=== PATIENT | female | born 1975 | race African-American/Black ===

== ENCOUNTER → 2021-10-24 | Outpatient (CLI) | payer BC, SELFPAY ==
[2021-10-24 15:22] LABS: Absolute Lymphocyte Count 0.44 X10^3/uL (0.83-4.51); Absolute Neutrophil Count 1.9 X10^3/uL (2.0-7.7); Basophil# 0.06 X10^3/uL; Basophil% 2.1 % (0-1); Eosinophil# 0.04 X10^3/uL; Eosinophils% 1.4 % (0-5); Hemoglobin 13.6 g/dL (12.0-15.0); Lymphocyte # 0.44 X10^3/ul (0.83-4.51); Lymphocyte % 15.2 % (19-41); Mean Corp Hgb Conc 31.6 g/dL (32-36); Mean Corpuscular Hgb 28.6 pg (27.0-32.0); Mean Corpuscular Volume 90.5 fL (81-99); Mean Platelet Vol. 11.3 fl (6.2-12.0); Monocyte# 0.49 X10^3/uL; NRBC Flagged by Analyzer 0 % (0-5); Neutrophil # 1.86 X10^3/uL (2.7-7.7); Neutrophil % 64.3 % (47-70); POSITIVE DIFFERENTIAL YES; Platelet Count 379 K/mm3 (150-450); RBC Distribution Width CV 14.4 % (11.6-14.6); RBC Distribution Width SD 47.1 fl (35.1-43.9); Red Blood Count 4.75 M/mm3 (4.2-5.4); White Blood Count 2.9 K/mm3 (4.4-11.0)
[2021-10-24 15:25] LABS: Differential Indicated SCAN CRITERIA MET
[2021-10-24 15:50] LABS: Differential Comment SCANNED
[2021-10-24 16:05] LABS: AST(SGOT) 13 U/L (15-37); Alanine Aminotransfer ALT/SGPT 17 U/L (13-56); Alkaline Phosphatase 50 U/L (45-117); Anion Gap 5 (5-15); BUN 10 mg/dL (7-18); BUN/Creat Ratio 12.6 RATIO (10-20); Chloride 104 mmol/L (98-107); Creatinine, Serum 0.79 mg/dL (0.55-1.02); EST Glomerular Filtration Rate 83 mL/min (>60); Est Glom Filt Rate - Afr Amer 101 mL/min (>60); Globulin 4.1 g/dL (2.2-4.2); Glucose 78 mg/dL (74-106); Protein, Total 8.1 g/dL (6.4-8.2); Sodium Level 137 mmol/L (136-145)
[2021-10-26 10:27] LABS: Pathologist Review Reviewed
== END | disposition home or self-care (01) ==
LOC: BIMLAB 14:18
PROVIDERS: PCP Internal Medicine; Referring Provider Internal Medicine; Visit Provider Internal Medicine
DX: D64.9 Anemia, unspecified (principal)
CPT/HCPCS: 36415; 80053; 85025

== ENCOUNTER → 2021-11-02 | Outpatient (CLI) | payer BC, SELFPAY ==
[2021-11-02 15:22] LABS: Cholesterol 170 mg/dL (200); High Density Lipoprotein 65 mg/dL; Triglycerides 87 mg/dL; Very Low Density Lipoprotein 17 mg/dL (5-40)
== END | disposition home or self-care (01) ==
LOC: BIMLAB 14:07
PROVIDERS: PCP Internal Medicine; Referring Provider Internal Medicine; Visit Provider Internal Medicine
DX: Z00.00 Encounter for general adult medical examination without abnormal findings (principal)
CPT/HCPCS: 36415; 80061

== ENCOUNTER → 2021-11-06 | Outpatient (CLI) | payer BC, SELFPAY ==
--- NOTE | 2021-11-06 19:02 | US_ITS ---
EXAM: US PELVIS TRANSABDOMINAL, COMPLETE CLINICAL INDICATION: MassUS - Pelvic, Tvag TECHNIQUE: Transabdominal pelvic ultrasound was performed with grayscale and color Doppler imaging. This report was created using [employer] technology. COMPARISON: None. FINDINGS: UTERUS/CERVIX: Multifibroid uterus. Four of the largest fibroids are measured. At the superior aspect there is a hypoechoic heterogeneous fibroid that measures 7.5 x 7.5 x 7.0 cm. At the superior left aspect there is a heterogeneous fibroid measuring 5.2 x 4.4 x 4.5 cm. At the mid left aspect there is a 6.3 x 5.3 x 5.6 cm fibroid. At the mid aspect there is a 2.3 x 3.2 x 2.1 cm pedunculated fibroid. Endometrial complex is distended with echogenic structure with vascular flow, measuring 2.4 x 1.7 x 1.5 cm. Consider direct visualization as polyp or tumor are not excluded. Uterus measures 17.9 x 12.6 x 9.8 cm. Nabothian cysts of the cervix. No IUD identified. Anteverted. RIGHT OVARY: Right ovary is not visualized due to positioning or overlying bowel gas. LEFT OVARY: Left ovary is visualized with normal blood flow to it, measuring 4.5 x 2.7 x 1.8 cm. FREE FLUID: No free fluid in the pelvic cul-de-sac. No free significant free pelvic fluid. No adnexal masses. BLADDER: Debris noted within the bladder along with wall thickening. Bladder has a volume of 4 69 mL at the time of the examination. US/Pelvic (Non ) IMPRESSION: 1. Endometrial complex is distended with echogenic structure with vascular flow, measuring 2.4 x 1.7 x 1.5 cm. Consider direct visualization as polyp or tumor are not excluded. 2. Multi fibroid uterus. Electronically Signed: Stevan Garcia MD at 4:14 EDT ,
== END | disposition home or self-care (01) ==
LOC: US 19:02
PROVIDERS: PCP Internal Medicine; Visit Provider Internal Medicine
DX: R19.09 Other intra-abdominal and pelvic swelling, mass and lump (principal)
CPT/HCPCS: 76856

== ENCOUNTER → 2021-11-30 | Outpatient (CLI) | payer BC, SELFPAY | END | disposition home or self-care (01) | LOC: LABSPEC 12:28 | PROVIDERS: PCP Internal Medicine; Referring Provider Obstetrics & Gynecology; Visit Provider Obstetrics & Gynecology | DX: N89.8 Other specified noninflammatory disorders of vagina (principal) | CPT/HCPCS: 87070; 87205 ==

== ENCOUNTER → 2021-12-14 | Outpatient (CLI) | payer BC, SELFPAY ==
--- NOTE | 2021-12-14 11:54 | BI_ITS ---
MAMMOGRAPHY - BILATERAL SCREENING REASON FOR EXAM: Female, 46 years old. Routine annual screening examination. PERTINENT HISTORY: Non-contributory. TECHNIQUE: Digital bilateral breast baljit (3D mammographic acquisition) in the CC and MLO projections. 2-D mediolateral oblique (MLO) and craniocaudad (CC) views of both breasts were obtained. CAD: Full Field Digital Mammography with Computer Added Detection was performed. COMPARISON: Comparison is made with prior outside examination dated 12/13/2020. FINDINGS: Breast Composition: The breasts are heterogeneously dense, which may obscure small masses. There are no dominant masses or suspicious calcifications. No other significant abnormalities are identified. There has been no significant change since the prior study. BI/SCRN MAMM (CAD)W/BALJIT BILAT IMPRESSION: Stable bilateral screening mammogram. Yearly follow-up mammogram recommended. (A) ASSESSMENT CATEGORY: BIRADS Category 1: Negative. A letter regarding these results will be sent to the patient by the facility within 30 days. Approximately 10% of breast cancers are not detected by mammography. A normal mammogram should not delay biopsy of a clinically suspicious abnormality. [id number] Electronically Signed: Kedar Ca MD at 14:01 EDT ,
== END | disposition home or self-care (01) ==
PROVIDERS: PCP Internal Medicine; Visit Provider Internal Medicine
DX: Z12.31 Encounter for screening mammogram for malignant neoplasm of breast (principal)
CPT/HCPCS: 77063; 77067

== ENCOUNTER → 2022-02-22 | Outpatient (CLI) | payer BC, SELFPAY | END | disposition home or self-care (01) | LOC: LABSPEC 10:58 | PROVIDERS: PCP Internal Medicine; Referring Provider Physician Assistant; Visit Provider Physician Assistant | DX: R05.9 Cough, unspecified (principal) | CPT/HCPCS: 87635; U0003; U0005 ==

== ENCOUNTER → 2022-09-20 | Outpatient (CLI) | payer BC, SELFPAY ==
[2022-09-20 11:56] LABS: Absolute Lymphocyte Count 0.58 X10^3/uL (0.83-4.51); Absolute Neutrophil Count 2.1 X10^3/uL (2.0-7.7); Basophil# 0.07 X10^3/uL; Eosinophil# 0.07 X10^3/uL; Hematocrit 39.1 % (37-47); Hemoglobin 12.3 g/dL (12.0-15.0); Lymphocyte # 0.58 X10^3/ul (0.83-4.51); Lymphocyte % 16.4 % (19-41); Mean Corp Hgb Conc 31.5 g/dL (32-36); Mean Corpuscular Hgb 28.4 pg (27.0-32.0); Mean Corpuscular Volume 90.3 fL (81-99); Mean Platelet Vol. 9.8 fl (6.2-12.0); Monocyte# 0.71 X10^3/uL; Monocyte% 20.1 % (0-10); NRBC Flagged by Analyzer 0 % (0-5); Neutrophil % 59.2 % (47-70); POSITIVE DIFFERENTIAL YES; Platelet Count 386 K/mm3 (150-450); RBC Distribution Width CV 12.4 % (11.6-14.6); RBC Distribution Width SD 41.1 fl (35.1-43.9); Red Blood Count 4.33 M/mm3 (4.2-5.4); White Blood Count 3.5 K/mm3 (4.4-11.0)
[2022-09-20 11:57] LABS: Differential Indicated SCAN CRITERIA MET
[2022-09-20 13:10] LABS: Thyroid Stim Hormone (TSH) 2.07 uIU/mL (0.358-3.74)
[2022-09-21 14:21] LABS: Pathologist Review Reviewed
== END | disposition home or self-care (01) ==
LOC: PAVLAB 11:42
PROVIDERS: PCP Internal Medicine; Referring Provider Obstetrics & Gynecology; Visit Provider Obstetrics & Gynecology
DX: N92.0 Excessive and frequent menstruation with regular cycle (principal); D50.0 Iron deficiency anemia secondary to blood loss (chronic); D25.9 Leiomyoma of uterus, unspecified; Z13.29 Encounter for screening for other suspected endocrine disorder
CPT/HCPCS: 36415; 84443; 85025

== ENCOUNTER → 2022-10-22 | Outpatient (CLI) | payer BC, SELFPAY ==
[2022-10-22 13:55] LABS: Absolute Lymphocyte Count 0.55 X10^3/uL (0.83-4.51); Absolute Neutrophil Count 2.7 X10^3/uL (2.0-7.7); Basophil# 0.06 X10^3/uL; Basophil% 1.5 % (0-1); Eosinophil# 0.06 X10^3/uL; Eosinophils% 1.5 % (0-5); Hematocrit 37.2 % (37-47); Hemoglobin 11.6 g/dL (12.0-15.0); Lymphocyte # 0.55 X10^3/ul (0.83-4.51); Lymphocyte % 13.7 % (19-41); Mean Corp Hgb Conc 31.2 g/dL (32-36); Mean Corpuscular Hgb 28.5 pg (27.0-32.0); Mean Corpuscular Volume 91.4 fL (81-99); Mean Platelet Vol. 9.7 fl (6.2-12.0); Monocyte# 0.61 X10^3/uL; Monocyte% 15.2 % (0-10); NRBC Flagged by Analyzer 0 % (0-5); Neutrophil # 2.73 X10^3/uL (2.7-7.7); Neutrophil % 67.9 % (47-70); POSITIVE DIFFERENTIAL YES; Platelet Count 390 K/mm3 (150-450); RBC Distribution Width CV 12.4 % (11.6-14.6); RBC Distribution Width SD 41.1 fl (35.1-43.9); Red Blood Count 4.07 M/mm3 (4.2-5.4)
[2022-10-22 13:57] LABS: Differential Indicated SCAN CRITERIA MET
[2022-10-22 14:50] LABS: Differential Comment SCANNED
[2022-10-24 09:38] LABS: Pathologist Review Reviewed
== END | disposition home or self-care (01) ==
LOC: PAVLAB 13:12
PROVIDERS: PCP Internal Medicine; Referring Provider Obstetrics & Gynecology; Visit Provider Obstetrics & Gynecology
DX: D72.819 Decreased white blood cell count, unspecified (principal)
CPT/HCPCS: 36415; 85025

== ENCOUNTER → 2022-12-05 | Outpatient (CLI) | payer BC, SELFPAY ==
[2022-12-05 16:03] LABS: Absolute Lymphocyte Count 0.49 X10^3/uL (0.83-4.51); Basophil# 0.05 X10^3/uL; Basophil% 1.6 % (0-1); Eosinophil# 0.07 X10^3/uL; Eosinophils% 2.3 % (0-5); Hematocrit 36.6 % (37-47); Lymphocyte # 0.49 X10^3/ul (0.83-4.51); Lymphocyte % 15.8 % (19-41); Mean Corp Hgb Conc 30.1 g/dL (32-36); Mean Corpuscular Hgb 26.7 pg (27.0-32.0); Mean Corpuscular Volume 88.8 fL (81-99); Mean Platelet Vol. 10.6 fl (6.2-12.0); Monocyte# 0.47 X10^3/uL; Monocyte% 15.2 % (0-10); NRBC Flagged by Analyzer 0 % (0-5); Neutrophil # 2.01 X10^3/uL (2.7-7.7); Neutrophil % 64.8 % (47-70); POSITIVE DIFFERENTIAL YES; Platelet Count 433 K/mm3 (150-450); RBC Distribution Width CV 13.1 % (11.6-14.6); RBC Distribution Width SD 42.9 fl (35.1-43.9); Red Blood Count 4.12 M/mm3 (4.2-5.4); White Blood Count 3.1 K/mm3 (4.4-11.0)
[2022-12-05 16:17] LABS: Differential Indicated SCAN CRITERIA MET
[2022-12-05 16:26] LABS: ALB/GLOB Ratio 0.9 RATIO (0.9-2.4); AST(SGOT) 14 U/L (15-37); Alanine Aminotransfer ALT/SGPT 21 U/L (13-56); Albumin, Serum 3.7 g/dL (3.2-5.0); Alkaline Phosphatase 53 U/L (45-117); Anion Gap 5 (5-15); BUN 8 mg/dL (7-18); BUN/Creat Ratio 9.5 RATIO (10-20); Calcium,Total 8.7 mg/dL (8.5-10.1); Chloride 106 mmol/L (98-107); Cholesterol 177 mg/dL (200); Creatinine, Serum 0.84 mg/dL (0.55-1.02); EST Glomerular Filtration Rate 77 mL/min (>60); Est Glom Filt Rate - Afr Amer 94 mL/min (>60); Glucose 84 mg/dL (74-106); High Density Lipoprotein 76 mg/dL; Potassium 3.9 mmol/L (3.5-5.1); Protein, Total 7.7 g/dL (6.4-8.2); Sodium Level 136 mmol/L (136-145); Triglycerides 58 mg/dL; Very Low Density Lipoprotein 12 mg/dL (5-40)
[2022-12-05 16:54] LABS: Anisocytosis RARE; Hypochromasia RARE; Macrocytosis RARE; Platelet Estimate SLT INC (ADEQ); Red Cell Morphology N CHROM NORMAL (NORM C&C)
[2022-12-05 16:55] LABS: Ovalocyte RARE
[2022-12-07 09:36] LABS: Pathologist Review Reviewed
== END | disposition home or self-care (01) ==
LOC: BIMLAB 13:57
PROVIDERS: PCP Internal Medicine; Referring Provider Internal Medicine; Visit Provider Internal Medicine
DX: Z00.00 Encounter for general adult medical examination without abnormal findings (principal)
CPT/HCPCS: 36415; 80053; 80061; 85025

== ENCOUNTER → 2022-12-10 | Outpatient (CLI) | payer BC, SELFPAY ==
--- NOTE | 2022-12-10 13:07 | US_ITS ---
EXAM: US PELVIS TRANSABDOMINAL AND TRANSVAGINAL, COMPLETE CLINICAL INDICATION: heavy menses -- fibroid uterus TECHNIQUE: Transabdominal and transvaginal pelvic ultrasound was performed with grayscale and color Doppler imaging. Transvaginal imaging was used for better evaluation of the endometrium and adnexa. COMPARISON: No relevant prior studies available. FINDINGS: UTERUS/CERVIX: Multiple uterine fibroids. Largest is located at the right lateral aspect measuring 9.2 x 8.5 x 6.6 cm. On the left side the largest 2 fibroids each measuring up to to 5.4 cm and there is a pedunculated left-sided fibroid measuring up to 3.0 cm. Uterus overall measures 18.2 x 17.0 x 8. 7 cm with endometrial complex thickening to 4.5 mm. The nabothian cysts of the cervix. Both ovaries are normal with right ovary measuring 4.7 x 3.3 x 2.8 cm and the left ovary measuring 4.4 x 3.0 x 1.5 cm. RIGHT OVARY: Blood flow is demonstrated to both ovaries. No adnexal masses. LEFT OVARY: See above. FREE FLUID: No free fluid in the pelvic cul-de-sac. BLADDER: Unremarkable as visualized. Wall is normal thickness for degree of distention. VASCULATURE: There is a vascular nodule in the endometrial canal measuring 2.1 x 1.7 x 1.4 cm. US/Transvaginal Non- IMPRESSION: Fibroid uterus with 2.1 cm nodule within the endometrial canal which may represent a submucosal fibroid or endometrial polyp. Recommend direct visualization. Electronically Signed: Stevan Garcia MD at 4:35 EDT ,
--- NOTE | 2022-12-10 13:07 | US_ITS ---
EXAM: US PELVIS TRANSABDOMINAL AND TRANSVAGINAL, COMPLETE CLINICAL INDICATION: heavy menses -- fibroid uterus TECHNIQUE: Transabdominal and transvaginal pelvic ultrasound was performed with grayscale and color Doppler imaging. Transvaginal imaging was used for better evaluation of the endometrium and adnexa. COMPARISON: No relevant prior studies available. FINDINGS: UTERUS/CERVIX: Multiple uterine fibroids. Largest is located at the right lateral aspect measuring 9.2 x 8.5 x 6.6 cm. On the left side the largest 2 fibroids each measuring up to to 5.4 cm and there is a pedunculated left-sided fibroid measuring up to 3.0 cm. Uterus overall measures 18.2 x 17.0 x 8. 7 cm with endometrial complex thickening to 4.5 mm. The nabothian cysts of the cervix. Both ovaries are normal with right ovary measuring 4.7 x 3.3 x 2.8 cm and the left ovary measuring 4.4 x 3.0 x 1.5 cm. RIGHT OVARY: Blood flow is demonstrated to both ovaries. No adnexal masses. LEFT OVARY: See above. FREE FLUID: No free fluid in the pelvic cul-de-sac. BLADDER: Unremarkable as visualized. Wall is normal thickness for degree of distention. VASCULATURE: There is a vascular nodule in the endometrial canal measuring 2.1 x 1.7 x 1.4 cm. US/Pelvic (Non ) IMPRESSION: Fibroid uterus with 2.1 cm nodule within the endometrial canal which may represent a submucosal fibroid or endometrial polyp. Recommend direct visualization. Electronically Signed: Stevan Garcia MD at 4:35 EDT ,
== END | disposition home or self-care (01) ==
PROVIDERS: PCP Internal Medicine; Referring Provider Obstetrics & Gynecology; Visit Provider Obstetrics & Gynecology
DX: N92.0 Excessive and frequent menstruation with regular cycle (principal); D25.9 Leiomyoma of uterus, unspecified
CPT/HCPCS: 76830; 76856

== ENCOUNTER → 2022-12-19 | Outpatient (CLI) | payer BC, SELFPAY ==
--- NOTE | 2022-12-19 14:27 | BI_ITS ---
MAMMOGRAPHY - BILATERAL SCREENING REASON FOR EXAM: Female, 47 years old. Routine annual screening examination. PERTINENT HISTORY: Non-contributory. TECHNIQUE: Digital bilateral breast baljit (3D mammographic acquisition) in the CC and MLO projections. 2-D mediolateral oblique (MLO) and craniocaudad (CC) views of both breasts were obtained. CAD: Full Field Digital Mammography with Computer Added Detection was performed. COMPARISON: Comparison is made with prior examination December 14, 2021. FINDINGS: Breast Composition: The breasts are heterogeneously dense, which may obscure small masses. There are no dominant masses or suspicious calcifications. No other significant abnormalities are identified. There has been no significant change since the prior study. BI/SCRN MAMM (CAD)W/BALJIT BILAT IMPRESSION: Stable bilateral screening mammogram. Yearly follow-up mammogram recommended. (A) ASSESSMENT CATEGORY: BIRADS Category 1: Negative. A letter regarding these results will be sent to the patient by the facility within 30 days. Approximately 10% of breast cancers are not detected by mammography. A normal mammogram should not delay biopsy of a clinically suspicious abnormality. [id number] Electronically Signed: Kedar Ca MD at 15:05 EST ,
== END | disposition home or self-care (01) ==
LOC: OPBI 14:26
PROVIDERS: PCP Internal Medicine; Referring Provider Internal Medicine; Visit Provider Internal Medicine
DX: Z12.31 Encounter for screening mammogram for malignant neoplasm of breast (principal)
CPT/HCPCS: 77063; 77067

== ENCOUNTER → 2022-12-31 | Outpatient (CLI) | payer BC, SELFPAY ==
[2023-01-07 20:07] LABS: HPV APTIMA, High Risk Positive (Negative); HPV Genotype 16, Aptima Positive (Negative); HPV Genotype 18,45 Aptima Negative (Negative)
== END | disposition home or self-care (01) ==
PROVIDERS: PCP Internal Medicine; Visit Provider Obstetrics & Gynecology
DX: Z12.4 Encounter for screening for malignant neoplasm of cervix (principal)
CPT/HCPCS: 87624; 88175; G0145

== ENCOUNTER → 2023-03-11 | Outpatient (CLI) | payer BC, SELFPAY ==
--- NOTE | 2023-03-11 | IMM_PTH ---
PATHOLOGY RESULTS PATIENT: DUONG MARY LOC: [facility] U#:[id number] AGE/SX: 47/F ROOM: RE03/11/[address]: Dr. Felisha Martin DO : 1975 BED: DIS: 03/11/2023 SPEC #: [id number] RECD: 03/13/23 14:43 STATUS: REECE RELeighton #: [id number] FELA: 03/11/23 00:[address]: Felisha Martin DEPT: IMMUNOHISTOCHEMISTRY RECD BY: Davina Madden ENTERED: 03/13/23 14:44 SP TYPE: IMMUNO OTHR DR: Dr. Reymundo Mcadams MD Tissues: Uterine cervix, NOS Procedures: p16 (initial) KI-67 (add) PHYSICIAN & INSTITUTION [place] [id number] SPECIMEN INFORMATION: Tissue Source: A - Cervix 12 o'clock Clinical Info: HPV positive Specimen Number: [id number] CPT code: 74717, 16558 METHODOLOGY: Deparaffinized sections of prefer/formalin-fixed tissue or PAP/DQ stained slides are incubated with monoclonal/polyclonal antibodies/oligonucleotide probes. Localization is made via biotin free immunoperoxidase method. Appropriate controls are performed and reacted as expected. Results on target cell population are indicated in the following table: RESULTS: ANTIBODY / CLONE RESULT Block A P16 (E6H4) negative Ki-67 (30-9) negative These tests were developed and their performance characteristics determined by [facility]. They may not have been cleared or approved by the U.S. Food and Drug Administration. The FDA has determined that such clearance or approval is not necessary. The above immunohistochemical/dualISH markers are ordered and reviewed by the Pathologist. INTERPRETATION: A. Cervix at 12 o'clock, biopsy: No evidence of dysplasia. AM:sharmaine 03/14/2023
--- NOTE | 2023-03-11 14:15 | CER_PTH ---
PATHOLOGY RESULTS PATIENT: DUONG MARY LOC: [facility] U#:[id number] AGE/SX: 47/F ROOM: RE03/11/[address]: Dr. Felisha Martin DO : 1975 BED: DIS: 03/11/2023 SPEC #: [id number] RECD: 03/11/23 15:21 STATUS: REECE COREY #: [id number] FELA: 03/11/23 14:[address]: Felisha Martin DEPT: SURGICAL PATHOLOGY RECD BY: Nicole Castillo ENTERED: 03/12/23 11:48 SP TYPE: CERV OTHR DR: Dr. Reymundo Mcadams MD Tissues: Uterine cervix, NOS Endocervical Procedures: Surgery Specimen Level IV HEADER OPERATION: Colposcopy PRE-OP DIAGNOSIS: HPV positive TISSUE SUBMITTED: A - 12 o'clock, B - ECC MICROSCOPIC DIAGNOSIS A. Cervix at 12 o'clock, biopsy: Fragments of benign squamous mucosa. Fragments of endocervix with chronic inflammation. See comment. B. Endocervix, curettings: Rare strips of benign superficial glandular mucosa. See comment. AM:sharmaine 03/13/2023 COMMENT A. Results from immunohistochemistry ([id number]) for surrogate HPV marker (p16) will be reported separately. B. The specimen primarily consists of mucoid material. Clinical correlation is suggested. Case has been reviewed in consultation with Dr. Lyons who concurs with the above diagnosis. IDC:[email or web address] MICROSCOPIC DESCRIPTION Slides are reviewed. GROSS DESCRIPTION A - Received in fixative is one container labeled with the patient's name and designated 12 o'clock cervix. The specimen consists of one irregular fragment of light lopez soft tissue that measures 0.5 x 0.4 x 0.1 cm. The specimen is totally submitted in one cassette. B - Received in fixative is one container labeled with the patient's name and designated ECC. The specimen consists of multiple irregular fragments of lopez mucoid tissue that in aggregate measure 2.0 x 1.0 x 0.1 cm. The specimen also contains the brush. The specimen is totally submitted in one cassette. / THIERRY:sharmaine 03/12/2023 TC:3 CPT: 95788 x2
--- OUTSIDE RECORDS SUMMARY | 2023-03-11 15:40 | XMS RPT_ITS | CCD ---
Author Name Unknown Address [address] [place] [address] Organization [facility] Care Team Providers Care Medical Technologist Name Role Phone NEIL AMADO Attending Unavailable Problems Problem Classification Problem Date Documented Da te Episodic/Chronic Other female genital disorders (2 sources) Vaginal discharge; Translations: [Vaginal Discharge] Onset: 12-28-2021 Episodic Unclassified (2 sources) Annual Exam; Translations: [Annual Exam] Onset: 12-28-2021 Encounters Encounter Date Encounter Type Care Provider Facility Start: 12-28-2021 End: 12-28-2021 ambulatory NEIL AMADO [facility] Payers Date Payer Category Payer Unknown [id number] Summary Purpose Family History No Family History Records Found Advance Directives No Advanced Directives Records Found Additional Source Comments INFORMATION SOURCE (unrecogn ized section and content) FOR RECORDS PERTAINING TO PATIENTS WHO ARE OR HAVE BEEN ENROLLED IN A CHEMICAL DEPENDENCY/SUBSTANCEABUSE PROGRAM, SOME INFORMATION MAY BE OMITTED. This clinical summary was aggregated from multiple sources. Caution should be exercised in using it in the provision of clinical care. This summary normalizes information from multiple sources, and as a consequence, information in this document may materially change the coding, format and clinical context of patient data. In addition, data may be omitted in some cases. CLINICAL DECISIONS SHOULD BE BASED ON THE PRIMARY CLINICAL RECORDS. [email or web address] [facility]. provides no warranty or guarantee of the accuracy or completeness of information in this document.
== END | disposition home or self-care (01) ==
LOC: LABSPEC 15:23
PROVIDERS: PCP Internal Medicine; Referring Provider Obstetrics & Gynecology; Visit Provider Obstetrics & Gynecology
DX: Z11.51 Encounter for screening for human papillomavirus (HPV) (principal)
CPT/HCPCS: 88305; 88341; 88342

== ENCOUNTER → 2024-01-03 | Outpatient (CLI) | payer BC, SELFPAY ==
[2024-01-15 11:09] LABS: HPV APTIMA, High Risk Negative (Negative)
== END | disposition home or self-care (01) ==
LOC: LABSPEC 16:38
PROVIDERS: PCP Internal Medicine; Referring Provider Obstetrics & Gynecology; Visit Provider Obstetrics & Gynecology
DX: Z12.4 Encounter for screening for malignant neoplasm of cervix (principal)
CPT/HCPCS: 87624; 88175; G0145

== ENCOUNTER → 2024-01-15 | Outpatient (CLI) | payer BC, SELFPAY ==
[2024-01-15 16:32] LABS: Absolute Lymphocyte Count 0.58 X10^3/uL (0.83-4.51); Absolute Neutrophil Count 1.3 X10^3/uL (2.0-7.7); Basophil# 0.06 X10^3/uL; Basophil% 2.4 % (0-1); Eosinophil# 0.07 X10^3/uL; Eosinophils% 2.8 % (0-5); Hematocrit 24.1 % (37-47); Hemoglobin 6.8 g/dL (12.0-15.0); Lymphocyte # 0.58 X10^3/ul (0.83-4.51); Lymphocyte % 23.4 % (19-41); Mean Corp Hgb Conc 28.2 g/dL (32-36); Mean Corpuscular Volume 67.5 fL (81-99); Mean Platelet Vol. 10.5 fl (6.2-12.0); Monocyte# 0.47 X10^3/uL; NRBC Flagged by Analyzer 0 % (0-5); Neutrophil # 1.29 X10^3/uL (2.7-7.7); POSITIVE COUNT YES; POSITIVE DIFFERENTIAL YES; POSITIVE MORPHOLOGY YES; RBC Distribution Width CV 21.7 % (11.6-14.6); Red Blood Count 3.57 M/mm3 (4.2-5.4); White Blood Count 2.5 K/mm3 (4.4-11.0)
[2024-01-15 16:50] LABS: Differential Indicated SCAN CRITERIA MET; Platelet Count 772 K/mm3 (150-450)
[2024-01-15 17:00] LABS: ALB/GLOB Ratio 0.9 RATIO (0.9-2.4); AST(SGOT) 14 U/L (15-37); Alanine Aminotransfer ALT/SGPT 17 U/L (13-56); Albumin, Serum 3.6 g/dL (3.2-5.0); Alkaline Phosphatase 36 U/L (45-117); Anion Gap 7 (5-15); BUN 15 mg/dL (7-18); BUN/Creat Ratio 17.4 RATIO (10-20); Calcium,Total 9.3 mg/dL (8.5-10.1); Chloride 105 mmol/L (98-107); Creatinine, Serum 0.86 mg/dL (0.55-1.02); EST Glomerular Filtration Rate 75 mL/min (>60); Est Glom Filt Rate - Afr Amer 91 mL/min (>60); Ferritin 4 ng/mL (8-252); Glucose 92 mg/dL (74-106); Iron 9 ug/dL (50-170); Iron Binding Capacity,Total 484 ug/dL (250-450); Potassium 3.7 mmol/L (3.5-5.1); Protein, Total 7.6 g/dL (6.4-8.2); Sodium Level 137 mmol/L (136-145)
[2024-01-15 17:07] LABS: Platelet Estimate MKD INC (ADEQ)
[2024-01-15 17:08] LABS: Anisocytosis 2+; Hypochromasia 3+; Ovalocyte RARE; Stomatocyte RARE; Target Cells RARE; Tear Drop Cell RARE
[2024-01-16 14:43] LABS: Pathologist Review Reviewed
== END | disposition home or self-care (01) ==
LOC: BIMLAB 15:40
PROVIDERS: PCP Internal Medicine; Referring Provider Internal Medicine; Visit Provider Internal Medicine
DX: D64.9 Anemia, unspecified (principal)
CPT/HCPCS: 36415; 80053; 82728; 83540; 83550; 85025

== ENCOUNTER 2024-01-17 08:09 | Outpatient (CLI) | payer BC, SELFPAY ==
[2024-01-17 08:18] VITALS: BP 118/72; PULSE 100; RESP 16; TEMP 35.9; O2SAT 100; BMI 23.4
[2024-01-17 09:01] VITALS: BP 110/67; PULSE 88; RESP 16; TEMP 36; O2SAT 100
[2024-01-17 10:01] VITALS: BP 112/64; PULSE 79; RESP 16; TEMP 36.1; O2SAT 100
[2024-01-17 11:15] VITALS: BP 113/69; PULSE 69; RESP 14; TEMP 36.2; O2SAT 97
[2024-01-17 12:15] VITALS: BP 124/77; PULSE 82; RESP 16; TEMP 36.1; O2SAT 98
[2024-01-17 12:52] VITALS: BP 122/75; PULSE 80; RESP 16; TEMP 36.2; O2SAT 98
== END 2024-01-17 23:59 | disposition home or self-care (01) ==
LOC: MEDOUTP 08:09
PROVIDERS: PCP Internal Medicine; Referring Provider Internal Medicine; Visit Provider Internal Medicine
DX: D64.9 Anemia, unspecified (principal); D75.839 Thrombocytosis, unspecified
CPT/HCPCS: 36415; 36430; 86850; 86900; 86901; 86920; 86922; P9016; A4216

== ENCOUNTER 2024-01-22 08:45 | Outpatient (CLI) | payer BC, SELFPAY ==
[2024-01-22] MEDS: Iron Sucrose Complex 200 MG in Syringe 1 EACH IV (09:00)
[2024-01-22] MEDS: 0.9% NaCl Peripheral Flush Adult/Peds IV ×2 (09:10→09:11)
[2024-01-22 09:12] VITALS: BP 124/81; PULSE 77; RESP 14; O2SAT 100; BMI 24.1
[2024-01-22 09:42] VITALS: BP 102/75; PULSE 71; RESP 16; TEMP 36.3; O2SAT 100
== END 2024-01-22 23:59 | disposition home or self-care (01) ==
LOC: MEDOUTP 08:45
PROVIDERS: PCP Internal Medicine; Referring Provider Internal Medicine; Visit Provider Internal Medicine
DX: D64.9 Anemia, unspecified (principal); D75.839 Thrombocytosis, unspecified
CPT/HCPCS: 96374; J1756; A4216

== ENCOUNTER → 2024-01-22 | Outpatient (CLI) | payer BC, SELFPAY ==
--- NOTE | 2024-01-22 09:47 | BI_ITS ---
MAMMOGRAPHY - BILATERAL SCREENING REASON FOR EXAM: Female, 48 years old. Routine annual screening examination. PERTINENT HISTORY: Non-contributory. TECHNIQUE: Digital bilateral breast baljit (3D mammographic acquisition) in the CC and MLO projections. 2-D mediolateral oblique (MLO) and craniocaudad (CC) views of both breasts were obtained. CAD: Full Field Digital Mammography with Computer Added Detection was performed. COMPARISON: Comparison is made with prior study dated December 19, 2022 and December 14, 2021. FINDINGS: Breast Composition: The breasts are heterogeneously dense, which may obscure small masses. There are no dominant masses or suspicious calcifications. No other significant abnormalities are identified. There has been no significant change since the prior study. BI/SCRN MAMM (CAD)W/BALJIT BILAT IMPRESSION: Stable bilateral screening mammogram. Yearly follow-up mammogram recommended. (A) ASSESSMENT CATEGORY: BIRADS Category 1: Negative. A letter regarding these results will be sent to the patient by the facility within 30 days. Approximately 10% of breast cancers are not detected by mammography. A normal mammogram should not delay biopsy of a clinically suspicious abnormality. [id number] Electronically Signed: Kedar Ca MD at 11:12 EST ,
== END | disposition home or self-care (01) ==
LOC: OPBI 09:47
PROVIDERS: PCP Internal Medicine; Referring Provider Obstetrics & Gynecology; Visit Provider Obstetrics & Gynecology
DX: Z12.31 Encounter for screening mammogram for malignant neoplasm of breast (principal)
CPT/HCPCS: 77063; 77067

== ENCOUNTER 2024-01-24 08:31 | Outpatient (CLI) | payer BC, SELFPAY ==
[2024-01-24 08:51] VITALS: BP 116/80; PULSE 72; RESP 14; TEMP 36.1; O2SAT 100
[2024-01-24] MEDS: Iron Sucrose Complex 200 MG in Syringe 1 EACH IV (09:13)
[2024-01-24] MEDS: 0.9% NaCl Peripheral Flush Adult/Peds IV ×2 (09:13→09:24)
== END 2024-01-24 23:59 | disposition home or self-care (01) ==
LOC: MEDOUTP 08:31
PROVIDERS: PCP Internal Medicine; Referring Provider Internal Medicine; Visit Provider Internal Medicine
DX: D64.9 Anemia, unspecified (principal); D75.839 Thrombocytosis, unspecified
CPT/HCPCS: 96374; J1756; A4216

== ENCOUNTER 2024-01-27 08:31 | Outpatient (CLI) | payer BC, SELFPAY ==
[2024-01-27 08:36] VITALS: BP 134/79; PULSE 75; RESP 16; TEMP 35.7; O2SAT 100
[2024-01-27] MEDS: 0.9% NaCl Peripheral Flush Adult/Peds IV ×2 (08:40→08:54)
[2024-01-27] MEDS: Iron Sucrose Complex 200 MG in Syringe 1 EACH IV (08:54)
== END 2024-01-27 23:59 | disposition home or self-care (01) ==
LOC: MEDOUTP 08:31
PROVIDERS: PCP Internal Medicine; Referring Provider Internal Medicine; Visit Provider Internal Medicine
DX: D64.9 Anemia, unspecified (principal); D75.839 Thrombocytosis, unspecified
CPT/HCPCS: 96374; J1756; A4216

== ENCOUNTER → 2024-01-28 | Outpatient (CLI) | payer BC, SELFPAY ==
[2024-01-28 17:58] LABS: Absolute Lymphocyte Count 0.53 X10^3/uL (0.83-4.51); Absolute Neutrophil Count 3.6 X10^3/uL (2.0-7.7); Basophil# 0.08 X10^3/uL; Basophil% 1.6 % (0-1); Eosinophil# 0.08 X10^3/uL; Eosinophils% 1.6 % (0-5); Hematocrit 32.4 % (37-47); Hemoglobin 9.6 g/dL (12.0-15.0); Lymphocyte # 0.53 X10^3/ul (0.83-4.51); Lymphocyte % 10.4 % (19-41); Mean Corp Hgb Conc 29.6 g/dL (32-36); Mean Corpuscular Hgb 22.1 pg (27.0-32.0); Mean Corpuscular Volume 74.5 fL (81-99); Monocyte# 0.81 X10^3/uL; Monocyte% 15.9 % (0-10); NRBC Flagged by Analyzer 0.4 % (0-5); Neutrophil # 3.56 X10^3/uL (2.7-7.7); Neutrophil % 69.9 % (47-70); POSITIVE DIFFERENTIAL YES; POSITIVE MORPHOLOGY YES; Platelet Count 190 K/mm3 (150-450); RBC Distribution Width CV 26.5 % (11.6-14.6); RBC Distribution Width SD 65.6 fl (35.1-43.9); Red Blood Count 4.35 M/mm3 (4.2-5.4); White Blood Count 5.1 K/mm3 (4.4-11.0)
[2024-01-28 18:00] LABS: Differential Indicated SCAN CRITERIA MET
[2024-01-28 18:30] LABS: Anisocytosis 2+; Differential Comment SCANNED; Hypochromasia 2+
[2024-01-28 18:31] LABS: Crenated RBC 1+; Macrocytosis RARE; Microcytosis 1+; Schistocytes RARE
== END | disposition home or self-care (01) ==
LOC: BIMLAB 14:58
PROVIDERS: PCP Internal Medicine; Referring Provider Internal Medicine; Visit Provider Internal Medicine
DX: D64.9 Anemia, unspecified (principal)
CPT/HCPCS: 36415; 85025

== ENCOUNTER 2024-01-29 08:39 | Outpatient (CLI) | payer BC, SELFPAY ==
[2024-01-29 08:42] VITALS: BP 122/72; PULSE 76; RESP 16; TEMP 36.1; O2SAT 100
[2024-01-29] MEDS: 0.9% NaCl Peripheral Flush Adult/Peds IV ×2 (08:45→08:59)
[2024-01-29] MEDS: Iron Sucrose Complex 200 MG in Syringe 1 EACH IV (08:53)
== END 2024-01-29 23:59 | disposition home or self-care (01) ==
LOC: MEDOUTP 08:40
PROVIDERS: PCP Internal Medicine; Referring Provider Internal Medicine; Visit Provider Internal Medicine
DX: D50.9 Iron deficiency anemia, unspecified (principal); D75.839 Thrombocytosis, unspecified
CPT/HCPCS: 96374; J1756; A4216

== ENCOUNTER 2024-01-31 08:48 | Outpatient (CLI) | payer BC, SELFPAY ==
[2024-01-31 09:01] VITALS: BP 127/86; PULSE 84; RESP 14; TEMP 36.4; O2SAT 100; BMI 23.9
[2024-01-31] MEDS: Iron Sucrose Complex 200 MG in Syringe 1 EACH IV (09:11)
[2024-01-31] MEDS: 0.9% NaCl Peripheral Flush Adult/Peds IV ×2 (09:28→09:36)
== END 2024-01-31 23:59 | disposition home or self-care (01) ==
LOC: MEDOUTP 08:48
PROVIDERS: PCP Internal Medicine; Referring Provider Internal Medicine; Visit Provider Internal Medicine
DX: D50.9 Iron deficiency anemia, unspecified (principal); D75.839 Thrombocytosis, unspecified
CPT/HCPCS: 96374; J1756; A4216

== ENCOUNTER → 2024-02-06 | Outpatient (CLI) | payer BC, SELFPAY ==
--- NOTE | 2024-02-06 | EMB_PTH ---
PATIENT: DUONG MARY LOC: [facility] U#:[id number] AGE/SX: 48/F ROOM: RE02/06/[address]: Dr. Rosalie Ibanez MD : 1975 BED: DIS: 02/06/2024 SPEC #: [id number] RECD: 02/07/24 11:11 STATUS: REECE NICOLE #: [id number] FELA: 02/06/24 00:[address]: Rosalie Ibanez DEPT: SURGICAL PATHOLOGY RECD BY: Ezequiel Bowman ENTERED: 02/07/24 11:11 SP TYPE: ENDOM BX/C ANNETTE DR: Dr. Reymundo Mcadams MD Tissues: Endometrium, NOS Procedures: Surgery Specimen Level IV HEADER OPERATION: Endometrial biopsy PRE-OP DIAGNOSIS: Fibroid uterine TISSUE SUBMITTED: Endometrial tissue MICROSCOPIC DIAGNOSIS Endometrial biopsy: Fragments of benign endocervical mucosa with chronic inflammation, blood and mucous. See comment. 02/10/2024 COMMENT Endometrial tissue is not identified in the specimen. Clinical correlation and appropriate follow up are necessary. MICROSCOPIC DESCRIPTION Slides are reviewed. GROSS DESCRIPTION Received in fixative is one container labeled with the patient's name and designated Endometrial tissue. The specimen consists of multiple irregular fragments of brown tissue that in aggregate measure 2.8 x 2.2 x 0.3 cm. The specimen is totally submitted in one cassette. 02/10/2024 TC:3 CPT:84039
== END | disposition home or self-care (01) ==
LOC: LABSPEC 13:54
PROVIDERS: PCP Internal Medicine; Referring Provider Obstetrics & Gynecology; Visit Provider Obstetrics & Gynecology
DX: D25.9 Leiomyoma of uterus, unspecified (principal); N72 Inflammatory disease of cervix uteri
CPT/HCPCS: 88305

== ENCOUNTER → 2024-02-07 | Outpatient (CLI) | payer BC, SELFPAY ==
--- NOTE | 2024-02-07 08:56 | MRI_ITS ---
MR Pelvis Female WO/W Contrast 02/07/2024 9:18 AM COMPARISON: Ultrasound 12/10/2022 CLINICAL HISTORY: large fibroid uterus, PRE OP PLANNING, TECHNIQUE: Multiplanar T1 and T2 weighted, diffusion and dynamic post-gadolinium images were obtained through the pelvis. FINDINGS: Uterus size: Approximately 12.7 x 6.8 x 10 cm There are greater than 12 leiomyomas, which do distort the endometrial cavity. Leiomyomas: 1) approximately 8.9 x 6.7 x 7.4 cm (image 15, series 3); posterior; subserosal;homogeneous low T2 signal intensity; heterogeneous enhancement 2) 4.1 x 3.9 x 2.9 cm (image 9, series 3); left uterine body near the lower uterine segment; subserosal;homogeneous low T2 signal intensity; heterogeneous enhancement 3) 3.2 x 3.2 x 2.9 cm (image 16, series 3); posterior; submucosal;homogeneous low T2 signal intensity; homogeneous enhancement 4) 2.6 x 3.4 x 2.6 cm (image 10, series 3); anterior; pedunculated;homogeneous low T2 signal intensity; heterogeneous enhancement Endometrium: No focal abnormalities seen. Cervix: Multiple nabothian cysts. Right ovary: Unremarkable Left ovary: Unremarkable Free fluid: Absent Bones: No suspicious lesions MRI/Pelvis W/WO Contrast IMPRESSION: Multi fibroid uterus as described above. Note: The fundus of the uterus was not imaged, therefore this examination is limited. Consider obtaining additional MR Abdomen w/ and w/out contrast. Electronically Signed: Sean Acharya MD at 23:58 EST ,
== END | disposition home or self-care (01) ==
PROVIDERS: PCP Internal Medicine; Referring Provider Obstetrics & Gynecology; Visit Provider Obstetrics & Gynecology
DX: D25.9 Leiomyoma of uterus, unspecified (principal)
CPT/HCPCS: 72197; A9575

== ENCOUNTER 2024-02-18 07:59 | Inpatient (IN) | payer BC, SELFPAY ==
--- NOTE | 2024-02-06 12:40 | EKG12_ITS ---
Test Reason : PRE OP Blood Pressure : */* mmHG Vent. Rate : 76 BPM Atrial Rate : 76 BPM P-R Int : 128 ms QRS Dur : 78 ms QT Int : 366 ms P-R-T Axes : 67 88 9 degrees QTcB Int : 411 ms Normal sinus rhythm Normal ECG Confirmed by LYNDSAY PEDRO, JET ([id number]), copy editor LEANNE DEAN ([id number]) on 02/07/2024 6:16:45 AM Referred By: William FRAUSTO Confirmed By: JET UMANA MD
[2024-02-06 13:23] LABS: Hemoglobin 10.2 g/dL (12.0-15.0); Mean Corpuscular Hgb 24.1 pg (27.0-32.0); Mean Corpuscular Volume 80.2 fL (81-99); POSITIVE MORPHOLOGY YES; Platelet Count 538 K/mm3 (150-450); RBC Distribution Width CV 31.3 % (11.6-14.6); RBC Distribution Width SD 89.5 fl (35.1-43.9); Red Blood Count 4.24 M/mm3 (4.2-5.4); White Blood Count 5.6 K/mm3 (4.4-11.0)
[2024-02-06 13:24] LABS: Scan Indicated on CBC? Y/N YES- FLAGS NOTED
[2024-02-06 13:31] LABS: Prothrombin Time (Protime)PT. 13.2 SECONDS (11.7-14.9)
[2024-02-06 13:32] LABS: Partial Thromboplast Time 29.9 Seconds (24.1-36.2)
[2024-02-06 13:57] LABS: Anion Gap 2 (5-15); BUN 11 mg/dL (7-18); BUN/Creat Ratio 12.8 RATIO (10-20); Calcium,Total 8.5 mg/dL (8.5-10.1); Chloride 108 mmol/L (98-107); Creatinine, Serum 0.86 mg/dL (0.55-1.02); EST Glomerular Filtration Rate 75 mL/min (>60); Est Glom Filt Rate - Afr Amer 91 mL/min (>60); Glucose 89 mg/dL (74-106); Magnesium 2.1 mg/dL (1.6-2.6); Potassium 4.1 mmol/L (3.5-5.1); Sodium Level 138 mmol/L (136-145)
--- NOTE | 2024-02-17 17:22 | HP.PCM_ITS ---
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 Required: No Is patient in pain?: No Allergies No Known Allergies Allergy (Verified 02/06/24 11:34) Medications ?Medication ?Instructions ?Recorded ?Confirmed ?Type ketoconazole 2 % topical cream 1 applic topical DAILY HEAD LESION 02/03/24 02/06/24 History Is last menstrual period known: Yes Last Menstrual Period: 01/31/24 Post menopausal: No Patient : No : No PFSH Medical History Wears glasses Depression Thyroid disease Anemia Low iron Syncope Non-smoker Leg cramps Easy bruising Hx of sinus tachycardia Chest pain Neuropathy Pica Dermatitis Localized superficial swelling of skin Muscle pain Heel callus Post-viral cough syndrome URI (upper respiratory infection) Elevated blood pressure reading without diagnosis of hypertension Endometriosis Menorrhagia Iron deficiency anemia due to chronic blood loss Orthorexia nervosa Plantar wart, right foot Leukopenia Suprapubic mass Colon cancer screening Preventative health care Bacterial vaginosis Vitamin D deficiency Adenomyosis Anemia Surgical History History of lobectomy of thyroid Hx of laparoscopy S/P thyroid biopsy Family History Mother OsteoporosisAunt Stomach cancerUncle Prostate CAOther AL amyloidosis Social History Smoking Status: Never smoker alcohol intake: current alcohol intake frequency: holidays/special occasions only substance use type: does not use caffeine: Yes what type of physical activity do you participate in: walking, yoga and other details: cardio frequency: 5-6 times per week seatbelt use: always do you feel safe at home: Yes 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 she has heavy menses, anemia is s/p transfusion and IV Iron infusion. she is ready to proceed with hysterecotmy for fibroids. she is getting an MRI to determine if robotic hysterectomy is an option. she is having heavy prolonged menses. Female Reproductive History Last Menstrual Period: 01/31/24 Cycle Length: 21-35 Bleeding Duration: 7 Associated symptoms: heavy Questions: metorrhagia: No, sexually active: Yes, dyspareunia: No and PCB: No Menopausal Symptoms: No hot flashes, No night sweats, No weight change, No mood changes, No difficulty concentrating, No sleep problems and No change in libido History 1 Elective abortions Hx Para Spontaneous abortions Hx # Term Pregnancies Ectopic pregnancies Hx # Pregnancies Multiple births # of living children 0 ROS Const Constitutional: Denies night sweats ENT ENT: Reports system reviewed and no additional complaints, except as documented Cardio Card: Denies chest pain Resp Resp: Denies cough or dyspnea GI GI: Reports as per HPI and constipation; Denies nausea or vomiting : Denies hot flashes or nipple discharge Musc Musc: Denies arthralgias, back pain or muscle weakness Skin Skin/Breast: Denies alopecia, change in hair, dry skin, breast mass, breast pain, breast skin changes or nipple discharge Neuro Neuro: Reports system reviewed and no additional complaints, except as documented Psych Psych: Denies change in libido or difficulty concentrating Endo Endo: Denies cold intolerance, excessive sweating, heat intolerance or polydipsia Manuel/Lymph Hematologic/Lymphatic: Denies easy bleeding, Denies easy bruising and Denies lymphadenopathy Exam Const General: cooperative, healthy appearing, comfortable, no acute distress and well developed Orientation: alert [facility] Head: normal to inspection and normocephalic Ears: hearing grossly normal bilaterally and external ears normal Nose: external nose normal and nares normal Face and sinus: normal facial exam Neck Neck: normal visual inspection and no lymphadenopathy Thyroid: thyroid normal Chest Chest palpation & inspection: normal inspection of the chest Resp Effort & Inspection: normal respiratory effort Auscultation: clear to auscultation bilaterally Cardio Rate: regular rate Rhythm: regular rhythm Heart Sounds: S1 normal and S2 normal GI Inspection: normal to inspection and non-distended Palpation: soft and no hepatosplenomegaly Other: abdominal mass up to umbilicus- uterus wide and fixed General: bladder normal to palpation External Female Exam: normal external appearance and normal appearance of the urethra Urethra: normal appearance of the urethra, normal palpation and no discharge Speculum Exam - Vagina: normal appearance of the vagina and normal vaginal discharge Speculum Exam - Cervix: normal appearance of the cervix and nontender Bimanual Exam- Vagina & Uterus: bladder normal to palpation, No tender, normal palpation and enlarged (20 week size multiple fibroids, fixed) Bimanual Exam- Adnexa, other: normal adnexae, adnexae mobile, no masses and normal Pelvic Support: normal Musc Other: gross motor intact no deficits, full bilateral strength Skin General: no rashes or lesions noted Neuro General: patient alert, patient awake, moves all extremities and no focal motor deficits Motor: muscle tone normal throughout Extrem General: normal to inspection and no pedal edema Psych Appearance: grossly normal Mental Status: mental status grossly normal Affect: normal affect Speech and Movement: speech and movement normal Office Procedures Endometrial Biopsy Endometrial Biopsy Test: Yes declined Consent Signed: Yes Time out checklist: patient, procedure, site marked/identified, positioning of patient, supplies available, allergies confirmed and team agrees on procedure Time out time: 12:12 tenaculum used: No dilator used: No Details: Cervix prepped with betadine and pipelle inserted into uterus only unil 5 cm without complication. Specimen obtained and sent to lab for analysis. All instruments removed from vagina without complications. Excellent hemostasis noted. Coding Level of Care Code No Charge Diagnoses Menorrhagia N92.0 Uterine leiomyoma, unspecified location D25.9 Uterine leiomyoma location: unspecified location Iron deficiency anemia due to chronic blood loss D50.0 CPT Codes Endometrial Biopsy (73359) Assessment and Plan Assessment and Plan (1) Menorrhagia: Status: Chronic Comment: sec fibroids, plan JAMES BS, pap done. (2) Fibroid, uterine: Status: Chronic Qualifiers: Uterine leiomyoma location: unspecified location Qualified Code(s): D25.9 - Leiomyoma of uterus, unspecified (3) Iron deficiency anemia due to chronic blood loss: Status: Chronic Orders: Orders Endometrial Biopsy Today Plan After discussing the patient's diagnosis and treatment plan options, patient wishes to proceed with surgical management. I have discussed with the patient the risks, benefits, and alternatives of the procedure which include but are not limited to risks of anesthesia, bleeding, infection, possible damage to bowel, bladder, or surrounding vasculature which could lead to additional surgery to evaluate any complications. Patient agrees to procedure and wishes to proceed. ACOG/uptodate references given for additional information regarding procedure. Assessment & Plan Assessment/Plan (1) High risk human papillomavirus (HPV) DNA test positive: (2) Menorrhagia:
[2024-02-18] VITALS (21 sets, daily range): BP systolic 121–149; BP diastolic 70–89; PULSE 63–116; RESP 16–19; TEMP 36.5–37.7; O2SAT 90–100; BMI 24.4
[2024-02-18] MEDS: 0.9% Normal Saline (1000mL) 1,000 ML 15 ML IV (06:34)
[2024-02-18] MEDS: Magnesium 1 GM over 15 mins IV (06:35)
[2024-02-18] MEDS: Celecoxib 200 MG Capsule 400 MG PO (06:38)
[2024-02-18] MEDS: Phenazopyridine 95 MG Tablet 190 MG PO (06:38)
[2024-02-18] MEDS: Acetaminophen 500 MG Tablet 1000 MG PO ×3 (06:38→19:46)
[2024-02-18] MEDS: dexAMETHasone 4 MG/ML Vial 8 MG IV (06:39)
[2024-02-18] MEDS: Enoxaparin 40 MG/0.4 ML Syringe SC (06:39)
[2024-02-18] MEDS: Gabapentin 600 MG Tablet PO (06:39)
[2024-02-18 06:42] LABS: Internal QC Validated? YES +Cl - CLEAR BKGD; Pregnancy, Urine Negative Negative
[2024-02-18] MEDS: Scopolamine 1mg/72hr Patch 1 PATCH TD (07:02)
--- NOTE | 2024-02-18 07:24 | PCM.PRE.AN2 ---
ASA Classification* ASA Classification ASA Classification: 2 Assessment & Plan Anesthesia* Anesthesia Assessment Anesthesia Assessment: Discussed sedation and/or anesthesia options, risks, benefits, and alternatives with patient/parents/legal guardian/POA. Questions invited. The patient/parents/legal guardian/POA seems to understand and agrees to proceed with anesthesia plan. Reviewed the physical assessment, medical history, allergy history and patient home medications list prior to surgery/procedure/anesthetic and documented any changes. Performed airway and anesthesia risk assessments. Anesthesia Type Anesthesia Type: General History Source History Obtained from:: Patient and Chart Anesthesia Focused Assessment* Temperature: 98.0 F Pulse Rate: 74 Blood Pressure: 131/73 Respiratory Rate: 16 Pulse Ox: 100 Oxygen Delivery Method: Room Air Airway Assessment Mouth opens: >3 cm Mallampati Score: III Teeth Condition: Intact Neck Range of motion (ROM): Full ROM Focused Labs Anesthesia Preop lab: CBC WBC 5.6 K/mm3 (4.4-11.0) 02/06/24 13:07 RBC 4.24 M/mm3 (4.2-5.4) 02/06/24 13:07 Hgb 10.2 g/dL (12.0-15.0) L 02/06/24 13:07 Hct 34.0 % (37-47) L 02/06/24 13:07 Plt Count 538 K/mm3 (150-450) H 02/06/24 13:07 CHEMISTRY Potassium 4.1 mmol/L (3.5-5.1) 02/06/24 13:07 Sodium 138 mmol/L (136-145) 02/06/24 13:07 Magnesium 2.1 mg/dL (1.6-2.6) 02/06/24 13:07 BUN 11 mg/dL (7-18) 02/06/24 13:07 Creatinine 0.86 mg/dL (0.55-1.02) 02/06/24 13:07 Glucose 89 mg/dL (74-106) 02/06/24 13:07 TSH 2.07 uIU/mL (0.358-3.74) 09/20/22 11:45 COAG PT 13.2 SECONDS (11.7-14.9) 02/06/24 13:07 Urine Test Negative Negative 02/18/24 05:54 Tst Clinic Negative 03/11/23 14:17 Pre-Assessment Diagnosis/Proposed Procedure Planned Operative Procedure(s): JAMES BSO Anesthesia History Anesthesia History - animal control officer: Anesthesia History - animal control officer Hx Hospitalization No 02/03/24 10:55 Any Problems With Anesthesia Yes: SLOW TO AWAKEN 02/03/24 10:55 Cholinesterase deficiency No 02/03/24 10:55 You/Your Family Experience No 02/03/24 10:55 fever (hyperthermia) with Relationship Recent Exposure to Contagious No 02/18/24 06:18 Disease Does patient have nerve No 02/03/24 10:55 stimulator Patient instructed to have device shut off --Does patient have Pacemaker No 02/18/24 06:19 or ICD? When Was Last Pacemaker Check QUESTION #4 FULL TEXT: You/Your Family Experience fever (hyperthermia) with Anesthesia Last Oral Intake Last Oral intake: Last Oral Intake NPO since 04:00 02/18/24 06:19 Meds taken in AM with sips of No 02/18/24 06:19 water? Meds patient instructed to take am of surgery PONV PONV - animal control officer: PONV - animal control officer Female Yes 02/03/24 10:55 HX of Motion Sickness Yes 02/03/24 10:55 HX of N/V After Surgery No 02/03/24 10:55 Non-Smoker Yes 02/03/24 10:55 Duration of Surgery greater Yes 02/03/24 10:55 than 60 minutes Number of Risk Factors 4 02/03/24 10:55 PONV Score Severe Risk 02/03/24 10:55 Height & Weight Height & Weight: Anesthesia: Height & Weight Height 5 ft 5 in 02/18/24 06:19 Weight: 66.678 kg 02/18/24 06:19 Body Mass Index (BMI) 24.4 02/18/24 06:19 Respiratory Assessment Respiratory Assessment - animal control officer: Respiratory Tract Infection Hx - animal control officer Hx Respiratory Tract Infection No 02/03/24 10:55 STOP Sleep Apnea STOP Sleep Apnea - animal control officer: STOP Sleep Apnea - animal control officer Hx Hypertension No 02/03/24 10:55 Hx Sleep Apnea No 02/03/24 10:55 CPAP BIPAP Do you snore loudly (louder No 02/03/24 10:55 than talking or can be heard Do you often feel tired/ Yes 02/03/24 10:55 fatigued/ sleepy during daytime? Has anyone observed you stop No 02/03/24 10:55 breathing during sleep? STOP Results Negative 02/03/24 10:55 QUESTION #5 FULL TEXT : Do you snore loudly (louder than talking or can be heard through closed doors)? 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 Specify any problems Hx of Preganancy in last 3 No 02/03/24 10:55 Months Nurse Filling Out Transfusion DSCHRIBER 02/03/24 10:55 & Questions: Date: 02/03/24 02/03/24 10:55 Time: 10:57 02/03/24 10:55 Patient unable to answer at this time (ie. confused, unrespo /Reproduction History /Reproductive History - animal control officer: /Reproductive Hx- animal control officer Hx Now No 02/03/24 10:55 Gestational Age (in weeks): EDC: Hx Hx Para Hx Section SAB No 02/06/24 11:35 Active Medications Active Medications: Current Medications Generic Name Dose Route Start Last Admin Trade Name Freq PRN Reason Stop Dose Admin Acetaminophen 1,000 mg 02/18/24 07:30 02/18/24 06:38 Acetaminophen 500 Mg Tablet PO 02/18/24 07:31 1,000 mg PREOP ONE Administration Celecoxib 400 mg 02/18/24 07:30 02/18/24 06:38 Celecoxib 200 Mg Capsule PO 02/18/24 07:31 400 mg X1 ONE Administration Dexamethasone Sodium Phosphate 8 mg 02/18/24 07:30 02/18/24 06:39 Dexamethasone 4 Mg/Ml Vial IV 02/18/24 07:31 8 mg X1 ONE Administration Enoxaparin Sodium 40 mg 02/18/24 07:30 02/18/24 06:39 Enoxaparin 40 Mg/0.4 Ml Syringe SC 02/18/24 07:31 40 mg X1 ONE Administration Gabapentin 600 mg 02/18/24 07:30 02/18/24 06:39 Gabapentin 600 Mg Tablet PO 02/18/24 07:31 600 mg PREOP ONE Administration Cefazolin Sodium 2 gm/ N/A 20 mls @ 400 mls/hr 02/18/24 07:30 IV 02/18/24 07:32 PREOP ONE Magnesium Sulfate 1 gm/ 102 mls @ 408 mls/hr 02/18/24 07:30 02/18/24 06:35 Dextrose IV 02/18/24 07:44 408 mls/hr X1 ONE Administration Sodium Chloride 1,000 mls @ 15 mls/hr 02/18/24 05:40 02/18/24 06:34 IV 02/23/24 18:59 15 mls/hr .Q48H PARTHA Administration Protocol Insulin Human Lispro 0 unit 02/18/24 07:30 Insulin Lispro 100 Unit/Ml Insuln.Pen SC Q4H PRN PRN BG >/= 180, SEE PROTOCOL Protocol Ondansetron HCl 4 mg 02/18/24 07:30 Ondansetron 4 Mg/2 Ml Vial IV 02/18/24 07:31 X1 ONE Phenazopyridine HCl 190 mg 02/18/24 07:30 02/18/24 06:38 Phenazopyridine 95 Mg Tablet PO 02/18/24 07:31 190 mg X1 ONE Administration Scopolamine HBr 1 patch 02/18/24 07:30 02/18/24 07:02 Scopolamine 1mg/72hr Patch TD 02/18/24 07:31 1 patch X1 ONE Administration PFSH Medical History Wears glasses Depression Thyroid disease Anemia Low iron Syncope Non-smoker Leg cramps Easy bruising Hx of sinus tachycardia Chest pain Neuropathy Pica Dermatitis Localized superficial swelling of skin Muscle pain Heel callus Post-viral cough syndrome URI (upper respiratory infection) Elevated blood pressure reading without diagnosis of hypertension Endometriosis Menorrhagia Iron deficiency anemia due to chronic blood loss Orthorexia nervosa Plantar wart, right foot Leukopenia Suprapubic mass Colon cancer screening Preventative health care Bacterial vaginosis Vitamin D deficiency Adenomyosis Anemia Home Medications ?Medication ?Instructions ?Recorded ?Last Taken ?Type ketoconazole 2 % topical cream 1 applic topical DAILY HEAD LESION 02/03/24 02/14/24 History Allergy/AdvReac Type Severity Reaction Status Date / Time No Known Allergies Allergy Verified 02/06/24 11:34 Family History Mother Osteoporosis Aunt Stomach cancer Uncle Prostate CA Other AL amyloidosis Surgical History History of lobectomy of thyroid Hx of laparoscopy S/P thyroid biopsy Social History Smoking Status: Never smoker alcohol intake: current alcohol intake frequency: holidays/special occasions only substance use type: does not use caffeine: Yes what type of physical activity do you participate in: walking, yoga and other details: cardio frequency: 5-6 times per week seatbelt use: always do you feel safe at home: Yes 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
--- NOTE | 2024-02-18 07:30 | HYST_PTH ---
PATIENT: DUONG MARY LOC: MS3 U#:[id number] AGE/SX: 48/F ROOM: [facility] RE02/18/[address]: Dr. Rosalie Ibanez MD : 1975 BED: 1 DIS: 02/20/2024 SPEC #: [id number] RECD: 02/18/24 09:49 STATUS: REECE NICOLE #: [id number] FELA: 02/18/24 07:[address]: Rosalie Ibanez DEPT: SURGICAL PATHOLOGY RECD BY: Nicole Castillo ENTERED: 02/18/24 11:03 SP TYPE: HYSTERECT OTHR DR: Dr. Reymundo Mcadams MD Tissues: Uterus, NOS Procedures: Surgery Specimen Level V HEADER OPERATION: Hysterectomy, JAMES, bilateral salpingectomy PRE-OP DIAGNOSIS: Menorrhagia, fibroid, uterine, iron deficiency anemia due to chronic blood loss, high risk HPV DNA test positive TISSUE SUBMITTED: Uterus, cervix, bilateral tubes MICROSCOPIC DIAGNOSIS Uterus and Bilateral Fallopian Tubes, Total Abdominal Hysterectomy and Bilateral Salpingectomy: Cervix: Nabothian Cysts, Tunnel Clusters, No Squamous Mucosa Endometrium: Secretory Myometrium: Multiple Leiomyomata Fallopian Tubes: Two completely transected fallopian tubes , 02/20/2024 MICROSCOPIC DESCRIPTION Slides are reviewed. GROSS DESCRIPTION Received in fixative is one container labeled with the patient's name and designated uterus, cervix, bilateral fallopian tubes. The specimen consists of a hysterectomy specimen consisting of uterus with cervix and detached bilateral fallopian tubes. The uterus with cervix weighs 1200 gm and measures 21.0 x 16.0 x 10.0cm. Multiple subserosal nodules are noted. The serosal surface is lopez glistening. No obvious ectocervical mucosa is noted. The external os is circular in contour. The endocervical canal measures 4.0 cm in length and the endocervical mucosa is lopez glistening and unremarkable. Sections of cervix reveal multiple cysts filled with mucoid fluid. The endometrial cavity is compressed to one side and is triangular and measures 6.5 cm in length and up to 6.0 cm in width. The endometrium is lopez glistening without any mass lesions and measures 0.1 cm in thickness. Sections of the uterine wall reveal multiple submucosal, intramural and subserosal nodular masses. Largest mass measures 11.0cm in diameter. Sections of these masses reveal lopez whorled cut surfaces without areas of hemorrhage, necrosis or cystic degeneration. Uninvolved uterine wall measures up to 3.5cm in thickness. Fallopian tubes are not identified as right or left and measures 7.0cm in length and 1.0cm in diameter and 8.0cm in length and 1.0cm in diameter. Fimbrial ends are identified. Sections reveal unremarkable cut surfaces. Senior Telecommunications Engineer sections are submitted in twelve cassettes as follows: 1 - anterior cervix, 2 - posterior cervix, 3 & 4 - anterior uterine wall, 5 & 6 - posterior uterine wall, 7- largest nodular mass, 8- second largest nodular mass, 9- third largest nodular mass, 10- fourth largest nodular mass, 11- one fallopian tube, 12- second fallopian tube. SJ:mr 02/18/2024 TC:4 CPT: 06271
[2024-02-18 07:32] LABS: Bedside Glucose 74 mg/dL (74-106)
[2024-02-18] MEDS: Cefazolin 2 GM in Syringe 10 ML IV (07:43)
--- NOTE | 2024-02-18 07:44 | OP.PCM_ITS ---
Problems Associated Problem List Diagnoses (1) Iron deficiency anemia due to chronic blood loss: (2) Menorrhagia: (3) Adenomyosis: (4) Fibroid, uterine: Multi Select Codes Urinary/Genital Urinary/Genital CPT Codes: 19864 [facility] Operative Report (Standard) Operative Information Date of Procedure: 02/18/24 Pre-Operative Diagnosis: see problem list Post-Operative Diagnosis: same Surgery/Procedure Performed: Total abdominal hysterectomy bilateral salpingectomy magisterial district judge: Yes Preparation Plant Supervisor: Felisha Martin Tasks completed by staff assistant: Opening & closing, Dissecting tissue, Removing tissue, Altering tissue, Hemostasis: Clamp, Hemostasis: Tie, Hemostasis: Electrocautery and Retracting Type of Anesthesia: General RN Documented Start/Stop Times: Operation Date: 02/18/24 07:30 Case Time Into Pre-Op 02/18/24 05:36 Out of Pre-Op 02/18/24 07:36 Anesthesia Start 02/18/24 07:43 Into Room 02/18/24 07:43 Procedure Start 02/18/24 08:11 Procedure End 02/18/24 09:40 Anesthesia End 02/18/24 09:51 Out of Room 02/18/24 09:51 Into Recovery 02/18/24 09:55 Out of Recovery 02/18/24 12:45 Procedure Start Time: 08:11 Procedure Stop Time: 09:40 Select all DRAINS/GRAFTS/IMPLANTS that apply: Drains (soler) Drain details: clear urine at end of procedure Estimated Blood Loss: 200 Specimen collected: Yes Description of specimen(s) removed: uterus tubes Description of surgery: The patient was taken to the operating room and placed under general anesthesia in the dorsal supine position. She was prepped and draped in the normal sterile fashion. Soler catheter was placed in the bladder SCDs were on and preoperative antibiotics were given. A Pfannenstiel skin incision was made with the scalpel and carried through the underlying layer of the fascia with the scalpel, fascia was nicked in the midline, incision extended laterally. Rectus bellies were dissected off superiorly and inferiorly sharply and bluntly and peritoneum entered digitally, incision stretched laterally and the retractor was placed after the bowel was packed away. The uterus was identified and noted to be significantly enlarged approximately 22 cm. The ovaries were noted to be within normal limits. one bowel adhesion noted which was taken down sharply, it did have some persistent spotting. The fallopian tubes were elevated bilaterally and the mesosalpinx transected with the ligasure and cut. The round ligaments were transected bilaterally with the ligasure and cut and the broad ligament was opened up and the utero-ovarian ligament vessels were double clamped cut and suture ligated with 0 Monocryl. The bladder flap was created taking down the vesicouterine peritoneum and the uterine vessels, cardinal ligaments, and remaining uterine vessels were skeletonized and either transected with the ligasure or clamped cut and suture ligated with 0 Monocryl bilaterally. Good attention was paid to keep the bladder inferior to the clamps and dissected off of the cervix and lower uterine corpus. The clamps were then placed underneath the cervix bilaterally the uterus amputated off of the vaginal stump and the vaginal cuff was suture ligated with 0 vicryl [id number] sutures ?3. Excellent hemostasis was noted with some raw appearance which was covered with hemoblast after irrigation. there was still some bleeding noted over the area of previous adhesiolysis, so a monocryl stitch was placed there for good hemostasis. all instruments were removed from the abdomen and the peritoneum was closed with 3-0 Monocryl, fascia closed with 0 PDS, subcutaneous tissue reapproximated with 3-0 Monocryl and the skin closed with 4-0 Monocryl. Patient was awoken and taken recovery in stable condition. uterine weight 1272g Surgical Findings: enlarged uterus with multiple fibroids nl ovaries Complications Complications: No
--- NOTE | 2024-02-18 07:57 | DCINST_ITS ---
Discharge Instructions Diet Discharge Diet: No restrictions DC O2, CPAP, BIPAP needs Home O2 Discharge instructions: No Dressing / Incision Discharge Activity: Return to Normal Activity, May Not Drive (while taking narcotic pain medications.) and May Shower May resume sexual activity in: 6-8 weeks Weight Bearing Status: Weight bearing as tolerated Dressing / Incision Call your doctor if your incision/area has: Continuous Slow Oozing, Sudden Increased Bleeding, Increased Pain/ Swelling, Increased Redness and Foul Smelling Discharge Call your doctor if you observe: Fever of 101 or Higher, Inability to urinate, Inability to have a bowel movement and Using more than 1 pad per hour Follow Up Care Please Follow Up With: Rosalie Ibanez MD Test Results: Test results from this visit will be discussed in further detail at your follow- up appointment, if applicable. Discharge Plan Admission Admit Date/Time: 02/18/24 05:23 Attending Provider: Rosalie Ibanez Primary Care Provider: Reymundo Mcadams Discharge Orders/Prescriptions Prescriptions: New oxycodone-acetaminophen [Percocet] 5-325 mg tablet 1 tab PO Q4H PRN (Reason: pain) 7 Days Qty: 20 0RF naproxen 500 mg tablet 500 mg PO BID PRN PRN (Reason: Pain) Qty: 30 1RF No Action ketoconazole 2 % cream 1 applic topical DAILY Other Ambulatory Orders: CBC-Complete Blood Cnt No Diff (Routine) Timeframe: 20240218 Facility: [facility] - Location: Laboratory Ordered By: Dr. Rosalie Ibanez Referrals / Follow Up: Reymundo Mcadams MD [Primary Care Provider] -
[2024-02-18] MEDS: Ondansetron 4 MG/2 ML Vial IV (09:22)
--- NOTE | 2024-02-18 10:00 | PCM.POST.ANE ---
Anesthesia: Postop Eval I Current Vital Signs Temperature: 97.7 F Pulse Rate: 64 Blood Pressure: 122/77 Respiratory Rate: 19 Pulse Ox: 100 Oxygen Delivery Method: Nasal Cannula Oxygen Flow Rate (L/min): 3 Assessment Airway patent: Yes Spontaneous unlabored respirations: Yes Mental status: Asleep nausea: No Vomiting: No Anesthesia Complication: No Fluid Hydration Crystalloid volume administer (ml): 1,500 Total IV fluid infused: 1,500 Progress Note Anesthesia document: Postop Eval 1 completed: Yes
--- NOTE | 2024-02-18 13:12 | POSTOPAN2_ITS ---
Anesthesia Postop Eval I Sum Postop Eval Completion status Anesthesia document: Postop Eval 1 completed: Yes Anesthesia Postop Eval I Summary Anesthesia Postop Eval I Summary: Anesthesia Postop Eval I: Assessment Summary Airway patent Yes 02/18/24 10:02 PLATE AND WELD INSPECTOR.[email or web address] Spontaneous unlabored Yes 02/18/24 10:02 PLATE AND WELD INSPECTOR.JSWI respirations Mental status Asleep 02/18/24 10:02 PLATE AND WELD INSPECTOR.JSWI nausea No 02/18/24 10:02 PLATE AND WELD INSPECTOR.JSWI Vomiting No 02/18/24 10:02 PLATE AND WELD INSPECTOR.JSWI Anesthesia Postop Eval I: Fluid Summary Crystalloid volume administer 1,500 02/18/24 10:02 PLATE AND WELD INSPECTOR.JSWI (ml) Colloids volume administered ( ml) Blood Product volume administered (ml) Total IV fluid infused 1,500 02/18/24 10:02 PLATE AND WELD INSPECTOR.JSWI Anesthesia Postop Eval I: Summary Notes Anesthesia Complication No 02/18/24 10:02 PLATE AND WELD INSPECTOR.JSWI Anesthesia Complication Comment: Post-operative progress note Anesthesia: Postop Eval II Evaluation Mental status: Awake and Calm Pain Level: 1 nausea: No Vomiting: No Complications Anesthesia Complication: No
--- NOTE | 2024-02-18 13:12 | PCM.POSTANE2 ---
Anesthesia Postop Eval I Sum Postop Eval Completion status Anesthesia document: Postop Eval 1 completed: Yes Anesthesia Postop Eval I Summary Anesthesia Postop Eval I Summary: Anesthesia Postop Eval I: Assessment Summary Airway patent Yes 02/18/24 10:02 MUNICIPAL SERVICES MANAGER.[email or web address] Spontaneous unlabored Yes 02/18/24 10:02 MUNICIPAL SERVICES MANAGER.JSWI respirations Mental status Asleep 02/18/24 10:02 MUNICIPAL SERVICES MANAGER.JSWI nausea No 02/18/24 10:02 MUNICIPAL SERVICES MANAGER.JSWI Vomiting No 02/18/24 10:02 MUNICIPAL SERVICES MANAGER.[email or web address] Anesthesia Postop Eval I: Fluid Summary Crystalloid volume administer 1,500 02/18/24 10:02 MUNICIPAL SERVICES MANAGER.JSWI (ml) Colloids volume administered ( ml) Blood Product volume administered (ml) Total IV fluid infused 1,500 02/18/24 10:02 MUNICIPAL SERVICES MANAGER.JSWI Anesthesia Postop Eval I: Summary Notes Anesthesia Complication No 02/18/24 10:02 MUNICIPAL SERVICES MANAGER.JSWI Anesthesia Complication Comment: Post-operative progress note Anesthesia: Postop Eval II Evaluation Mental status: Awake and Calm Pain Level: 1 nausea: No Vomiting: No Complications Anesthesia Complication: No
[2024-02-18] MEDS: Ketorolac 30 MG/ML Syringe IV ×2 (13:44→19:46)
--- NOTE | 2024-02-18 15:45 | PCM.PN.BLA ---
Progress Note check on patient and doing well overall, tired and resting, laying in bed, pain controlled. no questions at this time. vitals reviewed and stable.
[2024-02-18] MEDS: 0.9% Normal Saline (1000mL) 1,000 ML 999 ML IV (17:33)
[2024-02-18 18:34] LABS: Hematocrit 34.6 % (37-47); Hemoglobin 10.6 g/dL (12.0-15.0); Mean Corp Hgb Conc 30.6 g/dL (32-36); Mean Corpuscular Hgb 24.8 pg (27.0-32.0); Mean Corpuscular Volume 80.8 fL (81-99); Mean Platelet Vol. 10.3 fl (6.2-12.0); POSITIVE MORPHOLOGY YES; Platelet Count 297 K/mm3 (150-450); Red Blood Count 4.28 M/mm3 (4.2-5.4)
[2024-02-18] MEDS: oxyCODONE 5 MG Tablet PO (18:49)
[2024-02-18] MEDS: Ondansetron ODT 4 MG Tablet PO (18:56)
[2024-02-18 18:57] LABS: Scan Indicated on CBC? Y/N YES- FLAGS NOTED
[2024-02-18] MEDS: Docusate Sodium 100 MG Capsule PO (23:07)
[2024-02-19] MEDS: Acetaminophen 500 MG Tablet 1000 MG PO ×4 (01:23→21:07)
[2024-02-19] MEDS: Ketorolac 30 MG/ML Syringe IV ×4 (01:23→17:29)
[2024-02-19 04:21] VITALS: BP 131/70; PULSE 91; RESP 18; TEMP 36.9; O2SAT 99
[2024-02-19 06:17] LABS: Hematocrit 34.2 % (37-47); Hemoglobin 10.3 g/dL (12.0-15.0); Mean Corp Hgb Conc 30.1 g/dL (32-36); Mean Corpuscular Hgb 24.8 pg (27.0-32.0); Mean Corpuscular Volume 82.2 fL (81-99); Mean Platelet Vol. 10.7 fl (6.2-12.0); POSITIVE MORPHOLOGY YES; Platelet Count 272 K/mm3 (150-450); Red Blood Count 4.16 M/mm3 (4.2-5.4); White Blood Count 7.6 K/mm3 (4.4-11.0)
[2024-02-19 06:32] LABS: Scan Indicated on CBC? Y/N YES- FLAGS NOTED
[2024-02-19] MEDS: 0.9% Saline Lock 10 ML Syringe IV ×3 (06:40→17:28)
[2024-02-19 09:08] VITALS: BP 128/81; PULSE 80; RESP 18; TEMP 36.9; O2SAT 99
[2024-02-19] MEDS: Docusate Sodium 100 MG Capsule PO ×2 (09:31→21:07)
[2024-02-19] MEDS: Enoxaparin 40 MG/0.4 ML Syringe SC (09:31)
--- NOTE | 2024-02-19 11:55 | CASEMGMT ---
CARRILLO PALOMO Assessment: Face to Face with pt for initial transition planning/care coordination assessment. RN DEWEY introduced self and role at [facility], pt voices understanding and consents to assessment. Pt is A&O x4 and answers all questions appropriately at this time. Pt sitting up in bed in no distress with at bedside. Care providers, pharmacy, and demographics verified/updated. Admitting Dx: hysterectomy, JAMES, bilat salping Strata Score: 1 PCP:Pema Specialists:Marcelle, LAMINATING MACHINE OPERATOR HELPER; Javier, onc in the past Preferred Pharmacy: [facility] Retail Insurance: Bernard Prescription Benefit: yes LNOK: Scotty Velasco, Living Arrangements: Pt lives with in a single story home with no steps to enter. Pt reports she is I in ADLs and IADLs and denies concerns at home. Transportation: Pt drives self and denies concerns with transportation. DME:Denies HHC/SNF: Denies hx of Pt states no concerns with going home at time of dc. Pt states no further concerns/needs. CM to follow. Advised pt to ask CM if any further questions/concerns/needs arise, voices understanding. Pt Goal: Home Plan: Home Lionel VIZCAINO CM
[2024-02-19 14:08] VITALS: BP 128/75; PULSE 84; RESP 18; TEMP 36.9; O2SAT 98
--- NOTE | 2024-02-19 15:53 | CHAPLAIN ---
Type of Pastoral Visit _x__ Initial Visit ___ Follow-up Visit ___ On-call Visit ___ General Patient Visit ___ Spiritual Assessment ___ Family Conference ___ Bereavement ___ Rapid Response ___ Code Blue ___ Other (describe below) Pastoral Care Referral From _x__ Patient ___ Family ___ Nurse ___ Physician ___ Vocational Nursing Instructor ___ Boiler Maker ___ Other (describe below) Sacrament/Intervention _x__ Active listening ___ Anointing ___ Protestant ___ Bereavement ___ Communion _x__ Joy exploration ___ ___ Life review _x__ Prayer ___ Reconciliation ___ Sacrament of Sick ___ Supportive presence ___ Wedding ___ Other (describe below) Pastoral Comments patient and spouse are in the room and watching TV; pt is welcoming and explains that she is feeling better since yesterday when she had her surgery; pt is quick to praise the OB doctors for their great care and the help of staff; offered ways to assist the patient and spouse for support; patient said that a prayer would be nice and to include a blessing for the medical staff; asked the couple of their personal jainism preferences and they have differing religions but accepted a prayer of Mormonism nature; the spouse explains that he is Congregational and that he has his own beliefs but welcomes the instruction of the prophet Isacc; after prayer was given the spouse entered into a discussion of his joy and his teachings; it was a cordial and enlightening exchange of outlooks; both expressed appreciation for the work of the lead portfolio manager in the hospital
--- NOTE | 2024-02-19 17:32 | PN.OBGYN_ITS ---
Subjective Subjective seen at 8 am Patient doing well without complaints. Tolerating PO clears hasn't been ambulating much yet. Denies chest pain, shortness of breath, calf pain/swelling, fevers, chills, lightheadedness. Objective Data Objective Data Vital Signs: Vital Signs Temp Pulse Resp BP Pulse Ox O2 Del Method O2 Flow Rate 98.5 F 84 18 128/75 H 98 Room Air 4 02/19/24 14:08 02/19/24 14:02/19/24 14:02/19/24 14:02/19/24 14:02/19/24 14:08 02/18/24 11:45 Oxygen Flow Rate (L/min) 4 Oxygen Delivery Method Room Air Weight: 147 lb Body Mass Index (BMI) 24.4 Intake & Output: Intake and Output for Last 24 Hours 02/17/24 02/18/24 02/19/24 23:59 23:59 23:59 Intake Total 2572 / 2572 670.25 / 670.25 Output Total 450 / 450 2600 / 2600 Balance 2122 / 2122 -1929.75 / -1929.75 Lab / Micro Data 02/19/24 05:23 02/06/24 13:07 Labs: Laboratory Results - last 24 hr 02/18/24 17:47: WBC 11.0, RBC 4.28, Hgb 10.6 L, Hct 34.6 L, MCV 80.8 L, MCH 24.8 L, MCHC 30.6 L, RDW Std Deviation TNP, RDW Coeff of Stephani TNP, Plt Count 297, MPV 10.3 02/19/24 05:23: WBC 7.6, RBC 4.16 L, Hgb 10.3 L, Hct 34.2 L, MCV 82.2, MCH 24.8 L, MCHC 30.1 L, RDW Std Deviation Not Reportable, RDW Coeff of Stephani Not Reportable, Plt Count 272, MPV 10.7, Diff Path Review ROS Constitutional Constitutional: Reports systems reviewed and no addt'l complaints, except as documented Cardiovascular Cardiovascular: Reports systems reviewed and no addt'l complaints, except as documented Respiratory/Chest Respiratory/Chest: Reports systems reviewed and no addt'l complaints, except as documented Gastrointestinal Gastrointestinal: Reports systems reviewed and no addt'l complaints, except as documented Physical Exam Const alert, oriented x3 and no apparent distress HEENT Head and Scalp: atraumatic Resp normal respiratory effort GI soft to palpation and non-tender Assessment & Plan (1) Fibroid, uterine: QUALIFIERS: Uterine leiomyoma location: unspecified location Q ualified Code(s): D25.9 - Leiomyoma of uterus, unspecified COMMENT: plan TAHBS. not robotic candidate due to size. emb neg but no endometrial tissue likely due to fibroid distortion, counseled regarding findings. pap neg. (2) S/P JAMES (total abdominal hysterectomy): COMMENT: SM for fibroids (3) Status post bilateral salpingectomy: PLAN: Plan patient is s/p tahbs POD 1 1. routine ERAS protocol postop care- increase ambulation, encourage oral intake and oral control of pain. lovenox and scds for dvt prophylaxis, needs to pass flatus prior to discharge
--- NOTE | 2024-02-19 18:05 | PCM.PN.BLA ---
Progress Note patient seen and doing well overall pain controlled but not passing flatus yet no nausea tolerating regular diet, will keep overnight again. dc home tomorrow if passing flatus
[2024-02-19 20:59] VITALS: BP 130/70; PULSE 76; RESP 18; TEMP 36.4; O2SAT 100
[2024-02-20 03:25] VITALS: BP 132/74; PULSE 83; RESP 18; TEMP 36.8; O2SAT 100
[2024-02-20] MEDS: Acetaminophen 500 MG Tablet 1000 MG PO (03:26)
[2024-02-20 08:15] VITALS: BP 123/85; PULSE 75; RESP 18; TEMP 36.8; O2SAT 98
[2024-02-20] MEDS: Docusate Sodium 100 MG Capsule PO (08:23)
--- NOTE | 2024-02-20 09:00 | PCM.PN.OB ---
Subjective Subjective Patient doing well without complaints. Tolerating PO and passing gas. Ambulating and voiding without difficulty. Feeding well. Denies chest pain, shortness of breath, calf pain/swelling, fevers, chills, lightheadedness. Objective Data Objective Data Vital Signs: Vital Signs Temp Pulse Resp BP Pulse Ox O2 Del Method O2 Flow Rate 98.2 F 75 18 123/85 H 98 Room Air 4 02/20/24 08:15 02/20/24 08:15 02/20/24 08:15 02/20/24 08:15 02/20/24 08:15 02/20/24 08:19 02/18/24 11:45 Oxygen Flow Rate (L/min) 4 Oxygen Delivery Method Room Air Weight: 147 lb Body Mass Index (BMI) 24.4 Intake & Output: Intake and Output for Last 24 Hours 02/18/24 02/19/24 02/20/24 23:59 23:59 23:59 Intake Total 2572 / 2572 670.25 / 670.25 600 / 600 Output Total 450 / 450 2600 / 2600 Balance 2122 / 2122 -1929.75 / -1929.75 600 / 600 Lab / Micro Data 02/19/24 05:23 02/06/24 13:07 ROS Constitutional Constitutional: Denies chills, fatigue, fever(s), poor appetite or weakness Eyes Eyes: Denies blurry vision, change in vision, seeing flashes or spots in vision ENT HEENT: Denies dizziness, headache(s), loss taste/smell or sore throat Cardiovascular Cardiovascular: Denies chest pain, dizziness, dyspnea, irregular heart rhythm, palpitations or rapid heart rate Respiratory/Chest Respiratory/Chest: Denies chest tightness, cough, dyspnea or breast pain Gastrointestinal Gastrointestinal: Denies abdominal pain, constipation or vomiting Genitourinary Genitourinary: Denies dysuria or flank pain Musculoskeletal Musculoskeletal: Denies difficulty walking, joint pain, limited range of motion or numbness Neurologic Neurologic: Denies abnormal movements, abnormal speech, dizziness, numbness, seizure-like activity or syncope Psychiatric Psychiatric: Denies anxiety, behavioral changes, change in appetite, confusion, depression or suicidal thoughts Physical Exam Const alert, oriented x3 and no apparent distress General Appearance: cooperative and comfortable Resp normal respiratory effort Cardio regular rate GI normal to inspection, nondistended, normoactive bowel sounds Palpation: soft Back/Spine no CVA tenderness and thoraco-lumbar ROM normal Extremity normal to inspection, no clubbing, cyanosis or edema, no calf tenderness and no pedal edema Psych mental status grossly normal, thought process normal, cooperative, affect normal, speech normal, activity/motor behavior normal, denies homicidal ideation and denies suicidal ideation Assessment & Plan (1) S/P JAMES (total abdominal hysterectomy): COMMENT: for fibroids PLAN: patient is s/p JAMES POD 2 1. routine ERAS protocol postop care- increase ambulation, encourage oral intake and oral control of pain. scds for dvt prophylaxis, patient stable for discharge to home.
[2024-02-20] MEDS: oxyCODONE 5 MG Tablet PO (09:40)
== END 2024-02-20 10:07 | disposition home or self-care (01) | DRG 743 ==
PROVIDERS: Anesthesiology; Admitting Provider Obstetrics & Gynecology; PCP Internal Medicine; Referring Provider Obstetrics & Gynecology; Visit Provider Obstetrics & Gynecology
PROC: 0UT90ZZ Resection of Uterus, Open Approach (ICD-10-PCS; CPT 58150; principal; 2024-02-18 07:10)
DX: D25.9 Leiomyoma of uterus, unspecified (principal); D50.0 Iron deficiency anemia secondary to blood loss (chronic); N92.0 Excessive and frequent menstruation with regular cycle
CPT/HCPCS: 36415; 80048; 81025; 82962; 83735; 85027; 85610; 85730; 86850; 86900; 86901; 88307; 93005; 94668; A4216; J2405; J3475

== ENCOUNTER → 2024-05-19 | Outpatient (CLI) | payer BC, SELFPAY | END | disposition home or self-care (01) | LOC: LABSPEC 15:07 | PROVIDERS: PCP Internal Medicine; Referring Provider Obstetrics & Gynecology; Visit Provider Obstetrics & Gynecology | DX: R39.15 Urgency of urination (principal); R32 Unspecified urinary incontinence | CPT/HCPCS: 87086; 87088 ==

== ENCOUNTER 2024-11-09 12:04 | Outpatient (CLI) | payer BC, SELFPAY ==
[2024-11-09 12:30] LABS: Hematocrit 42.7 % (37-47); Hemoglobin 13.8 g/dL (12.0-15.0); Immature Granulocytes Count 0.020 X10^3/uL (0.0-0.0); Mean Corp Hgb Conc 32.3 g/dL (32-36); Mean Corpuscular Volume 90.3 fL (81-99); Mean Platelet Vol. 10.0 fl (6.2-12.0); NRBC Flagged by Analyzer 0 % (0-5); POSITIVE DIFFERENTIAL YES; Platelet Count 380 K/mm3 (150-450); RBC Distribution Width CV 12.8 % (11.6-14.6); RBC Distribution Width SD 42.4 fl (35.1-43.9); Red Blood Count 4.73 M/mm3 (4.2-5.4); White Blood Count 3.1 K/mm3 (4.4-11.0)
[2024-11-09 13:31] LABS: AST(SGOT) 20 U/L (<=31); Alanine Aminotransfer ALT/SGPT 19 U/L (<=34); Albumin, Serum 4.1 g/dL (3.5-5.0); Alkaline Phosphatase 43 U/L (35-104); Anion Gap 11 (5-15); BUN 10 mg/dL (4-19); BUN/Creat Ratio 11.6 RATIO (10-20); Calcium,Total 9.0 mg/dL (7.6-11.0); Carbon Dioxide 24.3 mmol/L (21.0-32.0); Chloride 105 mmol/L (98-108); Cholesterol 204 mg/dL (<=200); Ferritin 44 ng/mL (22-378); Globulin 3.2 g/dL (2.2-4.2); Glucose 80 mg/dL (70-99); Low Density Lipoprotein Calc. 122 mg/dL; Potassium 4.3 mmol/L (3.3-5.1); Triglycerides 117 mg/dL; Very Low Density Lipoprotein 23 mg/dL (5-40); Vitamin B12 154 pg/mL (180-914); cholesterol:hdl ratio screen 3.49
[2024-11-09 14:45] LABS: Iron 105 ug/dL (50-170); Iron Binding Capacity,Total 328 ug/dL (250-450); Iron Binding Capacity,Unsat 223 ug/dL (228-428)
== END 2024-11-09 23:59 | disposition home or self-care (01) ==
LOC: LAB 12:06
PROVIDERS: PCP Internal Medicine; Referring Provider Internal Medicine; Visit Provider Internal Medicine
DX: Z13.6 Encounter for screening for cardiovascular disorders (principal); D64.9 Anemia, unspecified
CPT/HCPCS: 36415; 80053; 80061; 82607; 82728; 83540; 83550; 84439; 84443; 85025

== ENCOUNTER → 2024-11-11 | Outpatient (CLI) | payer BC, SELFPAY ==
[2024-11-12 16:09] LABS: Folate, Hemolysate Test 278.0 ng/mL (Not Estab.); Folate, RBC (Hct) Test 43.8 % (34.0-46.6); Folates, RBC Test 635 ng/mL (>498)
--- OUTSIDE RECORDS SUMMARY | 2024-11-12 22:44 | XMS RPT_ITS | CCD ---
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 Reymundo Mcadams Primary Care Provider [phone] Dr. Reymundo Mcadams Attending Provider [phone])2 Dr. Reymundo Mcadams Referring Provider 1(330)2 Dr. Mallory Herrera Attending Provider Dr. Rosalie Frausto Attending Provider 1(330 ) NEIL AMADO Attending Unavailable Dr. Reymundo Mcadams Primary Care Provider 1(33 0) Dr. Reymundo Mcadams Attending Provider 1(330)2 Dr. Reymundo Mcadams Referring Provider 1(330)2 Dr. Mallory Herrera Attending Provider Dr. Rosalie Frausto Attending Provider 1(330 ) DAVE Sandoval Attending Provider Unavailab Dr. Reymundo Nino Primary Care Provider 1(33 0) Dr. Reymundo Mcadams Referring Provider 1(330)2 Dr. Mallory Herrera Attending Provider Dr. Reymundo Mcadams Attending Provider 1(330)2 Dr. Rosalie Frausto Attending Provider 1(330 ) Dr. Reymundo Mcadams Primary Care Provider 1(33 0) Dr. Reymundo Mcadams Referring Provider 1(330)2 Dr. Reymundo Mcadams Attending Provider Pema, Dr. Dwyer Primary Care Provider 1(33 0) Pema, Dr. Dwyer Referring Provider 1(330)2 Dr. Rosalie Frausto Attending Provider 1(330 ) Pema, Dr. Dwyer Attending Provider 1(330)2 Dr. Felisha Martin Attending Provider 1(3 30) Pema, Dr. Dwyer Primary Care Provider 1(33 0) Pema, Dr. Dwyer Referring Provider 1(330)2 Pema PEDRO, Dr. Dwyer Primary Care Provider Pema PEDRO, Dr. Dwyer Attending Provider 1(33 0) Pema PEDRO, Dr. Dwyer Referring Provider 1(33 0) Dr. Felisha Martin DO Attending Provider Sterling Stone DO, Dr. Baeza Referring Provider Marcelle PEDRO, Dr. Wiggins Attending Provider [phone] Yeison PEDRO, Dr. Mccann Attending Provider [phone] Marcelle PEDRO, Dr. Wiggins Referring Provider Marcelle PEDRO, Dr. Wiggins Admit Provider 1(330 ) Marcelle PEDRO, Dr. Wiggins Other Provider 1(330 ) David PEDRO, Dr. Fuentes Attending Provider Oleghe, Efewongbe Referring Unavailable Marcanthony, Rosalie Attending Unavailable Oleghe, Efewongbe Primary Care Unavailable Marcanthony, Rosalie Referring Unavailable Marcanthony, Rosalie Admitting Unavailable Marcanthony, Rosalie Consulting Unavailable MarcanthonyRosalie Attending Unavailable Oleghe, Efewongbe Primary Care Unavailable Marcanthony, Rosalie Referring Unavailable Marcanthony, Rosalie Admitting Unavailable Marcanthony, Rosalie Consulting Unavailable MarcanthonyRosalie Attending Unavailable Oleghe, Efewongbe Primary Care Unavailable Marcanthony, Rosalie Referring Unavailable Marcanthony, Rosalie Consulting Unavailable Felisha Martin Attending Unavailabl e Rosalie Frausto Admitting Unavailable Oleghe, Efewongbe Primary Care Unavailable Rosalie Frausto Referring Unavailable Oleghe, Efewongbe Primary Care Unavailable Rosalie Frausto Attending Unavailable Felisha Martin Attending Unavailabl e Vande Velde, Felisha Referring Unavailabl e Oleghe, Efewongbe Primary Care Unavailable Oleghe, Efewongbe Referring Unavailable Oleghe, Efewongbe Attending Unavailable Oleghe, Efewongbe Primary Care Unavailable Oleghe, Efewongbe Referring Unavailable Oleghe, Efewongbe Attending Unavailable Oleghe, Efewongbe Primary Care Unavailable Rosalie Frausto Referring Unavailable Rosalie Frausto Attending Unavailable Oleghe, Efewongbe Primary Care Unavailable Oleghe, Efewongbe Referring Unavailable Oleghe, Efewongbe Attending Unavailable Oleghe, Efewongbe Primary Care Unavailable Oleghe, Efewongbe Referring Unavailable Rosalie Frausto Attending Unavailable Oleghe, Efewongbe Primary Care Unavailable Alfredo Hernandez Attending Unavailable Oleghe, Efewongbe Primary Care Unavailable Sunny Jimenez Referring Unavailable Oleghe, Efewongbe Attending Unavailable Oleghe, Efewongbe Referring Unavailable Oleghe, Efewongbe Primary Care Unavailable Oleghe, Efewongbe Attending Unavailable Oleghe, Efewongbe Referring Unavailable Oleghe, Efewongbe Primary Care Unavailable Oleghe, Efewongbe Attending Unavailable Oleghe, Efewongbe Referring Unavailable Oleghe, Efewongbe Primary Care Unavailable Rosalie Frausto Admitting Unavailable Rosalie Frausto Attending Unavailable Rosalie Frausto Referring Unavailable Oleghe, Efewongbe Primary Care Unavailable Vande Felisha Stone Attending Unavailabl e Vande VeldeFelisha Referring Unavailabl e Oleghe, Efewongbe Primary Care Unavailable Oleghe, Efewongbe Primary Care Unavailable Rosalie Frausto Attending Unavailable Rosalie Frausto Referring Unavailable Oleghe, Efewongbe Attending Unavailable Oleghe, Efewongbe Referring Unavailable Oleghe, Efewongbe Primary Care Unavailable Oleghe, Efewongbe Attending Unavailable Oleghe, Efewongbe Referring Unavailable Oleghe, Efewongbe Primary Care Unavailable Oleghe, Efewongbe Attending Unavailable Oleghe, Efewongbe Referring Unavailable Oleghe, Efewongbe Primary Care Unavailable Rosalie Frausto Attending Unavailable Rosalie Frausto Referring Unavailable Ramy Latham Attending Unavailable Oleghe, Efewongbe Primary Care Unavailable Christopher Manuel Attending Unavailable Felisha Martin Attending Unavailabl e Oleghe, Efewongbe Referring Unavailable Oleghe, Efewongbe Primary Care Unavailable Oleghe, Efewongbe Referring Unavailable Oleghe, Efewongbe Attending Unavailable Oleghe, Efewongbe Primary Care Unavailable Oleghe, Efewongbe Referring Unavailable Oleghe, Efewongbe Primary Care Unavailable Rosalie Frausto Attending Unavailable Medications Current Medications Medication Drug Class(es) Dates Sig (Normalized) Sig (Original) [place] (Nk) (7 sources) Start: 05-07-2024 [place] (Nk) A ctive May 07, 2024 12:00am Start: 03-11-2023 [place] (Nk) A ctive March 11, 2023 12:00am Start: 06-07-2022 [place] (Nk) A ctive June 06, 2022 11:00pm Start: 06-07-2022 [place] (Nk) A ctive June 07, 2022 12:00am Completed/Discontinued Medications Medication Drug Class(es) Dates Sig (Normalized) Sig (Original) acetaminophen 325 mg / oxyCODONE hydrochloride 5 mg oral tablet (1 source) Opioid Agonist Start: 02-18-2024 End: 05-07-2024 Oxycodone-Acetamin ophen (Percocet) 5-325 mg tablet Discontinued 1 {tbl} PO Q4H as needed for pain 30 08February 18, 2024 May 07, 2024 2:02pm amoxicillin 875 mg / clavulanate 125 mg oral tablet (9 sources) Penicillin-class Antibacterial Start: 02-21-2022 End: 03-22-2022 Amoxicillin-Pot Clavulanate 875-125 mg tablet Discontinued 1 {tbl} PO TWICE A DAY February 21, 2022 1:00am March 22, 2022 3:00pm Start 02/28 if symptoms do not improve Start: 02-21-2022 End: 03-22-2022 take 1 tablet by mouth twice daily Amoxicillin-Pot Clavulanate Discontinued 1 TABLET PO TWICE A DAY February 21, 2022 12:00am March 22, 2022 2:00pm Start 02/28 if symptoms do not improve benzonatate 100 mg oral capsule (9 sources) Non-narcotic Antitussive Start: 02-21-2022 End: 03-22-2022 take 1 capsule by mouth three times daily as needed for cough Benzonatate 100 mg capsule Discontinued 100 mg PO THREE TIMES A DAY as needed for cough February 21, 2022 1:00am March 22, 2022 3:01pm 12 hr guaiFENesin 600 mg extended release oral tablet (17 sources) Start: 03-06-2022 End: 03-22-2022 take 1 tablet by mouth every twelve hours as needed for cough Guaifenesin 600 mg tablet extended release 12hr Discontinued 600 mg PO Q12H as needed for cough, congestion March 06, 2022 1:00am March 22, 2022 3:01pm Start: 03-06-2022 End: 03-22-2022 take 600 mg by mouth every twelve hours Guaifenesin Discontinued 600 MG PO Q12H March 06, 2022 12:00am March 22, 2022 2:01pm Start: 02-21-2022 End: 03-06-2022 take 1 tablet by mouth three times daily as needed for cough Guaifenesin 400 mg tablet Discontinued 400 mg PO THREE TIMES A DAY as needed for congestion, cough February 21, 2022 1:00am March 06, 2022 10:21am hydrocortisone 0.025 mg/mg topical ointment (1 source) Corticosteroid Start: 10-04-2023 End: 01-15-2024 Hydrocortisone 2.5 % ointment Discontinued 1 NMA TOPICAL TWICE A DAY as needed for rash 28.35 October 04, 2023 12:00am January 15, 2024 3:41pm iron infusion (14 sources) Start: 10-24-2021 End: 06-07-2022 iron infusion Discontinued IV October 23, 2021 11:00pm June 07, 2022 12:16pm Start: 10-24-2021 End: 06-07-2022 iron infusion Discontinued I V October 24, 2021 12:00am June 07, 2022 1:16pm Start: 10-24-2021 iron infusion Active IV October 23, 2021 11:00pm Start: 10-24-2021 iron infusion Active IV October 24, 2021 12:00am ketoconazole 20 mg/ml topical cream (1 source) Azole Antifungal Start: 02-03-2024 End: 05-07-2024 Ketoconazole 2 % cream Discontinued 1 NMA TOPICAL DAILY February 03, 2024 1:00am May 07, 2024 2:02pm naproxen 500 mg oral tablet (1 source) Nonsteroidal Anti-inflammatory Drug Start: 02-18-2024 End: 05-07-2024 take 1 tablet by mouth twice daily as needed for pain Naproxen 500 mg tablet Discontinued 500 mg PO TWICE DAILY NEEDED as needed for Pain February 18, 2024 1:00am May 07, 2024 2:02pm Nirmatrelvir-Ritona vir (Paxlovid) 300 mg (150 mg x 2)-100 mg tablets,dose pack (1 source) Start: 03-25-2023 End: 10-04-2023 Nirmatrelvir-Riton avir (Paxlovid) 300 mg (150 mg x 2)-100 mg tablets,dose pack Discontinued 0 PO .COMPLEX March 25, 2023 1:00am October 04, 2023 10:49am take TWO 150 mg tablets of nirmatrelvir with ONE 100 mg tablet of ritonavir twice daily for 5 days PO Relugolix-Estradiol -Norethindr (7 sources) Start: 10-11-2022 End: 03-11-2023 Relugolix-Estradio l-Norethindr (Myfembree) 40-1-0.5 mg tablet Discontinued 1 {tbl} PO DAILY October 11, 2022 12:00am March 11, 2023 3:06pm Start: 10-11-2022 End: 03-11-2023 take 1 tablet by mouth once daily Bjheyngkt-Cbdgazykt-Noqrerubmq (Myfembre e) 40-1-0.5 mg tablet Discontinued 1 TABLET PO DAILY October 10, 2022 11:00pm March 11, 2023 2:06pm Start: 10-11-2022 take 1 tablet by tonia th once daily Hqicqajeb-Aduguxseb-Uzgnguzobw (Myfembre e) 40-1-0.5 mg tablet Active 1 TABLET PO DAILY October 10, 2022 11:00pm Start: 10-11-2022 take 1 tablet by tonia th once daily Lsgxnqwkk-Rxcfxtpjp-Nmkrrrctcf (Myfembre e) 40-1-0.5 mg tablet Active 1 TABLET PO DAILY October 11, 2022 12:00am Problems Active Problems Problem Classification Problem Date Documented Da te Episodic/Chronic Allergic reactions (1 source) Inflammatory dermatosis; Translations: [Dermatitis, unspecified] 10-04-2023 Episodic Deficiency and other anemia (13 sources) Iron deficiency anemia due to blood loss; Translations: [Iron deficiency anemia secondary to blood loss (chronic)] 11-16-2021 Chronic Deficiency and other anemia (11 sources) Iron deficiency anemia secondary to blood loss (chronic); Translations: [Iron deficiency anemia secondary to blood loss (chronic)] Onset: 4 Chronic Deficiency and other anemia (14 sources) Anemia; Translations: [Anemia, unspecified] 10-24-2021 Episodic Diseases of white blood cells (18 sources) Leukopenia; Translations: [Decreased white blood cell count, unspecified] Chronic Comment on above: Chronic, benign, rac ial variance Endometriosis (15 sources) Uterine adenomyosis; Translations: [Endometriosis of uterus] 10-24-2021 Chronic Genitourinary symptoms and ill-defined conditions (1 source) Unspecified urinary incontinence; Translations: [Unspecified urinary incontinence] Onset: 5 Chronic Genitourinary symptoms and ill-defined conditions (1 source) Urgency of urination; Translations: [Urgency of urination] Onset: 5 Episodic Inflammatory diseases of female pelvic organs (19 sources) Bacterial vaginosis; Translations: [Acute vaginitis] Episodic Menstrual disorders (20 sources) Menorrhagia; Translations: [Excessive and frequent menstruation with regular cycle] Onset: 4 Chronic Comment on above: sec fibroids, plan T AH BS, pap done. Miscellaneous mental health disorders (20 sources) Other specified eating disorder; Translations: [Orthorexia nervosa] Chronic Other circulatory disease (10 sources) Elevated blood-pressure reading without diagnosis of hypertension; Translations: [Elevated blood-pressure reading, without diagnosis of hypertension] 12-14-2021 Episodic Other circulatory disease (2 sources) Elevated blood-pressure reading, without diagnosis of hypertension; Translations: [Elevated blood pressure reading without diagnosis of hypertension] Episodic Other congenital anomalies (2 sources) Preauricular dimple; 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] 05-07-2024 Chronic Comment on above: Right preauricular Other congenital anomalies (1 source) Preauricular sinus and cyst; 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] Onset: 5 Chronic Other connective tissue disease (8 sources) Muscle pain; Translations: [Myalgia, unspecified site] 06-14-2022 Episodic Other connective tissue disease (1 source) Myalgia, unspecified site; Translations: [Myalgia and myositis, unspecified] 06-14-2022 Episodic Other female genital disorders (2 sources) Vaginal discharge; Translations: [Vaginal Discharge] Onset: 2 Episodic Other gastrointestinal disorders (3 sources) Pelvic mass; Translations: [Other intra-abdominal and pelvic swelling, mass and lump] Episodic Other gastrointestinal disorders (3 sources) Other intra-abdominal and pelvic swelling, mass and lump; Translations: [Abdominal or pelvic swelling, mass, or lump, other specified site] Episodic Other lower respiratory disease (8 sources) Postviral cough; Translations: [Post-viral cough syndrome] 03-22-2022 Episodic Other nervous system disorders (1 source) Neuropathy; Translations: [Polyneuropathy, unspecified] 01-15-2024 Chronic Other skin disorders (8 sources) Callus of heel; Translations: [Corns and callosities] 06-14-2022 Episodic Other skin disorders (1 source) Corns and callosities; Translations: [Corns and callosities] 06-14-2022 Episodic Other skin disorders (1 source) Localized superficial swelling of skin; Translations: [Localized swelling, mass and lump, unspecified] 10-04-2023 Episodic Other upper respiratory infections (9 sources) Acute upper respiratory infection, unspecified; Translations: [Acute upper respiratory infections of unspecified site] 02-21-2022 Episodic Sexually transmitted infections (not HIV or hepatitis) (2 sources) Human papillomavirus deoxyribonucleic acid test positive, low risk on cervical specimen; Translations: [Cervical low risk human papillomavirus (HPV) DNA test positive] 03-11-2023 Episodic Unclassified (2 sources) Annual Exam; Translations: [Annual Exam] Onset: 2 Viral infection (13 sources) Verruca plantaris; Translations: [Plantar wart] 11-02-2021 Episodic Past or Other Problems Problem Classification Problem Date Documented Da te Episodic/Chronic Benign neoplasm of uterus (20 sources) Uterine leiomyoma; Translations: [Leiomyoma of uterus, unspecified] Onset: 02-26-2024 Episodic Comment on above: plan TAHBS. not robo tic candidate due to size. emb neg but no endometrial tissue likely due to fibroid distortion, counseled regarding findings. pap neg. Deficiency and other anemia (7 sources) Anemia, unspecified; Translations: [Anemia, unspecified] Onset: 02-28-2024 Episodic Deficiency and other anemia (1 source) Iron deficiency anemia, unspecified; Translations: [Iron deficiency anemia, unspecified] Onset: 03-03-2024 Episodic Other screening for suspected conditions (not mental disorders or infectious disease) (20 sources) Patient encounter status; Translations: [Encounter for screening for malignant neoplasm of colon] Onset: 01-03-2024 Episodic Comment on above: - attempt ECC next p elvic exam. part of cervix appears to have remained based on physical exam. recommend pap smears bx benign, rpt pap i n 1 yr. Residual codes; unclassified (1 source) Acquired absence of both cervix and uterus; Translations: [Acquired absence of both cervix and uterus] Onset: 02-26-2024 Episodic Residual codes; unclassified (1 source) Acquired absence of other genital organ(s); Translations: [Acquired absence of other genital organ(s)] Onset: 02-26-2024 Episodic Results Test Name Value Interpretation Reference Range Facility Urine Cultureon 05-21-2024 [facility] Below infection level. Mixed Gram Positive Organisms [place] Count <1000 M[facility] Mixed contaminants. Submit a new specimen if indicated. [facility] Comment on above: Performed By: #### L 500.4050, L100.0100, L503.6150, L503.6550, L503.6075 #### [facility] [address] [place], [address] Supervising Broker Office Visit Reporton 05-19-2024 Supervising Broker Office Visit Report [facility] [address], [address] [place] [address] OFFICE VISIT Date of Service: 05/19/24 MR#: [id number] Acct: [id number] Name: TAHMINA GALLARDO Rep #: [id number] : 1975 Provider: Dr. 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: No Is patient in pain?: No Feel stressed/tense/nervou s/anxious/difficulty sleeping: only a little (moving unexpectedly ) Allergies No Known Allergies Allergy (Verified 05/19/24 13:10) Medications ???Medication ???Instructions ???Recorded ???Confirmed ???Type NK 05/07/24 05/19/24 History Patient : No : No PFSH Medical History History of uterine fibroid History of bleeding disorder Wears glasses Depression Thyroid disease Anemia Low iron Syncope Non-smoker Leg cramps Easy bruising Hx of sinus tachycardia Chest pain Neuropathy Pica Dermatitis Localized superficial swelling of skin Muscle pain Heel callus Post-viral cough syndrome URI (upper respiratory infection) Elevated blood pressure reading without diagnosis of hypertension Endometriosis Menorrhagia Iron deficiency anemia due to chronic blood loss Orthorexia nervosa Plantar wart, right foot Leukopenia Suprapubic mass Colon cancer screening Preventative health care Bacterial vaginosis Vitamin D deficiency Adenomyosis Anemia Surgical History Hx of abdominal hysterectomy History of lobectomy of thyroid Hx of laparoscopy S/P thyroid biopsy Family History Mother Osteoporosis Aunt Stomach cancer Uncle Prostate CA Other AL amyloidosis Social History Smoking Status: Never smoker alcohol intake: current alcohol intake frequency: holidays/special occasions only substance use type: does not use caffeine: Yes what type of physical activity do you participate in: walking, yoga and other details: cardio frequency: 5-6 times per week seatbelt use: always do you feel safe at home: Yes 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 she didn't have an official 6 week postop visit [place]. she is feeling back to normal and even better than normal, very happy with recovery. History 1 Elective abortions Hx Para Spontaneous abortions Hx # Term Pregnancies Ectopic pregnancies Hx # Pregnancies Multiple births # of living children 0 ROS Const Constitutional: Reports system reviewed and no additional complaints, except as documented GI GI: Denies abdominal pain, cramping, nausea or vomiting : Denies pelvic pain, urinary frequency, urinary incontinence, urinary urgency, vaginal discharge, vaginal dryness or vaginal odor Exam Const General: cooperative, healthy appearing, comfortable and no acute distress External Female Exam: normal external appearance and normal appearance of the urethra Urethra: normal appearance of the urethra Speculum Exam - Vagina: normal appearance of the vagina and other (normal vaginal length, apex well supprted and healed, intact no granulation) Speculum Exam - Cervix: other (visible structure at top of vagina seen consistent with cwervical appearanc) Bimanual Exam- Vagina Uterus: uterus absent Bimanual Exam- Adnexa, other: normal and non-tender Pelvic Support: normal Other: vaginal cuff normal and intact, good vaginal length, no granulation tissue present Results POC Urinalysis Dip (Clinic) Office Urine Color YELLOW Last Edit by Micheline Stein on 05/19/24 13:33 Office Urine Clarity Clear Last Edit by Micheline Stein on 05/19/24 13:33 Office Urine Glucose Negative Last Edit by Micheline Stein on 05/19/24 13:33 Office Urine Ketones Negative Last Edit by Micheline Stein on 05/19/24 13:33 Off Ur Spec [place] 1.020 Last Edit by Micheline Stein on 05/19/24 13:33 Office Urine pH 7.0 Last Edit by Micheline Stein on 05/19/24 13:33 Office Urine Bilirubin Small (1+) Last Edit by Micheline Stein on (more content not included)... Normal [facility] Urine cultureOrdered By: Willis Frausto on 05-19-2024 Bacteria identified Cx Nom (U) Positive Abnormal [facility] Plastic Surgery Visit Report on 05-07-2024 Plastic Surgery Visit Report [facility] [address], [address] [place] [address] OFFICE VISIT Date of Service: 05/07/24 MR#: [id number] Acct: [id number] Name: TAHMINA GALLARDO Rep #: [id number] : 1975 Provider: Dr. Alfredo Hernandez MD Age/Sex: 48/F Location: [facility] Status: Signed Intake Vital Signs 02/25/24 13:04 05/07/24 14:24 Height 5 ft 5 in 5 ft 5 in Weight: 147 lb 2 oz 138 lb BMI 24.5 22.9 BP 132/90 H 116/82 H Blood Pressure Location Rt brachial Position Sitting Respiration 18 Pulse 77 Temp 98.7 F Temp Source Temporal Pulse Oximetry (%) 98 Oxygen Delivery Method room air Intake Visit Reasons: PREAURICULAR PICK ON EAR Chief Complaint: preauricular pick on ear Is patient in pain?: No Allergies No Known Allergies Allergy (Verified 05/07/24 14:25) Medications ???Medication ???Instructions ???Recorded ???Confirmed ???Type NK 05/07/24 05/07/24 History Nurse's Note: pt referred by Malena Pastrana. Dr. Jimenez. for external pit/pore on right ear. Would like suggestions/eval. [facility] Medical History History of uterine fibroid History of bleeding disorder Wears glasses Depression Thyroid disease Anemia Low iron Syncope Non-smoker Leg cramps Easy bruising Hx of sinus tachycardia Chest pain Neuropathy Pica Dermatitis Localized superficial swelling of skin Muscle pain Heel callus Post-viral cough syndrome URI (upper respiratory infection) Elevated blood pressure reading without diagnosis of hypertension Endometriosis Menorrhagia Iron deficiency anemia due to chronic blood loss Orthorexia nervosa Plantar wart, right foot Leukopenia Suprapubic mass Colon cancer screening Preventative health care Bacterial vaginosis Vitamin D deficiency Adenomyosis Anemia Surgical History Hx of abdominal hysterectomy History of lobectomy of thyroid Hx of laparoscopy S/P thyroid biopsy Family History Mother Osteoporosis Aunt Stomach cancer Uncle Prostate CA Other AL amyloidosis Social History Smoking Status: Never smoker alcohol intake: current alcohol intake frequency: holidays/special occasions only substance use type: does not use caffeine: Yes what type of physical activity do you participate in: walking, yoga and other details: cardio frequency: 5-6 times per week seatbelt use: always do you feel safe at home: Yes 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 She reports that her aunt has a similar spot. She reports that it has a sinus tract that drains malodorous fluid/tissue from time to time, but she is able to keep it clean with daily self-care. It never gets infected (never gets hot or swollen). She would like to discuss options for removal as she was seen by Dr. Jimenez at [facility] dermatology who referred her to us. Does have a history of poor scarring with keloids ROS General General: Yes good health and fatigue; No fever(s) or weight loss HENMT HENMT: No rhinitis, sore throat/mouth sore, nasal congestion, contacts or glaucoma Endo Endocrine: Yes heat intolerance and cold intolerance; No thyroid disease, polydipsia, hepatitis or excessive urine Skin Skin: Yes Bleeding and bruising; No changing moles or suspicious lesion Musc Musculoskeletal: No joint pain, joint stiffness, muscle weakness, back pain, osteoarthritis or Muscle aches/ myalgia Neuro Neurological: No headache(s), No lightheadedness and No numbness Cardio Cardiovascular: Yes fatigue; No chest pain, pacemaker or shortness of breat with exertion Psych Psychiatric: No depression, claustrophobia or anxiety Resp Respiratory: No spitting up, shortness of breath, sleep apnea, asthma, emphysema, TB, Cough or Smoker Gastro Gastrointestinal: No diarrhea, constipation, blood in stool, nausea, vomiting or abdominal bloating Manuel Hematologic: No anemia, No bleeding and No abnormal bleeding Genitourinary: No urinary frequency, blood in urine or incontinence Exam Details Excellent skin quality. Minimal rhytids. Right preauricular region just anterior to the helical rim with a small sinus, not actively draining any tissue, but appears to have a tract that moves anteriorly approximately 1 cm. Coding Level of Care Code Off vis,new,level 3 Diagnoses Ear pit Q18.1 Assessment and Plan (No Qualifiers) As (more content not included)... Normal [facility] Supervising Broker Office Visit Reporton 02-25-2024 Supervising Broker Office Visit Report [facility] [address], [address] [place] [address] OFFICE VISIT Date of Service: 02/25/24 MR#: [id number] Acct: [id number] Name: TAHMINA GALLARDO Rep #: [id number] : 1975 Provider: Dr. 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 Required: No Allergies No Known Allergies Allergy (Verified 02/25/24 13:08) Medications ???Medication ???Instructions ???Recorded ???Confirmed ???Type ketoconazole 2 % topical cream 1 applic topical DAILY HEAD LESION 02/03/24 02/25/24 History naproxen 500 mg tablet 500 mg PO BID PRN PRN Pain #30 tabs 02/18/24 02/25/24 Rx oxycodone-acetaminoph en 5 mg-325 1 tab PO Q4H PRN pain 7 days #20 02/18/24 02/25/24 Rx mg tablet (Percocet) tabs Patient : No : No PFSH Medical History Wears glasses Depression Thyroid disease Anemia Low iron Syncope Non-smoker Leg cramps Easy bruising Hx of sinus tachycardia Chest pain Neuropathy Pica Dermatitis Localized superficial swelling of skin Muscle pain Heel callus Post-viral cough syndrome URI (upper respiratory infection) Elevated blood pressure reading without diagnosis of hypertension Endometriosis Menorrhagia Iron deficiency anemia due to chronic blood loss Orthorexia nervosa Plantar wart, right foot Leukopenia Suprapubic mass Colon cancer screening Preventative health care Bacterial vaginosis Vitamin D deficiency Adenomyosis Anemia Surgical History History of lobectomy of thyroid Hx of laparoscopy S/P thyroid biopsy Family History Mother Osteoporosis Aunt Stomach cancer Uncle Prostate CA Other AL amyloidosis Social History Smoking Status: Never smoker alcohol intake: current alcohol intake frequency: holidays/special occasions only substance use type: does not use caffeine: Yes what type of physical activity do you participate in: walking, yoga and other details: cardio frequency: 5-6 times per week seatbelt use: always do you feel safe at home: Yes 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 some ecchymoses and appropriate tenderness, bowel movemnts happenign, pain controlled. ambulating. lost her son in [place] this past week so they will be traveling there if medically stable. History 1 Elective abortions Hx Para Spontaneous abortions Hx # Term Pregnancies Ectopic pregnancies Hx # Pregnancies Multiple births # of living children 0 ROS Const Constitutional: Reports system reviewed and no additional complaints, except as documented GI GI: Denies abdominal pain, cramping, nausea or vomiting : Denies pelvic pain, urinary frequency, urinary incontinence, urinary urgency, vaginal discharge, vaginal dryness or vaginal odor Exam Const General: cooperative, healthy appearing, comfortable and no acute distress GI Inspection: normal to inspection Palpation: soft and nontender Other: Incisions: C/D/I Coding Level of Care Code No Charge Diagnoses S/P JAMES (total abdominal hysterectomy) Z90.710 Status post bilateral salpingectomy Z90.79 Assessment and Plan Assessment and Plan (1) S/P JAMES (total abdominal hysterectomy): Status: Acute Comment: SM for fibroids (2) Status post bilateral salpingectomy: Status: Acute Plan approve travel as much as able, reviewed precautions. discussed risk reducing strategies for clot reduction 03/01/242049 Date Rosalie Frausto MD Cosign Signature: Date (if applicable) CC: Normal [facility] CBC-Complete Blood Cnt No Di ffon 02-19-2024 PATH REV Normal [facility] Comment on above: Result Comment: 1+ P OLYCHROMASIA 1+ OVALOCYTES ADEQUATE PLATELETS Performed By: #### L 500.4050, L100.0100, L503.8750, L503.7850, L503.6022 #### [facility] Laboratory [address] [place], [address] Erythrocyte distribution wid th (RBC) [Ratio]Ordered By: Rosalie Frausto on 02-19-2024 RDW Coefficient of Variation Not Reportable [facility] RDW Standard Deviation Not Reportable [facility] Hematocrit Auto (Bld) [Volum e fraction]Ordered By: Rosalie Frausto on 02-19-2024 Hematocrit (Bld) [Volume fraction] 34.2 % Low 37-47 [facility] Hemoglobin measurementOrdere d By: Rosalie Frausto on 02-19-2024 Hemoglobin (Bld) [Mass/Vol] 10.3 g/dL Low 12.0-15.0 [facility] MCV (mean corpuscular volume ) determinationOrdered By: Rosalie Frausto on 02-19-2024 MCV (RBC) [Entitic vol] 82.2 fL 81-99 [facility] Mean corpuscular hemoglobin (MCH) determinationOrdered By: Rosalie Frausto on 02-19-2024 MCH (RBC) [Entitic mass] 24.8 pg Low 27.0-32.0 [facility] Mean corpuscular hemoglobin concentration (MCHC) determinationOrdered By: Rosalie Frausto on 02-19-2024 MCHC (RBC) [Mass/Vol] 30.1 g/dL Low 32-36 [facility] Mean platelet volume determi nationOrdered By: Rosalie Frausto on 02-19-2024 Platelet mean volume (Bld) [Entitic vol] 10.7 fL 6.2-12.0 [facility] Pathologist review Jose M (Unsp spec) [Interp]Ordered By: Rosalie Frausto on 02-19-2024 Differential Pathologist's Review See comment [facility] Comment on above: 1+ POLYCHROMASIA1+ O VALOCYTESADEQUATE PLATELETS Platelet countOrdered By: Ranjeet Frausto on 02-19-2024 Platelets (Bld) [#/Vol] 272 10*3/uL 150-450 [facility] RBC Auto (Bld) [#/Vol]Ordere d By: Rosalie Frausto on 02-19-2024 RBC (Bld) [#/Vol] 4.16 10*6/uL Low 4.2-5.4 [facility] White blood cell (WBC) count Ordered By: Rosalie Frausto on 02-19-2024 WBC (Bld) [#/Vol] 7.6 10*3/uL 4.4-11.0 [facility] BRCon 02-18-2024 RC Normal [facility] Comment on above: Result Comment: [id number] AP RC XM COMPATIBLE [id number] AP RC XM COMPATIBLE Performed By: #### L 500.4050, L100.0100, L503.6150, L503.6550, L503.6075 #### [facility] Laboratory [address] [place], [address] Bedside Glucoseon 02-18-2024 FINGERSTICK GLU 74 mg/dL Normal 74-106 [facility] Comment on above: Result Comment: AMAIRANI OCONNELL OF PATIENT CARE PER NURSING PROTOCOL Performed By: #### L 501.080 #### [facility] Laboratory [address] [place], [address] CBC-Complete Blood Cnt No Di ffon 02-18-2024 RDW CV TNP Normal 11.6-14.6 [facility] Comment on above: Performed By: #### L 500.4050, L100.0100, L503.6150, L503.6550, L503.6075 #### [facility] Laboratory [address] [place], [address] RDW SD TNP Normal 35.1-43.9 [facility] Comment on above: Performed By: #### L 500.4050, L100.0100, L503.6150, L503.6550, L503.6075 #### [facility] Laboratory [address] [place], [address] Hematocrit (Bld) [Volume fraction] 34.6 % Low 37-47 [facility] Comment on above: Performed By: #### L 500.4050, L100.0100, L503.6150, L503.6550, L503.6075 #### [facility] Laboratory [address] [place], [address] Hemoglobin (Bld) [Mass/Vol] 10.6 g/dL Low 12.0-15.0 [facility] Comment on above: Performed By: #### L 500.4050, L100.0100, L503.6150, L503.6550, L503.6075 #### [facility] Laboratory [address] [place], [address] MCH (RBC) [Entitic mass] 24.8 pg Low 27.0-32.0 [facility] Comment on above: Performed By: #### L 500.4050, L100.0100, L503.6150, L503.6550, L503.6075 #### [facility] Laboratory [address] [place], [address] MCHC (RBC) [Mass/Vol] 30.6 g/dL Low 32-36 [facility] Comment on above: Performed By: #### L 500.4050, L100.0100, L503.6150, L503.6550, L503.6075 #### [facility] Laboratory [address] [place], [address] MCV (RBC) [Entitic vol] 80.8 fL Low 81-99 [facility] Comment on above: Performed By: #### L 500.4050, L100.0100, L503.6150, L503.6550, L503.6075 #### [facility] Laboratory [address] [place], [address] Platelet mean volume (Bld) [Entitic vol] 10.3 fL Normal 6.2-12.0 [facility] Comment on above: Performed By: #### L 500.4050, L100.0100, L503.6150, L503.6550, L503.6075 #### [facility] Laboratory [address] [place], [address] Platelets (Bld) [#/Vol] 297 10*3/uL Normal 150-450 [facility] Comment on above: Performed By: #### L 500.4050, L100.0100, L503.6150, L503.6550, L503.6075 #### [facility] Laboratory [address] [place], [address] RBC (Bld) [#/Vol] 4.28 10*6/uL Normal 4.2-5.4 [facility] Comment on above: Performed By: #### L 500.4050, L100.0100, L503.6150, L503.6550, L503.6075 #### [facility] Laboratory [address] [place], [address] WBC (Bld) [#/Vol] 11.0 10*3/uL Normal 4.4-11.0 [facility] Comment on above: Performed By: #### L 500.4050, L100.0100, L503.6150, L503.6550, L503.6075 #### [facility] Laboratory [address] [facility] [place], [address] Discharge Instructionon Discharge Instruction [facility] Medical Records Department [address] [place] [address] Instructions for Home/Discharge Instructions 02/18/24 0757 MR#: [id number] Acct: [id number] Name: TAHMINA GALLARDO Rep #: [id number] : 1975 48 From: Rosalie Frausto MD PCP: Dr. Reymundo Mcadams MD Status:ADM IN Discharge Instructions Diet Discharge Diet: No restrictions DC O2, CPAP, BIPAP needs Home O2 Discharge instructions: No Dressing / Incision Discharge Activity: Return to Normal Activity, May Not Drive (while taking narcotic pain medications.) and May Shower May resume sexual activity in: 6-8 weeks Weight Bearing Status: Weight bearing as tolerated Dressing / Incision Call your doctor if your incision/area has: Continuous Slow Oozing, Sudden Increased Bleeding, Increased Pain/ Swelling, Increased Redness and Foul Smelling Discharge Call your doctor if you observe: Fever of 101 or Higher, Inability to urinate, Inability to have a bowel movement and Using more than 1 pad per hour Follow Up Care Please Follow Up With: Rosalie Frausto MD Test Results: Test results from this visit will be discussed in further detail at your follow-up appointment, if applicable. Discharge Plan Admission Admit Date/Time: 02/18/24 05:23 Attending Provider: Rosalie Frausto Primary Care Provider: Reymundo Mcadams Discharge Orders/Prescriptions Prescriptions: New oxycodone-acetaminoph en [Percocet] 5-325 mg tablet 1 tab PO Q4H PRN (Reason: pain) 7 Days Qty: 20 0RF naproxen 500 mg tablet 500 mg PO BID PRN PRN (Reason: Pain) Qty: 30 1RF No Action ketoconazole 2 % cream 1 applic topical DAILY Other Ambulatory Orders: CBC-Complete Blood Cnt No Diff (Routine) Timeframe: 20240218 Facility: [facility] - Location: Laboratory Ordered By: Dr. Rosalie Frausto Referrals / Follow Up: Reymundo Mcadams MD [Primary Care Provider] - 02/18/24 1727 Rosalie Frausto MD CC: Dr. Reymundo Mcadams MD Signed Normal [facility] deOrdered By: Rosalie Frausto on 02-18-2024 Bedside Glucose (Misc Panel) 74 mg/dL 74-106 [facility] Comment on above: MANAGEMENT OF PATIEN T CARE PER NURSING PROTOCOL MR/POSTOP.Rob 02-18-2024 MR/POSTOP.[facility] Medical Records Department [address] [place] [address] Anesthesia Postop Eval I 02/18/24 1000 MR#: [id number] Acct: [id number] Name: TAHMINA GALLARDO Rep #: [id number] : 1975 48 From: Kera Ríos CRNA PCP: Dr. Reymundo Mcadams MD Status:ADM IN Y Race: AA Location: [place] [address] Anesthesia: Postop Eval I Current Vital Signs Temperature: 97.7 F Pulse Rate: 64 Blood Pressure: 122/77 Respiratory Rate: 19 Pulse Ox: 100 Oxygen Delivery Method: Nasal Cannula Oxygen Flow Rate (L/min): 3 Assessment Airway patent: Yes Spontaneous unlabored respirations: Yes Mental status: Asleep nausea: No Vomiting: No Anesthesia Complication: No Fluid Hydration Crystalloid volume administer (ml): 1,500 Total IV fluid infused: 1,500 Progress Note Anesthesia document: Postop Eval 1 completed: Yes 02/18/24 1003 Date Kera Ríos HEALTHCARE CONSULTING MANAGER Cosigner Signature: Date CC: Signed Normal [facility] MR/[id number] 02-18-2024 [facility] Medical Records Department [address] [place] [address] Anesthesia Postop Eval II 02/18/24 1312 MR#: [id number] Acct: [id number] Name: TAHMINA GALLARDO Rep #: [id number] : 1975 48 From: Haresh Hines MD PCP: Dr. Reymundo Mcadams MD Status:ADM IN Y Race: AA Location: [facility] MD108-8 Anesthesia Postop Eval I Sum Postop Eval Completion status Anesthesia document: Postop Eval 1 completed: Yes Anesthesia Postop Eval I Summary Anesthesia Postop Eval I Summary: Anesthesia Postop Eval I: Assessment Summary Airway patent Yes 02/18/24 10:02 HEALTHCARE CONSULTING MANAGER.AVERYWI Spontaneous unlabored Yes 02/18/24 10:02 HEALTHCARE CONSULTING MANAGER.AVERYWI respirations Mental status Asleep 02/18/24 10:02 HEALTHCARE CONSULTING MANAGER.AVERYWI nausea No 02/18/24 10:02 HEALTHCARE CONSULTING MANAGER.AVERYWI Vomiting No 02/18/24 10:02 HEALTHCARE CONSULTING MANAGER.GERONIMO Anesthesia Postop Eval I: Fluid Summary Crystalloid volume administer 1,500 02/18/24 10:02 HEALTHCARE CONSULTING MANAGER.GERONIMO (ml) Colloids volume administered ( ml) Blood Product volume administered (ml) Total IV fluid infused 1,500 02/18/24 10:02 HEALTHCARE CONSULTING MANAGER.GERONIMO Anesthesia Postop Eval I: Summary Notes Anesthesia Complication No 02/18/24 10:02 HEALTHCARE CONSULTING MANAGER.GERONIMO Anesthesia Complication Comment: Post-operative progress note Anesthesia: Postop Eval II Evaluation Mental status: Awake and Calm Pain Level: 1 nausea: No Vomiting: No Complications Anesthesia Complication: No 02/18/24 1312 Date Haresh Hines MD Cosigner Signature: Date CC: Signed Normal [facility] Operative Reporton 5 Operative Report [facility] Medical Records Department [address] [place] [address] Operative Report 02/18/24 0744 MR#: [id number] Acct: [id number] Name: TAHMINA GALLARDO Rep #: [id number] : 1975 48 From: Rosalie Frausto MD PCP: Dr. Reymundo Mcadams MD Status:ADM IN [facility] Associated Problem List Diagnoses (1) Iron deficiency anemia due to chronic blood loss: (2) Menorrhagia: (3) Adenomyosis: (4) Fibroid, uterine: Multi Select Codes Urinary/Genital Urinary/Genital CPT Codes: 38213 [facility] Operative Report (Standard) Operative Information Date of Procedure: 02/18/24 Pre-Operative Diagnosis: see problem list Post-Operative Diagnosis: same Surgery/Procedure Performed: Total abdominal hysterectomy bilateral salpingectomy customer training specialist: Yes Instructional Technology Coach: Felisha Martin Tasks completed by assistant professor of radiology: Opening closing, Dissecting tissue, Removing tissue, Altering tissue, Hemostasis: Clamp, Hemostasis: Tie, Hemostasis: Electrocautery and Retracting Type of Anesthesia: General RN Documented Start/Stop Times: Operation Date: 02/18/24 07:30 Case Time Into Pre-Op 02/18/24 05:36 Out of Pre-Op 02/18/24 07:36 Anesthesia Start 02/18/24 07:43 Into Room 02/18/24 07:43 Procedure Start 02/18/24 08:11 Procedure End 02/18/24 09:40 Anesthesia End 02/18/24 09:51 Out of Room 02/18/24 09:51 Into Recovery 02/18/24 09:55 Out of Recovery 02/18/24 12:45 Procedure Start Time: 08:11 Procedure Stop Time: 09:40 Select all DRAINS/GRAFTS/IMPLANT S that apply: Drains (soler) Drain details: clear urine at end of procedure Estimated Blood Loss: 200 Specimen collected: Yes Description of specimen(s) removed: uterus tubes Description of surgery: The patient was taken to the operating room and placed under general anesthesia in the dorsal supine position. She was prepped and draped in the normal sterile fashion. Soler catheter was placed in the bladder SCDs were on and preoperative antibiotics were given. A Pfannenstiel skin incision was made with the scalpel and carried through the underlying layer of the fascia with the scalpel, fascia was nicked in the midline, incision extended laterally. Rectus bellies were dissected off superiorly and inferiorly sharply and bluntly and peritoneum entered digitally, incision stretched laterally and the retractor was placed after the bowel was packed away. The uterus was identified and noted to be significantly enlarged approximately 22 cm. The ovaries were noted to be within normal limits. one bowel adhesion noted which was taken down sharply, it did have some persistent spotting. The fallopian tubes were elevated bilaterally and the mesosalpinx transected with the ligasure and cut. The round ligaments were transected bilaterally with the ligasure and cut and the broad ligament was opened up and the utero-ovarian ligament vessels were double clamped cut and suture ligated with 0 Monocryl. The bladder flap was created taking down the vesicouterine peritoneum and the uterine vessels, cardinal ligaments, and remaining uterine vessels were skeletonized and either transected with the ligasure or clamped cut and suture ligated with 0 Monocryl bilaterally. Good attention was paid to keep the bladder inferior to the clamps and dissected off of the cervix and lower uterine corpus. The clamps were then placed underneath the cervix bilaterally the uterus amputated off of the vaginal stump and the vaginal cuff was suture ligated with 0 vicryl [id number] sutures ???3. Excellent hemostasis was noted with some raw appearance which was covered with hemoblast after irrigation. there was still some bleeding noted over the area of previous adhesiolysis, so a monocryl stitch was placed there for good hemostasis. all instruments were removed from the abdomen and the peritoneum was closed with 3-0 Monocryl, fascia closed with 0 PDS, subcutaneous tissue reapproximated with 3-0 Monocryl and the skin closed with 4-0 Monocryl. Patient was awoken and taken recovery in stable condition. uterine weight 1272g Surgical Findings: enlarged uterus with multiple fibroids nl ovaries Complications Complications: No 02/18/24 1727 Cosigner Signature (if applicable): CC: Dr. Reymundo Mcadams MD; Dr. Rosalie Frausto MD Signed Normal [facility] ,Urineon 02-18-2024 Beta HCG ( test) Ql (U) Negative [facility] Comment on above: Result Comment: Very dilute urine specimens, as indicated by a low specific gravity, may not contain community health program representative levels of hCG. If is still suspected, a first morning urine specimen should be collected 48 hours later and tested. Performed By: #### B TSPAT, L400.7600 #### [facility] Laboratory [facility] [address] [place], [place], [id number] Surgery Specimen Level Von 0 02-18-2024 Surgery Specimen Level V ------ -------- Patient Age/Sex Location Account Attending Physician -------- TAHMINA GALLARDO 48/F MS3 [id number] Dr. Rosalie Frausto MD -------- Specimen: [id number] Received: 02/18/24 Status: REECE Murray Num: [id number] Spec Type: HYSTERECT Subm Dr: Dr. Rosalie Frausto MD HEADER OPERATION: Hysterectomy, JAMES, bilateral salpingectomy PRE-OP DIAGNOSIS: Menorrhagia, fibroid, uterine, iron deficiency anemia due to chronic blood loss, high risk HPV DNA test positive TISSUE SUBMITTED: Uterus, cervix, bilateral tubes -------- MICROSCOPIC DIAGNOSIS Uterus and Bilateral Fallopian Tubes, Total Abdominal Hysterectomy and Bilateral Salpingectomy: Cervix: Nabothian Cysts, Tunnel Clusters, No Squamous Mucosa Endometrium: Secretory Myometrium: Multiple Leiomyomata Fallopian Tubes: Two completely transected fallopian tubes , 02/20/2024 MICROSCOPIC DESCRIPTION Slides are reviewed. GROSS DESCRIPTION Received in fixative is one container labeled with the patient's name and designated uterus, cervix, bilateral fallopian tubes. The specimen consists of a hysterectomy specimen consisting of uterus with cervix and detached bilateral fallopian tubes. The uterus with cervix weighs 1200 gm and measures 21.0 x 16.0 x 10.0cm. Multiple subserosal nodules are noted. The serosal surface is lopez glistening. No obvious ectocervical mucosa is noted. The external os is circular in contour. The endocervical canal measures 4.0 cm in length and the endocervical mucosa is lopez glistening and unremarkable. Sections of cervix reveal multiple cysts filled with mucoid fluid. The endometrial cavity is compressed to one side and is triangular and measures 6.5 cm in length and up to 6.0 cm in width. The endometrium is lopez glistening without any mass lesions and measures 0.1 cm in thickness. Sections of the uterine wall reveal multiple submucosal, intramural and subserosal nodular masses. Largest mass measures 11.0cm in diameter. Sections of these masses reveal lopez whorled cut surfaces without areas of hemorrhage, necrosis or cystic degeneration. Uninvolved uterine wall measures up to 3.5cm in thickness. Fallopian tubes are not identified as right or left and measures 7.0cm in length and 1.0cm in diameter and 8.0cm in length and 1.0cm in diameter. Fimbrial ends are identified. Sections reveal unremarkable cut surfaces. -------- Patient Age/Sex Location Account Attending Physician -------- TAHMINA GALLARDO 48/F MS3 [id number] Dr. Rosalie Frausto MD -------- Leverman sections are submitted in twelve cassettes as follows: 1 - anterior cervix, 2 - posterior cervix, 3 4 - anterior uterine wall, 5 6 - posterior uterine wall, 7- largest nodular mass, 8- second largest nodular mass, 9- third largest nodular mass, 10- fourth largest nodular mass, 11- one fallopian tube, 12- second fallopian tube. SJ:mr 02/18/2024 TC:4 CPT: 29926 -------- Patient Age/Sex Location Account Attending Physician -------- TAHMINA GALLARDO 48/F MS3 [id number] Dr. Rosalie Frausto MD -------- Signed (signature on file) Dr. Christopher Manuel MD 02/20/24 1036 -------- Normal [facility] Comment on above: Performed By: #### L 500.4050, L100.0100, L503.6150, L503.6550, L503.6075 #### [facility] Laboratory [address] [place], [place], [address] Type AND Screen - PAT ONLYon 02-18-2024 Ab SCREEN GEL Negative Normal [facility] Comment on above: Order Comment: Surge ry Date: 02/18/24 Reason for Laboratory Test PREOP [id number] 01/16/24 No N Y S JAMES BSO Performed By: #### B TSPAT, L400.7600 #### [facility] Laboratory [address] [place], [place], [address] Urine testOrdered By: Rosalie Frausto on 02-18-2024 HCG ( test) Ql (U) Negative [facility] Comment on above: Very dilute urine sp ecimens, as indicated by a low specificgravity, may not contain community health program representative levels of hCG. If is still suspected, a first morning urinespecimen should be collected 48 hours later and tested. Pelvis W/WO Contraston 02-06 Pelvis W/WO Contrast [facility] Imaging Services [address] [place], [place] [address] Pelvis W/WO Contrast MR#: [id number] Acct: [id number] Name: TAHMINA GALLARDO Rep #: [id number] : 1975 F 48 From: Sean vasquez MD PCP: Dr. Reymundo Mcadams MD Status: REG CLI Study: Pelvis W/WO Contrast Date of Exam: 02/07/24 Exam# [id number] Ordering Dr: Felisha Martin DO [id number] MR Pelvis Female WO/W Contrast 02/07/2024 9:18 AM COMPARISON: Ultrasound 12/10/2022 CLINICAL HISTORY: large fibroid uterus, PRE OP PLANNING, TECHNIQUE: Multiplanar T1 and T2 weighted, diffusion and dynamic post-gadolinium images were obtained through the pelvis. FINDINGS: Uterus size: Approximately 12.7 x 6.8 x 10 cm There are greater than 12 leiomyomas, which do distort the endometrial cavity. Leiomyomas: 1) approximately 8.9 x 6.7 x 7.4 cm (image 15, series 3); posterior; subserosal;homogeneou s low T2 signal intensity; heterogeneous enhancement 2) 4.1 x 3.9 x 2.9 cm (image 9, series 3); left uterine body near the lower uterine segment; subserosal;homogeneou s low T2 signal intensity; heterogeneous enhancement 3) 3.2 x 3.2 x 2.9 cm (image 16, series 3); posterior; submucosal;homogeneou s low T2 signal intensity; homogeneous enhancement 4) 2.6 x 3.4 x 2.6 cm (image 10, series 3); anterior; pedunculated;homogene ous low T2 signal intensity; heterogeneous enhancement Endometrium: No focal abnormalities seen. Cervix: Multiple nabothian cysts. Right ovary: Unremarkable Left ovary: Unremarkable Free fluid: Absent Bones: No suspicious lesions MRI/Pelvis W/WO Contrast IMPRESSION: Multi fibroid uterus as described above. Note: The fundus of the uterus was not imaged, therefore this examination is limited. Consider obtaining additional MR Abdomen w/ and w/out contrast. Electronically Signed: Sean Acharya MD at 23:58 EST , CC: Dr. Reymundo Mcadams MD; Dr. Felisha Martin DO Marine Erector: Signed Normal [facility] 12 Lead EKGon 02-06-2024 12 Lead EKG [facility] Cardiovascular Services [address] [place] [address] 12 Lead EKG 02/06/24 1244 MR#: [id number] Acct: [id number] Name: TAHMINA GALLARDO Rep #: [id number] : 1975 48 From: Ramy Latham MD Attending Dr: Dr. Rosalie Frausto MD Status: PRE IN Ordering Dr: Regan Blackwell MD Date: 02/06/24 Location: [facility] Sex: F AA Admitted: Test Reason : PRE OP Blood Pressure : */* mmHG Vent. Rate : 76 BPM Atrial Rate : 76 BPM P-R Int : 128 ms QRS Dur : 78 ms QT Int : 366 ms P-R-T Axes : 67 88 9 degrees QTcB Int : 411 ms Normal sinus rhythm Normal ECG Confirmed by YEISON PEDRO, RAMY ([id number]), assignment desk editor LEANNE DEAN ([id number]) on 02/07/2024 6:16:45 AM Referred By: William FRAUSTO Confirmed By: RAMY LATHAM MD 02/07/24 0616 Date Ramy Latham MD CC: Dr. Regan Blackwell MD; Dr. Reymundo Mcadams MD; Dr. Rosalie Frausto MD Signed Normal [facility] Basic Metabolic Profile (BMP )on 02-06-2024 BUN/CRE 12.8 RATIO Normal 10-20 [facility] Comment on above: Performed By: #### L 500.4050, L100.0100, L503.6150, L503.6550, L503.6075 #### [facility] Laboratory [address] [place], [address] CA,Total 8.5 mg/dL Normal 8.5-10.1 [facility] Comment on above: Performed By: #### L 500.4050, L100.0100, L503.6150, L503.6550, L503.6075 #### [facility] Laboratory [address] [place], [address] Chloride [Moles/Vol] 108 mmol/L High 98-107 [facility] Comment on above: Performed By: #### L 500.4050, L100.0100, L503.6150, L503.6550, L503.6075 #### [facility] Laboratory [address] [place], [address] CO2 [Moles/Vol] 28.0 mmol/L Normal 21.0-32.0 [facility] Comment on above: Performed By: #### L 500.4050, L100.0100, L503.6150, L503.6550, L503.6075 #### [facility] Laboratory [address] [place], [address] Creatinine [Mass/Vol] 0.86 mg/dL Normal 0.55-1.02 [facility] Comment on above: Result Comment: The validity of the calculated GFR GFRAA in patients over 70 years has not been determined. Clinical correlation is essential. Performed By: #### L 500.4050, L100.0100, L503.6150, L503.6550, L503.6075 #### [facility] Laboratory [address] [place], [address] EST GFR - AA 91 mL/min Normal >60 [facility] Comment on above: Result Comment: Afri can Polish GFR Calc Performed By: #### L 500.4050, L100.0100, L503.6150, L503.6550, L503.6075 #### [facility] Laboratory [address] [place], [address] GAP 2 Low 5-15 [facility] Comment on above: Performed By: #### L 500.4050, L100.0100, L503.6150, L503.6550, L503.6075 #### [facility] Laboratory [address] [place], [address] GFR/1.73 sq M.predicted among non-blacks MDRD (S/P/Bld) [Vol rate/Area] 75 mL/min/{1.73_m2} Normal >60 [facility] Comment on above: Result Comment: Non- GFR Calc Performed By: #### L 500.4050, L100.0100, L503.6150, L503.6550, L503.6075 #### [facility] Laboratory [address] [place], [address] Glucose [Mass/Vol] 89 mg/dL Normal 74-106 [facility] Comment on above: Performed By: #### L 500.4050, L100.0100, L503.6150, L503.6550, L503.6075 #### [facility] Laboratory [address] [place], [address] Potassium [Moles/Vol] 4.1 mmol/L Normal 3.5-5.1 [facility] Comment on above: Performed By: #### L 500.4050, L100.0100, L503.6150, L503.6550, L503.6075 #### [facility] Laboratory [address] [place], [address] Sodium [Moles/Vol] 138 mmol/L Normal 136-145 [facility] Comment on above: Performed By: #### L 500.4050, L100.0100, L503.6150, L503.6550, L503.6075 #### [facility] Laboratory [address] [place], [address] Urea nitrogen [Mass/Vol] 11 mg/dL Normal 7-18 [facility] Comment on above: Performed By: #### L 500.4050, L100.0100, L503.6150, L503.6550, L503.6075 #### [facility] Laboratory [address] [place], [address] Blood urea nitrogen (BUN)/cr eatinine ratioOrdered By: Regan Blackwell on 02-06-2024 Urea nitrogen/Creatinine [Mass ratio] 12.8 mg/mg 10-20 [facility] CBC-Complete Blood Cnt No Di ffon 02-06-2024 Erythrocyte distribution width (RBC) [Ratio] 31.3 % High 11.6-14.6 [facility] Comment on above: Performed By: #### L 500.4050, L100.0100, L503.6150, L503.6550, L503.6075 #### [facility] Laboratory [address] [place], [address] Hematocrit (Bld) [Volume fraction] 34.0 % Low 37-47 [facility] Comment on above: Performed By: #### L 500.4050, L100.0100, L503.6150, L503.6550, L503.6075 #### [facility] Laboratory [address] [place], [address] Hemoglobin (Bld) [Mass/Vol] 10.2 g/dL Low 12.0-15.0 [facility] Comment on above: Performed By: #### L 500.4050, L100.0100, L503.6150, L503.6550, L503.6075 #### [facility] Laboratory [address] [place], [address] MCH (RBC) [Entitic mass] 24.1 pg Low 27.0-32.0 [facility] Comment on above: Performed By: #### L 500.4050, L100.0100, L503.6150, L503.6550, L503.6075 #### [facility] Laboratory [address] [place], [address] MCHC (RBC) [Mass/Vol] 30.0 g/dL Low 32-36 [facility] Comment on above: Performed By: #### L 500.4050, L100.0100, L503.6150, L503.6550, L503.6075 #### [facility] Laboratory [address] [place], [address] MCV (RBC) [Entitic vol] 80.2 fL Low 81-99 [facility] Comment on above: Performed By: #### L 500.4050, L100.0100, L503.6150, L503.6550, L503.6075 #### [facility] Laboratory [address] [place], [address] Platelet mean volume (Bld) [Entitic vol] 10.0 fL Normal 6.2-12.0 [facility] Comment on above: Performed By: #### L 500.4050, L100.0100, L503.6150, L503.6550, L503.6075 #### [facility] Laboratory [address] [place], [address] Platelets (Bld) [#/Vol] 538 10*3/uL High 150-450 [facility] Comment on above: Performed By: #### L 500.4050, L100.0100, L503.6150, L503.6550, L503.6075 #### [facility] Laboratory [address] [place], [address] RBC (Bld) [#/Vol] 4.24 10*6/uL Normal 4.2-5.4 [facility] Comment on above: Performed By: #### L 500.4050, L100.0100, L503.6150, L503.6550, L503.6075 #### [facility] Laboratory [address] [place], [address] RDW SD 89.5 fl High 35.1-43.9 [facility] Comment on above: Performed By: #### L 500.4050, L100.0100, L503.6150, L503.6550, L503.6075 #### [facility] Laboratory [address] [place], [address] WBC (Bld) [#/Vol] 5.6 10*3/uL Normal 4.4-11.0 [facility] Comment on above: Performed By: #### L 500.4050, L100.0100, L503.6150, L503.6550, L503.6075 #### [facility] Laboratory [address] [place], [place], [address] Carbon dioxide measurementOr dered By: Regan Blackwell on 02-06-2024 CO2 [Moles/Vol] 28.0 mmol/L 21.0-32.0 [facility] Chloride measurementOrdered By: Regan Blackwell on 02-06-2024 Chloride [Moles/Vol] 108 mmol/L High 98-107 [facility] Estimated glomerular filtrat ion rate (GFR) AmericanOrdered By: Regan Blackwell on 02-06-2024 Estimated GFR (MDRD) Amer 91 mL/min >60 [facility] Comment on above: GFR Calc Glomerular filtration rate ( GFR) estimationOrdered By: Regan Blackwell on 02-06-2024 Estimated GFR (MDRD) Non-Af Amer 75 mL/min >60 [facility] Comment on above: Non- GFR Calc Glucose measurementOrdered B y: Regan Blackwell on 02-06-2024 Glucose [Mass/Vol] 89 mg/dL 74-106 [facility] International normalized rat io (INR) calculationOrdered By: Regan Blackwell on 02-06-2024 INR Coag (Bld) [Relative time] 1.0 {INR} [facility] Magnesiumon 02-06-2024 Magnesium [Mass/Vol] 2.1 mg/dL Normal 1.6-2.6 [facility] Comment on above: Performed By: #### L 500.4050, L100.0100, L503.6150, L503.6550, L503.6075 #### [facility] Laboratory [address] [place], [address] Magnesium measurementOrdered By: Regan Blackwell on 02-06-2024 Magnesium [Mass/Vol] 2.1 mg/dL 1.6-2.6 [facility] Supervising Broker Office Visit Reporton 02-06-2024 Supervising Broker Office Visit Report [address], [address] [place] [address] OFFICE VISIT Date of Service: 02/06/24 MR#: [id number] Acct: [id number] Name: TAHMINA GALLARDO Rep #: [id number] : 1975 Provider: Dr. 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 Is patient in pain?: No Allergies No Known Allergies Allergy (Verified 02/06/24 11:34) Medications ???Medication ???Instructions ???Recorded ???Confirmed ???Type ketoconazole 2 % topical cream 1 applic topical DAILY HEAD LESION 02/03/24 02/06/24 History Is last menstrual period known: Yes Last Menstrual Period: 01/31/24 Post menopausal: No Patient : No : No PFSH Medical History Wears glasses Depression Thyroid disease Anemia Low iron Syncope Non-smoker Leg cramps Easy bruising Hx of sinus tachycardia Chest pain Neuropathy Pica Dermatitis Localized superficial swelling of skin Muscle pain Heel callus Post-viral cough syndrome URI (upper respiratory infection) Elevated blood pressure reading without diagnosis of hypertension Endometriosis Menorrhagia Iron deficiency anemia due to chronic blood loss Orthorexia nervosa Plantar wart, right foot Leukopenia Suprapubic mass Colon cancer screening Preventative health care Bacterial vaginosis Vitamin D deficiency Adenomyosis Anemia Surgical History History of lobectomy of thyroid Hx of laparoscopy S/P thyroid biopsy Family History Mother Osteoporosis Aunt Stomach cancer Uncle Prostate CA Other AL amyloidosis Social History Smoking Status: Never smoker alcohol intake: current alcohol intake frequency: holidays/special occasions only substance use type: does not use caffeine: Yes what type of physical activity do you participate in: walking, yoga and other details: cardio frequency: 5-6 times per week seatbelt use: always do you feel safe at home: Yes additional 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 she has heavy menses, anemia is s/p transfusion and IV Iron infusion. she is ready to proceed with hysterecotmy for fibroids. she is getting an MRI to determine if robotic hysterectomy is an option. she is having heavy prolonged menses. Female Reproductive History Last Menstrual Period: 01/31/24 Cycle Length: 21-35 Bleeding Duration: 7 Associated symptoms: heavy Questions: metorrhagia: No, sexually active: Yes, dyspareunia: No and PCB: No Menopausal Symptoms: No hot flashes, No night sweats, No weight change, No mood changes, No difficulty concentrating, No sleep problems and No change in libido History 1 Elective abortions Hx Para Spontaneous abortions Hx # Term Pregnancies Ectopic pregnancies Hx # Pregnancies Multiple births # of living children 0 ROS Const Constitutional: Denies night sweats ENT ENT: Reports system reviewed and no additional complaints, except as documented Cardio Card: Denies chest pain Resp Resp: Denies cough or dyspnea GI GI: Reports as per HPI and constipation; Denies nausea or vomiting : Denies hot flashes or nipple discharge Musc Musc: Denies arthralgias, back pain or muscle weakness Skin Skin/Breast: Denies alopecia, change in hair, dry skin, breast mass, breast pain, breast skin changes or nipple discharge Neuro Neuro: Reports system reviewed and no additional complaints, except as documented Psych Psych: Denies change in libido or difficulty concentrating Endo Endo: Denies cold intolerance, excessive sweating, heat intolerance or polydipsia Manuel/Lymph Hematologic/Lymphatic : Denies easy bleeding, Denies easy bruising and Denies lymphadenopathy Exam Const General: cooperative, healthy appearing, comfortable, no acute distress and well developed Orientation: alert HENWV Head: normal to inspection and normocephalic Ears: hearing grossly normal bilaterally and external ears normal Nose: external nose normal and nares normal Face and sinus: normal facial exam Neck Neck: normal visual inspection and no lymphadenopathy Thyroid: thyroid normal Chest Chest palpation inspection: normal inspection of the chest Resp Effort Inspection: normal respiratory effort Auscultatio (more content not included)... Normal [facility] Partial Thromboplast Timeon 02-06-2024 aPTT Coag (Bld) [Time] 29.9 s Normal 24.1-36.2 [facility] Comment on above: Performed By: #### L 501.5200, L300.3900, L300.4310, L500.2500 #### [facility] Laboratory [address] [place], [address] Potassium measurementOrdered By: Regan Blackwell on 02-06-2024 Potassium [Moles/Vol] 4.1 mmol/L 3.5-5.1 [facility] Prothrombin Time w/INRon INR Coag (PPP) [Relative time] 1.0 {INR} Normal [facility] Comment on above: Performed By: #### L 501.5200, L300.3900, L300.4310, L500.2500 #### [facility] Laboratory [address] [place], [address] PT Coag (PPP) [Time] 13.2 s Normal 11.7-14.9 [facility] Comment on above: Performed By: #### L 501.5200, L300.3900, L300.4310, L500.2500 #### [facility] [address] [place], [address] Prothrombin timeOrdered By: Regan Blackwell on 02-06-2024 PT Coag (PPP) [Time] 13.2 s 11.7-14.9 [facility] Serum anion gap measurementO rdered By: Regan Blackwell on 02-06-2024 Anion gap [Moles/Vol] 2 mmol/L Low 5-15 [facility] Serum or plasma calcium justin urement (mass/volume)Ordered By: Regan Blackwell on 02-06-2024 Calcium [Mass/Vol] 8.5 mg/dL 8.5-10.1 [facility] Serum or plasma creatinine m easurement (mass/volume)Ordered By: Regan Blackwell on 02-06-2024 Creatinine [Mass/Vol] 0.86 mg/dL 0.55-1.02 [facility] Comment on above: The validity of the calculated GFR & GFRAA in patients over 70 years has not been determined. Clinical correlation is essential. Serum or plasma urea nitroge n measurement (mass/volume)Ordered By: Regan Blackwell on 02-06-2024 Urea nitrogen [Mass/Vol] 11 mg/dL 7-18 [facility] Sodium levelOrdered By: Regan Blackwell on 02-06-2024 Sodium [Moles/Vol] 138 mmol/L 136-145 [facility] Surgery Specimen Level Isaac 02-06-2024 Surgery Specimen Level IV ------- -------- Patient Age/Sex Location Account Attending Physician -------- TAHMINA GALLARDO 48/F LABSPEC [id number] Dr. Rosalie Frausto MD -------- Specimen: [id number] Received: 02/07/24 Status: REECE Trevor Num: [id number] Spec Type: ENDOM BX/C Subm Dr: Dr. Rosalie Frausto MD HEADER OPERATION: Endometrial biopsy PRE-OP DIAGNOSIS: Fibroid uterine TISSUE SUBMITTED: Endometrial tissue -------- MICROSCOPIC DIAGNOSIS Endometrial biopsy: Fragments of benign endocervical mucosa with chronic inflammation, blood and mucous. See comment. THIERRY. 02/10/2024 COMMENT Endometrial tissue is not identified in the specimen. Clinical correlation and appropriate follow up are necessary. MICROSCOPIC DESCRIPTION Slides are reviewed. GROSS DESCRIPTION Received in fixative is one container labeled with the patient's name and designated Endometrial tissue. The specimen consists of multiple irregular fragments of brown tissue that in aggregate measure 2.8 x 2.2 x 0.3 cm. The specimen is totally submitted in one cassette. 02/10/2024 TC:3 CPT:35153 -------- Patient Age/Sex Location Account Attending Physician -------- TAHMINA GALLARDO/F LABSPEC [id number] Dr. Rosalie Frausto MD -------- Signed (signature on file) Dr. Jeff Lyons MD 02/10/24 1108 -------- Normal [facility] Comment on above: Performed By: #### L 500.4050, L100.0100, L503.6150, L503.6550, L503.6075 #### [facility] Laboratory [address] [place], [place], [address] Type AND Screen - PAT ONLYon 02-06-2024 Ab SCREEN GEL Not performed Normal [facility] Comment on above: Order Comment: Surge ry Date: 02/18/24Reason for Laboratory Test [id number] BSO Result Comment: BB H ISTORY POSITIVE. BAND WILL NEED REDRAWN PRIOR TO SURGERY Performed By: #### L 500.4050, L100.0100, L503.6150, L503.6550, L503.6075 #### [facility] Laboratory [address] [place], [place], [address] A1 CELL Not performed Normal [facility] Comment on above: Order Comment: Surge ry Date: 02/18/24Reason for Laboratory Test [id number] BSO Result Comment: BB H ISTORY POSITIVE. BAND WILL NEED REDRAWN PRIOR TO SURGERY Performed By: #### L 500.4050, L100.0100, L503.6150, L503.6550, L503.6075 #### [facility] [address] [place], [address] ABO and Rh group Nom (Bld) Test Not Performed Normal [facility] Comment on above: Order Comment: Surge ry Date: 02/18/24 for Laboratory Test [id number] BSO Result Comment: BB H ISTORY POSITIVE. BAND WILL NEED REDRAWN PRIOR TO SURGERY Performed By: #### L 500.4050, L100.0100, L503.6150, L503.6550, L503.6075 #### [facility] [address] [place], [place], [address] ANTI A Not performed Normal [facility] Comment on above: Order Comment: Surge ry Date: 02/18/24 for Laboratory Test [id number] BSO Result Comment: BB H ISTORY POSITIVE. BAND WILL NEED REDRAWN PRIOR TO SURGERY Performed By: #### L 500.4050, L100.0100, L503.6150, L503.6550, L503.6075 #### [facility] [address] [place], [place], [address] ANTI B Not performed Normal [facility] Comment on above: Order Comment: Surge ry Date: 02/18/24 for Laboratory Test [id number] BSO Result Comment: BB H ISTORY POSITIVE. BAND WILL NEED REDRAWN PRIOR TO SURGERY Performed By: #### L 500.4050, L100.0100, L503.6150, L503.6550, L503.6075 #### [facility] [address] [place], [place], [address] ANTI D Not performed Normal [facility] Comment on above: Order Comment: Surge ry Date: 02/18/24 for Laboratory Test [id number] BSO Result Comment: BB H ISTORY POSITIVE. BAND WILL NEED REDRAWN PRIOR TO SURGERY Performed By: #### L 500.4050, L100.0100, L503.6150, L503.6550, L503.6075 #### [facility] [address] [place], [address] B CELLS Not performed Normal [facility] Comment on above: Order Comment: Surge ry Date: 02/18/24Re for Laboratory Test [id number] BSO Result Comment: BB H ISTORY POSITIVE. BAND WILL NEED REDRAWN PRIOR TO SURGERY Performed By: #### L 500.4050, L100.0100, L503.6150, L503.6550, L503.6075 #### [facility] [address] [place], [address] D CONTROL Not performed Normal Neg [facility] Comment on above: Order Comment: Surge ry Date: 02/18/24Re for Laboratory Test [id number] BSO Result Comment: BB H ISTORY POSITIVE. BAND WILL NEED REDRAWN PRIOR TO SURGERY Performed By: #### L 500.4050, L100.0100, L503.6150, L503.6550, L503.6075 #### [facility] [facility] [address] [place], [place], [address] aPTT Coag (PPP) [Time]Ordere d By: Regan Blackwell on 02-06-2024 aPTT Coag (Bld) [Time] 29.9 s 24.1-36.2 [facility] Absolute neutrophil countOrd ered By: Reymundo Mcadams on 01-28-2024 Neutrophils (Bld) [#/Vol] 3.6 10*3/uL 2.0-7.7 [facility] Basophil percentageOrdered B y: Reymundo Mcadams on 01-28-2024 Basophils/100 WBC (Bld) 1.6 % High 0-1 [facility] Chavez cells LM Ql (Bld)Ordere d By: Reymundo Mcadams on 01-28-2024 Crenated Cell 1+ [facility] CBC W/Diff, Automatedon 01-11 CRENATED RBC 1+ Normal [facility] Comment on above: Performed By: #### L 500.4050, L100.0100, L503.6150, L503.6550, L503.6075 #### [facility] [address] [place], [address] MACROCYTOSIS RARE Normal [facility] Comment on above: Performed By: #### L 500.4050, L100.0100, L503.6150, L503.6550, L503.6075 #### [facility] [address] [place], [address] MICROCYTIC 1+ Normal [facility] Comment on above: Performed By: #### L 500.4050, L100.0100, L503.6150, L503.6550, L503.6075 #### [facility] [address] [place], [address] SCHISTOCYTES RARE Normal [facility] Comment on above: Performed By: #### L 500.4050, L100.0100, L503.6150, L503.6550, L503.6075 #### [facility] [address] [place], [address] Anisocytosis Ql (Bld) 2+ Normal [facility] Comment on above: Performed By: #### L 500.4050, L100.0100, L503.6150, L503.6550, L503.6075 #### [facility] [address] [place], [address] HYPOCHROMASIA 2+ Normal [facility] Comment on above: Performed By: #### L 500.4050, L100.0100, L503.6150, L503.6550, L503.6075 #### [facility] [address] [place], [address] SMEAR COMMENT SCANNED Normal [facility] Comment on above: Result Comment: LYMP HOPENIA NOTED Performed By: #### L 500.4050, L100.0100, L503.6150, L503.6550, L503.6075 #### [facility] [place], [address] Eosinophil percentageOrdered By: edson Mcadams on 01-28-2024 Eosinophils/100 WBC (Bld) 1.6 % 0-5 [facility] Erythrocyte distribution wid th (RBC) [Ratio]Ordered By: [facility] on 01-28-2024 Erythrocyte distribution width (RBC) [Entitic vol] 65.6 fL High 35.1-43.9 [facility] Erythrocyte distribution wid th ratioOrdered By: [facility] [place] on 01-28-2024 Erythrocyte distribution width (RBC) [Ratio] 26.5 % High 11.6-14.6 [facility] Hematocrit Auto (Bld) [Volum e fraction]Ordered By: [facility] [place] on 01-28-2024 Hematocrit (Bld) [Volume fraction] 32.4 % Low 37-47 [facility] Hemoglobin measurementOrdere d By: [facility] [place] on 01-28-2024 Hemoglobin (Bld) [Mass/Vol] 9.6 g/dL Low 12.0-15.0 [facility] Hypochromia Ql (Bld)Ordered By: [facility] [place] on 01-28-2024 Hypochromasia 2+ [facility] Immature granulocytes/100 WB C Auto (Bld)Ordered By: berthanilesngozi Mcadams on 01-28-2024 Immature granulocytes/100 WBC (Bld) 0.600 % 0.0-0.9 [facility] Comment on above: IG% - Immature Granu locytes (promyelocytes, myelocytes and metamyelocytes) > 1% indicates that a LEFT SHIFT is Present. Laboratory - Hematology and Cell countsOrdered By: berthanilesngozi Mcadams on 01-28-2024 Anisocytosis Ql (Bld) 2+ [facility] Lymphocytes Auto (Unsp spec) [#/Vol]Ordered By: [facility] on 01-28-2024 Lymphocytes (Bld) [#/Vol] 0.53 10*3/uL Low 0.83-4.5 1 [facility] Lymphocytes/100 WBC Auto (Un sp spec)Ordered By: Reymundo Mcadams on 01-28-2024 Lymphocytes/100 WBC (Bld) 10.4 % Low 19-41 [facility] MCV (mean corpuscular volume ) determinationOrdered By: Reymundo Mcadams on 01-28-2024 MCV (RBC) [Entitic vol] 74.5 fL Low 81-99 [facility] Macrocytes Ql (Bld)Ordered B y: Reymundo Mcadams on 01-28-2024 Macrocytosis RARE [facility] Manual differential comment Jose M (Bld) [Interp]Ordered By: Reymundo Mcadams on 01-28-2024 Differential Comment SCANNED [facility] Comment on above: LYMPHOPENIA NOTED Mean corpuscular hemoglobin (MCH) determinationOrdered By: Reymundo Mcadams on 01-28-2024 MCH (RBC) [Entitic mass] 22.1 pg Low 27.0-32.0 [facility] Mean corpuscular hemoglobin concentration (MCHC) determinationOrdered By: Reymundo Mcadams on 01-28-2024 MCHC (RBC) [Mass/Vol] 29.6 g/dL Low 32-36 [facility] Mean platelet volume determi nationOrdered By: Reymundo Mcadams on 01-28-2024 Mean Platelet Volume TNP [facility] Comment on above: Test not performed Microcytosis evaluation pane lOrdered By: Reymundo Mcadams on 01-28-2024 Microcytosis 1+ [facility] Monocyte percentageOrdered B y: Reymundo Mcadams on 01-28-2024 Monocytes/100 WBC (Bld) 15.9 % High 0-10 [facility] Neutrophil percentageOrdered By: Reymundo Mcadams on 01-28-2024 Neutrophils/100 WBC (Bld) 69.9 % 47-70 [facility] Nucleated red blood cell per centageOrdered By: Reymundo Mcadams on 01-28-2024 Nucleated RBC/100 WBC (Bld) [Ratio] 0.4 % 0-5 [facility] Platelet countOrdered By: Roberto Carlos Mcadams on 01-28-2024 Platelets (Bld) [#/Vol] 190 10*3/uL 150-450 [facility] RBC Auto (Bld) [#/Vol]Ordere d By: Reymundo Mcadams on 01-28-2024 RBC (Bld) [#/Vol] 4.35 10*6/uL 4.2-5.4 [facility] Schistocytes LM Ql (Bld)Orde red By: Reymundo Mcadams on 01-28-2024 Schistocytes RARE [facility] White blood cell (WBC) count Ordered By: Reymundo Mcadams on 01-28-2024 WBC (Bld) [#/Vol] 5.1 10*3/uL 4.4-11.0 [facility] SCRN MAMM (CAD)W/BALJIT BILATo n 01-22-2024 SCRN MAMM (CAD)W/BALJIT BILAT [facility] Imaging Services [address], [place] [address] SCRN MAMM (CAD)W/BALJIT BILAT MR#: [id number] Acct: [id number] Name: TAHMINA GALLARDO Rep #: [id number] : 1975 F 48 From: Kedar robbins MD PCP: Dr. Reymundo Mcadams MD Status: REG CLI Study: SCRN MAMM (CAD)W/BALJIT BILAT Date of Exam: 01/11 03/06 Exam# [id number] Ordering Dr: Felisha Martin DO [id number] MAMMOGRAPHY - BILATERAL SCREENING REASON FOR EXAM: Female, 48 years old. Routine annual screening examination. PERTINENT HISTORY: Non-contributory. TECHNIQUE: Digital bilateral breast baljit (3D mammographic acquisition) in the CC and MLO projections. 2-D mediolateral oblique (MLO) and craniocaudad (CC) views of both breasts were obtained. CAD: Full Field Digital Mammography with Computer Added Detection was performed. COMPARISON: Comparison is made with prior study dated December 19, 2022 and December 14, 2021. FINDINGS: Breast Composition: The breasts are heterogeneously dense, which may obscure small masses. There are no dominant masses or suspicious calcifications. No other significant abnormalities are identified. There has been no significant change since the prior study. BI/SCRN MAMM (CAD)W/BALJIT BILAT IMPRESSION: Stable bilateral screening mammogram. Yearly follow-up mammogram recommended. (A) ASSESSMENT CATEGORY: BIRADS Category 1: Negative. A letter regarding these results will be sent to the patient by the facility within 30 days. Approximately 10% of breast cancers are not detected by mammography. A normal mammogram should not delay biopsy of a clinically suspicious abnormality. [id number] Electronically Signed: Kedar Ca MD at 11:12 EST Reading Location ID and State: [facility] / [place] , Service support , CC: Dr. Reymundo Mcadams MD; Dr. Felisha Martin DO Marine Erector: Signed [facility]24 [facility] Comment on above: Result Comment: [id number] [facility] 01/17/24 1051 [id number] [facility] 01/17/24 0836 Performed By: #### L 500.4050, L100.0100, L503.6150, L503.6550, L503.6075 #### [facility] [address] [place], [address] CBC W/Diff, Automatedon 12-0 PATH REV Reviewed [facility] Comment on above: Result Comment: [facility] Thrombocytosis consistent with proliferative disorder Microcytic anemia. LEUKOPENIA Clinical correlation necessary. [place] D.O. 01/16/24 AMENDED REPORT 01/16/24 1443 PATH REV previously reported as: June jose Performed By: #### L 500.4050, L100.0100, L503.6150, L503.6550, L503.6075 #### [facility] [address] [place], [address] Type AND Screenon 01-16-2024 Ab SCREEN GEL Negative Normal [facility] Comment on above: Order Comment: [id number] @ 0800NYR Performed By: #### L 500.4050, L100.0100, L503.6150, L503.6550, L503.6075 #### [facility] [address] [place], [address] Comprehensive Metabolic Prof ilon 01-15-2024 Albumin [Mass/Vol] 3.6 g/dL Normal 3.2-5.0 [facility] Comment on above: Performed By: #### L 500.4050, L100.0100, L503.6150, L503.6550, L503.6075 #### [facility] [address] [place], [address] Albumin/Globulin [Mass ratio] 0.9 {ratio} Normal 0.9-2.4 [facility] Comment on above: Performed By: #### L 500.4050, L100.0100, L503.6150, L503.6550, L503.6075 #### [facility] [address] [place], [address] ALK P 36 U/L Low 45-117 [facility] Comment on above: Performed By: #### L 500.4050, L100.0100, L503.6150, L503.6550, L503.6075 #### [facility] [address] [place], [address] ALT [Catalytic activity/Vol] 17 U/L Normal 13-56 [facility] Comment on above: Performed By: #### L 500.4050, L100.0100, L503.6150, L503.6550, L503.6075 #### [facility] [address] [place], [address] AST [Catalytic activity/Vol] 14 U/L Low 15-37 [facility] Comment on above: Performed By: #### L 500.4050, L100.0100, L503.6150, L503.6550, L503.6075 #### [facility] [address] [place], [address] Bilirubin [Mass/Vol] 0.40 mg/dL Normal 0.20-1.00 [facility] Comment on above: Result Comment: For patients on eltrombopag therapy, use of Dimension [place] TBIL is not recommended. Performed By: #### L 500.4050, L100.0100, L503.6150, L503.6550, L503.6075 #### [facility] [address] [place], [address] BUN/CRE 17.4 RATIO Normal 10-20 [facility] Comment on above: Performed By: #### L 500.4050, L100.0100, L503.6150, L503.6550, L503.6075 #### [facility] [address] [place], [address] CA,Total 9.3 mg/dL Normal 8.5-10.1 [facility] Comment on above: Performed By: #### L 500.4050, L100.0100, L503.6150, L503.6550, L503.6075 #### [facility] [address] [place], [address] Chloride [Moles/Vol] 105 mmol/L Normal 98-107 [facility] Comment on above: Performed By: #### L 500.4050, L100.0100, L503.6150, L503.6550, L503.6075 #### [facility] [address] [place], [address] CO2 [Moles/Vol] 25.0 mmol/L Normal 21.0-32.0 [facility] Comment on above: Performed By: #### L 500.4050, L100.0100, L503.6150, L503.6550, L503.6075 #### [facility] [address] [place], [address] Creatinine [Mass/Vol] 0.86 mg/dL Normal 0.55-1.02 [facility] Comment on above: Result Comment: The validity of the calculated GFR GFRAA in patients over 70 years has not been determined. Clinical correlation is essential. Performed By: #### L 500.4050, L100.0100, L503.6150, L503.6550, L503.6075 #### [facility] [address] [place], [address] EST GFR - AA 91 mL/min Normal >60 [facility] Comment on above: Result Comment: Afri can Polish GFR Calc Performed By: #### L 500.4050, L100.0100, L503.6150, L503.6550, L503.6075 #### [facility] [address] [place], [address] GAP 7 Normal 5-15 [facility] Comment on above: Performed By: #### L 500.4050, L100.0100, L503.6150, L503.6550, L503.6075 #### [facility] [address] [place], [address] GFR/1.73 sq M.predicted among non-blacks MDRD (S/P/Bld) [Vol rate/Area] 75 mL/min/{1.73_m2} Normal >60 [facility] Comment on above: Result Comment: Non- GFR Calc Performed By: #### L 500.4050, L100.0100, L503.6150, L503.6550, L503.6075 #### [facility] [address] [place], [address] Globulin (S) [Mass/Vol] 4.0 g/dL Normal 2.2-4.2 [facility] Comment on above: Performed By: #### L 500.4050, L100.0100, L503.6150, L503.6550, L503.6075 #### [facility] [address] [place], [address] Glucose [Mass/Vol] 92 mg/dL Normal 74-106 [facility] Comment on above: Performed By: #### L 500.4050, L100.0100, L503.6150, L503.6550, L503.6075 #### [facility] [address] [place], [address] Potassium [Moles/Vol] 3.7 mmol/L Normal 3.5-5.1 [facility] Comment on above: Performed By: #### L 500.4050, L100.0100, L503.6150, L503.6550, L503.6075 #### [facility] [address] [place], [address] Sodium [Moles/Vol] 137 mmol/L Normal 136-145 [facility] Comment on above: Performed By: #### L 500.4050, L100.0100, L503.6150, L503.6550, L503.6075 #### [facility] [address] [place], [address] T PROT 7.6 g/dL Normal 6.4-8.2 [facility] Comment on above: Performed By: #### L 500.4050, L100.0100, L503.6150, L503.6550, L503.6075 #### [facility] [address] [place], [address] Urea nitrogen [Mass/Vol] 15 mg/dL Normal 7-18 [facility] Comment on above: Performed By: #### L 500.4050, L100.0100, L503.6150, L503.6550, L503.6075 #### [facility] [address] [place], [address] Ferritinon 01-15-2024 Ferritin [Mass/Vol] 4 ng/mL Low 8-252 [facility] Comment on above: Performed By: #### L 500.4050, L100.0100, L503.6150, L503.6550, L503.6075 #### [facility] [address] [place], [address] Internal Medicine Office Vis iton 01-15-2024 Internal Medicine Office Visit [facility] [address] [place] [address] [place] [address] OFFICE VISIT Date of Service: 01/15/24 MR#: [id number] Acct: [id number] Name: TAHMINA GALLARDO Rep #: [id number] : 1975 Provider: Dr. Reymundo nguyen MD Age/Sex: 48/F Location: [facility] Status: Signed Intake Vital Signs 10/04/23 10:46 01/03/24 16:06 01/15/24 14:51 Height 5 ft 5 in 5 ft 5 in 5 ft 5 in Weight: 141 lb 2 oz BMI 23.5 BP 118/64 Blood Pressure Location Lt brachial Position Sitting Respiration 16 Pulse 111 H Pulse Source Monitor Temp 98.0 F Temp Source Temporal Pulse Oximetry (%) 99 Oxygen Delivery Method room air Intake Visit Reasons: YEARLY Chief Complaint: multi concerns. Business Services Specialist Sales Required: No Accompanied by: Is patient in pain?: No Allergies No Known Allergies Allergy (Verified 01/15/24 14:40) Medications ???Medication ???Instructions ???Recorded ???Confirmed ???Type NK 01/15/24 01/15/24 History PFSH Medical History (Updated 01/15/24 @ 18:[address] Reymundo Mcadams MD) Neuropathy Pica Dermatitis Localized superficial swelling of skin Muscle pain Heel callus Post-viral cough syndrome URI (upper respiratory infection) Elevated blood pressure reading without diagnosis of hypertension Endometriosis Menorrhagia Iron deficiency anemia due to chronic blood loss Orthorexia nervosa Plantar wart, right foot Leukopenia Suprapubic mass Colon cancer screening Preventative health care Bacterial vaginosis Vitamin D deficiency Adenomyosis Endometriosis Anemia Surgical History Hx of laparoscopy S/P thyroid biopsy Family History Mother Osteoporosis Aunt Stomach cancer Uncle Prostate CA Other AL amyloidosis Social History Smoking Status: Never smoker alcohol intake: current alcohol intake frequency: holidays/special occasions only substance use type: does not use caffeine: Yes what type of physical activity do you participate in: walking, yoga and other details: cardio frequency: 5-6 times per week seatbelt use: always do you feel safe at home: Yes 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 Details: TAHMINA GALLARDO, is a 48 F who presents to the office today with some concerns. She states that she has been craving more chalk lately. History of pica. History of anemia, last hemoglobin was a few months ago and it was at 11, down from 11.6. Significant blood loss from uterine leiomyoma and she is now scheduled to get surgery/hysterectomy. Has also noted increased numbness and tingling in both upper and lower extremities. No syncopal and near syncopal episodes. Has some scalp lesions recently. Cut her hair low and then noted it. Occasionally scratches it with an area of scabbing. Has an appointment with dermatology shortly. Other chronic conditions are largely stable. ROS Const Constitutional: No body ache, chills, excessive sweating, fatigue, fever(s), frequent falls, headache(s), snoring, weakness or change in appetite Eyes Eyes: No blurry vision, change in vision, eye pain or Light sensitivity ENT ENT: No abnormal hearing, ear or mastoid pain, tinnitus, nasal congestion, headache(s), neck pain or sore throat Resp Respiratory: No cough, shortness of breath, snoring or wheezing Cardio Cardiology: No chest pain at rest, chest pain with exertion, excessive sweating, dyspnea on exertion, lightheadedness, orthopnea or palpitations Gastro GI: No abdominal pain, change in bowel habits, constipation, cramping, diarrhea, nausea/dyspepsia or vomiting Genitourinary-Female: No burning urination, painful urination, urinary incontinence or urinary frequency Musc Musculoskeletal: No abnormal gait, joint pain, back pain, limited range of motion, muscle weakness, neck pain or numbness Skin Skin: Positive for dry skin, itchy eyes and rash; No redness, lesions or wounds Neuro Neurology: No abnormal gait, abnormal hearing, weakness, frequent falls, headache(s), memory loss or numbness Psych Psychiatric: No anxiety, No change in appetite, No depression, No memory loss and No Thoughts of harming yourself/Others Endo Endocrine: No cold intolerance, excessive sweating, fatigue, flushing, heat intolerance, increased thirst/drinking or increased hunger Aller/Imm Allergy/Immunologic: Positive for itchy eyes; No seasonal allergy symptoms, hives or wheezing Manuel/Lymp Hematologic/Lymphatic : No easy bleeding or easy bruising Exam Const General: cooperative, comfortable and no acute distress Orientation: alert, awake and oriented x3 (more content not included)... Normal [facility] Ironon 01-15-2024 Iron [Mass/Vol] 9 ug/dL Low 50-170 [facility] Comment on above: Performed By: #### L 500.4050, L100.0100, L503.6150, L503.6550, L503.6075 #### [facility] [address] [place], [address] Iron Binding Capacity,Totalo n 01-15-2024 TIBC 484 ug/dL High 250-450 [facility] Comment on above: Performed By: #### L 500.4050, L100.0100, L503.6150, L503.6550, L503.6075 #### [facility] [address] [place], [address] PAP IG HPV APTIMA 16/18,45on 01-15-2024 ADEQ Comment Normal . [facility] Comment on above: Order Comment: Speci men Comment: [id number] Comment: No. of containers..01 ThinPrep Vial Result Comment: Sati sfactory for evaluation. Endocervical and/or squamous metaplastic cells (endocervical component) are present. Performed By: #### L 500.4050, L100.0100, L503.6150, L503.6550, L503.6075 #### [facility] [address] [place], [place], [address] COMM . Normal . [facility] Comment on above: Order Comment: Speci men Comment: [id number] Comment: No. of containers..01 ThinPrep Vial Performed By: #### L 500.4050, L100.0100, L503.6150, L503.6550, L503.6075 #### [facility] [address] [place], [address] COMMENT Comment Normal . [facility] Comment on above: Order Comment: Speci men Comment: [id number] Comment: No. of containers..01 ThinPrep Vial Result Comment: This liquid based ThinPrep(R) pap test was screened with the use of an image guided system. Performed By: #### L 500.4050, L100.0100, L503.6150, L503.6550, L503.6075 #### [facility] [address] [place], [address] DIAG Comment Normal . [facility] Comment on above: Order Comment: Speci men Comment: [id number] Comment: No. of containers..01 ThinPrep Vial Result Comment: NEGA TIVE FOR INTRAEPITHELIAL LESION OR MALIGNANCY. Performed By: #### L 500.4050, L100.0100, L503.6150, L503.6550, L503.6075 #### [facility] [address] [place], [address] HPV APTIMA, HR Negative Normal Negative [facility] Comment on above: Order Comment: Speci men Comment: [id number] Comment: No. of containers..01 ThinPrep Vial Result Comment: This nucleic acid amplification test detects fourteen high- risk HPV types (16,18,31,33,35,39,45,51,52,56,58,59,66,68) without differentiation. Performed By: #### L 500.4050, L100.0100, L503.6150, L503.6550, L503.6075 #### [facility] [address] [place], [address] HPV Lorenza Rfx Comment Normal . [facility] Comment on above: Order Comment: Speci men Comment: [id number] Comment: No. of containers..01 ThinPrep Vial Result Comment: Crit eria not met, HPV Genotype not performed. Performed at: - Lab[address] [id number] [place] Operator: Willa Chao MD, Phone: [phone] Performed at: = - [facility] [address] [facility] [place], [place] [id number] [place] Operator: Willa Chao MD, Phone: [phone] Performed By: #### L 500.4050, L100.0100, L503.6150, L503.6550, L503.6075 #### [facility] [address] [place], [address] PAPSMR Comment Normal . [facility] Comment on above: Order Comment: Speci men Comment: [id number] Comment: No. of containers..01 ThinPrep Vial Result Comment: The Pap smear is a screening test designed to aid in the detection of premalignant and malignant conditions of the uterine cervix. It is not a diagnostic procedure and should not be used as the sole means of detecting cervical cancer. Both false-positive and false-negative reports do occur. Performed By: #### L 500.4050, L100.0100, L503.6150, L503.6550, L503.6075 #### [facility] [address] [place], [place], [address] PERFORM Comment Normal . [facility] Comment on above: Order Comment: Speci men Comment: [id number] Comment: No. of containers..01 ThinPrep Vial Result Comment: Kelly Deras, Director Stars (ASCP) Performed By: #### L 500.4050, L100.0100, L503.6150, L503.6550, L503.6075 #### [facility] [address] [place], [place], [id number] Supervising Broker Office Visit Reporton 01-03-2024 Supervising Broker Office Visit Report [facility] [address], [address] [place] [address] OFFICE VISIT Date of Service: 01/03/24 MR#: [id number] Acct: [id number] Name: TAHMINA GALLARDO Rep #: [id number] : 1975 Provider: Dr. 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) Business Services Specialist Sales Required: No Is patient in pain?: No Allergies No Known Allergies Allergy (Verified 01/03/24 16:05) Medications ???Medication ???Instructions ???Recorded ???Confirmed ???Type hydrocortisone 2.5 % topical 1 applic topical BID PRN rash 10/04/23 01/03/24 Rx ointment #28.35 grams Is last menstrual period known: Yes Last Menstrual Period: 12/05/23 Post menopausal: No Patient : No : No PFSH Medical History Dermatitis Localized superficial swelling of skin Muscle pain Heel callus Post-viral cough syndrome URI (upper respiratory infection) Elevated blood pressure reading without diagnosis of hypertension Endometriosis Menorrhagia Iron deficiency anemia due to chronic blood loss Orthorexia nervosa Plantar wart, right foot Leukopenia Suprapubic mass Colon cancer screening Preventative health care Bacterial vaginosis Vitamin D deficiency Adenomyosis Endometriosis Anemia Surgical History Hx of laparoscopy S/P thyroid biopsy Family History Mother Osteoporosis Aunt Stomach cancer Uncle Prostate CA Other AL amyloidosis Social History Smoking Status: Never smoker alcohol intake: current alcohol intake frequency: holidays/special occasions only substance use type: does not use caffeine: Yes what type of physical activity do you participate in: walking, yoga and other details: cardio frequency: 5-6 times per week seatbelt use: always do you feel safe at home: Yes 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 She has a JAMES scheduled for 02/18/24 for a large fibroid uterus and persistent breakthrough bleeding. Last PAP: 2022- normal with hpv +, colp neg History of abnormal PAP: yes, HPV 16+ pap Last mammogram:12/19/22 History of abnormal mammogram: no Colon cancer screening: is due Other preventative health care screenings: up to date Female Reproductive History Last Menstrual Period: 12/05/23 Cycle Length: 21-35 Bleeding Duration: 5 Questions: metorrhagia: No, sexually active: Yes, dyspareunia: No and PCB: No Menopausal Symptoms: No hot flashes, No night sweats, No weight change, No mood changes, No difficulty concentrating, No sleep problems and No change in libido ROS Const Constitutional: Reports as per HPI; Denies fatigue, increased appetite, poor appetite, night sweats, weight gain or weight loss Cardio Card: Denies chest pain Resp Resp: Denies cough or dyspnea GI GI: Reports as per HPI; Denies abdominal pain, bloating, constipation, nausea or vomiting : Reports as per HPI and other; Denies difficulty voiding, dysuria, hematuria, hot flashes, nipple discharge, pelvic pain, prolapse symptoms, urinary frequency, urinary incontinence, urinary urgency, vaginal discharge, vaginal dryness, vaginal odor or vaginal pruritus Skin Skin/Breast: Denies changing lesions, breast mass, breast pain, breast skin changes or nipple discharge Psych Psych: Denies anxiety, change in libido, depression or difficulty concentrating Exam Const General: cooperative, healthy appearing, comfortable, no acute distress, well developed and well groomed HENWV Head: normal to inspection and normocephalic Ears: hearing grossly normal bilaterally and external ears normal Nose: external nose normal Face and sinus: normal facial exam Neck Neck: normal visual inspection, full ROM and no lymphadenopathy Thyroid: thyroid normal Chest Chest palpation inspection: normal inspection of the chest Breast inspection: normal inspection of the breasts and normal inspection of the axillae Breast palpation: normal palpation of the breasts, normal palpation of the axillae and no axil (more content not included)... Normal [facility] Internal Medicine Office Vis josette 10-04-2023 Internal Medicine Office Visit [facility] [address] [place] [address] [place] [address] OFFICE VISIT Date of Service: 10/04/23 MR#: [id number] Acct: [id number] Name: TAHMINA GALLARDO Rep #: [id number] : 1975 Provider: Dr. Reymundo nguyen MD Age/Sex: 48/F Location: [facility] Status: Signed Intake Vital Signs 01/29/24 14:03 10/04/23 10:46 Height 5 ft 5 in 5 ft 5 in Weight: 138 lb BMI 22.9 BP 122/78 H Blood Pressure Location Lt brachial Position Sitting Respiration 18 Pulse 95 Pulse Source Monitor Temp 98.1 F Temp Source Temporal Pulse Oximetry (%) 99 Oxygen Delivery Method room air Intake Visit Reasons: L breast skin change. Chief Complaint: L breast skin change Is patient in pain?: Yes (4 left breast ) Allergies No Known Allergies Allergy (Verified 10/04/23 10:47) Medications ???Medication ???Instructions ???Recorded ???Confirmed ???Type hydrocortisone 2.5 % topical 1 applic topical BID PRN rash 10/04/23 10/04/23 Rx ointment #28.35 grams [facility] Medical History (Updated 10/04/23 @ 13:[address] Reymundo Mcadams MD) Dermatitis Localized superficial swelling of skin Muscle pain Heel callus Post-viral cough syndrome URI (upper respiratory infection) Elevated blood pressure reading without diagnosis of hypertension Endometriosis Menorrhagia Iron deficiency anemia due to chronic blood loss Orthorexia nervosa Plantar wart, right foot Leukopenia Suprapubic mass Colon cancer screening Preventative health care Bacterial vaginosis Vitamin D deficiency Adenomyosis Endometriosis Anemia Surgical History Hx of laparoscopy S/P thyroid biopsy Family History Mother Osteoporosis Aunt Stomach cancer Uncle Prostate CA Other AL amyloidosis Social History Smoking Status: Never smoker alcohol intake: current alcohol intake frequency: holidays/special occasions only substance use type: does not use caffeine: Yes what type of physical activity do you participate in: walking, yoga and other details: cardio frequency: 5-6 times per week seatbelt use: always do you feel safe at home: Yes 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 She states that she noted an area on her left breast which was concerning. Slightly indurated and red, took a picture. Has improved over the last couple of days. No known precipitating factor. Last mammogram was in December with no concerns. Also reports a rash over both lower extremities/feet. Started while she was away on vacation in [facility]. Was using an [id number] cream which she believes has helped some but rash is still present for the most part. ROS Const Constitutional: No body ache, chills, excessive sweating, fatigue, fever(s), frequent falls, headache(s), snoring, weight change, sleep problems, abnormal sleep pattern or change in appetite Eyes Eyes: No blurry vision, change in vision, floaters, visual disturbances, eye pain or Light sensitivity ENT ENT: No abnormal hearing, ear or mastoid pain, tinnitus, balance problems, nosebleed/epistaxis, nasal congestion, headache(s), neck pain or sore throat Resp Respiratory: No cough, excessive phlegm production, pain on inspiration, shortness of breath, snoring or wheezing Cardio Cardiology: No chest pain at rest, chest pain with exertion, excessive sweating, shortness of breath, dyspnea on exertion, lightheadedness, orthopnea or palpitations Gastro GI: No abdominal pain, change in bowel habits, constipation, cramping, diarrhea, nausea/dyspepsia or vomiting Genitourinary-Female: No burning urination, painful urination, urinary incontinence, urinary frequency, abnormal vaginal bleeding or pelvic pain Musc Musculoskeletal: No abnormal gait, joint pain, back pain, limited range of motion, neck pain, numbness or tingling Skin Skin: No dry skin, redness, excessive hair growth, yellowing of the eye, lesions, itchy eyes, rash or wounds Neuro Neurology: No abnormal gait, abnormal hearing, behavioral changes, unsteady gait/balance, frequent falls, headache(s), memory loss, numbness, tingling or visual disturbances Psych Psychiatric: No abnormal sleep pattern, No anxiety, No behavioral changes, No change in appetite, No irritability, No memory loss and No Thoughts of harming yourself/Others Endo Endocrine: No cold intolerance, excessive sweating, fatigue, flushing, heat intolerance, increased thirst/drinking, increased hunger or weight change Aller/Imm Allergy/Immunolog (more content not included)... Normal [facility] Cervical or vaginal specimen microscopic examination by liquid based cytology (reported as document)Ordered By: Felisha Stone on 12-31-2022 Cytology report Cyto stain.thin prep Doc (Cvx/Vag) Comment . [facility] Comment on above: Criteria met, see HP V Genotype results. Cervical or vagninal specime n microscopic examination by cytology stain (reported asOrdered By: Felisha Stone on 12-31-2022 Cytology report Cyto stain Doc (Cvx/Vag) Comment . [facility] Comment on above: The Pap smear is a s creening test designed to aid in thedetection of premalignant and malignant conditions of theuterine cervix. It is not a diagnostic procedure andshould not be used as the sole means of detecting cervicalcancer. Both false-positive and false-negative reports dooccur. Cervical specimen human mehreen lloma virus (HPV) type 16 DNA detection by probe with sigOrdered By: Felisha Stone on 12-31-2022 HPV 16 DNA Probe+sig amp Ql (Cvx) Positive Negative [facility] Detection in cervical specim en of any of human papilloma virus (HPV) 16, 18, 31, 33,Ordered By: Felisha Stone on 12-31-2022 HPV 16+18+31+33+35+39+45+51+5 2+56+58+59+66+68 DNA Probe+sig amp Ql (Cvx) Positive Negative [facility] Comment on above: This nucleic acid am plification test detects fourteen high-risk HPV types (16,18,31,33,35,39,45,51,52,56,58,59,66,68)without differentiation. Laboratory - CytologyOrdered By: Felisha Stone on 12-31-2022 [place] [employer] Cyto stain Nom (Cvx/Vag) [ID] Comment . [facility] Comment on above: Donald comer Director Stars (ASCP) Laboratory - Miscellaneous t estsOrdered By: Felisha Stone on 12-31-2022 Service comment (Unsp spec) [Interp] Comment . [facility] Comment on above: This liquid based Th inPrep(R) pap test was screened withthe use of an image guided system. Service comment (Unsp spec) [Interp] . . [facility] No Panel InformationOrdered By: Felisha Stone on 12-31-2022 HPV Type 18 Comment Negative Negative [facility] Comment on above: Performed at: [facility] [employer] [id number] Director: Kenji Peters MD, Phone: [phone] at: [facility] - [facility] [id number] Director: Willa Chao MD, Phone: [phone] at: =G - [facility] [address] [id number] Director: Willa Chao MD, Phone: [phone] Pathology report final diagnosis Narrative Comment . [facility] Comment on above: NEGATIVE FOR INTRAEP ITHELIAL LESION OR MALIGNANCY.THE CYTOLOGY PROCESSING WAS PERFORMED AT THE [facility] LOCATED [address] [id number]. Absolute lymphocyte countOrd ered By: Reymundo Mcadams on 12-05-2022 Lymphocytes Auto (Unsp spec) [#/Vol] 0.49 10*3/uL 0.83-4.51 [facility] Basophil percentageOrdered B y: Reymundo Mcadams on 12-05-2022 Basophils/100 WBC (Bld) 1.6 % 0-1 [facility] Bilirubin [Mass/Vol] 0.70 mg/dL 0.20-1.00 [facility] Comment on above: For patients on eltr ombopag therapy, use of Dimension [place] TBIL is not recommended. Chloride [Moles/Vol] 106 mmol/L 98-107 [facility] Cholesterol [Mass/Vol] 177 mg/dL <200 [facility] Comment on above: <200 mg/dL Desirable 200-240 mg/dL Borderline >240 mg/dL High Risk Eosinophils/100 WBC (Bld) 2.3 % 0-5 [facility] Glucose [Mass/Vol] 84 mg/dL 74-106 [facility] Neutrophils (Bld) [#/Vol] 2.0 10*3/uL 2.0-7.7 [facility] Neutrophils/100 WBC (Bld) 64.8 % 47-70 [facility] Potassium [Moles/Vol] 3.9 mmol/L 3.5-5.1 [facility] Protein [Mass/Vol] 7.7 g/dL 6.4-8.2 [facility] Sodium [Moles/Vol] 136 mmol/L 136-145 [facility] Triglyceride [Mass/Vol] 58 mg/dL <199 [facility] Comment on above: The drugs N-Acetylcy steine and Metamizole may falsely depress this assay.Serum Triglycerides Reference Interval Normal <150 mg/dL Borderline high 150 - 199 mg/dL High 200 - 499 mg/dL Very High > or = 500 mg/dL WBC (Bld) [#/Vol] 3.1 10*3/uL 4.4-11.0 [facility] Blood erythrocytes count (nu mber/volume)Ordered By: Reymundo Mcadams on 12-05-2022 RBC (Bld) [#/Vol] 4.12 10*6/uL 4.2-5.4 [facility] Blood hemoglobin measurement (mass/volume)Ordered By: Reymundo Mcadams on 12-05-2022 Hemoglobin (Bld) [Mass/Vol] 11.0 g/dL 12.0-15.0 [facility] Blood lymphocytes/100 leukoc ytesOrdered By: Reymundo Mcadams on 12-05-2022 Lymphocytes/100 WBC (Bld) 15.8 % 19-41 [facility] Blood manual differential co mment interpretation (narrative result)Ordered By: Reymundo Mcadams on 12-05-2022 Manual differential comment Jose M (Bld) [Interp] SEE COMMENT [facility] Comment on above: LYMPHOPENIA NOTED Blood monocytes/100 leukocyt esOrdered By: Reymundo Mcadams on 12-05-2022 Monocytes/100 WBC (Bld) 15.2 % 0-10 [facility] Blood platelet adequacy dete ction by light microscopyOrdered By: Reymundo Mcadams on 12-05-2022 Platelets LM Ql (Bld) [employer] ADEQ [facility] Blood platelet mean volumeOr dered By: Reymundo Mcadams on 12-05-2022 Platelet mean volume (Bld) [Entitic vol] 10.6 fL 6.2-12.0 [facility] Determination of erythrocyte mean corpuscular volume (MCV)Ordered By: Reymundo Mcadams on 12-05-2022 MCV (RBC) [Entitic vol] 88.8 fL 81-99 [facility] Hematocrit Auto (Bld) [Volum e fraction]Ordered By: Reymundo Mcadams on 12-05-2022 Hematocrit (Bld) [Volume fraction] 36.6 % 37-47 [facility] Hypochromatic red blood cell detectionOrdered By: [facility] on 12-05-2022 Hypochromia Ql (Bld) [facility] - Chemistry and C hemistry - challengeOrdered By: [facility] [place] on 12-05-2022 ALP [Catalytic activity/Vol] 53 U/L 45-117 [facility] ALT [Catalytic activity/Vol] 21 U/L 13-56 [facility] CO2 [Moles/Vol] 25.0 mmol/L 21.0-32.0 [facility] Globulin (S) [Mass/Vol] 4.0 g/dL 2.2-4.2 [facility] Urea nitrogen/Creatinine [Mass ratio] 9.5 mg/mg 10-20 [facility] - Hematology and Cell countsOrdered By: Carmennilesngozi [place] on 12-05-2022 Anisocytosis Ql (Bld) [facility] Erythrocyte distribution width (RBC) [Entitic vol] 42.9 fL 35.1-43.9 [facility] Erythrocyte distribution width (RBC) [Ratio] 13.1 % 11.6-14.6 [facility] Immature granulocytes/100 WBC (Bld) 0.300 % 0.0-0.9 [facility] Comment on above: IG% - Immature Granu locytes (promyelocytes, myelocytes and metamyelocytes) > 1% indicates that a LEFT SHIFT is Present. MCH (RBC) [Entitic mass] 26.7 pg 27.0-32.0 [facility] Nucleated RBC/100 WBC (Bld) [Ratio] 0 % 0-5 [facility] MCHC Auto (RBC) [Mass/Vol]Or dered By: Reymundo Mcadams on 12-05-2022 MCHC (RBC) [Mass/Vol] 30.1 g/dL 32-36 [facility] Macrocytes detectionOrdered By: Reymundo Mcadams on 12-05-2022 Macrocytes Ql (Bld) RARE [facility] No Panel InformationOrdered By: Reymundo Mcadams on 12-05-2022 Estimated GFR (MDRD) Amer 94 mL/min >60 [facility] Comment on above: GFR Calc Estimated GFR (MDRD) Non-Af Amer 77 mL/min >60 [facility] Comment on above: Non- GFR Calc Ovalocyte detectionOrdered B y: Reymundo Mcadams on 12-05-2022 Ovalocytes LM Ql (Bld) RARE [facility] Platelets bldOrdered By: Jayson Mcadams on 12-05-2022 Platelets (Bld) [#/Vol] 433 10*3/uL 150-450 [facility] RBC morphologyOrdered By: Roberto Carlos Mcadams on 12-05-2022 RBC morphology finding Nom (Bld) N CHROM NORMAL NORM C&C [facility] Review by pathologistOrdered By: Reymundo Mcadams on 12-05-2022 Pathologist review Jose M (Unsp spec) [Interp] Reviewed [facility] Comment on above: Previous reported re sult: Ivy garcia Edited by: JULIAOD on 12/07/22:0936 AMENDED REPORT 12/07/22 0936 PATH REV previously reported as: Ivy garcia Serum or plasma albumin justin urement (mass/volume)Ordered By: Reymundo Mcadams on 12-05-2022 Albumin [Mass/Vol] 3.7 g/dL 3.2-5.0 [facility] Serum or plasma albumin/glob ulin mass ratioOrdered By: Reymundo Mcadams on 12-05-2022 Albumin/Globulin [Mass ratio] 0.9 {ratio} 0.9-2.4 [facility] Serum or plasma calcium justin urement (mass/volume)Ordered By: Reymundo Mcadams on 12-05-2022 Calcium [Mass/Vol] 8.7 mg/dL 8.5-10.1 [facility] Serum or plasma cholesterol in HDL measurement (mass/volume)Ordered By: Reymundo Mcadams on 12-05-2022 Cholesterol in HDL [Mass/Vol] 76 mg/dL >40 [facility] Comment on above: The drugs N-Acetylcy steine and Metamizole may falsely depress this assay. Reference Range HDL <40 mg/dL Low HDL Cholesterol HDL >or= 60 mg/dL High HDL Cholesterol Serum or plasma cholesterol in VLDL measurement (mass/volume)Ordered By: Reymundo Mcadams on 12-05-2022 Cholesterol in VLDL [Mass/Vol] 12 mg/dL 5-40 [facility] Serum or plasma creatinine m easurement (mass/volume)Ordered By: Reymundo Mcadams on 12-05-2022 Creatinine [Mass/Vol] 0.84 mg/dL 0.55-1.02 [facility] Comment on above: The validity of the calculated GFR & GFRAA in patients over 70 years has not been determined. Clinical correlation is essential. Serum or plasma low density lipoprotein (LDL) cholesterol measurement (mass/volume)Ordered By: Reymundo Mcadams on 12-05-2022 Cholesterol in LDL [Mass/Vol] 89 mg/dL 0-130 [facility] Serum or plasma urea nitroge n measurement (mass/volume)Ordered By: Reymundo Mcadams on 12-05-2022 Urea nitrogen [Mass/Vol] 8 mg/dL 7-18 [facility] Thin prep Papanicolaou smear with manual screeningOrdered By: Reymundo Mcadams on 12-05-2022 Thin prep Papanicolaou smear with manual screening 14 U/L 15-37 [facility] Thin prep Papanicolaou smear with manual screening 5 5-15 [facility] Absolute lymphocyte countOrd ered By: Rosalie Frausto on 10-22-2022 Lymphocytes Auto (Unsp spec) [#/Vol] 0.55 10*3/uL 0.83-4.51 [facility] Basophil percentageOrdered B y: Rosalie Frausto on 10-22-2022 Basophils/100 WBC (Bld) 1.5 % 0-1 [facility] Eosinophils/100 WBC (Bld) 1.5 % 0-5 [facility] Neutrophils (Bld) [#/Vol] 2.7 10*3/uL 2.0-7.7 [facility] Neutrophils/100 WBC (Bld) 67.9 % 47-70 [facility] WBC (Bld) [#/Vol] 4.0 10*3/uL 4.4-11.0 [facility] Blood erythrocytes count (nu mber/volume)Ordered By: Rosalie Frausto on 10-22-2022 RBC (Bld) [#/Vol] 4.07 10*6/uL 4.2-5.4 [facility] Blood hemoglobin measurement (mass/volume)Ordered By: Rosalie Frausto on 10-22-2022 Hemoglobin (Bld) [Mass/Vol] 11.6 g/dL 12.0-15.0 [facility] Blood lymphocytes/100 leukoc ytesOrdered By: Rosalie Frausto on 10-22-2022 Lymphocytes/100 WBC (Bld) 13.7 % 19-41 [facility] Blood manual differential co mment interpretation (narrative result)Ordered By: Rosalei Frausto on 10-22-2022 Manual differential comment Jose M (Bld) [Interp] SCANNED [facility] Blood monocytes/100 leukocyt esOrdered By: Rosalie Frausto on 10-22-2022 Monocytes/100 WBC (Bld) 15.2 % 0-10 [facility] Blood platelet mean volumeOr dered By: Rosalie Frausto on 10-22-2022 Platelet mean volume (Bld) [Entitic vol] 9.7 fL 6.2-12.0 [facility] Determination of erythrocyte mean corpuscular volume (MCV)Ordered By: Rosalie Frausto on 10-22-2022 MCV (RBC) [Entitic vol] 91.4 fL 81-99 [facility] Hematocrit Auto (Bld) [Volum e fraction]Ordered By: Rosalie Frausto on 10-22-2022 Hematocrit (Bld) [Volume fraction] 37.2 % 37-47 [facility] - Hematology and Cell countsOrdered By: Rosalie Frausto on 10-22-2022 Erythrocyte distribution width (RBC) [Entitic vol] 41.1 fL 35.1-43.9 [facility] Erythrocyte distribution width (RBC) [Ratio] 12.4 % 11.6-14.6 [facility] Immature granulocytes/100 WBC (Bld) 0.200 % 0.0-0.9 [facility] Comment on above: IG% - Immature Granu locytes (promyelocytes, myelocytes and metamyelocytes) > 1% indicates that a LEFT SHIFT is Present. MCH (RBC) [Entitic mass] 28.5 pg 27.0-32.0 [facility] Nucleated RBC/100 WBC (Bld) [Ratio] 0 % 0-5 [facility] MCHC Auto (RBC) [Mass/Vol]Or dered By: Rosalie Frausto on 10-22-2022 MCHC (RBC) [Mass/Vol] 31.2 g/dL 32-36 [facility] Platelets bldOrdered By: Willis Frausto on 10-22-2022 Platelets (Bld) [#/Vol] 390 10*3/uL 150-450 [facility] Review by pathologistOrdered By: Rosalie Frausto on 10-22-2022 Pathologist review Jose M (Unsp spec) [Interp] Reviewed [facility] Comment on above: Previous reported re sult: Ivy garcia Edited by: RGOOD on 10/24/22:0938 AMENDED REPORT 10/24/22 0938 PATH REV previously reported as: Ivy garcia Absolute lymphocyte countOrd ered By: Rosalie Frausto on 09-20-2022 Lymphocytes Auto (Unsp spec) [#/Vol] 0.58 10*3/uL 0.83-4.51 [facility] Basophil percentageOrdered B y: Rosalie Frausto on 09-20-2022 Basophils/100 WBC (Bld) 2.0 % 0-1 [facility] Eosinophils/100 WBC (Bld) 2.0 % 0-5 [facility] Neutrophils (Bld) [#/Vol] 2.1 10*3/uL 2.0-7.7 [facility] Neutrophils/100 WBC (Bld) 59.2 % 47-70 [facility] WBC (Bld) [#/Vol] 3.5 10*3/uL 4.4-11.0 [facility] Blood erythrocytes count (nu mber/volume)Ordered By: Rosalie Frausto on 09-20-2022 RBC (Bld) [#/Vol] 4.33 10*6/uL 4.2-5.4 [facility] Blood hemoglobin measurement (mass/volume)Ordered By: Rosalie Frausto on 09-20-2022 Hemoglobin (Bld) [Mass/Vol] 12.3 g/dL 12.0-15.0 [facility] Blood lymphocytes/100 leukoc ytesOrdered By: Rosalie Frausto on 09-20-2022 Lymphocytes/100 WBC (Bld) 16.4 % 19-41 [facility] Blood manual differential co mment interpretation (narrative result)Ordered By: Rosalie Frausto on 09-20-2022 Manual differential comment Jose M (Bld) [Interp] COMMENT [facility] Comment on above: LYMPHOPENIA. Blood monocytes/100 leukocyt esOrdered By: Rosalie Frausto on 09-20-2022 Monocytes/100 WBC (Bld) 20.1 % 0-10 [facility] Blood platelet mean volumeOr dered By: Rosalie Frausto on 09-20-2022 Platelet mean volume (Bld) [Entitic vol] 9.8 fL 6.2-12.0 [facility] Determination of erythrocyte mean corpuscular volume (MCV)Ordered By: Rosalie Frausto on 09-20-2022 MCV (RBC) [Entitic vol] 90.3 fL 81-99 [facility] Hematocrit Auto (Bld) [Volum e fraction]Ordered By: Rosalie Frausto on 09-20-2022 Hematocrit (Bld) [Volume fraction] 39.1 % 37-47 [facility] Laboratory - Hematology and Cell countsOrdered By: Rosalie Frausto on 09-20-2022 Erythrocyte distribution width (RBC) [Entitic vol] 41.1 fL 35.1-43.9 [facility] Erythrocyte distribution width (RBC) [Ratio] 12.4 % 11.6-14.6 [facility] Immature granulocytes/100 WBC (Bld) 0.300 % 0.0-0.9 [facility] Comment on above: IG% - Immature Granu locytes (promyelocytes, myelocytes and metamyelocytes) > 1% indicates that a LEFT SHIFT is Present. MCH (RBC) [Entitic mass] 28.4 pg 27.0-32.0 [facility] Nucleated RBC/100 WBC (Bld) [Ratio] 0 % 0-5 [facility] MCHC Auto (RBC) [Mass/Vol]Or dered By: Rosalie Frausto on 09-20-2022 MCHC (RBC) [Mass/Vol] 31.5 g/dL 32-36 [facility] No Panel InformationOrdered By: Rosalie Frausto on 09-20-2022 Thyroid Stimulating Hormone (TSH) 2.07 uIU/mL 0.358-3.74 [facility] Platelets bldOrdered By: Willis Frausto on 09-20-2022 Platelets (Bld) [#/Vol] 386 10*3/uL 150-450 [facility] Review by pathologistOrdered By: Rosalie Frausto on 09-20-2022 Pathologist review Jose M (Unsp spec) [Interp] Reviewed [facility] Comment on above: Previous reported re sult: Ivy garcia Edited by: RGOOD on 09/21/22:1421 AMENDED REPORT 09/21/22 1421 PATH REV previously reported as: Ivy garcia Absolute lymphocyte countOrd ered By: Mallory Herrera on 06-07-2022 Lymphocytes Auto (Unsp spec) [#/Vol] 0.54 10*3/uL 0.83-4.51 [facility] Basophil percentageOrdered B y: Mallory Herrera on 06-07-2022 Basophils/100 WBC (Bld) 1.9 % 0-1 [facility] Eosinophils/100 WBC (Bld) 2.3 % 0-5 [facility] Neutrophils (Bld) [#/Vol] 1.9 10*3/uL 2.0-7.7 [facility] Neutrophils/100 WBC (Bld) 60.8 % 47-70 [facility] WBC (Bld) [#/Vol] 3.1 10*3/uL 4.4-11.0 [facility] Blood erythrocytes count (nu mber/volume)Ordered By: Mallory Herrera on 06-07-2022 RBC (Bld) [#/Vol] 4.65 10*6/uL 4.2-5.4 [facility] Blood hemoglobin measurement (mass/volume)Ordered By: Mallory Herrera on 06-07-2022 Hemoglobin (Bld) [Mass/Vol] 13.4 g/dL 12.0-15.0 [facility] Blood lymphocytes/100 leukoc ytesOrdered By: Mallory Herrera on 06-07-2022 Lymphocytes/100 WBC (Bld) 17.5 % 19-41 [facility] Blood manual differential co mment interpretation (narrative result)Ordered By: Mallory Herrera on 06-07-2022 Manual differential comment Jose M (Bld) [Interp] SCANNED [facility] Blood monocytes/100 leukocyt esOrdered By: [facility] on 06-07-2022 Monocytes/100 WBC (Bld) 16.9 % 0-10 [facility] Blood platelet mean volumeOr dered By: Mallory Herrera on 06-07-2022 Platelet mean volume (Bld) [Entitic vol] 10.5 fL 6.2-12.0 [facility] Determination of erythrocyte mean corpuscular volume (MCV)Ordered By: Mallory Herrera on 06-07-2022 MCV (RBC) [Entitic vol] 93.5 fL 81-99 [facility] Hematocrit Auto (Bld) [Volum e fraction]Ordered By: Mallory Herrera on 06-07-2022 Hematocrit (Bld) [Volume fraction] 43.5 % 37-47 [facility] Hemoglobin in reticulocytes (mass per reticulocyte)Ordered By: [facility] Javier on 06-07-2022 Hemoglobin (Reticulocytes) [Entitic mass] 31.9 pg 30-35 [facility] Laboratory - Hematology and Cell countsOrdered By: Mallory Herrera on 06-07-2022 Erythrocyte distribution width (RBC) [Entitic vol] 53.1 fL 35.1-43.9 [facility] Erythrocyte distribution width (RBC) [Ratio] 15.4 % 11.6-14.6 [facility] Immature granulocytes/100 WBC (Bld) 0.600 % 0.0-0.9 [facility] Comment on above: IG% - Immature Granu locytes (promyelocytes, myelocytes and metamyelocytes) > 1% indicates that a LEFT SHIFT is Present. MCH (RBC) [Entitic mass] 28.8 pg 27.0-32.0 [facility] Nucleated RBC/100 WBC (Bld) [Ratio] 0 % 0-5 [facility] MCHC Auto (RBC) [Mass/Vol]Or dered By: Mallory Herrera on 06-07-2022 MCHC (RBC) [Mass/Vol] 30.8 g/dL 32-36 [facility] No Panel InformationOrdered By: Mallory Herrera on 06-07-2022 Immature Reticulocyte Fraction 11.00 % 3.00-15.90 [facility] Reticulocyte Count 1.32 % 0.5-1.5 [facility] Platelets bldOrdered By: Romeo Herrera on 06-07-2022 Platelets (Bld) [#/Vol] 322 10*3/uL 150-450 [facility] Review by pathologistOrdered By: Mallory Herrera on 06-07-2022 Pathologist review Jose M (Unsp spec) [Interp] Reviewed [facility] Comment on above: Previous reported re sult: Ivy garcia Edited by: KATY on 06/08/22:1200Leukopenia and neutropenia. Clinical correlation necessary.Jeff Lyons M.D. 06/08/22 AMENDED REPORT 06/08/22 1200 PATH REV previously reported as: Ivy garcia Serum or plasma ferritin nery surement (mass/volume)Ordered By: Mallory Herrera on 06-07-2022 Ferritin [Mass/Vol] 64 ng/mL 8-252 [facility] Iron measurement (mass/mass) Ordered By: Mallory Herrera on 03-08-2022 Iron (Unsp spec) [Mass/Mass] 29 ug/dL 50-170 [facility] Laboratory - Chemistry and C hemistry - challengeOrdered By: Mallory Herrera on 03-08-2022 Cobalamin (Vitamin B12) [Mass/Vol] 303 pg/mL 211-911 [facility] No Panel InformationOrdered By: Mallory Herrera on 03-08-2022 Total Iron Binding Capacity 421 ug/dL 250-450 [facility] Serum or plasma iron saturat ion measurement (mass fraction)Ordered By: Mallory Herrera on 03-08-2022 Iron saturation [Mass fraction] 6.9 % 15.0-55.0 [facility] Laboratory - Microbiology an d Antimicrobial susceptibilityOrdered By: Jocelyn Sandoval on 02-21-2022 SARS-CoV-2 (COVID-19) RNA CATHERINE+probe Ql (Unsp spec) Not detected Not Detect [facility] Comment on above: Normal Reference Ran ge: Not DetectedMethod:(RT-PCR) real-time reverse transcriptase PCRLuminex RentMineOnline Instrument*The Food and Drug Administration (FDA) has issued an Emergency Use Authorization (EAU) for the DANIELLE SARS-CoV-2 Assay for the rapid detection of the virus that causes COVID-19. This test has been validated, but the FDAs independent review of this validation is pending.*Negative results do not preclude infection and should not be used as the sole basis for treatment or patient management. Optimum specimen types and timing for peak viral levels during infections caused by SARS-CoV-2 have not been determined. Collection of multiple specimens from the same patient may be necessary to detect the virus. The possibility of a false negative result should be considered if the patient has clinical presentation or has had recent exposure. Thin prep Papanicolaou smear with manual screeningOrdered By: Dr. Frausto on 12-03-2021 Thin prep Papanicolaou smear with manual screening Neisseria or beta-hemolytic Streptococcus isolated. [facility] Gram stain for investigation of transfusion reactionOrdered By: Dr. Frausto on 11-30-2021 Microscopic observation Gram stain Nom (Unsp spec) [facility] Basophil percentageOrdered B y: Dr. Mcadams on 11-02-2021 Cholesterol [Mass/Vol] 170 mg/dL <200 [facility] Comment on above: <200 mg/dL Desirable 200-240 mg/dL Borderline >240 mg/dL High Risk Triglyceride [Mass/Vol] 87 mg/dL <199 [facility] Comment on above: The drugs N-Acetylcy steine and Metamizole may falsely depress this assay.Serum Triglycerides Reference Interval Normal <150 mg/dL Borderline high 150 - 199 mg/dL High 200 - 499 mg/dL Very High > or = 500 mg/dL Serum or plasma cholesterol in HDL measurement (mass/volume)Ordered By: Dr. Mcadams on 11-02-2021 Cholesterol in HDL [Mass/Vol] 65 mg/dL >40 [facility] Comment on above: The drugs N-Acetylcy steine and Metamizole may falsely depress this assay. Reference Range HDL <40 mg/dL Low HDL Cholesterol HDL >or= 60 mg/dL High HDL Cholesterol Serum or plasma cholesterol in VLDL measurement (mass/volume)Ordered By: Dr. Mcadams on 11-02-2021 Cholesterol in VLDL [Mass/Vol] 17 mg/dL 5-40 [facility] Serum or plasma low density lipoprotein (LDL) cholesterol measurement (mass/volume)Ordered By: Dr. Mcadams on 11-02-2021 Cholesterol in LDL [Mass/Vol] 88 mg/dL 0-130 [facility] Absolute lymphocyte counton 10-24-2021 Lymphocytes Auto (Unsp spec) [#/Vol] 0.44 10*3/uL 0.83-4.51 [facility] Work Phone: Basophil percentageon 2021 Basophils/100 WBC (Bld) 2.1 % 0-1 [facility] Work Phone: Bilirubin [Mass/Vol] 0.80 mg/dL 0.20-1.00 [facility] Work Phone: Comment on above: For patients on eltr ombopag therapy, use of Dimension [place] TBIL is not recommended. Chloride [Moles/Vol] 104 mmol/L 98-107 [facility] Work Phone: Eosinophils/100 WBC (Bld) 1.4 % 0-5 [facility] Work Phone: Glucose [Mass/Vol] 78 mg/dL 74-106 [facility] Work Phone: Neutrophils (Bld) [#/Vol] 1.9 10*3/uL 2.0-7.7 [facility] Work Phone: Neutrophils/100 WBC (Bld) 64.3 % 47-70 [facility] Work Phone: Potassium [Moles/Vol] 4.0 mmol/L 3.5-5.1 [facility] Work Phone: Protein [Mass/Vol] 8.1 g/dL 6.4-8.2 [facility] Work Phone: Sodium [Moles/Vol] 137 mmol/L 136-145 [place] Work Phone: WBC (Bld) [#/Vol] 2.9 10*3/uL 4.4-11.0 [facility] Work Phone: Blood erythrocytes count (nu mber/volume)on 10-24-2021 RBC (Bld) [#/Vol] 4.75 10*6/uL 4.2-5.4 [facility]: Blood hemoglobin measurement (mass/volume)on 10-24-2021 Hemoglobin (Bld) [Mass/Vol] 13.6 g/dL 12.0-15.0 [facility] Work Phone: Blood lymphocytes/100 leukoc yteson 10-24-2021 Lymphocytes/100 WBC (Bld) 15.2 % 19-41 [facility] Work Phone: Blood manual differential co mment interpretation (narrative result)on 10-24-2021 Manual differential comment Jose M (Bld) [Interp] SCANNED [facility] Work Phone: Blood monocytes/100 leukocyt eson 10-24-2021 Monocytes/100 WBC (Bld) 17.0 % 0-10 [facility] Work Phone: Blood platelet mean volumeon 10-24-2021 Platelet mean volume (Bld) [Entitic vol] 11.3 fL 6.2-12.0 [facility] Work Phone: Determination of erythrocyte mean corpuscular volume (MCV)on 10-24-2021 MCV (RBC) [Entitic vol] 90.5 fL 81-99 [facility] Work Phone: [phone] Hematocrit Auto (Bld) [Volum e fraction]on 10-24-2021 Hematocrit (Bld) [Volume fraction] 43.0 % 37-47 [facility] Work Phone: [phone] Laboratory - Chemistry and C hemistry - challengeon 10-24-2021 ALP [Catalytic activity/Vol] 50 U/L 45-117 [facility] Work Phone: [phone] ALT [Catalytic activity/Vol] 17 U/L 13-56 [facility] Work Phone: [phone] CO2 [Moles/Vol] 28.0 mmol/L 21.0-32.0 [facility] Work Phone: [phone] Globulin (S) [Mass/Vol] 4.1 g/dL 2.2-4.2 [facility] Work Phone: [phone] Urea nitrogen/Creatinine [Mass ratio] 12.6 mg/mg 10-20 [facility] Work Phone: [phone] Laboratory - Hematology and Cell countson 10-24-2021 Erythrocyte distribution width (RBC) [Entitic vol] 47.1 fL 35.1-43.9 [facility] Work Phone: [phone] Erythrocyte distribution width (RBC) [Ratio] 14.4 % 11.6-14.6 [facility] Work Phone: [phone] Immature granulocytes/100 WBC (Bld) 0.000 % 0.0-0.9 [facility] Work Phone: [phone] Comment on above: IG% - Immature Granu locytes (promyelocytes, myelocytes and metamyelocytes) > 1% indicates that a LEFT SHIFT is Present. MCH (RBC) [Entitic mass] 28.6 pg 27.0-32.0 [facility] Work Phone: [phone] Nucleated RBC/100 WBC (Bld) [Ratio] 0 % 0-5 [facility] Work Phone: [phone] MCHC Auto (RBC) [Mass/Vol]on 10-24-2021 MCHC (RBC) [Mass/Vol] 31.6 g/dL 32-36 [facility] Work Phone: No Panel Informationon 10-24 Estimated GFR (MDRD) Amer 101 mL/min >60 [facility] Work Phone: Comment on above: GFR Calc Estimated GFR (MDRD) Non-Af Amer 83 mL/min >60 [facility] Work Phone: Comment on above: Non- GFR Calc Platelets bldon 10-24-2021 Platelets (Bld) [#/Vol] 379 10*3/uL 150-450 [facility] Work Phone: Review by pathologiston 10-12 Pathologist review Jose M (Unsp spec) [Interp] Reviewed [facility] Work Phone: Comment on above: Previous reported re sult: Ivy garcia Edited by: KATY on 10/26/21:1027Leukopenia and neutropenia. Clinical correlation necessary.Jeff Lyons M.D. 10/26/21 AMENDED REPORT 10/26/21 1027 PATH REV previously reported as: June jose Serum or plasma albumin justin urement (mass/volume)on 10-24-2021 Albumin [Mass/Vol] 4.0 g/dL 3.2-5.0 [facility] Work Phone: Serum or plasma albumin/glob ulin mass ratioon 10-24-2021 Albumin/Globulin [Mass ratio] 1.0 {ratio} 0.9-2.4 [facility] Work Phone: Serum or plasma calcium justin urement (mass/volume)on 10-24-2021 Calcium [Mass/Vol] 9.0 mg/dL 8.5-10.1 [facility] Work Phone: [phone] Serum or plasma creatinine m easurement (mass/volume)on 10-24-2021 Creatinine [Mass/Vol] 0.79 mg/dL 0.55-1.02 [facility] Work Phone: Comment on above: The validity of the calculated GFR & GFRAA in patients over 70 years has not been determined. Clinical correlation is essential. Serum or plasma urea nitroge n measurement (mass/volume)on 10-24-2021 Urea nitrogen [Mass/Vol] 10 mg/dL 7-18 [facility] Work Phone: Thin prep Papanicolaou smear with manual screeningon 10-24-2021 Thin prep Papanicolaou smear with manual screening 13 U/L 15-37 [facility] Work Phone: Thin prep Papanicolaou smear with manual screening 5 5-15 [facility] Work Phone: Gram stain for investigation of transfusion reaction Microscopic observation Gram stain Nom (Unsp spec) [facility] Work Phone: Thin prep Papanicolaou smear with manual screening Cytopathology procedure, preparation of smear, genital source Neisseria or beta-hemolytic Streptococcus isolated. [facility] Work Phone: Vital Signs Date Time Vital Sign Value Performing Clinician Hansel florez 05-19-2024 13:11-0400 Body height 165.[address] Reymundo Mcadams MD Work Phone: [facility] 05-19-2024 13:11-0400 Diastolic blood pressure 85 mm[Hg] Dr. Reymundo Mcadams MD Work Phone: [facility] 05-19-2024 13:11-0400 Systolic blood pressure 134 mm[Hg] Dr. Reymundo Mcadams MD Work Phone: [facility] 05-19-2024 13:08-0400 Body mass index (BMI) [Ratio] 23.3 kg/m2 Dr. Reymundo Mcadams MD Work Phone: [facility] 05-19-2024 13:08-0400 Body weight 63.[address] Reymundo Mcadams MD Work Phone: [facility] 05-07-2024 14:24-0400 Body mass index (BMI) [Ratio] 22.9 kg/m2 Dr. Reymundo Mcadams MD Work Phone: [facility] 05-07-2024 14:24-0400 Body temperature 98.7 [degF] Dr. Reymundo Mcadams MD Work Phone: [facility] 05-07-2024 14:24-0400 Body weight 62.[address] Reymundo Mcadams MD Work Phone: [facility] 05-07-2024 14:24-0400 Diastolic blood pressure 82 mm[Hg] Dr. Reymundo Mcadams MD Work Phone: [facility] 05-07-2024 14:24-0400 Heart rate 77 /min Dr. Reymundo Mcadams MD Work Phone: [facility] 05-07-2024 14:24-0400 Respiratory rate 18 /min Dr. Reymundo Mcadams MD Work Phone: [facility] 05-07-2024 14:24-0400 SaO2% (BldA) [Mass fraction] 98 % Dr. Reymundo Mcadams MD Work Phone: [facility] 05-07-2024 14:24-0400 Systolic blood pressure 116 mm[Hg] Dr. Reymundo Mcadams MD Work Phone: [facility] 02-25-2024 13:04-0500 Body mass index (BMI) [Ratio] 24.5 kg/m2 Dr. Reymundo Mcadams MD Work Phone: [facility] 02-25-2024 13:04-0500 Body weight 66.[address] Reymundo Mcadams MD Work Phone: [facility] 02-25-2024 13:04-0500 Diastolic blood pressure 90 mm[Hg] Dr. Reymundo Mcadams MD Work Phone: [facility] 02-25-2024 13:04-0500 Systolic blood pressure 132 mm[Hg] Dr. Reymundo Mcadams MD Work Phone: [facility] 02-20-2024 08:15-0500 Body temperature 98.2 [degF] Dr. Reymundo Mcadams MD Work Phone: [facility] 02-20-2024 08:15-0500 Diastolic blood pressure 85 mm[Hg] Dr. Reymundo Mcadams MD Work Phone: [facility] 02-20-2024 08:15-0500 Heart rate 75 /min Dr. Reymundo Mcadams MD Work Phone: [facility] 02-20-2024 08:15-0500 Respiratory rate 18 /min Dr. Reymundo Mcadams MD Work Phone: [facility] 02-20-2024 08:15-0500 SaO2% (BldA) [Mass fraction] 98 % Dr. Reymundo Mcadams MD Work Phone: [facility] 02-20-2024 08:15-0500 Systolic blood pressure 123 mm[Hg] Dr. Reymundo Mcadams MD Work Phone: [facility] 02-18-2024 13:08-0500 Body mass index (BMI) [Ratio] 24.4 kg/m2 Dr. Reymundo Mcadams MD Work Phone: [facility] 02-18-2024 13:08-0500 Body weight 66.[address] Reymundo Mcadams MD Work Phone: [facility] 02-18-2024 11:45-0500 Inhaled oxygen flow rate 4 L/min Dr. Reymundo Mcadams MD Work Phone: [facility] 02-06-2024 11:32-0500 Body mass index (BMI) [Ratio] 24.7 kg/m2 Dr. Reymundo Mcadams MD Work Phone: [facility] 02-06-2024 11:32-0500 Body weight 67.[address] Reymundo Mcadams MD Work Phone: [facility] 02-06-2024 11:32-0500 Diastolic blood pressure 63 mm[Hg] Dr. Reymundo Mcadams MD Work Phone: [facility] 02-06-2024 11:32-0500 Systolic blood pressure 110 mm[Hg] Dr. Reymundo Mcadams MD Work Phone: [facility] 01-31-2024 09:01-0500 Body mass index (BMI) [Ratio] 23.9 kg/m2 Dr. Reymundo Mcadams MD Work Phone: [facility] 01-31-2024 09:01-0500 Body temperature 97.5 [degF] Dr. Reymundo Mcadams MD Work Phone: [facility] 01-31-2024 09:01-0500 Body weight 65.[address] Reymundo Mcadams MD Work Phone: [facility] 01-31-2024 09:01-0500 Diastolic blood pressure 86 mm[Hg] Dr. Reymundo Mcadams MD Work Phone: [facility] 01-31-2024 09:01-0500 Heart rate 84 /min Dr. Reymundo Mcadams MD Work Phone: [facility] 01-31-2024 09:01-0500 Respiratory rate 14 /min Dr. Reymundo Mcadams MD Work Phone: [facility] 01-31-2024 09:01-0500 SaO2% (BldA) [Mass fraction] 100 % Dr. Reymundo Mcadams MD Work Phone: [facility] 01-31-2024 09:01-0500 Systolic blood pressure 127 mm[Hg] Dr. Reymundo Mcadams MD Work Phone: [facility] 01-29-2024 08:42-0500 Body temperature 96.9 [degF] Dr. Reymundo Mcadams MD Work Phone: [facility] 01-29-2024 08:42-0500 Diastolic blood pressure 72 mm[Hg] Dr. Reymundo Mcadams MD Work Phone: [facility] 01-29-2024 08:42-0500 Heart rate 76 /min Dr. Reymundo Mcadams MD Work Phone: [facility] 01-29-2024 08:42-0500 Respiratory rate 16 /min Dr. Reymundo Mcadams MD Work Phone: [facility] 01-29-2024 08:42-0500 SaO2% (BldA) [Mass fraction] 100 % Dr. Reymundo Mcadams MD Work Phone: [facility] 01-29-2024 08:42-0500 Systolic blood pressure 122 mm[Hg] Dr. Reymundo Mcadams MD Work Phone: [facility] 01-27-2024 08:36-0500 Body temperature 96.3 [degF] Dr. Reymundo Mcadams MD Work Phone: [facility] 01-27-2024 08:36-0500 Diastolic blood pressure 79 mm[Hg] Dr. Reymundo Mcadams MD Work Phone: [facility] 01-27-2024 08:36-0500 Heart rate 75 /min Dr. Reymundo Mcadams MD Work Phone: [facility] 01-27-2024 08:36-0500 Respiratory rate 16 /min Dr. Reymundo Mcadams MD Work Phone: [facility] 01-27-2024 08:36-0500 SaO2% (BldA) [Mass fraction] 100 % Dr. Reymundo Mcadams MD Work Phone: [facility] 01-27-2024 08:36-0500 Systolic blood pressure 134 mm[Hg] Dr. Reymundo Mcadams MD Work Phone: [facility] 01-24-2024 08:51-0500 Body temperature 97 [degF] Dr. Reymundo Mcadams MD Work Phone: [facility] 01-24-2024 08:51-0500 Diastolic blood pressure 80 mm[Hg] Dr. Reymundo Mcadams MD Work Phone: [facility] 01-24-2024 08:51-0500 Heart rate 72 /min Dr. Reymundo Mcadams MD Work Phone: [facility] 01-24-2024 08:51-0500 Respiratory rate 14 /min Dr. Reymundo Mcadams MD Work Phone: [facility] 01-24-2024 08:51-0500 SaO2% (BldA) [Mass fraction] 100 % Dr. Reymundo Mcadams MD Work Phone: [facility] 01-24-2024 08:51-0500 Systolic blood pressure 116 mm[Hg] Dr. Reymundo Mcadams MD Work Phone: [facility] 01-22-2024 09:42-0500 Body temperature 97.3 [degF] Dr. Reymundo Mcadams MD Work Phone: [facility] 01-22-2024 09:42-0500 Diastolic blood pressure 75 mm[Hg] Dr. Reymundo Mcadams MD Work Phone: [facility] 01-22-2024 09:42-0500 Heart rate 71 /min Dr. Reymundo Mcadams MD Work Phone: [facility] 01-22-2024 09:42-0500 Respiratory rate 16 /min Dr. Reymundo Mcadams MD Work Phone: [facility] 01-22-2024 09:42-0500 SaO2% (BldA) [Mass fraction] 100 % Dr. Reymundo Mcadams MD Work Phone: [facility] 01-22-2024 09:42-0500 Systolic blood pressure 102 mm[Hg] Dr. Reymundo Mcadams MD Work Phone: [facility] 01-22-2024 09:12-0500 Body mass index (BMI) [Ratio] 24.1 kg/m2 Dr. Reymundo Mcadams MD Work Phone: [facility] 01-22-2024 09:12-0500 Body weight 65.[address] Reymundo Mcadams MD Work Phone: [facility] 03-11-2023 14:03-0500 Body height 165.[address] Reymundo Mcadams Work Phone: [phone] [place] [address] 03-11-2023 14:01-0500 Body mass index (BMI) [Ratio] 26.9 kg/m2 Dr. Reymundo Mcadams Work Phone: [facility] 03-11-2023 14:01-0500 Body weight 73.[address] Reymundo Mcadams Work Phone: [facility] 03-11-2023 14:01-0500 Diastolic blood pressure 86 mm[Hg] Dr. Reymundo Mcadams Work Phone: [phone](729)[phone] [place] [address] 03-11-2023 14:01-0500 Systolic blood pressure 131 mm[Hg] Dr. Reymundo Mcadams Work Phone: [facility] 12-31-2022 14:30-0500 Body height 165.[address] Reymundo Mcadams Work Phone: [facility] 12-31-2022 14:30-0500 Body mass index (BMI) [Ratio] 25.8 kg/m2 Dr. Reymundo Mcadams Work Phone: [facility] 12-31-2022 14:30-0500 Body weight 70.[address] Reymundo Mcadams Work Phone: [facility] 12-31-2022 14:30-0500 Diastolic blood pressure 80 mm[Hg] Dr. Reymundo Mcadams Work Phone: [facility] 12-31-2022 14:30-0500 Systolic blood pressure 147 mm[Hg] Dr. Reymundo Mcadams Work Phone: [facility] 12-05-2022 13:32-0400 Body height 165.[address] Reymundo Mcadams Work Phone: [facility] 12-05-2022 13:32-0400 Body mass index (BMI) [Ratio] 24.3 kg/m2 Dr. Reymundo Mcadams Work Phone: [facility] 12-05-2022 13:32-0400 Body temperature 99.8 [degF] Dr. Reymundo Mcadams Work Phone: [facility] 12-05-2022 13:32-0400 Body weight 66.[address] Reymundo Mcadams Work Phone: [facility] 12-05-2022 13:32-0400 Diastolic blood pressure 82 mm[Hg] Dr. Reymundo Mcadams Work Phone: [facility] 12-05-2022 13:32-0400 Heart rate 75 /min Dr. Reymundo Mcadams Work Phone: [facility] 12-05-2022 13:32-0400 Respiratory rate 16 /min Dr. Reymundo Mcadams Work Phone: [facility] 12-05-2022 13:32-0400 SaO2% (BldA) [Mass fraction] 99 % Dr. Reymundo Mcadams Work Phone: [facility] 12-05-2022 13:32-0400 Systolic blood pressure 116 mm[Hg] Dr. Reymundo Mcadams Work Phone: [facility] 09-20-2022 11:08-0400 Body height 165.[address] Reymundo Mcadams Work Phone: [facility] 09-20-2022 11:08-0400 Body mass index (BMI) [Ratio] 22.8 kg/m2 Dr. Reymundo Mcadams Work Phone: [facility] 09-20-2022 11:08-0400 Body weight 62.[address] Reymundo Mcadams Work Phone: [facility] 09-20-2022 11:08-0400 Diastolic blood pressure 78 mm[Hg] Dr. Reymundo Mcadams Work Phone: [facility] 09-20-2022 11:08-0400 Systolic blood pressure 123 mm[Hg] Dr. Reymundo Mcadams Work Phone: [facility] 06-14-2022 13:11-0400 Body temperature 97 [degF] Dr. Reymundo Mcadams Work Phone: [facility] 06-14-2022 13:11-0400 Diastolic blood pressure 82 mm[Hg] Dr. Reymundo Mcadams Work Phone: [facility] 06-14-2022 13:11-0400 Heart rate 98 /min Dr. Reymundo Mcadams Work Phone: [facility] 06-14-2022 13:11-0400 Respiratory rate 18 /min Dr. Reymundo Mcadams Work Phone: [facility] 06-14-2022 13:11-0400 SaO2% (BldA) [Mass fraction] 98 % Dr. Reymundo Mcadams Work Phone: [facility] 06-14-2022 13:11-0400 Systolic blood pressure 124 mm[Hg] Dr. Reymundo Mcadams Work Phone: [facility] 06-07-2022 13:18-0400 Body mass index (BMI) [Ratio] 24.5 kg/m2 Dr. Reymundo Mcadams Work Phone: [facility] 06-07-2022 13:18-0400 Body temperature 97.9 [degF] Dr. Reymundo Mcadams Work Phone: [facility] 06-07-2022 13:18-0400 Body weight 66.[address] Reymundo Mcadams Work Phone: [facility] 06-07-2022 13:18-0400 Diastolic blood pressure 70 mm[Hg] Dr. Reymundo Mcadams Work Phone: [facility] 06-07-2022 13:18-0400 Heart rate 73 /min Dr. Reymundo Mcadams Work Phone: [facility] 06-07-2022 13:18-0400 Respiratory rate 16 /min Dr. Reymundo Mcadams Work Phone: [facility] 06-07-2022 13:18-0400 SaO2% (BldA) [Mass fraction] 100 % Dr. Reymundo Mcadams Work Phone: [facility] 06-07-2022 13:18-0400 Systolic blood pressure 112 mm[Hg] Dr. Reymundo Mcadams Work Phone: [facility] 04-05-2022 14:37-0500 Body temperature 97.7 [degF] Dr. Reymundo Mcadams Work Phone: [facility] 04-05-2022 14:37-0500 Diastolic blood pressure 78 mm[Hg] Dr. Reymundo Mcadams Work Phone: [facility] 04-05-2022 14:37-0500 Heart rate 104 /min Dr. Reymundo Mcadams Work Phone: [facility] 04-05-2022 14:37-0500 Respiratory rate 16 /min Dr. Reymundo Mcadams Work Phone: [facility] 04-05-2022 14:37-0500 SaO2% (BldA) [Mass fraction] 100 % Dr. Reymundo Mcadams Work Phone: [facility] 04-05-2022 14:37-0500 Systolic blood pressure 113 mm[Hg] Dr. Reymundo Mcadams Work Phone: [facility] 02-21-2022 16:14-0500 Body height 165.[address] Reymundo Mcadams Work Phone: [facility] 02-21-2022 16:14-0500 Body mass index (BMI) [Ratio] 24.1 kg/m2 Dr. Reymundo Mcadams Work Phone: [facility] 02-21-2022 16:14-0500 Body temperature 98.1 [degF] Dr. Reymundo Mcadams Work Phone: [facility] 02-21-2022 16:14-0500 Body weight 65.[address] Reymundo Mcadams Work Phone: [facility] 02-21-2022 16:14-0500 Diastolic blood pressure 74 mm[Hg] Dr. Reymundo Mcadams Work Phone: [facility] 02-21-2022 16:14-0500 Heart rate 102 /min Dr. Reymundo Mcadams Work Phone: [facility] 02-21-2022 16:14-0500 Respiratory rate 14 /min Dr. Reymundo Mcadams Work Phone: [facility] 02-21-2022 16:14-0500 SaO2% (BldA) [Mass fraction] 99 % Dr. Reymundo Mcadams Work Phone: [facility] 02-21-2022 16:14-0500 Systolic blood pressure 108 mm[Hg] Dr. Reymundo Mcadams Work Phone: [facility] 12-14-2021 14:55-0400 Body height 165.[address] Reymundo Mcadams Work Phone: [facility] Work Phone: 12-14-2021 14:55-0400 Body mass index (BMI) [Ratio] 24.1 kg/m2 Dr. Reymundo Mcadams Work Phone: [facility] 12-14-2021 14:55-0400 Body temperature 97.7 [degF] Dr. Reymundo Mcadams Work Phone: [facility] 12-14-2021 14:55-0400 Body weight 65.[address] Reymundo Mcadams Work Phone: [facility] 12-14-2021 14:55-0400 Diastolic blood pressure 74 mm[Hg] Dr. Reymundo Mcadams Work Phone: [facility] 12-14-2021 14:55-0400 Heart rate 83 /min Dr. Reymundo Mcadams Work Phone: [facility] 12-14-2021 14:55-0400 Respiratory rate 16 /min Dr. Reymundo Mcadams Work Phone: [facility] 12-14-2021 14:55-0400 SaO2% (BldA) [Mass fraction] 99 % Dr. Reymundo Mcadams Work Phone: [facility] 12-14-2021 14:55-0400 Systolic blood pressure 114 mm[Hg] Dr. Reymundo Mcadams Work Phone: [facility] 11-30-2021 10:35-0400 Body height 165.[address] Reymundo Mcadams Work Phone: [facility] Work Phone: 11-30-2021 10:28-0400 Body mass index (BMI) [Ratio] 24.1 kg/m2 Dr. Reymundo Mcadams Work Phone: [facility] 11-30-2021 10:28-0400 Body weight 65.[address] Reymundo Mcadams Work Phone: [facility] 11-30-2021 10:28-0400 Diastolic blood pressure 82 mm[Hg] Dr. Reymundo Mcadams Work Phone: [facility] 11-30-2021 10:28-0400 Systolic blood pressure 116 mm[Hg] Dr. Reymundo Mcadams Work Phone: [facility] 11-16-2021 15:43-0400 Body mass index (BMI) [Ratio] 23.6 kg/m2 Dr. Reymundo Mcadams Work Phone: [facility] 11-16-2021 15:43-0400 Body temperature 97.8 [degF] Dr. Reymundo Mcadams Work Phone: [facility] 11-16-2021 15:43-0400 Body weight 64.[address] Reymundo Mcadams Work Phone: [facility] 11-16-2021 15:43-0400 Diastolic blood pressure 80 mm[Hg] Dr. Reymundo Mcadams Work Phone: [facility] 11-16-2021 15:43-0400 Heart rate 82 /min Dr. Reymundo Mcadams Work Phone: [facility] 11-16-2021 15:43-0400 Respiratory rate 16 /min Dr. Reymundo Mcadams Work Phone: [facility] 11-16-2021 15:43-0400 SaO2% (BldA) [Mass fraction] 100 % Dr. Reymundo Mcadams Work Phone: [facility] 11-16-2021 15:43-0400 Systolic blood pressure 121 mm[Hg] Dr. Reymundo Mcadams Work Phone: [facility] 11-02-2021 13:28-0400 Body height 165.[address] Reymundo Mcadams Work Phone: [facility] Work Phone: 11-02-2021 13:28-0400 Body mass index (BMI) [Ratio] 23.9 kg/m2 Dr. Reymundo Mcadams Work Phone: [facility] 11-02-2021 13:28-0400 Body temperature 97.2 [degF] Dr. Reymundo Mcadams Work Phone: [facility] 11-02-2021 13:28-0400 Body weight 65.[address] Reymundo Mcadams Work Phone: [facility] 11-02-2021 13:28-0400 Diastolic blood pressure 100 mm[Hg] Dr. Reymundo Mcadams Work Phone: [facility] 11-02-2021 13:28-0400 Heart rate 80 /min Dr. Reymundo Mcadams Work Phone: [facility] 11-02-2021 13:28-0400 Respiratory rate 16 /min Dr. Reymundo Mcadams Work Phone: [facility] 11-02-2021 13:28-0400 SaO2% (BldA) [Mass fraction] 99 % Dr. Reymundo Mcadams Work Phone: [facility] 11-02-2021 13:28-0400 Systolic blood pressure 140 mm[Hg] Dr. Reymundo Mcadams Work Phone: [facility] 10-24-2021 13:25-0400 Body height 165.[address] Reymundo Mcadams Work Phone: [facility] Work Phone: 10-24-2021 13:25-0400 Body mass index (BMI) [Ratio] 23.4 kg/m2 Dr. Reymundo Mcadams Work Phone: [facility] Work Phone: 10-24-2021 13:25-0400 Body temperature 98.3 [degF] Dr. Reymundo Mcadams Work Phone: [facility] Work Phone: 10-24-2021 13:25-0400 Body weight 63.[address] Reymundo Mcadams Work Phone: [facility] Work Phone: 10-24-2021 13:25-0400 Diastolic blood pressure 72 mm[Hg] Dr. Reymundo Mcadams Work Phone: [facility] Work Phone: 10-24-2021 13:25-0400 Heart rate 80 /min Dr. Reymundo Mcadams Work Phone: [facility] Work Phone: 10-24-2021 13:25-0400 Respiratory rate 14 /min Dr. Reymundo Mcadams Work Phone: [facility] Work Phone: 10-24-2021 13:25-0400 SaO2% (BldA) [Mass fraction] 99 % Dr. Reymundo Mcadams Work Phone: [facility] Work Phone: 10-24-2021 13:25-0400 Systolic blood pressure 116 mm[Hg] Dr. Reymundo Mcadams Work Phone: [facility] Work Phone: Encounters Encounter Date Encounter Type Care Provider Facility Start: 05-19-2024 End: 05-19-[address] Reymundo Mcadams MD Work Phone: [facility] Work Phone: Start: 05-19-2024 End: 05-19-[address] Rosalie Frausto MD -Laboratory, Specimen Work Phone: Start: 05-19-2024 End: 05-19-[address] Rosalie Frausto MD -[facility] Work Phone: Start: 05-19-2024 End: 05-19-2024 ambulatory Reymundo Mcadams Facility:[facility] Start: 05-19-2024 End: 05-19-2024 ambulatory Rosalie Frausto Facility:[facility] Start: 05-07-2024 End: 05-07-[address] Alfredo Hernandez MD -[facility] Work Phone: Start: 05-07-2024 End: 05-07-2024 ambulatory Alfredo Hernandez Facility:[facility] Start: 02-26-2024 Encounter for other preprocedural examination Rosalie Frausto [facility] Start: 02-25-2024 End: 02-25-[address] Rosalie Frausto MD -[facility] Work Phone: Start: 02-25-2024 End: 02-25-2024 ambulatory Reymundo Mcadams Facility:[facility] Start: 02-20-2024 Non-patient / Non-visit Dr. Meet Martin DO -[facility] Start: 02-19-2024 Non-patient / Non-visit Dr. Ranjeet Frausto MD -[facility] Start: 02-18-2024 Non-patient / Non-visit Dr. Ranjeet Frausto MD -[facility] Start: 02-18-2024 ambulatory Rosalie Hamm lity:[facility] Start: 02-18-2024 End: 02-20-2024 Evaluation and management of inpatient Dr. Rosalie Frausto MD -[facility] 3 Work Phone: Start: 02-18-2024 ambulatory Rosalie Hamm lity:[facility] Start: 02-17-2024 ambulatory Rosalie Hamm lity:[facility] Start: 02-17-2024 Non-patient / Non-visit Dr. Ranjeet Frausto MD -[facility] Start: 02-07-2024 End: 02-07-[address] Rosalie Frausto MD -[facility] Work Phone: Start: 02-06-2024 End: 02-06-[address] Rosalie Frausto MD -Laboratory, Specimen Work Phone: Start: 02-06-2024 End: 02-06-2024 Non-patient / Non-visit Dr. Ramy Latham MD -[facility] Work Phone: Start: 02-06-2024 End: 02-06-[address] Rosalie Frausto MD -[facility] Work Phone: Start: 02-06-2024 End: 02-07-2024 ambulatory [facility] Facility:[facility] Start: 02-06-2024 End: 02-06-2024 ambulatory Rosalie Frausto Facility:[facility] Start: 01-31-2024 End: 01-31-[address] Reymundo Mcadams MD -[facility] Work Phone: Start: 01-31-2024 End: 01-31-2024 ambulatory [facility] Facility:[facility] Start: 01-29-2024 End: 01-29-[address] Reymundo Mcadams MD -[facility] Work Phone: Start: 01-29-2024 End: 01-29-2024 ambulatory [facility] Facility:[facility] Start: 01-28-2024 End: 01-28-[address] Reymundo Mcadams MD -Laboratory, [facility] Start: 01-27-2024 End: 01-27-[address] Reymundo Mcadams MD -[facility] Work Phone: Start: 01-27-2024 End: 01-28-2024 ambulatory [facility] Facility:[facility] Start: 01-24-2024 End: 01-24-[address] Reymundo Mcadams MD -[facility] Work Phone: Start: 01-24-2024 End: 01-24-2024 ambulatory Reymundo Mcadams Facility:[facility] Start: 01-22-2024 End: 01-22-[address] Felisha Martin DO -Outpatient Breast Imaging Work Phone: Start: 01-22-2024 End: 01-22-[address] Reymundo Mcadams MD -[facility] Work Phone: Start: 01-22-2024 End: 01-22-2024 ambulatory Reymundo Mcadams Facility:[facility] Start: 01-22-2024 End: 01-22-2024 ambulatory Felisha Martin Facility:[facility] Start: 01-17-2024 End: 01-17-2024 ambulatory Reymundo Mcadams Facility:[facility] Start: 01-15-2024 End: 01-15-2024 ambulatory Reymundo Mcadams Facility:[facility] Start: 01-15-2024 End: 01-15-2024 ambulatory Reymundo Mcadams Facility:[facility] Start: 01-03-2024 End: 01-03-2024 ambulatory Felisha Martin Facility:[facility] Start: 01-03-2024 End: 01-03-2024 ambulatory Felisha Martin Facility:[facility] Start: 10-04-2023 End: 10-04-2023 ambulatory Reymundo Mcadams Facility:[facility] Start: 03-11-2023 End: 03-11-[address] Reymundo Mcadams Work Phone: [facility] Work Phone: Start: 03-11-2023 End: 03-11-[address] Reymundo Mcadams Work Phone: [facility]-Laboratory, Specimen Work Phone: Start: 03-11-2023 End: 03-11-[address] Reymundo Mcadams Work Phone: [facility] Work Phone: Start: 12-31-2022 End: 12-31-[address] Reymundo Mcadams Work Phone: [facility] Work Phone: Start: 12-31-2022 End: 12-31-[address] Reymundo Mcadams Work Phone: [facility]-Laboratory, Specimen Work Phone: Start: 12-31-2022 End: 12-31-[address] Reymundo Mcadams Work Phone: [facility] Work Phone: Start: 12-19-2022 End: 12-19-[address] Reymundo Mcadams Work Phone: [facility] Work Phone: Start: 12-19-2022 End: 12-19-[address] Reymundo Mcadams Work Phone: [facility]-Outpatient Breast Imaging Work Phone: Start: 12-10-2022 End: 12-10-[address] Reymundo Mcadams Work Phone: [facility] Work Phone: Start: 12-10-2022 End: 12-10-[address] Reymundo Mcadams Work Phone: [facility]-Ultrasound, [facility] Work Phone: Start: 12-05-2022 End: 12-05-[address] Reymundo Mcadams Work Phone: [facility] Work Phone: Start: 12-05-2022 End: 12-05-2022 Encounter for general adult medical examination without abnormal findings Dr. Reymundo Mcadams Work Phone: [facility] Start: 12-05-2022 End: 12-05-[address] Reymundo Mcadams Work Phone: [facility] Internal Medicine Work Phone: Start: 10-22-2022 End: 10-22-[address] Reymundo Mcadams Work Phone: [facility] Work Phone: Start: 10-22-2022 End: 10-22-[address] Reymundo Mcadams Work Phone: [facility] Start: 09-20-2022 End: 09-20-[address] Reymundo Mcadams Work Phone: [facility] Work Phone: Start: 09-20-2022 End: 09-20-[address] Reymundo Mcadams Work Phone: [facility] Women's Care Work Phone: Start: 06-14-2022 End: 06-14-[address] Reymundo Mcadams Work Phone: [facility] Internal Medicine Work Phone: Start: 06-07-[address] Remington Mcadams Work Phone: [facility] On[facility] Start: 06-07-2022 End: 06-07-[address] Reymundo Mcadams Work Phone: [facility] Work Phone: Start: 02-22-2022 End: 02-22-[address] Reymundo Mcadams Work Phone: [facility] Work Phone: Start: 02-22-2022 End: 02-22-[address] Reymundo Mcadams Work Phone: [facility]-Laboratory, Specimen Start: 02-21-2022 End: 02-21-[address] Reymundo Mcadams Work Phone: [facility] Internal Medicine Start: 12-28-2021 End: 12-28-2021 ambulatory [facility] Start: 12-14-2021 End: 12-14-[address] Reymundo Mcadams Work Phone: [facility] Internal Medicine Start: 12-14-2021 End: 12-14-[address] Reymundo Mcadams Work Phone: [facility] Work Phone: Start: 12-14-2021 End: 12-14-[address] Reymundo Mcadams Work Phone: [facility]-Outpatient Breast Imaging Start: 11-30-2021 End: 11-30-[address] Reymundo Mcadams Work Phone: [facility] Work Phone: Start: 11-30-2021 End: 11-30-[address] Reymundo Mcadams Work Phone: [facility]-Laboratory, Specimen Start: 11-30-2021 End: 11-30-[address] Reymundo Mcadams Work Phone: [facility] Women's Care Start: 11-16-2021 End: 11-16-[address] Reymundo Mcadams Work Phone: [facility] Start: 11-06-2021 End: 11-06-[address] Reymundo Mcadams Work Phone: [facility] Work Phone: Start: 11-06-2021 End: 11-06-[address] Reymundo Mcadams Work Phone: [facility], [facility] Start: 11-02-2021 End: 11-02-[address] Reymundo Mcadams Work Phone: [facility] Work Phone: Start: 11-02-2021 End: 11-02-2021 Encounter for general adult medical examination without abnormal findings Dr. Reymundo Mcadams Work Phone: [facility] Internal [facility] Start: 11-02-2021 End: 11-02-[address] Reymundo Mcadams Work Phone: [facility] Internal Medicine Start: 10-24-2021 End: 10-24-[address] Reymundo Mcadams Work Phone: [facility] Work Phone: Start: 10-24-2021 End: 10-24-[address] Reymundo Mcadams Work Phone: [facility], [place] Start: 10-24-[address] Cas Mcadams Work Phone: [facility] Start: 10-24-2021 End: 10-24-[address] Reymundo Mcadams Work Phone: [facility] Internal Medicine Procedures Date Procedure Procedure Detail Performing Clinician Start: 05-19-[address] Remington Mcadams MD Work Phone: Start: 02-18-[address] Reymundo Mcadams MD Work Phone: Start: 02-07-2024 MRI of pelvis with contrast Dr. Reymundo Mcadams MD Work Phone: Start: 01-22-2024 Screening mammography Brittany Mcadams MD Work Phone: Start: 12-19-2022 Screening mammography Brittany Mcadams Work Phone: Start: 12-10-[address] Cas Mcadams Work Phone: Start: 12-10-[address] Reymundo Mcadams Work Phone: Start: 12-14-2021 Screening mammography Brittany Mcadams Work Phone: Start: 11-06-[address] Cas Mcadams Work Phone: Cytopathology procedure, preparation of smear, genital source Dr. Reymundo Mcadams Work Phone: Cytopathology procedure, preparation of smear, genital source Dr. Reymundo Mcadams Work Phone: H/O: surgery Status post bila teral salpingectomy Dr. Reymundo Mcadams MD Work Phone: H/O: surgery Status post bila teral salpingectomy Dr. Rosalie Frausto MD H/O: surgery Status post bila teral salpingectomy Dr. Rosalie Frausto MD History of total hysterectomy S/P JAMES (total abdominal hysterectomy) Dr. Reymundo Mcadams MD Work Phone: Comment on above: SM for fibroids History of total hysterectomy S/P JAMES (total abdominal hysterectomy) Dr. Rosalie Frausto MD History of total hysterectomy S/P JAMES (total abdominal hysterectomy) Dr. Rosalie Frausto MD History of total hysterectomy S/P JAMES (total abdominal hysterectomy) Dr. Rosalie Frausto MD Investigation of transfusion reaction Dr. Reymundo Mcadams Work Phone: Investigation of transfusion reaction Dr. Reymundo Mcadams Work Phone: Plan of Treatment Date Care Activity Detail Author Start: 02-20-2024 Patient discharge [facility] Start: 02-19-2024 Introduction of urin willi catheter [facility] Start: 02-19-2024 Removal of urinary catheter [facility] Start: 02-18-2024 Following clinical p athway protocol [facility] Start: 02-18-2024 Ambulation therapy management [facility] Start: 02-18-2024 Continuous pulse oximetry [facility] Start: 02-18-2024 Elevation of head of bed [facility] Start: 02-18-2024 Incentive spirometry [facility] Start: 02-18-2024 Measuring intake and output [facility] Start: 02-18-2024 Notification of physician [facility] Start: 02-18-2024 Oxygen therapy [facility] Start: 02-18-2024 Patient education [facility] Start: 02-18-2024 Procedures relating to eating and drinking [facility] Start: 02-18-2024 Taking patient vital signs [facility] Start: 02-18-2024 [facility] Start: 02-18-2024 Introduction of urin willi catheter [facility] Start: 02-18-2024 Admission procedure [facility] Start: 01-31-2024 Ther proph/dx njx iv push single/1st sbst/drug THER/PROPH/DIAG INJ IV PUSH [facility] Start: 12-31-2022 Liquid based cervica l cytology screening [facility] Start: 12-10-2022 Pelvic echography Pelvic (Non ) [facility] Start: 12-10-2022 US Pelvis [facility] Start: 12-05-2022 Patient referral [facility] Work Phone: Start: 12-14-2021 Patient referral [facility] Work Phone: Start: 11-02-2021 Patient referral [facility] Work Phone: Start: 10-24-2021 Patient referral [facility] Work Phone: CBC W Auto Different ial panel - Blood [facility] Work Phone: CBC W Auto Different ial panel - Blood [facility] Complete blood count [facility] Ferritin [Mass/volum e] in Serum or Plasma [facility] Work Phone: Ferritin [Mass/volum e] in Serum or Plasma [facility] Iron and Iron bindin g capacity panel - Serum or Plasma [facility] Work Phone: Iron and Iron bindin g capacity panel - Serum or Plasma [facility] MG Breast - bilatera l Screening [facility] Work Phone: MG Breast - bilatera l Screening [facility] Path report.final Dx Spec [facility] Patient referral [facility] Work Phone: US Pelvis [facility] Work Phone: US Pelvis [facility] US Pelvis transvaginal [facility] Vitamin B12 measurement [facility] Work Phone: Vitamin B12 measurement [facility] Payers Date Payer Category Payer Self-pay 2021 Unknown [id number] Unknown [id number] 2.16.8 [id number] Unknown [id number] 2.16.8 [id number] Unknown [id number] 2.16.8 40.1.915185.3.579.2.462 Unknown [id number] 2.16.8 40.1.653626.3.579.2.462 Unknown [id number] 2.16.8 40.1.463705.3.579.2.462 Unknown [id number] 2.16.8 40.1.249819.3.579.2.462 Unknown [id number] 2.16.8 40.1.392051.3.579.2.462 Unknown [id number] 2.16.8 40.1.914049.3.579.2.462 Unknown [id number] 2.16.8 40.1.531843.3.579.2.462 Unknown [id number] 2.16.8 40.1.340860.3.579.2.462 Unknown [id number] 2.16.8 40.1.867658.3.579.2.462 Unknown [id number] 2.16.8 40.1.309968.3.579.2.462 Unknown [id number] 2.16.8 40.1.639048.3.579.2.462 Unknown [id number] 2.16.8 40.1.953617.3.579.2.462 Unknown [id number] 2.16.8 40.1.653403.3.579.2.462 Unknown [id number] 2.16.8 40.1.701293.3.579.2.462 Unknown [id number] 2.16.8 40.1.186362.3.579.2.462 Unknown [id number] 2.16.8 40.1.878566.3.579.2.462 Unknown [id number] 2.16.8 40.1.561970.3.579.2.462 Unknown [id number] 2.16.8 40.1.354936.3.579.2.462 Unknown [id number] 2.16.8 40.1.964268.3.579.2.462 Unknown [id number] 2.16.8 40.1.004443.3.579.2.462 Unknown [id number] 2.16.8 40.1.238938.3.579.2.462 Unknown [id number] 2.16.8 40.1.953599.3.579.2.462 Unknown [id number] 2.16.8 40.1.521710.3.579.2.462 Unknown [id number] 2.16.8 40.1.231177.3.579.2.462 Unknown [id number] 2.16.8 40.1.940263.3.579.2.462 Social History Date Type Detail Facility Start: 10-24-2021 End: 02-08-2023 Tobacco smoking status NHIS Unknown if ever smoked [facility] Start: 1975 Sex Assigned At Female [facility] Start: 02-03-2024 Tobacco smoking status NHIS Never smoked tobacco (finding) [facility] Start: 05-21-2024 Sex Female (finding) [facility] NEGATED: Highlighted row Not [facility] Medical Equipment Procedure Code Equipment Code Equipment Origin al Text Equipment Identifier Dates Hysterectomy, total, abdominal Collagen haemostatic agent, non-antimicrobial [id number] FDA Start: 02-18-2024 Goals Date Patient Goal Desired Activity /State Functional Status Date Assessment Result Facility 02-20-2024 Functional status Chair [facility] Work Phone: Mental Status Date Assessment Result Facility 02-20-2024 Cognitive function Light Pain [facility] Work Phone: 01-31-2024 Cognitive function Voice/Name [facility] Work Phone: 01-29-2024 Cognitive function Awake;Alert;A ppropriate;Fol lows Commands [facility] Work Phone: 01-27-2024 Cognitive function Awake;Alert;A ppropriate;Fol lows Commands [facility] Work Phone: 01-24-2024 Cognitive function Voice/Name [facility] Work Phone: 01-22-2024 Cognitive function Voice/Name [facility] Work Phone: 04-05-2022 Cognitive function Voice/Name [facility] Work Phone: Clinical Notes 12-31-2022 to 02-17-2024 Note Date & Type Note Facility 02-17-2024 Note [facility] Medical Records Department [address] [place] [address] History Physical Exam 02/17/24 1722 MR#: [id number] Acct: [id number] Name: TAHMINA GALLARDO Rep #: [id number] : 1975 48 From: Rosalie Frausto MD PCP: Dr. 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 Is patient in pain?: No Allergies No Known Allergies Allergy (Verified 02/06/24 11:34) Medications ???Medication ???Instructions ???Recorded ???Confirmed ???Type ketoconazole 2 % topical cream 1 applic topical DAILY HEAD LESION 02/03/24 02/06/24 History Is last menstrual period known: Yes Last Menstrual Period: 01/31/24 Post menopausal: No Patient : No : No PFSH Medical History Wears glasses Depression Thyroid disease Anemia Low iron Syncope Non-smoker Leg cramps Easy bruising Hx of sinus tachycardia Chest pain Neuropathy Pica Dermatitis Localized superficial swelling of skin Muscle pain Heel callus Post-viral cough syndrome URI (upper respiratory infection) Elevated blood pressure reading without diagnosis of hypertension Endometriosis Menorrhagia Iron deficiency anemia due to chronic blood loss Orthorexia nervosa Plantar wart, right foot Leukopenia Suprapubic mass Colon cancer screening Preventative health care Bacterial vaginosis Vitamin D deficiency Adenomyosis Anemia Surgical History History of lobectomy of thyroid Hx of laparoscopy S/P thyroid biopsy Family History Mother OsteoporosisAunt Stomach cancerUncle Prostate CAOther [place] amyloidosis Social History Smoking Status: Never smoker alcohol intake: current alcohol intake frequency: holidays/special occasions only substance use type: does not use caffeine: Yes what type of physical activity do you participate in: walking, yoga and other details: cardio frequency: 5-6 times per week seatbelt use: always do you feel safe at home: Yes additional 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 she has heavy menses, anemia is s/p transfusion and IV Iron infusion. she is ready to proceed with hysterecotmy for fibroids. she is getting an MRI to determine if robotic hysterectomy is an option. she is having heavy prolonged menses. Female Reproductive History Last Menstrual Period: 01/31/24 Cycle Length: 21-35 Bleeding Duration: 7 Associated symptoms: heavy Questions: metorrhagia: No, sexually active: Yes, dyspareunia: No and PCB: No Menopausal Symptoms: No hot flashes, No night sweats, No weight change, No mood changes, No difficulty concentrating, No sleep problems and No change in libido History 1 Elective abortions Hx Para Spontaneous abortions Hx # Term Pregnancies Ectopic pregnancies Hx # Pregnancies Multiple births # of living children 0 ROS Const Constitutional: Denies night sweats ENT ENT: Reports system reviewed and no additional complaints, except as documented Cardio Card: Denies chest pain Resp Resp: Denies cough or dyspnea GI GI: Reports as per HPI and constipation; Denies nausea or vomiting : Denies hot flashes or nipple discharge Musc Musc: Denies arthralgias, back pain or muscle weakness Skin Skin/Breast: Denies alopecia, change in hair, dry skin, breast mass, breast pain, breast skin changes or nipple discharge Neuro Neuro: Reports system reviewed and no additional complaints, except as documented Psych Psych: Denies change in libido or difficulty concentrating Endo Endo: Denies cold intolerance, excessive sweating, heat intolerance or polydipsia Manuel/Lymph Hematologic/Lymphatic: Denies easy bleeding, Denies easy bruising and Denies lymphadenopathy Exam Const General: cooperative, healthy appearing, comfortable, no acute distress and well developed Orientation: alert HENMT Head: normal to inspection and normocephalic Ears: hearing grossly normal bilaterally and external ears normal Nose: external nose normal and nares normal Face and sinus: normal facial exam Neck Neck: normal visual inspection and no lymphadenopathy Thyroid: thyroid normal Chest Chest palpation inspection: normal inspection of the chest Resp Effort Inspection: (more content not included)... [facility] 02-06-2024 Evaluation note Diagnosis Onset Date Resolution Fibroid, uterine chronic February 06, 2024 11:16am Iron deficiency anemia due to chronic blood loss chronic February 05, 2 024 11:16am Menorrhagia chronic January 11:16am Adenomyosis acute February 18, 2024 7:59am High risk human papillomavirus (HPV) DNA test positive acute February 17 7:59am S/P JAMES (total abdominal hysterectomy) acute February 17 7:59am Status post bilateral salpingectomy acute February 17 7:59am Fibroid, uterine chronic February 18, 2024 7:59am Iron deficiency anemia due to chronic blood loss chronic February 17 7:59am Menorrhagia chronic February 18, 2024 7:59am S/P JAMES (total abdominal hysterectomy) acute February 24 12:59pm Status post bilateral salpingectomy acute February 24 12:59pm Ear pit acute May 07 1:48pm Cervical cancer screening acute May 19, 2024 1:03pm S/P JAMES (total abdominal hysterectomy) acute May 19, 2024 1:03pm [facility] Work Phone: 1(555) 955-203211-20-2023 NotePap Smear Specimen AdequacyNov2022 4:47pmComment.Satisfactory for evaluation. No endocervical component is identified.[facility] INTERFACED A#[id number] HospitalComment on above:Satisfactory for evaluation. 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, 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, 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 PHYSICAL SUPRAPUBIC MASS NEW PT - DECREASED WBC New pt referral, vaginitis SCREENING DISCUSS HEALTH QUESTIONS Reason for Visit Anemia Bacterial vaginosis Orthorexia nervosa Colon cancer screening Preventative health care Iron deficiency anemia due to chronic blood loss Leukopenia Menorrhagia Fibroid, uterine Iron deficiency anemia due to chronic blood loss Menorrhagia Elevated blood pressure reading without diagnosis of hypertension Fibroid, uterine Iron deficiency anemia due to chronic blood loss Orthorexia nervosa [facility] Work Phone: Chief complaint+Reason for visit Narrative* Chief Complaint PHYSICAL SUPRAPUBIC MASS NEW PT - DECREASED WBC New pt referral, vaginitis SCREENING DISCUSS HEALTH QUESTIONS Cough, congestion Reason for Visit Colon cancer screeni Preventative health care Iron deficiency anemia due to chronic blood loss Leukopenia Menorrhagia Fibroid, uterine Iron deficiency anemia due to chronic blood loss Menorrhagia Elevated blood pressure reading without diagnosis of hypertension Fibroid, uterine Iron deficiency anemia due to chronic blood loss Orthorexia nervosa URI with cough and congestion [facility] Work Phone: Evaluation note* Diagnosis Onset Date Resolution Status Anemia chronic Bacterial vaginosis chronic Orthorexia nervosa chronic Suprapubic mass chronic [facility] Work Phone: Evaluation note* Diagnosis Onset Date Resolution Status Anemia chronic Bacterial vaginosis chronic Orthorexia nervosa chronic Suprapubic mass chronic Colon cancer screening acute Preventative health care acu te [facility] Work Phone: Evaluation note* Diagnosis Onset Date Resolution Status Anemia chronic Bacterial vaginosis chronic Orthorexia nervosa chronic Colon cancer screening acute Preventative health care acu te Iron deficiency anemia due to chronic blood loss chronic Leukopenia chronic Menorrhagia chronic Fibroid, uterine acute Iron deficiency anemia due to chronic blood loss chronic Menorrhagia [facility] Work Phone: Evaluation note* Diagnosis Onset Date Resolution Status Anemia chronic Bacterial vaginosis chronic Orthorexia nervosa chronic Colon cancer screening acute Preventative health care acu te Iron deficiency anemia due to chronic blood loss chronic Leukopenia chronic Menorrhagia chronic Fibroid, uterine acute Iron deficiency anemia due to chronic blood loss chronic Menorrhagia chronic Elevated blood pressure read ing without diagnosis of hypertension acute Fibroid, uterine acute Iron deficiency anemia due to chronic blood loss chronic Orthorexia nervosa [facility] Work Phone: Evaluation note* Diagnosis Onset Date Resolution Status Colon cancer screening acute Preventative health care acu te Iron deficiency anemia due to chronic blood loss chronic Leukopenia chronic Menorrhagia chronic Fibroid, uterine acute Iron deficiency anemia due to chronic blood loss chronic Menorrhagia chronic Elevated blood pressure read ing without diagnosis of hypertension acute Fibroid, uterine acute Iron deficiency anemia due to chronic blood loss chronic Orthorexia nervosa chronic URI with cough and congestion noneactive [facility] Work Phone: Evaluation note* Diagnosis Onset Date Resolution Status Iron deficiency anemia due to chronic blood loss chronic Leukopenia chronic Heel callus acute Muscle pain acute Anemia chronic Fibroid, uterine acute Menorrhagia [facility] Work Phone: Evaluation note* Diagnosis Onset Date Resolution Status Fibroid, uterine acute Menorrhagia [facility] Work Phone: Evaluation note* Diagnosis Onset Date Resolution Status Fibroid, uterine acute Menorrhagia chronic Colon cancer screening acute Preventative health care acu te [facility] Work Phone: Evaluation note* Diagnosis Onset Date Resolution Status Fibroid, uterine acute Menorrhagia chronic Colon cancer screening acute Preventative health care acu te Encounter for routine gynecological examination noneactive [facility] Work Phone: Evaluation note* Diagnosis Onset Date Resolution Status Colon cancer screening acute Preventative health care acu te Encounter for routine gynecological examination noneactive High risk human papillomavir us (HPV) DNA test positive [facility] Work Phone: Reason for referral (narrative)No reason for referral information availableWGalion Hospital Work Phone: Chief Complaint and Reason for Visit 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 EORDERS Reason for Visit Iron deficiency anem ia due to chronic blood loss Leukopenia Heel callus Muscle pain Anemia Fibroid, uterine Menorrhagia Chief Complaint Myomectomy? EORDERS Reason for Visit Fibroid, uterine Menorrhagia Chief Complaint Myomectomy? EORDERS YEARLY PHYSICAL EXCESSIVE MENSTRUATION, LEIOMYOMA Reason for Visit Fibroid, uterine Menorrhagia Colon cancer screening Preventative health care Chief Complaint Myomectomy? EORDERS YEARLY PHYSICAL EXCESSIVE MENSTRUATION, LEIOMYOMA SCREENING Reason for Visit Fibroid, uterine Menorrhagia Colon cancer screening Preventative health care Chief Complaint Myomectomy? 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) Colposcopy Reason for Visit Colon cancer screeni ng Preventative health care Encounter for routine gynecological examination High risk human papillomavirus (HPV) DNA test positive Chief Complaint Admit Date 2OOMG VENOFER January 22, 2024 8:45am SCREENING January 22, 2024 9:46am 2OOMG VENOFER January 24, 2024 8:31am 2OOMG VENOFER January 27, 2024 8:31am 2OOMG VENOFER January 29, 2024 8:39am 2OOMG VENOFER January 31, 2024 8:48am TAHBS February 06, 2024 11:16am PREOP February 06, 2024 12:44pm UTERINE FIBROID February 07, 2024 8:53am hysterectomy,JAMES, Bilateral Salping Codey 2024 5:22pm hysterectomy,JAMES, Bilateral Salping Codey [email or web address] 7:59am hysterectomy,JAMES, Bilateral Salping Codey [email or web address] 3:45pm hysterectomy,JAMES, Bilateral Salping Codey [email or web address] 5:32pm hysterectomy,JAMES, Bilateral Salping Codey [email or web address] 9:00am 2 wk TAHBS February 25, 2024 1 2:59pm PREAURICULAR PICK ON EAR May 07 1:48pm TAHBS FU May 19, 2024 1:03 pm Reason for Visit Admit Date Fibroid, uterine February 06, 2024 11:16am Iron deficiency anemia due to chronic bl ood loss February 06, 2024 11:16am Menorrhagia February 06, 2024 11:16am Adenomyosis February 18, 2024 7: 59am High risk human papillomavirus (HPV) DNA test positive February 18, 2024 7:59am S/P JAMES (total abdominal hysterectomy) J anuary 2024 7:59am Status post bilateral salpingectomy Codey márquez 2024 7:59am Fibroid, uterine February 18, 2024 7: 59am Iron deficiency anemia due to chronic bl ood loss February 18, 2024 7:59am Menorrhagia February 18, 2024 7: 59am S/P JAMES (total abdominal hysterectomy) J anuary 2024 12:59pm Status post bilateral salpingectomy Codey willi 2024 12:59pm Ear pit May 07, 2024 1:4 8pm Cervical cancer screening May 19 1:03pm S/P JAMES (total abdominal hysterectomy) A pril 2024 1:03pm Family History No Family History Records Found Relationship Condition Age at Onset Recorded Date/T rodger Not Specified Light chain (AL) amyloidosis Unknown mother Osteoporosis Unknown Relationship Condition Age at Onset Recorded Date/T rodger Not Specified [place] amyloidosis Unknown mother Osteoporosis Unknown aunt Malignant neoplasm of stomach Unknown uncle Malignant neoplasm of prostate Unknown Summary Purpose Advance Directives No Advanced Directives Records Found Advance Directive Response Recorded Date/ Time Living Will No February 17 2:16pm Do you have a Healthcare Power of Invasive Cardiologist? No February 18, 2024 2:16pm Additional Source Comments Goals (unrecognized section and content) Goals may be documented in a n alternate sectionGoals may be documented in an alternate sectionGoals may be documented in an alternate sectionGoals may be documented in an alternate sectionGoals may be documented in an alternate sectionGoals may be documented in an alternate sectionGoals may be documented in an alternate sectionGoals may be documented in an alternate sectionGoals may be documented in an alternate sectionGoals may be documented in an alternate sectionGoals may be documented in an alternate sectionGoals may be documented in an alternate sectionGoals may be documented in an alternate section INFORMATION SOURCE (unrecogn ized section and content) DATE CREATED AUTHOR 12/29/2021 [facility] DATE CREATED AUTHOR AUTHOR'S ORGANIZ ATION 06/10/2024 [facility] Care Teams (unrecognized sec tion and content) Team Status: Active Member Role Status Dates Dr. Reymundo Mcadams MD Primary Care Provider Active Team Status: Inactive Member Role Status Dates Dr. Reymundo Mcadams MD Primary Care P rovider, Attending Provider, Referring Provider Active Team Status: Inactive Member Role Status Dates Dr. Reymundo Mcadams MD Primary Care Provider, Refer ring Provider Active Dr. Rosalie Frausto MD Attending Provider Active Team Status: Inactive Member Role Status Dates Dr. Reymundo Mcadams MD Primary Care Provider, Refer ring Provider Active Dr. Mallory Herrera MD Attending Provider Active Team Status: Inactive Member Role Status Dates Dr. Reymundo Mcadams MD Primary Care Provider, Refer ring Provider Active DAVE Purdy Attending Provider Active Team Status: Inactive Member Role Status Dates Dr. Reymundo Mcadams MD Primary Care Provider, Atten ding Provider Active Team Status: Inactive Member Role Status Dates Dr. Reymundo Mcadams MD Primary Care Provider Active Dr. Rosalie Frausto MD Attending Provider, Referr ing Provider Active Team Status: Inactive Member Role Status Dates Dr. Reymundo Mcadams MD Primary Care Provider Active DAVE Purdy Attending Provider, Referring Pro vider Active Team Status: Active Member Role Status Dates Dr. Reymundo Mcadams MD Primary Care Provider Active Dr. Mallory Herrera MD Attending Provider, Referrin g Provider Active Team Status: Active Member Role Status Dates Dr. Reymundo Mcadams MD Primary Care Provider Active Dr. Rosalie Frausto MD Attending Provider, Referr ing Provider Active Team Status: Inactive Member Role Status Dates Dr. Reymundo Mcadams MD Primary Care Provider, Refer ring Provider Active Dr. Felisha Martin DO Attending Provider Activ e Team Status: Inactive Member Role Status Dates Dr. Reymundo Mcadams MD Primary Care Provider Active Dr. Felisha Martin DO Attending Provider Activ e Team Status: Inactive Member Role Status Dates Dr. Reymundo Mcadams MD Primary Care Provider Active Dr. Felisha Martin DO Attending Provider, Refe rring Provider Active Team Status: Inactive Member Role Status Dates Dr. Reymundo Mcadams MD Primary Care Provider Active Start: January 22, 2024 End: January 22, 2024 Dr. Reymundo Mcadams MD Attending Provider Active Start: January 22, 2024 End: January 22, 2024 Dr. Reymundo Mcadams MD Referring Provider Active Start: January 22, 2024 End: January 22, 2024 Team Status: Inactive Member Role Status Dates Dr. Reymundo Mcadams MD Primary Care Provider Active Start: January 22, 2024 End: January 22, 2024 Dr. Felisha Martin DO Attending Provider Activ e Start: January 22, 2024 End: January 22, 2024 Dr. Felisha Martin DO Referring Provider Activ e Start: January 22, 2024 End: January 22, 2024 Team Status: Inactive Member Role Status Dates Dr. Reymundo Mcadams MD Primary Care Provider Active Start: January 24, 2024 End: January 24, 2024 Dr. Reymundo Mcadams MD Attending Provider Active Start: January 24, 2024 End: January 24, 2024 Dr. Reymundo Mcadams MD Referring Provider Active Start: January 24, 2024 End: January 24, 2024 Team Status: Inactive Member Role Status Dates Dr. Reymundo Mcadams MD Primary Care Provider Active Start: January 27, 2024 End: January 27, 2024 Dr. Reymundo Mcadams MD Attending Provider Active Start: January 27, 2024 End: January 27, 2024 Dr. Reymundo Mcadams MD Referring Provider Active Start: January 27, 2024 End: January 27, 2024 Team Status: Inactive Member Role Status Dates Dr. Reymundo Mcadams MD Primary Care Provider Active Start: January 28, 2024 End: January 28, 2024 Dr. Reymundo Mcadams MD Attending Provider Active Start: January 28, 2024 End: January 28, 2024 Dr. Reymundo Mcadams MD Referring Provider Active Start: January 28, 2024 End: January 28, 2024 Team Status: Inactive Member Role Status Dates Dr. Reymundo Mcadams MD Primary Care Provider Active Start: January 29, 2024 End: January 29, 2024 Dr. Reymundo Mcadams MD Attending Provider Active Start: January 29, 2024 End: January 29, 2024 Dr. Reymundo Mcadams MD Referring Provider Active Start: January 29, 2024 End: January 29, 2024 Team Status: Inactive Member Role Status Dates Dr. Reymundo Mcadams MD Primary Care Provider Active Start: January 31, 2024 End: January 31, 2024 Dr. Reymundo Mcadams MD Attending Provider Active Start: January 31, 2024 End: January 31, 2024 Dr. Reymundo Mcadams MD Referring Provider Active Start: January 31, 2024 End: January 31, 2024 Team Status: Inactive Member Role Status Dates Dr. Reymundo Mcadams MD Primary Care Provider Active Start: February 06, 2024 End: February 06, 2024 Dr. Reymundo Mcadams MD Referring Provider Active Start: February 06, 2024 End: February 06, 2024 Dr. Rosalie Frausto MD Attending Provider Active Start: February 06, 2024 End: February 06, 2024 Team Status: Active Member Role Status Dates Dr. Reymundo Mcadams MD Primary Care Provider Active Start: February 06, 2024 End: February 06, 2024 Dr. Ramy Latham MD Attending Provider Active S tart: February 06, 2024 End: February 06, 2024 Dr. Rosalie Frausto MD Referring Provider Active Start: February 06, 2024 End: February 06, 2024 Team Status: Inactive Member Role Status Dates Dr. Reymundo Mcadams MD Primary Care Provider Active Start: February 06, 2024 End: February 06, 2024 Dr. Rosalie Frausto MD Attending Provider Active Start: February 06, 2024 End: February 06, 2024 Dr. Rosalie Frausto MD Referring Provider Active Start: February 06, 2024 End: February 06, 2024 Team Status: Inactive Member Role Status Dates Dr. Reymundo Mcadams MD Primary Care Provider Active Start: February 07, 2024 End: February 07, 2024 Dr. Rosalie Frausto MD Attending Provider Active Start: February 07, 2024 End: February 07, 2024 Dr. Rosalie Frausto MD Referring Provider Active Start: February 07, 2024 End: February 07, 2024 Team Status: Active Member Role Status Dates Dr. Reymundo Mcadams MD Primary Care Provider Active Start: February 17, 2024 Dr. Rosalie Frausto MD Admit Provider Active Start: February 17, 2024 Dr. Rosalie Frausto MD Attending Provider Active Start: February 17, 2024 Dr. Rosalie Frausto MD Referring Provider Active Start: February 17, 2024 Dr. Rosalie Frausto MD Other Provider Active Start: February 17, 2024 Team Status: Inactive Member Role Status Dates Dr. Reymundo Mcadams MD Primary Care Provider Active Start: February 18, 2024 End: February 20, 2024 Dr. Rosalie Frausto MD Admit Provider Active Start: February 18, 2024 End: February 20, 2024 Dr. Rosalie Frausto MD Attending Provider Active Start: February 18, 2024 End: February 20, 2024 Dr. Rosalie Frausto MD Referring Provider Active Start: February 18, 2024 End: February 20, 2024 Team Status: Active Member Role Status Dates Dr. Reymundo Mcadams MD Primary Care Provider Active Start: February 18, 2024 Dr. Rosalie Frausto MD Admit Provider Active Start: February 18, 2024 Dr. Rosalie Frausto MD Attending Provider Active Start: February 18, 2024 Dr. Rosalie Frausto MD Referring Provider Active Start: February 18, 2024 Dr. Rosalie Frausto MD Other Provider Active Start: February 18, 2024 Team Status: Active Member Role Status Dates Dr. Reymundo Mcadams MD Primary Care Provider Active Start: February 19, 2024 Dr. Rosalie Frausto MD Admit Provider Active Start: February 19, 2024 Dr. Rosalie Frausto MD Attending Provider Active Start: February 19, 2024 Dr. Rosalie Frausto MD Referring Provider Active Start: February 19, 2024 Dr. Rosalie Frausto MD Other Provider Active Start: February 19, 2024 Team Status: Active Member Role Status Dates Dr. Reymundo Mcadams MD Primary Care Provider Active Start: February 20, 2024 Dr. Rosalie Frausto MD Admit Provider Active Start: February 20, 2024 Dr. Rosalie Frausto MD Referring Provider Active Start: February 20, 2024 Dr. Rosalie Frausto MD Other Provider Active Start: February 20, 2024 Dr. Felisha Martin DO Attending Provider Activ e Start: February 20, 2024 Team Status: Inactive Member Role Status Dates Dr. Reymundo Mcadams MD Primary Care Provider Active Start: February 25, 2024 End: February 25, 2024 Dr. Reymundo Mcadams MD Referring Provider Active Start: February 25, 2024 End: February 25, 2024 Dr. Rosalie Frausto MD Attending Provider Active Start: February 25, 2024 End: February 25, 2024 Team Status: Inactive Member Role Status Dates Dr. Reymundo Mcadams MD Primary Care Provider Active Start: May 07, 2024 End: May 07, 2024 Dr. Reymundo Mcadams MD Referring Provider Active Start: May 07, 2024 End: May 07, 2024 Dr. Alfredo Hernandez MD Attending Provider Active Start: May 07, 2024 End: May 07, 2024 Team Status: Inactive Member Role Status Dates Dr. Reymundo Mcadams MD Primary Care Provider Active Start: May 19, 2024 End: May 19, 2024 Dr. Reymundo Mcadams MD Referring Provider Active Start: May 19, 2024 End: May 19, 2024 Dr. Rosalie Frausto MD Attending Provider Active Start: May 19, 2024 End: May 19, 2024 Team Status: Inactive Member Role Status Dates Dr. Reymundo Mcadams MD Primary Care Provider Active Start: May 19, 2024 End: May 19, 2024 Dr. Rosalie Frausto MD Attending Provider Active Start: May 19, 2024 End: May 19, 2024 Dr. Rosalie Frausto MD Referring Provider Active Start: May 19, 2024 End: May 19, 2024 FOR RECORDS PERTAINING TO PATIENTS WHO ARE [...] BE BASED ON THE PRIMARY CLINICAL RECORDS. [facility] [employer] [facility]. provides no warranty or guarantee of the accuracy or completeness of information in this document.
--- OUTSIDE RECORDS SUMMARY | 2024-11-12 22:44 | XMS RPT_ITS | CCD ---
Author Organization [facility] Care Team Providers Care Commercial Print Salesman Name Role Phone Dr. Reymundo Mcadams Primary Care Provider [phone] Dr. Reymundo Mcadams Attending Provider [phone] Dr. Reymundo Mcadams Referring Provider [phone] Dr. Mallory Herrera Attending Provider Dr. Rosalie Frausto Attending Provider [phone] NEIL AMADO Attending Unavailable Dr. Reymunod Mcadams Primary Care Provider [phone] Dr. [...] Frausto Attending Provider [phone] Pema, Dr. Dwyre Attending Provider [phone] Dr. Felisha Martin Attending [...] Provider Marcelle PEDRO, Dr. Wiggins Attending Provider Yeison PEDRO, Dr. Mccann Attending Provider [phone] [...] Drug Class(es) Dates Sig (Normalized) Sig (Original) [place] (Nk) (7 sources) Start: 05-07-2024 [place] (Nk) A ctive May 07, 2024 12:00am Start: 03-11-2023 [place] (Nk) A ctive March 11, 2023 12:00am Start: 06-07-2022 [place] (Nk) A ctive June 06, 2022 11:00pm Start: 06-07-2022 [place] (Nk) A ctive June 07, 2022 12:00am [...] take 1 tablet by mouth once daily Elgzjbylx-Lnfdxmkoz-Fupweeukxv (Myfembre e) 40-1-0.5 mg tablet Discontinued 1 TABLET PO DAILY October 10, 2022 11:00pm March 11, 2023 2:06pm Start: 10-11-2022 take 1 tablet by tonia th once daily Fzrkyszbf-Cakyvadcp-Uijswzecli (Myfembre e) 40-1-0.5 mg tablet Active 1 TABLET PO DAILY October 10, 2022 11:00pm Start: 10-11-2022 take 1 tablet by tonia th once daily Zujjwrffl-Yeespyufr-Duevgvdqtg (Myfembre e) 40-1-0.5 mg tablet Active 1 [...] Below infection level. Mixed Gram Positive Organisms [place] Count <1000 MIXC Mixed contaminants. Submit a new specimen if indicated. [facility] Comment on above: Performed By: #### L 500.4050, L100.0100, L503.6150, L503.6550, L503.6075 #### [facility] Laboratory [address] [place], [address] Client Services Coordinator Office Visit Reporton 05-19-2024 Client Services Coordinator Office Visit Report [facility] [address], [address] [place] [address] OFFICE VISIT Date of Service: 05/19/24 MR#: [id number] Acct: [id number] Name: TAHMINA GALLARDO Rep #: [id number] : 1975 Provider: Dr. 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 Normal [facility] Urine cultureOrdered By: Willis Frausto on 05-19-2024 Bacteria identified Cx Nom (U) Positive Abnormal [facility] Plastic Surgery Visit Report on 05-07-2024 Plastic Surgery Visit Report [facility] [address], [address] [place] [address] OFFICE VISIT Date of Service: 05/07/24 MR#: [id number] Acct: [id number] Name: TAHMINA GALLARDO Rep #: [id number] : 1975 Provider: Dr. Alfredo Hernandez MD Age/Sex: 48/F Location: [facility] [place] Status: Signed Intake Vital Signs 02/25/24 13:04 [...] pit/pore on right ear. Would like suggestions/eval. 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 Jimenez at [facility] who referred her to us. Does [...] Qualifiers) As (more content not included)... Normal [facility] Client Services Coordinator Office Visit Reporton 02-25-2024 Client Services Coordinator Office Visit Report [facility] [address], [address] [place] [address] OFFICE VISIT Date of Service: 02/25/24 MR#: [id number] Acct: [id number] Name: TAHMINA GALLARDO Rep #: [id number] : 1975 Provider: Dr. 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, [address] Erythrocyte distribution wid th (RBC) [Ratio]Ordered By: Rosalie Frausto on 02-19-2024 RDW Coefficient of Variation Not Reportable [facility] RDW Standard Deviation Not Reportable [facility] Hematocrit Auto (Bld) [Volum e fraction]Ordered By: Rosalie Frausto on 02-19-2024 Hematocrit (Bld) [Volume fraction] 34.2 % Low 37-47 [facility] Hemoglobin measurementOrdere d By: Rosalie Frausto on 02-19-2024 Hemoglobin (Bld) [Mass/Vol] 10.3 g/dL Low 12.0-15.0 [facility] MCV (mean corpuscular volume ) determinationOrdered By: Rosalie Frausto on 02-19-2024 MCV (RBC) [Entitic vol] 82.2 fL 81-99 [facility] Mean corpuscular hemoglobin (MCH) determinationOrdered By: Rosalie Frausto on 02-19-2024 MCH (RBC) [Entitic mass] 24.8 pg Low 27.0-32.0 [facility] Mean corpuscular hemoglobin concentration (MCHC) determinationOrdered By: Rosalie Frausto on 02-19-2024 MCHC (RBC) [Mass/Vol] 30.1 g/dL Low 32-36 [facility] Mean platelet volume determi nationOrdered By: Rosalie Frausto on 02-19-2024 Platelet mean volume (Bld) [Entitic vol] 10.7 fL 6.2-12.0 [facility] Pathologist review Jose M (Unsp spec) [Interp]Ordered By: Rosalie Frausto on 02-19-2024 Differential Pathologist's Review See comment [facility] Comment on above: 1+ POLYCHROMASIA1+ O VALOCYTESADEQUATE PLATELETS Platelet countOrdered By: Ranjeet Frausto on 02-19-2024 Platelets (Bld) [#/Vol] 272 10*3/uL 150-450 [facility] RBC Auto (Bld) [#/Vol]Ordere d By: Rosalie Frausto on 02-19-2024 RBC (Bld) [#/Vol] 4.16 10*6/uL Low 4.2-5.4 [facility] White blood cell (WBC) count Ordered By: Rosalie Frausto on 02-19-2024 WBC (Bld) [#/Vol] 7.6 10*3/uL 4.4-11.0 [facility] BRCon 02-18-2024 RC Normal [facility] Comment on above: Result Comment: [id number] AP RC XM COMPATIBLE [id number] AP RC XM COMPATIBLE Performed By: #### L 500.4050, L100.0100, L503.6150, L503.6550, L503.6075 #### [facility] Laboratory [address] [place], [address] Bedside Glucoseon 02-18-2024 FINGERSTICK GLU 74 mg/dL Normal 74-106 [facility] Comment on above: Result Comment: AMAIRANI OCONNELL OF PATIENT CARE PER NURSING PROTOCOL Performed By: #### L 501.080 #### [facility] Laboratory [address] [place], [address] CBC-Complete Blood Cnt No Di ffon 02-18-2024 RDW CV TNP Normal 11.6-14.6 [facility] Comment on above: Performed By: #### L 500.4050, L100.0100, L503.6150, L503.6550, L503.6075 #### [facility] Laboratory [address] [place], [address] RDW SD TNP Normal 35.1-43.9 [facility] Comment on above: Performed By: #### L 500.4050, L100.0100, L503.6150, L503.6550, L503.6075 #### [facility] Laboratory [address] [place], [address] Hematocrit (Bld) [Volume fraction] 34.6 % Low 37-47 [facility] Comment on above: Performed By: #### L 500.4050, L100.0100, L503.6150, L503.6550, L503.6075 #### [facility] Laboratory [address] [place], [address] Hemoglobin (Bld) [Mass/Vol] 10.6 g/dL Low 12.0-15.0 [facility] Comment on above: Performed By: #### L 500.4050, L100.0100, L503.6150, L503.6550, L503.6075 #### [facility] Laboratory [address] [place], [address] MCH (RBC) [Entitic mass] 24.8 pg Low 27.0-32.0 [facility] Comment on above: Performed By: #### L 500.4050, L100.0100, L503.6150, L503.6550, L503.6075 #### [facility] Laboratory [address] [place], [address] MCHC (RBC) [Mass/Vol] 30.6 g/dL Low 32-36 [facility] Comment on above: Performed By: #### L 500.4050, L100.0100, L503.6150, L503.6550, L503.6075 #### [facility] Laboratory [address] [place], [address] MCV (RBC) [Entitic vol] 80.8 fL Low 81-99 [facility] Comment on above: Performed By: #### L 500.4050, L100.0100, L503.6150, L503.6550, L503.6075 #### [facility] Laboratory [address] [place], [address] Platelet mean volume (Bld) [Entitic vol] 10.3 fL Normal 6.2-12.0 [facility] Comment on above: Performed By: #### L 500.4050, L100.0100, L503.6150, L503.6550, L503.6075 #### [facility] Laboratory [address] [place], [address] Platelets (Bld) [#/Vol] 297 10*3/uL Normal 150-450 [facility] Comment on above: Performed By: #### L 500.4050, L100.0100, L503.6150, L503.6550, L503.6075 #### [facility] Laboratory [address] [place], [address] RBC (Bld) [#/Vol] 4.28 10*6/uL Normal 4.2-5.4 [facility] Comment on above: Performed By: #### L 500.4050, L100.0100, L503.6150, L503.6550, L503.6075 #### [facility] Laboratory [address] [place], [address] WBC (Bld) [#/Vol] 11.0 10*3/uL Normal 4.4-11.0 [facility] Comment on above: Performed By: #### L 500.4050, L100.0100, L503.6150, L503.6550, L503.6075 #### [facility] Laboratory [address] [facility] [place], [address] Discharge Instructionon Discharge Instruction [facility] Medical Records Department [address] [place] [address] Instructions for Home/Discharge Instructions 02/18/24 0757 MR#: [id number] Acct: [id number] Name: TAHMINA GALLARDO Rep #: [id number] : 1975 48 From: Rosalie Frausto MD [...] Attending Provider: Rosalie Frausto Primary Care Provider: Ryemundo Mcadams Discharge Orders/Prescriptions Prescriptions: New oxycodone-acetaminoph en [Percocet] 5-325 mg tablet 1 tab PO Q4H PRN (Reason: pain) 7 Days Qty: 20 0RF naproxen 500 mg tablet 500 mg PO BID PRN PRN (Reason: Pain) Qty: 30 1RF No Action ketoconazole 2 % cream 1 applic topical DAILY Other Ambulatory Orders: CBC-Complete Blood Cnt No Diff (Routine) Timeframe: 20240218 Facility: [facility] - Location: Laboratory Ordered By: Dr. Rosalie Frausto Referrals / Follow Up: Reymundo Mcadams MD [Primary Care Provider] - 02/18/24 1727 Rosalie Frausto MD CC: Dr. Reymundo Mcadams MD Signed Normal [facility] By: Rosalie Frausto on 02-18-2024 Bedside Glucose (Misc Panel) 74 mg/dL 74-106 [facility] Comment on above: MANAGEMENT OF PATIEN T CARE PER NURSING PROTOCOL MR/POSTOP.Rob 02-18-2024 MR/POSTOP.[facility] Medical Records Department [address] [place] [address] Anesthesia Postop Eval I 02/18/24 1000 MR#: [id number] Acct: [id number] Name: TAHMINA GALLARDO Rep #: [id number] : 1975 48 From: Kera Ríos CRNA PCP: Dr. Reymundo Mcadams MD Status:ADM IN Y Race: AA Location: [place] [address] Anesthesia: Postop Eval I Current Vital Signs [...] completed: Yes 02/18/24 1003 Date Kera Ríos TIMING INSPECTOR Cosigner Signature: Date CC: Signed Normal [facility] MR/[id number] 02-18-2024 [facility] Medical Records Department [address] [place] [address] Anesthesia Postop Eval II 02/18/24 1312 MR#: [id number] Acct: [id number] Name: TAHMINA GALLARDO Rep #: [id number] : 1975 48 From: Haresh Hines MD PCP: Dr. Reymundo Mcadams MD Status:ADM IN Y Race: AA Location: [facility] [id number] Anesthesia Postop Eval I Sum Postop Eval Completion status Anesthesia document: Postop Eval 1 completed: Yes Anesthesia Postop Eval I Summary Anesthesia Postop Eval I Summary: Anesthesia Postop Eval I: Assessment Summary Airway patent Yes 02/18/24 10:02 TIMING INSPECTOR.AVERYWI Spontaneous unlabored Yes 02/18/24 10:02 TIMING INSPECTOR.AVERYWI respirations Mental status Asleep 02/18/24 10:02 TIMING INSPECTOR.AVERYWI nausea No 02/18/24 10:02 TIMING INSPECTOR.AVERYWI Vomiting No 02/18/24 10:02 TIMING INSPECTOR.GERONIMO Anesthesia Postop Eval I: Fluid Summary Crystalloid volume administer 1,500 02/18/24 10:02 TIMING INSPECTOR.GERONIMO (ml) Colloids volume administered ( ml) Blood Product volume administered (ml) Total IV fluid infused 1,500 02/18/24 10:02 TIMING INSPECTOR.GERONIMO Anesthesia Postop Eval I: Summary Notes Anesthesia Complication No 02/18/24 10:02 TIMING INSPECTOR.GERONIMO Anesthesia Complication Comment: Post-operative progress note Anesthesia: Postop Eval II Evaluation Mental status: Awake and Calm Pain Level: 1 nausea: No Vomiting: No Complications Anesthesia Complication: No 02/18/24 1312 Date Haresh Hines MD Cosigner Signature: Date CC: Signed Normal [facility] Operative Reporton 5 Operative Report [facility] Medical Records Department [address] [place] [address] Operative Report 02/18/24 0744 MR#: [id number] Acct: [id number] Name: TAHMINA GALLARDO Rep #: [id number] : 1975 48 From: Rosalie Frausto MD PCP: Dr. Reymundo Mcadams MD Status:ADM IN Location: [facility] [id number] Problems Associated Problem List Diagnoses (1) Iron deficiency anemia due to chronic blood loss: (2) Menorrhagia: (3) Adenomyosis: (4) Fibroid, uterine: Multi Select Codes Urinary/Genital Urinary/Genital CPT Codes: 41796 [facility] Operative Report (Standard) Operative Information Date of Procedure: 02/18/24 Pre-Operative Diagnosis: see problem list Post-Operative Diagnosis: same Surgery/Procedure Performed: Total abdominal hysterectomy bilateral salpingectomy inspector scales: Yes Senior Accountant Analyst: Felisha Martin Tasks completed by assistant professor of mathematics: Opening closing, Dissecting tissue, Removing tissue, Altering [...] cuff was suture ligated with 0 vicryl wxarge-ul-vrege sutures ???3. Excellent hemostasis was noted with [...] MD; Dr. Rosalie Frausto MD Signed Normal [facility] ,Urineon 02-18-2024 Beta HCG ( test) Ql (U) Negative [facility] Comment on above: Result Comment: Very dilute urine specimens, as indicated by a low specific gravity, may not contain outside dealer sales representative levels of hCG. If is still suspected, a first morning urine specimen should be collected 48 hours later and tested. Performed By: #### B TSPAT, L400.7600 #### [facility] Laboratory [facility] [address] [place], [place], [id number] Surgery Specimen Level Von 0 02-18-2024 Surgery Specimen Level V ------ -------- Patient Age/Sex Location Account Attending Physician -------- TAHMINA GALLARDO 48/F MS3 [id number] Dr. Rosalie Frausto MD -------- Specimen: [id number] Received: 02/18/24 Status: REECE Murray Num: [id number] Spec Type: HYSTERECT Subm Dr: Dr. Rosalie [...] Attending Physician -------- TAHMINA GALLARDO 48/F MS3 [id number] Dr. Rosalie Frausto MD -------- Technical Sales Associate sections are submitted in twelve cassettes as follows: 1 - anterior cervix, 2 - posterior cervix, 3 4 - anterior uterine wall, 5 6 - posterior uterine wall, 7- largest nodular mass, 8- second largest nodular mass, 9- third largest nodular mass, 10- fourth largest nodular mass, 11- one fallopian tube, 12- second fallopian tube. SJ:mr 02/18/2024 TC:4 CPT: 93682 -------- Patient Age/Sex Location Account Attending Physician -------- TAHMINA GALLARDO 48/F MS3 [id number] Dr. Rosalie Frausto MD -------- Signed (signature on file) Dr. Christopher Manuel MD 02/20/24 1036 -------- Normal [facility] Comment on above: Performed By: #### L 500.4050, L100.0100, L503.6150, L503.6550, L503.6075 #### [facility] Laboratory [address] [place], [place], [address] Type AND Screen - PAT ONLYon 02-18-2024 Ab SCREEN GEL Negative Normal [facility] Comment on above: Order Comment: Surge ry Date: 02/18/24 Reason for Laboratory Test PREOP [id number] 01/16/24 No N Y S JAMES BSO Performed By: #### B TSPAT, L400.7600 #### [facility] Laboratory [address] [place], [place], [address] Urine testOrdered By: Rosalie Frausto on 02-18-2024 HCG ( test) Ql (U) Negative [facility] Comment on above: Very dilute urine sp ecimens, as indicated by a low specificgravity, may not contain outside dealer sales representative levels of hCG. If is still suspected, a first morning urinespecimen should be collected 48 hours later and tested. Pelvis W/WO Contraston 02-06 Pelvis W/WO Contrast [facility] Imaging Services [address] [place], [place] [address] Pelvis W/WO Contrast MR#: [id number] Acct: [id number] Name: TAHMINA GALLARDO Rep #: [id number] : 1975 F 48 From: Sean vasquez MD PCP: Dr. Reymundo Mcadams MD Status: REG CLI Study: Pelvis W/WO Contrast Date of Exam: 02/07/24 Exam# [id number] Ordering Dr: Felisha Martin DO [id number] MR Pelvis Female WO/W Contrast 02/07/2024 9:18 [...] Reymundo Mcadams MD; Dr. Felisha Martin DO Sucker Machine Operator: Signed Normal [facility] 12 Lead EKGon 02-06-2024 12 Lead EKG [facility] Cardiovascular Services [address] [place] [address] 12 Lead EKG 02/06/24 1244 MR#: [id number] Acct: [id number] Name: TAHMINA GALLARDO Rep #: [id number] : 1975 48 From: Ramy Latham MD Attending Dr: Dr. Rosalie Frausto MD Status: PRE IN Ordering Dr: Regan Blackwell MD Date: 02/06/24 Location: [facility] Sex: F AA Admitted: Test Reason : PRE OP Blood Pressure : */* mmHG Vent. Rate : 76 BPM Atrial Rate : 76 BPM P-R Int : 128 ms QRS Dur : 78 ms QT Int : 366 ms P-R-T Axes : 67 88 9 degrees QTcB Int : 411 ms Normal sinus rhythm Normal ECG Confirmed by YEISON PEDRO, RAMY ([id number]), senior technical editor LEANNE DEAN ([id number]) on 02/07/2024 6:16:45 AM Referred By: William FRAUSTO Confirmed By: RAMY LATHAM MD 02/07/24 0616 Date Ramy Latham MD CC: Dr. Regan Blackwell MD; Dr. Reymundo Mcadams MD; Dr. Rosalie Frausto MD Signed Normal [facility] Basic Metabolic Profile (BMP )on 02-06-2024 BUN/CRE 12.8 RATIO Normal 10-20 [facility] Comment on above: Performed By: #### L 500.4050, L100.0100, L503.6150, L503.6550, L503.6075 #### [facility] Laboratory [address] [place], [address] CA,Total 8.5 mg/dL Normal 8.5-10.1 [facility] Comment on above: Performed By: #### L 500.4050, L100.0100, L503.6150, L503.6550, L503.6075 #### [facility] Laboratory [address] [place], [address] Chloride [Moles/Vol] 108 mmol/L High 98-107 [facility] Comment on above: Performed By: #### L 500.4050, L100.0100, L503.6150, L503.6550, L503.6075 #### [facility] Laboratory [address] [place], [address] CO2 [Moles/Vol] 28.0 mmol/L Normal 21.0-32.0 [facility] Comment on above: Performed By: #### L 500.4050, L100.0100, L503.6150, L503.6550, L503.6075 #### [facility] Laboratory [address] [place], [address] Creatinine [Mass/Vol] 0.86 mg/dL Normal 0.55-1.02 [facility] Comment on above: Result Comment: The validity of the calculated GFR GFRAA in patients over 70 years has not been determined. Clinical correlation is essential. Performed By: #### L 500.4050, L100.0100, L503.6150, L503.6550, L503.6075 #### [facility] Laboratory [address] [place], [address] EST GFR - AA 91 mL/min Normal >60 [facility] Comment on above: Result Comment: Afri can [place] GFR Calc Performed By: #### L 500.4050, L100.0100, L503.6150, L503.6550, L503.6075 #### [facility] Laboratory [address] [place], [address] GAP 2 Low 5-15 [facility] Comment on above: Performed By: #### L 500.4050, L100.0100, L503.6150, L503.6550, L503.6075 #### [facility] Laboratory [address] [place], [address] GFR/1.73 sq M.predicted among non-blacks MDRD (S/P/Bld) [Vol rate/Area] 75 mL/min/{1.73_m2} Normal >60 [facility] Comment on above: Result Comment: Non- GFR Calc Performed By: #### L 500.4050, L100.0100, L503.6150, L503.6550, L503.6075 #### [facility] Laboratory [address] [place], [address] Glucose [Mass/Vol] 89 mg/dL Normal 74-106 [facility] Comment on above: Performed By: #### L 500.4050, L100.0100, L503.6150, L503.6550, L503.6075 #### [facility] Laboratory [address] [place], [address] Potassium [Moles/Vol] 4.1 mmol/L Normal 3.5-5.1 [facility] Comment on above: Performed By: #### L 500.4050, L100.0100, L503.6150, L503.6550, L503.6075 #### [facility] Laboratory [address] [place], [address] Sodium [Moles/Vol] 138 mmol/L Normal 136-145 [facility] Comment on above: Performed By: #### L 500.4050, L100.0100, L503.6150, L503.6550, L503.6075 #### [facility] Laboratory [address] [place], [address] Urea nitrogen [Mass/Vol] 11 mg/dL Normal 7-18 [facility] Comment on above: Performed By: #### L 500.4050, L100.0100, L503.6150, L503.6550, L503.6075 #### [facility] Laboratory [address] [place], [address] Blood urea nitrogen (BUN)/cr eatinine ratioOrdered By: Regan Blackwell on 02-06-2024 Urea nitrogen/Creatinine [Mass ratio] 12.8 mg/mg 10-20 [facility] CBC-Complete Blood Cnt No Di ffon 02-06-2024 Erythrocyte distribution width (RBC) [Ratio] 31.3 % High 11.6-14.6 [facility] Comment on above: Performed By: #### L 500.4050, L100.0100, L503.6150, L503.6550, L503.6075 #### [facility] [address] [place], [address] Hematocrit (Bld) [Volume fraction] 34.0 % Low 37-47 [facility] Comment on above: Performed By: #### L 500.4050, L100.0100, L503.6150, L503.6550, L503.6075 #### [facility] [address] [place], [address] Hemoglobin (Bld) [Mass/Vol] 10.2 g/dL Low 12.0-15.0 [facility] Comment on above: Performed By: #### L 500.4050, L100.0100, L503.6150, L503.6550, L503.6075 #### [facility] [address] [place], [address] MCH (RBC) [Entitic mass] 24.1 pg Low 27.0-32.0 [facility] Comment on above: Performed By: #### L 500.4050, L100.0100, L503.6150, L503.6550, L503.6075 #### [facility] [address] [place], [address] MCHC (RBC) [Mass/Vol] 30.0 g/dL Low 32-36 [facility] Comment on above: Performed By: #### L 500.4050, L100.0100, L503.6150, L503.6550, L503.6075 #### [facility] [address] [place], [address] MCV (RBC) [Entitic vol] 80.2 fL Low 81-99 [facility] Comment on above: Performed By: #### L 500.4050, L100.0100, L503.6150, L503.6550, L503.6075 #### [facility] [address] [place], [address] Platelet mean volume (Bld) [Entitic vol] 10.0 fL Normal 6.2-12.0 [facility] Comment on above: Performed By: #### L 500.4050, L100.0100, L503.6150, L503.6550, L503.6075 #### [facility] [address] [place], [address] Platelets (Bld) [#/Vol] 538 10*3/uL High 150-450 [facility] Comment on above: Performed By: #### L 500.4050, L100.0100, L503.6150, L503.6550, L503.6075 #### [facility] [address] [place], [address] RBC (Bld) [#/Vol] 4.24 10*6/uL Normal 4.2-5.4 [facility] Comment on above: Performed By: #### L 500.4050, L100.0100, L503.6150, L503.6550, L503.6075 #### [facility] [address] [place], [address] RDW SD 89.5 fl High 35.1-43.9 [facility] Comment on above: Performed By: #### L 500.4050, L100.0100, L503.6150, L503.6550, L503.6075 #### [facility] [address] [place], [address] WBC (Bld) [#/Vol] 5.6 10*3/uL Normal 4.4-11.0 [facility] Comment on above: Performed By: #### L 500.4050, L100.0100, L503.6150, L503.6550, L503.6075 #### [facility] [address] [place], [place], [address] Carbon dioxide measurementOr dered By: Regan Blackwell on 02-06-2024 CO2 [Moles/Vol] 28.0 mmol/L 21.0-32.0 [facility] Chloride measurementOrdered By: Regan Blackwell on 02-06-2024 Chloride [Moles/Vol] 108 mmol/L High 98-107 [facility] Estimated glomerular filtrat ion rate (GFR) AmericanOrdered By: Regan Blackwell on 02-06-2024 Estimated GFR (MDRD) Amer 91 mL/min >60 [facility] Comment on above: GFR Calc Glomerular filtration rate ( GFR) estimationOrdered By: Regan Blackwell on 02-06-2024 Estimated GFR (MDRD) Non-Af Amer 75 mL/min >60 [facility] Comment on above: Non- GFR Calc Glucose measurementOrdered B y: Regan Blackwell on 02-06-2024 Glucose [Mass/Vol] 89 mg/dL 74-106 [facility] normalized rat io (INR) calculationOrdered By: Regan Blackwell on 02-06-2024 INR Coag (Bld) [Relative time] 1.0 {INR} [facility] Magnesiumon 02-06-2024 Magnesium [Mass/Vol] 2.1 mg/dL Normal 1.6-2.6 [facility] Comment on above: Performed By: #### L 500.4050, L100.0100, L503.6150, L503.6550, L503.6075 #### [facility] [address] [place], [address] Magnesium measurementOrdered By: Regan Blackwell on 02-06-2024 Magnesium [Mass/Vol] 2.1 mg/dL 1.6-2.6 [facility] Client Services Coordinator Office Visit Reporton 02-06-2024 Client Services Coordinator Office Visit Report [address], [address] [place] [address] OFFICE VISIT Date of Service: 02/06/24 MR#: [id number] Acct: [id number] Name: TAHMINA GALLARDO Rep #: [id number] : 1975 Provider: Dr. 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 Normal [facility] Partial Thromboplast Timeon 02-06-2024 aPTT Coag (Bld) [Time] 29.9 s Normal 24.1-36.2 [facility] Comment on above: Performed By: #### L 501.5200, L300.3900, L300.4310, L500.2500 #### [facility] [address] [place], [address] Potassium measurementOrdered By: Regan Blackwell on 02-06-2024 Potassium [Moles/Vol] 4.1 mmol/L 3.5-5.1 [facility] Prothrombin Time w/INRon INR Coag (PPP) [Relative time] 1.0 {INR} Normal [facility] Comment on above: Performed By: #### L 501.5200, L300.3900, L300.4310, L500.2500 #### [facility] [address] [place], [address] PT Coag (PPP) [Time] 13.2 s Normal 11.7-14.9 [facility] Comment on above: Performed By: #### L 501.5200, L300.3900, L300.4310, L500.2500 #### [facility] [address] [place], [address] Prothrombin timeOrdered By: Regan Blackwell on 02-06-2024 PT Coag (PPP) [Time] 13.2 s 11.7-14.9 [facility] Serum anion gap measurementO rdered By: Regan Blackwell on 02-06-2024 Anion gap [Moles/Vol] 2 mmol/L Low 5-15 [facility] Serum or plasma calcium justin urement (mass/volume)Ordered By: Regan Blackwell on 02-06-2024 Calcium [Mass/Vol] 8.5 mg/dL 8.5-10.1 [facility] Serum or plasma creatinine m easurement (mass/volume)Ordered By: Regan Blackwell on 02-06-2024 Creatinine [Mass/Vol] 0.86 mg/dL 0.55-1.02 [facility] Comment on above: The validity of the calculated GFR & GFRAA in patients over 70 years has not been determined. Clinical correlation is essential. Serum or plasma urea nitroge n measurement (mass/volume)Ordered By: Regan Blackwell on 02-06-2024 Urea nitrogen [Mass/Vol] 11 mg/dL 7-18 [facility] Sodium levelOrdered By: Regan Blackwell on 02-06-2024 Sodium [Moles/Vol] 138 mmol/L 136-145 [facility] Surgery Specimen Level Isaac 02-06-2024 Surgery Specimen Level IV ------- -------- Patient Age/Sex Location Account Attending Physician -------- TAHMINA GALLARDO 48/F LABSPEC [id number] Dr. Rosalie Frausto MD -------- Specimen: [id number] Received: 02/07/24 Status: REECE Trevor Num: [id number] Spec Type: ENDOM BX/C Subm Dr: Dr. [...] totally submitted in one cassette. 02/10/2024 TC:3 CPT:65519 -------- Patient Age/Sex Location Account Attending Physician -------- TAHMINA GALLARDO/F LABSPEC [id number] Dr. Rosalie Frausto MD -------- Signed (signature on file) Dr. Jeff Lyons MD 02/10/24 1108 -------- Normal [facility] Comment on above: Performed By: #### L 500.4050, L100.0100, L503.6150, L503.6550, L503.6075 #### [facility] [address] [place], [place], [address] Type AND Screen - PAT ONLYon 02-06-2024 Ab SCREEN GEL Not performed Normal [facility] Comment on above: Order Comment: Surge ry Date: 02/18/24Reason for Laboratory Test [id number] BSO Result Comment: BB H ISTORY POSITIVE. BAND WILL NEED REDRAWN PRIOR TO SURGERY Performed By: #### L 500.4050, L100.0100, L503.6150, L503.6550, L503.6075 #### [facility] [address] [place], [place], [address] A1 CELL Not performed Normal [facility] Comment on above: Order Comment: Surge ry Date: 02/18/24Reason for Laboratory Test [id number] BSO Result Comment: BB H ISTORY POSITIVE. BAND WILL NEED REDRAWN PRIOR TO SURGERY Performed By: #### L 500.4050, L100.0100, L503.6150, L503.6550, L503.6075 #### [facility] [address] [place], [address] ABO and Rh group Nom (Bld) Test Not Performed Normal [facility] Comment on above: Order Comment: Surge ry Date: 02/18/24 for Laboratory Test [id number] BSO Result Comment: BB H ISTORY POSITIVE. BAND WILL NEED REDRAWN PRIOR TO SURGERY Performed By: #### L 500.4050, L100.0100, L503.6150, L503.6550, L503.6075 #### [facility] [address] [place], [place], [address] ANTI A Not performed Normal [facility] Comment on above: Order Comment: Surge ry Date: 02/18/24 for Laboratory Test [id number] BSO Result Comment: BB H ISTORY POSITIVE. BAND WILL NEED REDRAWN PRIOR TO SURGERY Performed By: #### L 500.4050, L100.0100, L503.6150, L503.6550, L503.6075 #### [facility] [address] [place], [place], [address] ANTI B Not performed Normal [facility] Comment on above: Order Comment: Surge ry Date: 02/18/24 for Laboratory Test [id number] BSO Result Comment: BB H ISTORY POSITIVE. BAND WILL NEED REDRAWN PRIOR TO SURGERY Performed By: #### L 500.4050, L100.0100, L503.6150, L503.6550, L503.6075 #### [facility] [address] [place], [place], [address] ANTI D Not performed Normal [facility] Comment on above: Order Comment: Surge ry Date: 02/18/24 for Laboratory Test [id number] BSO Result Comment: BB H ISTORY POSITIVE. BAND WILL NEED REDRAWN PRIOR TO SURGERY Performed By: #### L 500.4050, L100.0100, L503.6150, L503.6550, L503.6075 #### [facility] [address] [place], [address] B CELLS Not performed Normal [facility] Comment on above: Order Comment: Surge ry Date: 02/18/24Re for Laboratory Test [id number] BSO Result Comment: BB H ISTORY POSITIVE. BAND WILL NEED REDRAWN PRIOR TO SURGERY Performed By: #### L 500.4050, L100.0100, L503.6150, L503.6550, L503.6075 #### [facility] [address] [place], [address] D CONTROL Not performed Normal Neg [facility] Comment on above: Order Comment: Surge ry Date: 02/18/24Re for Laboratory Test [id number] BSO Result Comment: BB H ISTORY POSITIVE. BAND WILL NEED REDRAWN PRIOR TO SURGERY Performed By: #### L 500.4050, L100.0100, L503.6150, L503.6550, L503.6075 #### [facility] [address] [place], [place], [address] aPTT Coag (PPP) [Time]Ordere d By: Regan Blackwell on 02-06-2024 aPTT Coag (Bld) [Time] 29.9 s 24.1-36.2 [facility] Absolute neutrophil countOrd ered By: Reymundo Mcadams on 01-28-2024 Neutrophils (Bld) [#/Vol] 3.6 10*3/uL 2.0-7.7 [facility] Basophil percentageOrdered B y: Reymundo Mcadams on 01-28-2024 Basophils/100 WBC (Bld) 1.6 % High 0-1 [facility] Chavez cells LM Ql (Bld)Ordere d By: Reymundo Mcadams on 01-28-2024 Crenated Cell 1+ [facility] CBC W/Diff, Automatedon 01-11 CRENATED RBC 1+ Normal [facility] Comment on above: Performed By: #### L 500.4050, L100.0100, L503.6150, L503.6550, L503.6075 #### [facility] [address] [place], [address] MACROCYTOSIS RARE Normal [facility] Comment on above: Performed By: #### L 500.4050, L100.0100, L503.6150, L503.6550, L503.6075 #### [facility] [address] [place], [address] MICROCYTIC 1+ Normal [facility] Comment on above: Performed By: #### L 500.4050, L100.0100, L503.6150, L503.6550, L503.6075 #### [facility] [address] [place], [address] SCHISTOCYTES RARE Normal [facility] Comment on above: Performed By: #### L 500.4050, L100.0100, L503.6150, L503.6550, L503.6075 #### [facility] [address] [place], [address] Anisocytosis Ql (Bld) 2+ Normal [facility] Comment on above: Performed By: #### L 500.4050, L100.0100, L503.6150, L503.6550, L503.6075 #### [facility] [address] [place], [address] HYPOCHROMASIA 2+ Normal [facility] Comment on above: Performed By: #### L 500.4050, L100.0100, L503.6150, L503.6550, L503.6075 #### [facility] [address] [place], [address] SMEAR COMMENT SCANNED Normal [facility] Comment on above: Result Comment: LYMP HOPENIA NOTED Performed By: #### L 500.4050, L100.0100, L503.6150, L503.6550, L503.6075 #### [facility] [place], [address] Eosinophil percentageOrdered By: edson Mcadams on 01-28-2024 Eosinophils/100 WBC (Bld) 1.6 % 0-5 [facility] Erythrocyte distribution wid th (RBC) [Ratio][facility]: [facility] on 01-28-2024 Erythrocyte distribution width (RBC) [Entitic vol] 65.6 fL High 35.1-43.9 [facility] Erythrocyte distribution wid th ratioOrdered By: [facility] [place] on 01-28-2024 Erythrocyte distribution width (RBC) [Ratio] 26.5 % High 11.6-14.6 [facility] Hematocrit Auto (Bld) [Volum e fraction]Ordered By: [facility] on 01-28-2024 Hematocrit (Bld) [Volume fraction] 32.4 % Low 37-47 [facility] Hemoglobin measurementOrdere d By: [facility] on 01-28-2024 Hemoglobin (Bld) [Mass/Vol] 9.6 g/dL Low 12.0-15.0 [facility] Hypochromia Ql (Bld)Ordered By: [facility] on 01-28-2024 Hypochromasia 2+ [facility] Immature granulocytes/100 WB C Auto (Bld)Ordered By: berthacromwellngozi Mcadams on 01-28-2024 Immature granulocytes/100 WBC (Bld) 0.600 % 0.0-0.9 [facility] Comment on above: IG% - Immature Granu locytes (promyelocytes, myelocytes and metamyelocytes) > 1% indicates that a LEFT SHIFT is Present. Laboratory - Hematology and Cell countsOrdered By: berthacromwellngozi Mcadams on 01-28-2024 Anisocytosis Ql (Bld) 2+ [facility] Lymphocytes Auto (Unsp spec) [#/Vol]Ordered By: [facility] on 01-28-2024 Lymphocytes (Bld) [#/Vol] 0.53 10*3/uL Low 0.83-4.5 1 [facility] Lymphocytes/100 WBC Auto (Un sp spec)Ordered By: Reymundo Mcadams on 01-28-2024 Lymphocytes/100 WBC (Bld) 10.4 % Low 19-41 [facility] MCV (mean corpuscular volume ) determinationOrdered By: Reymundo Mcadams on 01-28-2024 MCV (RBC) [Entitic vol] 74.5 fL Low 81-99 [facility] Macrocytes Ql (Bld)Ordered B y: Reymundo Mcadams on 01-28-2024 Macrocytosis RARE [facility] Manual differential comment Jose M (Bld) [Interp]Ordered By: Reymundo Mcadams on 01-28-2024 Differential Comment SCANNED [facility] Comment on above: LYMPHOPENIA NOTED Mean corpuscular hemoglobin (MCH) determinationOrdered By: Reymundo Mcadams on 01-28-2024 MCH (RBC) [Entitic mass] 22.1 pg Low 27.0-32.0 [facility] Mean corpuscular hemoglobin concentration (MCHC) determinationOrdered By: Reymundo Mcadams on 01-28-2024 MCHC (RBC) [Mass/Vol] 29.6 g/dL Low 32-36 [facility] Mean platelet volume determi nationOrdered By: Reymundo Mcadams on 01-28-2024 Mean Platelet Volume TNP [facility] Comment on above: Test not performed Microcytosis evaluation pane lOrdered By: Reymundo Mcadams on 01-28-2024 Microcytosis 1+ [facility] Monocyte percentageOrdered B y: Reymundo Mcadams on 01-28-2024 Monocytes/100 WBC (Bld) 15.9 % High 0-10 [facility] Neutrophil percentageOrdered By: Reymundo Mcadams on 01-28-2024 Neutrophils/100 WBC (Bld) 69.9 % 47-70 [facility] Nucleated red blood cell per centageOrdered By: Reymundo Mcadams on 01-28-2024 Nucleated RBC/100 WBC (Bld) [Ratio] 0.4 % 0-5 [facility] Platelet countOrdered By: Roberto Carlos Mcadams on 01-28-2024 Platelets (Bld) [#/Vol] 190 10*3/uL 150-450 [facility] RBC Auto (Bld) [#/Vol]Ordere d By: Reymundo Mcadams on 01-28-2024 RBC (Bld) [#/Vol] 4.35 10*6/uL 4.2-5.4 [facility] Schistocytes LM Ql (Bld)Orde red By: Reymundo Mcadams on 01-28-2024 Schistocytes RARE [facility] White blood cell (WBC) count Ordered By: Reymundo Mcadams on 01-28-2024 WBC (Bld) [#/Vol] 5.1 10*3/uL 4.4-11.0 [facility] SCRN MAMM (CAD)W/BALJIT BILATo n 01-22-2024 SCRN MAMM (CAD)W/BALJIT BILAT [facility] Imaging Services [address] [place], [place] [address] SCRN MAMM (CAD)W/BALJIT BILAT MR#: [id number] Acct: [id number] Name: TAHMINA GALLARDO Rep #: [id number] : 1975 F 48 From: Kedar robbins MD PCP: Dr. Reymundo Mcadams MD Status: REG CLI Study: SCRN MAMM (CAD)W/BALJIT BILAT Date of Exam: 01/11 03/06 Exam# [id number] Ordering Dr: Felisha Martin DO [id number] MAMMOGRAPHY - BILATERAL SCREENING REASON FOR EXAM: [...] delay biopsy of a clinically suspicious abnormality. [id number] Electronically Signed: Kedar Ca MD at 11:12 EST Reading Location ID and State: [facility] / [place] , Service support , CC: Dr. Reymundo Mcadams MD; Dr. Felisha Martin DO Sucker Machine Operator: Signed [facility] 01-16[facility]2024 [facility] Comment on above: Result Comment: [id number] [facility] 01/17/24 1051 [id number] [facility] 01/17/24 0836 Performed By: #### L 500.4050, L100.0100, L503.6150, L503.6550, L503.6075 #### [facility] [address] [place], [address] CBC W/Diff, Automatedon 12-0 PATH REV Reviewed [facility] Comment on above: Result Comment: [facility] Thrombocytosis consistent with proliferative disorder Microcytic anemia. LEUKOPENIA Clinical correlation necessary. [place] D.O. 01/16/24 AMENDED REPORT 01/16/24 1443 PATH REV previously reported as: June jose Performed By: #### L 500.4050, L100.0100, L503.6150, L503.6550, L503.6075 #### [facility] [address] [place], [address] Type AND Screenon 01-16-2024 Ab SCREEN GEL Negative Normal [facility] Comment on above: Order Comment: Y103/19 @ 0800NYR Performed By: #### L 500.4050, L100.0100, L503.6150, L503.6550, L503.6075 #### [facility] [address] [place], [address] Comprehensive Metabolic Prof ilon 01-15-2024 Albumin [Mass/Vol] 3.6 g/dL Normal 3.2-5.0 [facility] Comment on above: Performed By: #### L 500.4050, L100.0100, L503.6150, L503.6550, L503.6075 #### [facility] [address] [place], [address] Albumin/Globulin [Mass ratio] 0.9 {ratio} Normal 0.9-2.4 [facility] Comment on above: Performed By: #### L 500.4050, L100.0100, L503.6150, L503.6550, L503.6075 #### [facility] [address] [place], [address] ALK P 36 U/L Low 45-117 [facility] Comment on above: Performed By: #### L 500.4050, L100.0100, L503.6150, L503.6550, L503.6075 #### [facility] [address] [place], [address] ALT [Catalytic activity/Vol] 17 U/L Normal 13-56 [facility] Comment on above: Performed By: #### L 500.4050, L100.0100, L503.6150, L503.6550, L503.6075 #### [facility] [address] [place], [address] AST [Catalytic activity/Vol] 14 U/L Low 15-37 [facility] Comment on above: Performed By: #### L 500.4050, L100.0100, L503.6150, L503.6550, L503.6075 #### [facility] [address] [place], [address] Bilirubin [Mass/Vol] 0.40 mg/dL Normal 0.20-1.00 [facility] Comment on above: Result Comment: For patients on eltrombopag therapy, use of Dimension [place] TBIL is not recommended. Performed By: #### L 500.4050, L100.0100, L503.6150, L503.6550, L503.6075 #### [facility] [address] [place], [address] BUN/CRE 17.4 RATIO Normal 10-20 [facility] Comment on above: Performed By: #### L 500.4050, L100.0100, L503.6150, L503.6550, L503.6075 #### [facility] [address] [place], [address] CA,Total 9.3 mg/dL Normal 8.5-10.1 [facility] Comment on above: Performed By: #### L 500.4050, L100.0100, L503.6150, L503.6550, L503.6075 #### [facility] [address] [place], [address] Chloride [Moles/Vol] 105 mmol/L Normal 98-107 [facility] Comment on above: Performed By: #### L 500.4050, L100.0100, L503.6150, L503.6550, L503.6075 #### [facility] [address] [place], [address] CO2 [Moles/Vol] 25.0 mmol/L Normal 21.0-32.0 [facility] Comment on above: Performed By: #### L 500.4050, L100.0100, L503.6150, L503.6550, L503.6075 #### [facility] [address] [place], [address] Creatinine [Mass/Vol] 0.86 mg/dL Normal 0.55-1.02 [facility] [facility] Comment on above: Result Comment: The validity of the calculated GFR GFRAA in patients over 70 years has not been determined. Clinical correlation is essential. Performed By: #### L 500.4050, L100.0100, L503.6150, L503.6550, L503.6075 #### [facility] [address] [place], [address] EST GFR - AA 91 mL/min Normal >60 [facility] Comment on above: Result Comment: Afri can [place] GFR Calc Performed By: #### L 500.4050, L100.0100, L503.6150, L503.6550, L503.6075 #### [facility] [address] [place], [address] GAP 7 Normal 5-15 [facility] Comment on above: Performed By: #### L 500.4050, L100.0100, L503.6150, L503.6550, L503.6075 #### [facility] [address] [place], [address] GFR/1.73 sq M.predicted among non-blacks MDRD (S/P/Bld) [Vol rate/Area] 75 mL/min/{1.73_m2} Normal >60 [facility] Comment on above: Result Comment: Non- GFR Calc Performed By: #### L 500.4050, L100.0100, L503.6150, L503.6550, L503.6075 #### [facility] [address] [place], [address] Globulin (S) [Mass/Vol] 4.0 g/dL Normal 2.2-4.[address] [facility] Comment on above: Performed By: #### L 500.4050, L100.0100, L503.6150, L503.6550, L503.6075 #### [facility] [address] [place], [address] Glucose [Mass/Vol] 92 mg/dL Normal 74-106 [facility] Comment on above: Performed By: #### L 500.4050, L100.0100, L503.6150, L503.6550, L503.6075 #### [facility] [address] [place], [address] Potassium [Moles/Vol] 3.7 mmol/L Normal 3.5-5.1 [facility] Comment on above: Performed By: #### L 500.4050, L100.0100, L503.6150, L503.6550, L503.6075 #### [facility] [address] [place], [address] Sodium [Moles/Vol] 137 mmol/L Normal 136-145 [facility] Comment on above: Performed By: #### L 500.4050, L100.0100, L503.6150, L503.6550, L503.6075 #### [facility] [address] [place], [address] T PROT 7.6 g/dL Normal 6.4-8.2 [facility] Comment on above: Performed By: #### L 500.4050, L100.0100, L503.6150, L503.6550, L503.6075 #### [facility] [address] [place], [address] Urea nitrogen [Mass/Vol] 15 mg/dL Normal 7-18 [facility] Comment on above: Performed By: #### L 500.4050, L100.0100, L503.6150, L503.6550, L503.6075 #### [facility] [address] [place], [address] Ferritinon 01-15-2024 Ferritin [Mass/Vol] 4 ng/mL Low 8-252 [facility] Comment on above: Performed By: #### L 500.4050, L100.0100, L503.6150, L503.6550, L503.6075 #### [facility] [address] [place], [address] Internal Medicine Office Vis iton 01-15-2024 Internal Medicine Office Visit [facility] [address] [place] [address] [place] [address] OFFICE VISIT Date of Service: 01/15/24 MR#: [id number] Acct: [id number] Name: TAHMINA GALLARDO Rep #: [id number] : 1975 Provider: Dr. Reymundo nguyen MD Age/Sex: 48/F Location: [facility] Status: Signed Intake Vital Signs 10/04/23 10:46 [...] Visit Reasons: YEARLY Chief Complaint: multi concerns. 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 Normal [facility] Ironon 01-15-2024 Iron [Mass/Vol] 9 ug/dL Low 50-170 [facility] Comment on above: Performed By: #### L 500.4050, L100.0100, L503.6150, L503.6550, L503.6075 #### [facility] [address] [place], [address] Iron Binding Capacity,Totalo n 01-15-2024 TIBC 484 ug/dL High 250-450 [facility] Comment on above: Performed By: #### L 500.4050, L100.0100, L503.6150, L503.6550, L503.6075 #### [facility] [address] [place], [address] PAP IG HPV APTIMA 16/18,45on 01-15-2024 ADEQ Comment Normal . [facility] Comment on above: Order Comment: Speci men Comment: [id number] Comment: No. of containers..01 ThinPrep Vial Result Comment: Sati sfactory for evaluation. Endocervical and/or squamous metaplastic cells (endocervical component) are present. Performed By: #### L 500.4050, L100.0100, L503.6150, L503.6550, L503.6075 #### [facility] [address] [place], [place], [address] COMM . Normal . [facility] Comment on above: Order Comment: Speci men Comment: [id number] Comment: No. of containers..01 ThinPrep Vial Performed By: #### L 500.4050, L100.0100, L503.6150, L503.6550, L503.6075 #### [facility] [address] [place], [address] COMMENT Comment Normal . [facility] Comment on above: Order Comment: Speci men Comment: [id number] Comment: No. of containers..01 ThinPrep Vial Result Comment: This liquid based ThinPrep(R) pap test was screened with the use of an image guided system. Performed By: #### L 500.4050, L100.0100, L503.6150, L503.6550, L503.6075 #### [facility] [address] [place], [address] DIAG Comment Normal . [facility] Comment on above: Order Comment: Speci men Comment: [id number] Comment: No. of containers..01 ThinPrep Vial Result Comment: NEGA TIVE FOR INTRAEPITHELIAL LESION OR MALIGNANCY. Performed By: #### L 500.4050, L100.0100, L503.6150, L503.6550, L503.6075 #### [facility] [address] [place], [address] HPV APTIMA, HR Negative Normal Negative [facility] Comment on above: Order Comment: Speci men Comment: [id number] Comment: No. of containers..01 ThinPrep Vial Result Comment: This nucleic acid amplification test detects fourteen high- risk HPV types (16,18,31,33,35,39,45,51,52,56,58,59,66,68) without differentiation. Performed By: #### L 500.4050, L100.0100, L503.6150, L503.6550, L503.6075 #### [facility] [address] [place], [address] HPV Lorenza Rfx Comment Normal . [facility] Comment on above: Order Comment: Speci men Comment: [id number] Comment: No. of containers..01 ThinPrep Vial Result Comment: Crit eria not met, HPV Genotype not performed. Performed at: - Lab[address] [id number] Butter Maker: Willa Chao MD, Phone: [phone] Performed at: = - [facility] [address] [facility], [place] [id number] Butter Maker: Willa Chao MD, Phone: [phone] Performed By: #### L 500.4050, L100.0100, L503.6150, L503.6550, L503.6075 #### [facility] [address] [place], [address] PAPSMR Comment Normal . [facility] Comment on above: Order Comment: Speci men Comment: [id number] Comment: No. of containers..01 ThinPrep Vial Result [...] L 500.4050, L100.0100, L503.6150, L503.6550, L503.6075 #### [facility] [address] [place], [place], [address] PERFORM Comment Normal . [facility] Comment on above: Order Comment: Speci men Comment: [id number] Comment: No. of containers..01 ThinPrep Vial Result Comment: Kelly Deras, Management Specialist (ASCP) Performed By: #### L 500.4050, L100.0100, L503.6150, L503.6550, L503.6075 #### [facility] [address] [place], [place], [address] Client Services Coordinator Office Visit Reporton 01-03-2024 Client Services Coordinator Office Visit Report [facility] [address], [address] [place] [address] OFFICE VISIT Date of Service: 01/03/24 MR#: [id number] Acct: [id number] Name: TAHMINA GALLARDO Rep #: [id number] : 1975 Provider: Dr. 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 Normal [facility] Internal Medicine Office Vis josette 10-04-2023 Internal Medicine Office Visit [facility] [address] [place] [address] [place] [address] OFFICE VISIT Date of Service: 10/04/23 MR#: [id number] Acct: [id number] Name: TAHMINA GALLARDO Rep #: [id number] : 1975 Provider: Dr. 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 Was using an [id number] cream which she believes has helped some [...] Aller/Imm Allergy/Immunolog (more content not included)... Normal [facility] Cervical or vaginal specimen microscopic examination by liquid based cytology (reported as document)Ordered By: Felisha Stone on 12-31-2022 Cytology report Cyto stain.thin prep Doc (Cvx/Vag) Comment . [facility] Comment on above: Criteria met, see HP V Genotype results. Cervical or vagninal specime n microscopic examination by cytology stain (reported asOrdered By: Felisha Stone on 12-31-2022 Cytology report Cyto stain Doc (Cvx/Vag) Comment . [facility] Comment on above: The Pap smear is [...] DNA Probe+sig amp Ql (Cvx) Positive Negative [facility] Detection in cervical specim en of any of human papilloma virus (HPV) 16, 18, 31, 33,Ordered By: Felisha Stone on 12-31-2022 HPV 16+18+31+33+35+39+45+51+5 2+56+58+59+66+68 DNA Probe+sig amp Ql (Cvx) Positive Negative [facility] Comment on above: This nucleic acid am plification test detects fourteen high-risk HPV types (16,18,31,33,35,39,45,51,52,56,58,59,66,68)without differentiation. Laboratory - CytologyOrdered By: Felisha Stone on 12-31-2022 Nickel Plant Operator Cyto stain Nom (Cvx/Vag) [ID] Comment . [facility] Comment on above: Donald comer Management Specialist (ASCP) Laboratory - Miscellaneous t estsOrdered By: Felisha Stone on 12-31-2022 Service comment (Unsp spec) [Interp] Comment . [facility] Comment on above: This liquid based Th inPrep(R) pap test was screened withthe use of an image guided system. Service comment (Unsp spec) [Interp] . . [facility] No Panel InformationOrdered By: Felisha Stone on 12-31-2022 HPV Type 18 Comment Negative Negative [facility] Comment on above: Performed at: [facility] [id number] Director: Kenji Peters MD, Phone: [phone] at: WB - [facility] [id number] Director: Willa Chao MD, Phone: [phone] at: =G - [facility] [address] [id number] Director: Willa Chao MD, Phone: [phone] Pathology report final diagnosis Narrative Comment . [facility] Comment on above: NEGATIVE FOR INTRAEP ITHELIAL LESION OR MALIGNANCY.THE CYTOLOGY PROCESSING WAS PERFORMED AT THE [facility] LOCATED [address] [address]. Absolute lymphocyte countOrd ered By: Reymundo Mcadams on 12-05-2022 Lymphocytes Auto (Unsp spec) [#/Vol] 0.49 10*3/uL 0.83-4.51 [facility] Basophil percentageOrdered B y: Reymundo Mcadams on 12-05-2022 Basophils/100 WBC (Bld) 1.6 % 0-[address] [facility] Bilirubin [Mass/Vol] 0.70 mg/dL 0.20-1.00 [facility] Comment on above: For patients on eltr ombopag therapy, use of Dimension [place] TBIL is not recommended. Chloride [Moles/Vol] 106 mmol/L 98-107 [facility] Cholesterol [Mass/Vol] 177 mg/dL <200 [facility] Comment on above: <200 mg/dL Desirable 200-240 mg/dL Borderline >240 mg/dL High Risk Eosinophils/100 WBC (Bld) 2.3 % 0-5 [facility] Glucose [Mass/Vol] 84 mg/dL 74-106 [facility] Neutrophils (Bld) [#/Vol] 2.0 10*3/uL 2.0-7.7 [facility] Neutrophils/100 WBC (Bld) 64.8 % 47-70 [facility] Potassium [Moles/Vol] 3.9 mmol/L 3.5-5.1 [facility] Protein [Mass/Vol] 7.7 g/dL 6.4-8.2 [facility] Sodium [Moles/Vol] 136 mmol/L 136-145 [facility] Triglyceride [Mass/Vol] 58 mg/dL <199 [facility] Comment on above: The drugs N-Acetylcy steine and Metamizole may falsely depress this assay.Serum Triglycerides Reference Interval Normal <150 mg/dL Borderline high 150 - 199 mg/dL High 200 - 499 mg/dL Very High > or = 500 mg/dL WBC (Bld) [#/Vol] 3.1 10*3/uL 4.4-11.0 [facility] Blood erythrocytes count (nu mber/volume)Ordered By: Reymundo Mcadams on 12-05-2022 RBC (Bld) [#/Vol] 4.12 10*6/uL 4.2-5.4 [facility] Blood hemoglobin measurement (mass/volume)Ordered By: Reymundo Mcadams on 12-05-2022 Hemoglobin (Bld) [Mass/Vol] 11.0 g/dL 12.0-15.0 [facility] Blood lymphocytes/100 leukoc ytesOrdered By: Reymundo Mcadams on 12-05-2022 Lymphocytes/100 WBC (Bld) 15.8 % 19-41 [facility] Blood manual differential co mment interpretation (narrative result)Ordered By: Reymundo Mcadams on 12-05-2022 Manual differential comment Jose M (Bld) [Interp] SEE COMMENT [facility] Comment on above: LYMPHOPENIA NOTED Blood monocytes/100 leukocyt esOrdered By: Reymundo Mcadams on 12-05-2022 Monocytes/100 WBC (Bld) 15.2 % 0-[address] [facility] Blood platelet adequacy dete ction by light microscopyOrdered By: Reymundo Mcadams on 12-05-2022 Platelets LM Ql (Bld) SLT INC ADEQ [facility] Blood platelet mean volumeOr dered By: Reymundo Mcadams on 12-05-2022 Platelet mean volume (Bld) [Entitic vol] 10.6 fL 6.2-12.0 [facility] Determination of erythrocyte mean corpuscular volume (MCV)Ordered By: Reymundo Mcadams on 12-05-2022 MCV (RBC) [Entitic vol] 88.8 fL 81-99 [facility] Hematocrit Auto (Bld) [Volum e fraction]Ordered By: Reymundo Mcadams on 12-05-2022 Hematocrit (Bld) [Volume fraction] 36.6 % 37-47 [facility] Hypochromatic red blood cell detectionOrdered By: [facility] on 12-05-2022 Hypochromia Ql (Bld) [facility] Laboratory - Chemistry and C hemistry - challengeOrdered By: [facility] Wallscas on 12-05-2022 ALP [Catalytic activity/Vol] 53 U/L 45-117 [facility] ALT [Catalytic activity/Vol] 21 U/L 13-56 [facility] CO2 [Moles/Vol] 25.0 mmol/L 21.0-32.0 [facility] Globulin (S) [Mass/Vol] 4.0 g/dL 2.2-4.2 [facility] Urea nitrogen/Creatinine [Mass ratio] 9.5 mg/mg 10-20 [facility] Laboratory - Hematology and Cell countsOrdered By: Carmencromwellngozi Wallscas on 12-05-2022 Anisocytosis Ql (Bld) [facility] Erythrocyte distribution width (RBC) [Entitic vol] 42.9 fL 35.1-43.9 [facility] Erythrocyte distribution width (RBC) [Ratio] 13.1 % 11.6-14.6 [facility] Immature granulocytes/100 WBC (Bld) 0.300 % 0.0-0.9 [facility] Comment on above: IG% - Immature Granu locytes (promyelocytes, myelocytes and metamyelocytes) > 1% indicates that a LEFT SHIFT is Present. MCH (RBC) [Entitic mass] 26.7 pg 27.0-32.0 [facility] Nucleated RBC/100 WBC (Bld) [Ratio] 0 % 0-5 [facility] MCHC Auto (RBC) [Mass/Vol]Or dered By: Reymundo Mcadams on 12-05-2022 MCHC (RBC) [Mass/Vol] 30.1 g/dL 32-36 [facility] Macrocytes detectionOrdered By: Reymundo Mcadams on 12-05-2022 Macrocytes Ql (Bld) RARE [facility] No Panel InformationOrdered By: Reymundo Mcadams on 12-05-2022 Estimated GFR (MDRD) Amer 94 mL/min >60 [facility] Comment on above: GFR Calc Estimated GFR (MDRD) Non-Af Amer 77 mL/min >60 [facility] Comment on above: Non- GFR Calc Ovalocyte detectionOrdered B y: Reymundo Mcadams on 12-05-2022 Ovalocytes LM Ql (Bld) RARE [facility] Platelets bldOrdered By: Jayson Mcadams on 12-05-2022 Platelets (Bld) [#/Vol] 433 10*3/uL 150-450 [facility] RBC morphologyOrdered By: Roberto Carlos Mcadams on 12-05-2022 RBC morphology finding Nom (Bld) N CHROM NORMAL NORM C&C [facility] Review by pathologistOrdered By: Reymundo Mcadams on 12-05-2022 Pathologist review Jose M (Unsp spec) [Interp] Reviewed [facility] Comment on above: Previous reported re sult: Ivy garcia Edited by: JULIAOD on 12/07/22:0936 AMENDED REPORT 12/07/22 0936 PATH REV previously reported as: Ivy garcia Serum or plasma albumin justin urement (mass/volume)Ordered By: Reymundo Mcadams on 12-05-2022 Albumin [Mass/Vol] 3.7 g/dL 3.2-5.0 [facility] Serum or plasma albumin/glob ulin mass ratioOrdered By: Reymundo Mcadams on 12-05-2022 Albumin/Globulin [Mass ratio] 0.9 {ratio} 0.9-2.4 [facility] Serum or plasma calcium justin urement (mass/volume)Ordered By: Reymundo Mcadams on 12-05-2022 Calcium [Mass/Vol] 8.7 mg/dL 8.5-10.1 [facility] Serum or plasma cholesterol in HDL measurement (mass/volume)Ordered By: Reymundo Mcadams on 12-05-2022 Cholesterol in HDL [Mass/Vol] 76 mg/dL >40 [facility] Comment on above: The drugs N-Acetylcy steine and Metamizole may falsely depress this assay. Reference Range HDL <40 mg/dL Low HDL Cholesterol HDL >or= 60 mg/dL High HDL Cholesterol Serum or plasma cholesterol in VLDL measurement (mass/volume)Ordered By: Reymundo Mcadams on 12-05-2022 Cholesterol in VLDL [Mass/Vol] 12 mg/dL 5-40 [facility] Serum or plasma creatinine m easurement (mass/volume)Ordered By: Reymundo Mcadams on 12-05-2022 Creatinine [Mass/Vol] 0.84 mg/dL 0.55-1.02 [facility] Comment on above: The validity of the calculated GFR & GFRAA in patients over 70 years has not been determined. Clinical correlation is essential. Serum or plasma low density lipoprotein (LDL) cholesterol measurement (mass/volume)Ordered By: Reymundo Mcadams on 12-05-2022 Cholesterol in LDL [Mass/Vol] 89 mg/dL 0-130 [facility] Serum or plasma urea nitroge n measurement (mass/volume)Ordered By: Reymundo Mcadams on 12-05-2022 Urea nitrogen [Mass/Vol] 8 mg/dL 7-18 [facility] Thin prep Papanicolaou smear with manual screeningOrdered By: Reymundo Mcadams on 12-05-2022 Thin prep Papanicolaou smear with manual screening 14 U/L 15-37 [facility] Thin prep Papanicolaou smear with manual screening 5 5-15 [facility] Absolute lymphocyte countOrd ered By: Rosalie Frausto on 10-22-2022 Lymphocytes Auto (Unsp spec) [#/Vol] 0.55 10*3/uL 0.83-4.51 [facility] Basophil percentageOrdered B y: Rosalie Frausto on 10-22-2022 Basophils/100 WBC (Bld) 1.5 % 0-1 [facility] Eosinophils/100 WBC (Bld) 1.5 % 0-5 [facility] Neutrophils (Bld) [#/Vol] 2.7 10*3/uL 2.0-7.7 [facility] Neutrophils/100 WBC (Bld) 67.9 % 47-70 [facility] WBC (Bld) [#/Vol] 4.0 10*3/uL 4.4-11.0 [facility] Blood erythrocytes count (nu mber/volume)Ordered By: Rosalie Frausto on 10-22-2022 RBC (Bld) [#/Vol] 4.07 10*6/uL 4.2-5.4 [facility] Blood hemoglobin measurement (mass/volume)Ordered By: Roaslie Frausto on 10-22-2022 Hemoglobin (Bld) [Mass/Vol] 11.6 g/dL 12.0-15.0 [facility] Blood lymphocytes/100 leukoc ytesOrdered By: Rosalie Frausto on 10-22-2022 Lymphocytes/100 WBC (Bld) 13.7 % 19-41 [facility] Blood manual differential co mment interpretation (narrative result)Ordered By: Rosalie Frausto on 10-22-2022 Manual differential comment Jose M (Bld) [Interp] SCANNED [facility] Blood monocytes/100 leukocyt esOrdered By: Rosalie Frausto on 10-22-2022 Monocytes/100 WBC (Bld) 15.2 % 0-10 [facility] Blood platelet mean volumeOr dered By: Rosalie Farusto on 10-22-2022 Platelet mean volume (Bld) [Entitic vol] 9.7 fL 6.2-12.0 [facility] Determination of erythrocyte mean corpuscular volume (MCV)Ordered By: Rosalie Frausto on 10-22-2022 MCV (RBC) [Entitic vol] 91.4 fL 81-99 [facility] Hematocrit Auto (Bld) [Volum e fraction]Ordered By: Rosalie Frausto on 10-22-2022 Hematocrit (Bld) [Volume fraction] 37.2 % 37-47 [facility] Laboratory - Hematology and Cell countsOrdered By: Rosalie Frausto on 10-22-2022 Erythrocyte distribution width (RBC) [Entitic vol] 41.1 fL 35.1-43.9 [facility] Erythrocyte distribution width (RBC) [Ratio] 12.4 % 11.6-14.6 [facility] Immature granulocytes/100 WBC (Bld) 0.200 % 0.0-0.9 [facility] Comment on above: IG% - Immature Granu locytes (promyelocytes, myelocytes and metamyelocytes) > 1% indicates that a LEFT SHIFT is Present. MCH (RBC) [Entitic mass] 28.5 pg 27.0-32.0 [facility] Nucleated RBC/100 WBC (Bld) [Ratio] 0 % 0-5 [facility] MCHC Auto (RBC) [Mass/Vol]Or dered By: Rosalie Frausto on 10-22-2022 MCHC (RBC) [Mass/Vol] 31.2 g/dL 32-36 [facility] Platelets bldOrdered By: Willis Frausto on 10-22-2022 Platelets (Bld) [#/Vol] 390 10*3/uL 150-450 [facility] Review by pathologistOrdered By: Rosalie Frausto on 10-22-2022 Pathologist review Jose M (Unsp spec) [Interp] Reviewed [facility] Comment on above: Previous reported re sult: Ivy garcia Edited by: RGOOD on 10/24/22:0938 AMENDED REPORT 10/24/22 0938 PATH REV previously reported as: Ivy garcia Absolute lymphocyte countOrd ered By: Rosalie Frausto on 09-20-2022 Lymphocytes Auto (Unsp spec) [#/Vol] 0.58 10*3/uL 0.83-4.51 [facility] Basophil percentageOrdered B y: Rosalie Frausto on 09-20-2022 Basophils/100 WBC (Bld) 2.0 % 0-1 [facility] Eosinophils/100 WBC (Bld) 2.0 % 0-5 [facility] Neutrophils (Bld) [#/Vol] 2.1 10*3/uL 2.0-7.7 [facility] Neutrophils/100 WBC (Bld) 59.2 % 47-70 [facility] WBC (Bld) [#/Vol] 3.5 10*3/uL 4.4-11.0 [facility] Blood erythrocytes count (nu mber/volume)Ordered By: Rosalie Frausto on 09-20-2022 RBC (Bld) [#/Vol] 4.33 10*6/uL 4.2-5.4 [facility] Blood hemoglobin measurement (mass/volume)Ordered By: Rosalie Frausto on 09-20-2022 Hemoglobin (Bld) [Mass/Vol] 12.3 g/dL 12.0-15.0 [facility] Blood lymphocytes/100 leukoc ytesOrdered By: Rosalie Frausto on 09-20-2022 Lymphocytes/100 WBC (Bld) 16.4 % 19-41 [facility] Blood manual differential co mment interpretation (narrative result)Ordered By: Rosalie Frausto on 09-20-2022 Manual differential comment Jose M (Bld) [Interp] COMMENT [facility] Comment on above: LYMPHOPENIA. Blood monocytes/100 leukocyt esOrdered By: Rosalie Frausto on 09-20-2022 Monocytes/100 WBC (Bld) 20.1 % 0-10 [facility] Blood platelet mean volumeOr dered By: Rosalie Frausto on 09-20-2022 Platelet mean volume (Bld) [Entitic vol] 9.8 fL 6.2-12.0 [facility] Determination of erythrocyte mean corpuscular volume (MCV)Ordered By: Rosalie Frausto on 09-20-2022 MCV (RBC) [Entitic vol] 90.3 fL 81-[address] [facility] Hematocrit Auto (Bld) [Volum e fraction]Ordered By: Rosalie Frausto on 09-20-2022 Hematocrit (Bld) [Volume fraction] 39.1 % 37-47 [facility] Laboratory - Hematology and Cell countsOrdered By: Rosalie Frausto on 09-20-2022 Erythrocyte distribution width (RBC) [Entitic vol] 41.1 fL 35.1-43.9 [facility] Erythrocyte distribution width (RBC) [Ratio] 12.4 % 11.6-14.6 [facility] Immature granulocytes/100 WBC (Bld) 0.300 % 0.0-0.9 [facility] Comment on above: IG% - Immature Granu locytes (promyelocytes, myelocytes and metamyelocytes) > 1% indicates that a LEFT SHIFT is Present. MCH (RBC) [Entitic mass] 28.4 pg 27.0-32.0 [facility] Nucleated RBC/100 WBC (Bld) [Ratio] 0 % 0-5 [facility] MCHC Auto (RBC) [Mass/Vol]Or dered By: Rosalie Frausto on 09-20-2022 MCHC (RBC) [Mass/Vol] 31.5 g/dL 32-36 [facility] No Panel InformationOrdered By: Rosalie Frausto on 09-20-2022 Thyroid Stimulating Hormone (TSH) 2.07 uIU/mL 0.358-3.74 [facility] Platelets bldOrdered By: Willis Frausto on 09-20-2022 Platelets (Bld) [#/Vol] 386 10*3/uL 150-450 [facility] Review by pathologistOrdered By: Rosalie Frausto on 09-20-2022 Pathologist review Jose M (Unsp spec) [Interp] Reviewed [facility] Comment on above: Previous reported re sult: Ivy garcia Edited by: RGOOD on 09/21/22:1421 AMENDED REPORT 09/21/22 1421 PATH REV previously reported as: Ivy garcia Absolute lymphocyte countOrd ered By: Mallory Herrera on 06-07-2022 Lymphocytes Auto (Unsp spec) [#/Vol] 0.54 10*3/uL 0.83-4.51 [facility] Basophil percentageOrdered B y: Mallory Herrera on 06-07-2022 Basophils/100 WBC (Bld) 1.9 % 0-1 [facility] Eosinophils/100 WBC (Bld) 2.3 % 0-5 [facility] Neutrophils (Bld) [#/Vol] 1.9 10*3/uL 2.0-7.7 [facility] Neutrophils/100 WBC (Bld) 60.8 % 47-70 [facility] WBC (Bld) [#/Vol] 3.1 10*3/uL 4.4-11.0 [facility] Blood erythrocytes count (nu mber/volume)Ordered By: Mallory Herrera on 06-07-2022 RBC (Bld) [#/Vol] 4.65 10*6/uL 4.2-5.4 [facility] Blood hemoglobin measurement (mass/volume)Ordered By: Mallory Herrera on 06-07-2022 Hemoglobin (Bld) [Mass/Vol] 13.4 g/dL 12.0-15.0 [facility] Blood lymphocytes/100 leukoc ytesOrdered By: Mallory Herrera on 06-07-2022 Lymphocytes/100 WBC (Bld) 17.5 % 19-41 [facility] Blood manual differential co mment interpretation (narrative result)Ordered By: Mallory Herrera on 06-07-2022 Manual differential comment Jose M (Bld) [Interp] SCANNED [facility] Blood monocytes/100 leukocyt esOrdered By: [facility] on 06-07-2022 Monocytes/100 WBC (Bld) 16.9 % 0-10 [facility] Blood platelet mean volumeOr dered By: Mallory Herrera on 06-07-2022 Platelet mean volume (Bld) [Entitic vol] 10.5 fL 6.2-12.0 [facility] Determination of erythrocyte mean corpuscular volume (MCV)Ordered By: Mallory Herrera on 06-07-2022 MCV (RBC) [Entitic vol] 93.5 fL 81-99 [facility] Hematocrit Auto (Bld) [Volum e fraction]Ordered By: Mallory Herrera on 06-07-2022 Hematocrit (Bld) [Volume fraction] 43.5 % 37-47 [facility] Hemoglobin in reticulocytes (mass per reticulocyte)Ordered By: [facility] Javier on 06-07-2022 Hemoglobin (Reticulocytes) [Entitic mass] 31.9 pg 30-35 [facility] Laboratory - Hematology and Cell countsOrdered By: Mallory Herrera on 06-07-2022 Erythrocyte distribution width (RBC) [Entitic vol] 53.1 fL 35.1-43.9 [facility] Erythrocyte distribution width (RBC) [Ratio] 15.4 % 11.6-14.6 [facility] Immature granulocytes/100 WBC (Bld) 0.600 % 0.0-0.9 [facility] Comment on above: IG% - Immature Granu locytes (promyelocytes, myelocytes and metamyelocytes) > 1% indicates that a LEFT SHIFT is Present. MCH (RBC) [Entitic mass] 28.8 pg 27.0-32.0 [facility] Nucleated RBC/100 WBC (Bld) [Ratio] 0 % 0-5 [facility] MCHC Auto (RBC) [Mass/Vol]Or dered By: Mallory Herrera on 06-07-2022 MCHC (RBC) [Mass/Vol] 30.8 g/dL 32-36 [facility] No Panel InformationOrdered By: Mallory Herrera on 06-07-2022 Immature Reticulocyte Fraction 11.00 % 3.00-15.90 [facility] Reticulocyte Count 1.32 % 0.5-1.5 [facility] Platelets bldOrdered By: Romeo Herrera on 06-07-2022 Platelets (Bld) [#/Vol] 322 10*3/uL 150-450 [facility] Review by pathologistOrdered By: Mallory Herrera on 06-07-2022 Pathologist review Jose M (Unsp spec) [Interp] Reviewed [facility] Comment on above: Previous reported re sult: Ivy garcia Edited by: KATY on 06/08/22:1200Leukopenia and neutropenia. Clinical correlation necessary.Jeff Lyons M.D. 06/08/22 AMENDED REPORT 06/08/22 1200 PATH REV previously reported as: Ivy garcia Serum or plasma ferritin nery surement (mass/volume)Ordered By: Mallory Herrera on 06-07-2022 Ferritin [Mass/Vol] 64 ng/mL 8-252 [facility] Iron measurement (mass/mass) Ordered By: Mallory Herrera on 03-08-2022 Iron (Unsp spec) [Mass/Mass] 29 ug/dL 50-170 [facility] Laboratory - Chemistry and C hemistry - challengeOrdered By: Mallory Herrera on 03-08-2022 Cobalamin (Vitamin B12) [Mass/Vol] 303 pg/mL 211-911 [facility] No Panel InformationOrdered By: Mallory Herrera on 03-08-2022 Total Iron Binding Capacity 421 ug/dL 250-450 [facility] Serum or plasma iron saturat ion measurement (mass fraction)Ordered By: Mallory Herrera on 03-08-2022 Iron saturation [Mass fraction] 6.9 % 15.0-55.0 [facility] Laboratory - Microbiology an d Antimicrobial susceptibilityOrdered By: Jocelyn Sandoval on 02-21-2022 SARS-CoV-2 (COVID-19) RNA CATHERINE+probe Ql (Unsp spec) Not detected Not Detect [facility] Comment on above: Normal Reference Ran ge: Not DetectedMethod:(RT-PCR) real-time reverse transcriptase PCRLuminex Tech.eu Instrument*The Food and Drug Administration (FDA) has [...] manual screening Neisseria or beta-hemolytic Streptococcus isolated. [facility] Gram stain for investigation of transfusion reactionOrdered By: Dr. Frausto on 11-30-2021 Microscopic observation Gram stain Nom (Unsp spec) [facility] Basophil percentageOrdered B y: Dr. Mcadams on 11-02-2021 Cholesterol [Mass/Vol] 170 mg/dL <200 [facility] Comment on above: <200 mg/dL Desirable 200-240 mg/dL Borderline >240 mg/dL High Risk Triglyceride [Mass/Vol] 87 mg/dL <199 [facility] Comment on above: The drugs N-Acetylcy steine and Metamizole may falsely depress this assay.Serum Triglycerides Reference Interval Normal <150 mg/dL Borderline high 150 - 199 mg/dL High 200 - 499 mg/dL Very High > or = 500 mg/dL Serum or plasma cholesterol in HDL measurement (mass/volume)Ordered By: Dr. Mcadams on 11-02-2021 Cholesterol in HDL [Mass/Vol] 65 mg/dL >40 [facility] Comment on above: The drugs N-Acetylcy steine and Metamizole may falsely depress this assay. Reference Range HDL <40 mg/dL Low HDL Cholesterol HDL >or= 60 mg/dL High HDL Cholesterol Serum or plasma cholesterol in VLDL measurement (mass/volume)Ordered By: Dr. Mcadams on 11-02-2021 Cholesterol in VLDL [Mass/Vol] 17 mg/dL 5-40 [facility] Serum or plasma low density lipoprotein (LDL) cholesterol measurement (mass/volume)Ordered By: Dr. Mcadams on 11-02-2021 Cholesterol in LDL [Mass/Vol] 88 mg/dL 0-130 [facility] Absolute lymphocyte counton 10-24-2021 Lymphocytes Auto (Unsp spec) [#/Vol] 0.44 10*3/uL 0.83-4.51 [facility] Work Phone: Basophil percentageon 2021 Basophils/100 WBC (Bld) 2.1 % 0-1 [facility] Work Phone: Bilirubin [Mass/Vol] 0.80 mg/dL 0.20-1.00 [facility] Work Phone: Comment on above: For patients on eltr ombopag therapy, use of Dimension [place] TBIL is not recommended. Chloride [Moles/Vol] 104 mmol/L 98-107 [facility] Work Phone: Eosinophils/100 WBC (Bld) 1.4 % 0-5 [facility] Work Phone: Glucose [Mass/Vol] 78 mg/dL 74-106 [facility] Work Phone: Neutrophils (Bld) [#/Vol] 1.9 10*3/uL 2.0-7.7 [facility] Work Phone: Neutrophils/100 WBC (Bld) 64.3 % 47-70 [facility] Work Phone: Potassium [Moles/Vol] 4.0 mmol/L 3.5-5.1 [facility] Work Phone: Protein [Mass/Vol] 8.1 g/dL 6.4-8.2 [facility] Work Phone: Sodium [Moles/Vol] 137 mmol/L 136-145 [facility] Work Phone: WBC (Bld) [#/Vol] 2.9 10*3/uL 4.4-11.0 [facility] Work Phone: Blood erythrocytes count (nu mber/volume)on 10-24-2021 RBC (Bld) [#/Vol] 4.75 10*6/uL 4.2-5.4 [facility]: Blood hemoglobin measurement (mass/volume)on 10-24-2021 Hemoglobin (Bld) [Mass/Vol] 13.6 g/dL 12.0-15.0 [facility] Work Phone: Blood lymphocytes/100 leukoc yteson 10-24-2021 Lymphocytes/100 WBC (Bld) 15.2 % 19-41 [facility] Work Phone: Blood manual differential co mment interpretation (narrative result)on 10-24-2021 Manual differential comment Jose M (Bld) [Interp] SCANNED [facility] Work Phone: Blood monocytes/100 leukocyt eson 10-24-2021 Monocytes/100 WBC (Bld) 17.0 % 0-10 [facility] Work Phone: Blood platelet mean volumeon 10-24-2021 Platelet mean volume (Bld) [Entitic vol] 11.3 fL 6.2-12.0 [facility] Work Phone: Determination of erythrocyte mean corpuscular volume (MCV)on 10-24-2021 MCV (RBC) [Entitic vol] 90.5 fL 81-99 [facility] Work Phone: [phone] Hematocrit Auto (Bld) [Volum e fraction]on 10-24-2021 Hematocrit (Bld) [Volume fraction] 43.0 % 37-47 [facility] Work Phone: [phone] Laboratory - Chemistry and C hemistry - challengeon 10-24-2021 ALP [Catalytic activity/Vol] 50 U/L 45-117 [facility] Work Phone: [phone] ALT [Catalytic activity/Vol] 17 U/L 13-56 [facility] Work Phone: [phone] CO2 [Moles/Vol] 28.0 mmol/L 21.0-32.0 [facility] Work Phone: [phone] Globulin (S) [Mass/Vol] 4.1 g/dL 2.2-4.2 [facility] Work Phone: [phone] Urea nitrogen/Creatinine [Mass ratio] 12.6 mg/mg 10-20 [facility] Work Phone: [phone] Laboratory - Hematology and Cell countson 10-24-2021 Erythrocyte distribution width (RBC) [Entitic vol] 47.1 fL 35.1-43.9 [facility] Work Phone: [phone] Erythrocyte distribution width (RBC) [Ratio] 14.4 % 11.6-14.6 [facility] Work Phone: [phone] Immature granulocytes/100 WBC (Bld) 0.000 % 0.0-0.9 [facility] Work Phone: [phone] Comment on above: IG% - Immature Granu locytes (promyelocytes, myelocytes and metamyelocytes) > 1% indicates that a LEFT SHIFT is Present. MCH (RBC) [Entitic mass] 28.6 pg 27.0-32.0 [facility] Work Phone: [phone] Nucleated RBC/100 WBC (Bld) [Ratio] 0 % 0-5 [facility] Work Phone: [phone] MCHC Auto (RBC) [Mass/Vol]on 10-24-2021 MCHC (RBC) [Mass/Vol] 31.6 g/dL 32-36 [facility] Work Phone: No Panel Informationon 10-24 Estimated GFR (MDRD) Amer 101 mL/min >60 [facility] Work Phone: Comment on above: GFR Calc Estimated GFR (MDRD) Non-Af Amer 83 mL/min >60 [facility] Work Phone: Comment on above: Non- GFR Calc Platelets bldon 10-24-2021 Platelets (Bld) [#/Vol] 379 10*3/uL 150-450 [facility] Work Phone: Review by pathologiston 10-12 Pathologist review Jose M (Unsp spec) [Interp] Reviewed [facility] Work Phone: Comment on above: Previous reported re sult: Ivy garcia Edited by: KATY on 10/26/21:1027Leukopenia and neutropenia. Clinical correlation necessary.Jeff Lyons M.D. 10/26/21 AMENDED REPORT 10/26/21 1027 PATH REV previously reported as: June jose Serum or plasma albumin justin urement (mass/volume)on 10-24-2021 Albumin [Mass/Vol] 4.0 g/dL 3.2-5.0 [facility] Work Phone: Serum or plasma albumin/glob ulin mass ratioon 10-24-2021 Albumin/Globulin [Mass ratio] 1.0 {ratio} 0.9-2.4 [facility] Work Phone: Serum or plasma calcium justin urement (mass/volume)on 10-24-2021 Calcium [Mass/Vol] 9.0 mg/dL 8.5-10.1 [facility] Work Phone: [phone] Serum or plasma creatinine m easurement (mass/volume)on 10-24-2021 Creatinine [Mass/Vol] 0.79 mg/dL 0.55-1.02 [facility] Work Phone: Comment on above: The validity of the calculated GFR & GFRAA in patients over 70 years has not been determined. Clinical correlation is essential. Serum or plasma urea nitroge n measurement (mass/volume)on 10-24-2021 Urea nitrogen [Mass/Vol] 10 mg/dL 7-18 [facility] Work Phone: Thin prep Papanicolaou smear with manual screeningon 10-24-2021 Thin prep Papanicolaou smear with manual screening 13 U/L 15-37 [facility] Work Phone: Thin prep Papanicolaou smear with manual screening 5 5-15 [facility] Work Phone: Gram stain for investigation of transfusion reaction Microscopic observation Gram stain Nom (Unsp spec) [facility] Work Phone: Thin prep Papanicolaou smear with manual screening Cytopathology procedure, preparation of smear, genital source Neisseria or beta-hemolytic Streptococcus isolated. [facility] Work Phone: Vital Signs Date Time Vital Sign Value Performing Clinician Hansel florez 05-19-2024 13:11-0400 Body height 165.[address] Reymundo Mcadams MD Work Phone: [facility] 05-19-2024 13:11-0400 Diastolic blood pressure 85 mm[Hg] Dr. Reymundo Mcadams MD Work Phone: [facility] 05-19-2024 13:11-0400 Systolic blood pressure 134 mm[Hg] Dr. Reymundo Mcadams MD Work Phone: [facility] 05-19-2024 13:08-0400 Body mass index (BMI) [Ratio] 23.3 kg/m2 Dr. Reymundo Mcadams MD Work Phone: [facility] 05-19-2024 13:08-0400 Body weight 63.[address] Reymundo Mcdaams MD Work Phone: [facility] 05-07-2024 14:24-0400 Body mass index (BMI) [Ratio] 22.9 kg/m2 Dr. Reymundo Mcadams MD Work Phone: [facility] 05-07-2024 14:24-0400 Body temperature 98.7 [degF] Dr. Reymundo Mcadams MD Work Phone: [facility] 05-07-2024 14:24-0400 Body weight 62.[address] Reymundo Mcadams MD Work Phone: [facility] 05-07-2024 14:24-0400 Diastolic blood pressure 82 mm[Hg] Dr. Reymundo Mcadams MD Work Phone: [facility] 05-07-2024 14:24-0400 Heart rate 77 /min Dr. Reymundo Mcadams MD Work Phone: [facility] 05-07-2024 14:24-0400 Respiratory rate 18 /min Dr. Reymundo Mcadams MD Work Phone: [facility] 05-07-2024 14:24-0400 SaO2% (BldA) [Mass fraction] 98 % Dr. Reymundo Mcadams MD Work Phone: [facility] 05-07-2024 14:24-0400 Systolic blood pressure 116 mm[Hg] Dr. Reymundo Mcadams MD Work Phone: [facility] 02-25-2024 13:04-0500 Body mass index (BMI) [Ratio] 24.5 kg/m2 Dr. Reymundo Mcadams MD Work Phone: [facility] 02-25-2024 13:04-0500 Body weight 66.[address] Reymundo Mcadams MD Work Phone: [facility] 02-25-2024 13:04-0500 Diastolic blood pressure 90 mm[Hg] Dr. Reymundo Mcadams MD Work Phone: [facility] 02-25-2024 13:04-0500 Systolic blood pressure 132 mm[Hg] Dr. Reymundo Mcadams MD Work Phone: [facility] 02-20-2024 08:15-0500 Body temperature 98.2 [degF] Dr. Reymundo Mcadams MD Work Phone: [facility] 02-20-2024 08:15-0500 Diastolic blood pressure 85 mm[Hg] Dr. Reymundo Mcadams MD Work Phone: [facility] 02-20-2024 08:15-0500 Heart rate 75 /min Dr. Reymundo Mcadams MD Work Phone: [facility] 02-20-2024 08:15-0500 Respiratory rate 18 /min Dr. Reymundo Mcadams MD Work Phone: [facility] 02-20-2024 08:15-0500 SaO2% (BldA) [Mass fraction] 98 % Dr. Reymundo Mcadams MD Work Phone: [facility] 02-20-2024 08:15-0500 Systolic blood pressure 123 mm[Hg] Dr. Reymundo Mcadams MD Work Phone: [facility] 02-18-2024 13:08-0500 Body mass index (BMI) [Ratio] 24.4 kg/m2 Dr. Reymundo Mcadams MD Work Phone: [facility] 02-18-2024 13:08-0500 Body weight 66.[address] Reymundo Mcadams MD Work Phone: [facility] 02-18-2024 11:45-0500 Inhaled oxygen flow rate 4 L/min Dr. Reymundo Mcadams MD Work Phone: [facility] 02-06-2024 11:32-0500 Body mass index (BMI) [Ratio] 24.7 kg/m2 Dr. Reymundo Mcadams MD Work Phone: [facility] 02-06-2024 11:32-0500 Body weight 67.[address] Reymundo Mcadams MD Work Phone: [facility] 02-06-2024 11:32-0500 Diastolic blood pressure 63 mm[Hg] Dr. Reymundo Mcadams MD Work Phone: [facility] 02-06-2024 11:32-0500 Systolic blood pressure 110 mm[Hg] Dr. Reymundo Mcadams MD Work Phone: [facility] 01-31-2024 09:01-0500 Body mass index (BMI) [Ratio] 23.9 kg/m2 Dr. Reymundo Mcadams MD Work Phone: [facility] 01-31-2024 09:01-0500 Body temperature 97.5 [degF] Dr. Reymundo Mcadams MD Work Phone: [facility] 01-31-2024 09:01-0500 Body weight 65.[address] Reymundo Mcadams MD Work Phone: [facility] 01-31-2024 09:01-0500 Diastolic blood pressure 86 mm[Hg] Dr. Reymundo Mcadams MD Work Phone: [facility] 01-31-2024 09:01-0500 Heart rate 84 /min Dr. Reymundo Mcadams MD Work Phone: [facility] 01-31-2024 09:01-0500 Respiratory rate 14 /min Dr. Reymundo Mcadams MD Work Phone: [facility] 01-31-2024 09:01-0500 SaO2% (BldA) [Mass fraction] 100 % Dr. Reymundo Mcadams MD Work Phone: [facility] 01-31-2024 09:01-0500 Systolic blood pressure 127 mm[Hg] Dr. Reymundo Mcadams MD Work Phone: [facility] 01-29-2024 08:42-0500 Body temperature 96.9 [degF] Dr. Reymundo Mcadams MD Work Phone: [facility] 01-29-2024 08:42-0500 Diastolic blood pressure 72 mm[Hg] Dr. Reymundo Mcadams MD Work Phone: [facility] 01-29-2024 08:42-0500 Heart rate 76 /min Dr. Reymundo Mcadams MD Work Phone: [facility] 01-29-2024 08:42-0500 Respiratory rate 16 /min Dr. Reymundo Mcadams MD Work Phone: [facility] 01-29-2024 08:42-0500 SaO2% (BldA) [Mass fraction] 100 % Dr. Reymundo Mcadams MD Work Phone: [facility] 01-29-2024 08:42-0500 Systolic blood pressure 122 mm[Hg] Dr. Reymundo Mcadams MD Work Phone: [facility] 01-27-2024 08:36-0500 Body temperature 96.3 [degF] Dr. Reymundo Mcadams MD Work Phone: [facility] 01-27-2024 08:36-0500 Diastolic blood pressure 79 mm[Hg] Dr. Reymundo Mcadams MD Work Phone: [facility] 01-27-2024 08:36-0500 Heart rate 75 /min Dr. Reymundo Mcadams MD Work Phone: [facility] 01-27-2024 08:36-0500 Respiratory rate 16 /min Dr. Reymundo Mcadams MD Work Phone: [facility] 01-27-2024 08:36-0500 SaO2% (BldA) [Mass fraction] 100 % Dr. Reymundo Mcadams MD Work Phone: [facility] 01-27-2024 08:36-0500 Systolic blood pressure 134 mm[Hg] Dr. Reymundo Mcadams MD Work Phone: [facility] 01-24-2024 08:51-0500 Body temperature 97 [degF] Dr. Reymundo Mcadams MD Work Phone: [facility] 01-24-2024 08:51-0500 Diastolic blood pressure 80 mm[Hg] Dr. Reymundo Mcadams MD Work Phone: [facility] 01-24-2024 08:51-0500 Heart rate 72 /min Dr. Reymundo Mcadams MD Work Phone: [facility] 01-24-2024 08:51-0500 Respiratory rate 14 /min Dr. Reymundo Mcadams MD Work Phone: [facility] 01-24-2024 08:51-0500 SaO2% (BldA) [Mass fraction] 100 % Dr. Reymundo Mcadams MD Work Phone: [facility] 01-24-2024 08:51-0500 Systolic blood pressure 116 mm[Hg] Dr. Reymundo Mcadams MD Work Phone: [facility] 01-22-2024 09:42-0500 Body temperature 97.3 [degF] Dr. Reymundo Mcadams MD Work Phone: [facility] 01-22-2024 09:42-0500 Diastolic blood pressure 75 mm[Hg] Dr. Reymundo Mcadams MD Work Phone: [facility] 01-22-2024 09:42-0500 Heart rate 71 /min Dr. Reymundo Mcadams MD Work Phone: [facility] 01-22-2024 09:42-0500 Respiratory rate 16 /min Dr. Reymundo Mcadams MD Work Phone: [facility] 01-22-2024 09:42-0500 SaO2% (BldA) [Mass fraction] 100 % Dr. Reymundo Mcadams MD Work Phone: [facility] 01-22-2024 09:42-0500 Systolic blood pressure 102 mm[Hg] Dr. Reymundo Mcadams MD Work Phone: [facility] 01-22-2024 09:12-0500 Body mass index (BMI) [Ratio] 24.1 kg/m2 Dr. Reymundo Mcadams MD Work Phone: [facility] 01-22-2024 09:12-0500 Body weight 65.[address] Reymundo Mcadams MD Work Phone: [facility] 03-11-2023 14:03-0500 Body height 165.[address] Reymundo Mcadams Work Phone: [phone] [place] [address] 03-11-2023 14:01-0500 Body mass index (BMI) [Ratio] 26.9 kg/m2 Dr. Reymundo Mcadams Work Phone: [facility] 03-11-2023 14:01-0500 Body weight 73.[address] Reymundo Mcadams Work Phone: [facility] 03-11-2023 14:01-0500 Diastolic blood pressure 86 mm[Hg] Dr. Reymundo Mcadams Work Phone: [phone] [place] [address] 03-11-2023 14:01-0500 Systolic blood pressure 131 mm[Hg] Dr. Reymundo Mcadams Work Phone: [facility] 12-31-2022 14:30-0500 Body height 165.[address] Reymundo Mcadams Work Phone: [facility] 12-31-2022 14:30-0500 Body mass index (BMI) [Ratio] 25.8 kg/m2 Dr. Reymundo Mcadams Work Phone: [facility] 12-31-2022 14:30-0500 Body weight 70.[address] Reymundo Mcadams Work Phone: [facility] 12-31-2022 14:30-0500 Diastolic blood pressure 80 mm[Hg] Dr. Reymundo Mcadams Work Phone: [facility] 12-31-2022 14:30-0500 Systolic blood pressure 147 mm[Hg] Dr. Reymundo Mcadams Work Phone: [facility] 12-05-2022 13:32-0400 Body height 165.[address] Reymundo Mcadams Work Phone: [facility] 12-05-2022 13:32-0400 Body mass index (BMI) [Ratio] 24.3 kg/m2 Dr. Reymundo Mcadams Work Phone: [facility] 12-05-2022 13:32-0400 Body temperature 99.8 [degF] Dr. Reymundo Mcadams Work Phone: [facility] 12-05-2022 13:32-0400 Body weight 66.[address] Reymundo Mcadams Work Phone: [facility] 12-05-2022 13:32-0400 Diastolic blood pressure 82 mm[Hg] Dr. Reymundo Mcadams Work Phone: [facility] 12-05-2022 13:32-0400 Heart rate 75 /min Dr. Reymundo Mcadams Work Phone: [facility] 12-05-2022 13:32-0400 Respiratory rate 16 /min Dr. Reymundo Mcadams Work Phone: [facility] 12-05-2022 13:32-0400 SaO2% (BldA) [Mass fraction] 99 % Dr. Reymundo Mcadams Work Phone: [facility] 12-05-2022 13:32-0400 Systolic blood pressure 116 mm[Hg] Dr. Reymundo Mcadams Work Phone: [facility] 09-20-2022 11:08-0400 Body height 165.[address] Reymundo Mcadams Work Phone: [facility] 09-20-2022 11:08-0400 Body mass index (BMI) [Ratio] 22.8 kg/m2 Dr. Reymundo Mcadams Work Phone: [facility] 09-20-2022 11:08-0400 Body weight 62.[address] Reymundo Mcadams Work Phone: [facility] 09-20-2022 11:08-0400 Diastolic blood pressure 78 mm[Hg] Dr. Reymundo Mcadams Work Phone: [facility] 09-20-2022 11:08-0400 Systolic blood pressure 123 mm[Hg] Dr. Reymundo Mcadams Work Phone: [facility] 06-14-2022 13:11-0400 Body temperature 97 [degF] Dr. Reymundo Mcadams Work Phone: [facility] 06-14-2022 13:11-0400 Diastolic blood pressure 82 mm[Hg] Dr. Reymundo Mcadams Work Phone: [facility] 06-14-2022 13:11-0400 Heart rate 98 /min Dr. Reymundo Mcadams Work Phone: [facility] 06-14-2022 13:11-0400 Respiratory rate 18 /min Dr. Reymundo Mcadams Work Phone: [facility] 06-14-2022 13:11-0400 SaO2% (BldA) [Mass fraction] 98 % Dr. Reymundo Mcadams Work Phone: [facility] 06-14-2022 13:11-0400 Systolic blood pressure 124 mm[Hg] Dr. Reymundo Mcadams Work Phone: [facility] 06-07-2022 13:18-0400 Body mass index (BMI) [Ratio] 24.5 kg/m2 Dr. Reymundo Mcadams Work Phone: [facility] 06-07-2022 13:18-0400 Body temperature 97.9 [degF] Dr. Reymundo Mcadams Work Phone: [facility] 06-07-2022 13:18-0400 Body weight 66.[address] Reymundo Mcadams Work Phone: [facility] 06-07-2022 13:18-0400 Diastolic blood pressure 70 mm[Hg] Dr. Reymundo Mcadams Work Phone: [facility] 06-07-2022 13:18-0400 Heart rate 73 /min Dr. Reymundo Mcadams Work Phone: [facility] 06-07-2022 13:18-0400 Respiratory rate 16 /min Dr. Reymundo Mcadams Work Phone: [facility] 06-07-2022 13:18-0400 SaO2% (BldA) [Mass fraction] 100 % Dr. Reymundo Mcadams Work Phone: [facility] 06-07-2022 13:18-0400 Systolic blood pressure 112 mm[Hg] Dr. Reymundo Mcadams Work Phone: [facility] 04-05-2022 14:37-0500 Body temperature 97.7 [degF] Dr. Reymundo Mcadams Work Phone: [facility] 04-05-2022 14:37-0500 Diastolic blood pressure 78 mm[Hg] Dr. Reymundo Mcadams Work Phone: [facility] 04-05-2022 14:37-0500 Heart rate 104 /min Dr. Reymundo Mcadams Work Phone: [facility] 04-05-2022 14:37-0500 Respiratory rate 16 /min Dr. Reymundo Mcadams Work Phone: [facility] 04-05-2022 14:37-0500 SaO2% (BldA) [Mass fraction] 100 % Dr. Reymundo Mcadams Work Phone: [facility] 04-05-2022 14:37-0500 Systolic blood pressure 113 mm[Hg] Dr. Reymundo Mcadams Work Phone: [facility] 02-21-2022 16:14-0500 Body height 165.[address] Reymundo Mcadams Work Phone: [facility] 02-21-2022 16:14-0500 Body mass index (BMI) [Ratio] 24.1 kg/m2 Dr. Reymundo Mcadams Work Phone: [facility] 02-21-2022 16:14-0500 Body temperature 98.1 [degF] Dr. Reymundo Mcadams Work Phone: [facility] 02-21-2022 16:14-0500 Body weight 65.[address] Reymundo Mcadams Work Phone: [facility] 02-21-2022 16:14-0500 Diastolic blood pressure 74 mm[Hg] Dr. Reymundo Mcadams Work Phone: [facility] 02-21-2022 16:14-0500 Heart rate 102 /min Dr. Reymundo Mcadams Work Phone: [facility] 02-21-2022 16:14-0500 Respiratory rate 14 /min Dr. Reymundo Mcadams Work Phone: [facility] 02-21-2022 16:14-0500 SaO2% (BldA) [Mass fraction] 99 % Dr. Reymundo Mcadams Work Phone: [facility] 02-21-2022 16:14-0500 Systolic blood pressure 108 mm[Hg] Dr. Reymundo Mcadams Work Phone: [facility] 12-14-2021 14:55-0400 Body height 165.[address] Reymundo Mcadams Work Phone: [facility] Work Phone: 12-14-2021 14:55-0400 Body mass index (BMI) [Ratio] 24.1 kg/m2 Dr. Reymundo Mcadams Work Phone: [facility] 12-14-2021 14:55-0400 Body temperature 97.7 [degF] Dr. Reymundo Mcadams Work Phone: [facility] 12-14-2021 14:55-0400 Body weight 65.[address] Reymundo Mcadams Work Phone: [facility] 12-14-2021 14:55-0400 Diastolic blood pressure 74 mm[Hg] Dr. Reymundo Mcadams Work Phone: [facility] 12-14-2021 14:55-0400 Heart rate 83 /min Dr. Reymundo Mcadams Work Phone: [facility] 12-14-2021 14:55-0400 Respiratory rate 16 /min Dr. Reymundo Mcadams Work Phone: [facility] 12-14-2021 14:55-0400 SaO2% (BldA) [Mass fraction] 99 % Dr. Reymundo Mcadams Work Phone: [facility] 12-14-2021 14:55-0400 Systolic blood pressure 114 mm[Hg] Dr. Reymundo Mcadams Work Phone: [facility] 11-30-2021 10:35-0400 Body height 165.[address] Reymundo Mcadams Work Phone: [facility] Work Phone: 11-30-2021 10:28-0400 Body mass index (BMI) [Ratio] 24.1 kg/m2 Dr. Reymundo Mcadams Work Phone: [facility] 11-30-2021 10:28-0400 Body weight 65.[address] Reymundo Mcadams Work Phone: [facility] 11-30-2021 10:28-0400 Diastolic blood pressure 82 mm[Hg] Dr. Reymundo Mcadams Work Phone: [facility] 11-30-2021 10:28-0400 Systolic blood pressure 116 mm[Hg] Dr. Reymundo Mcadams Work Phone: [facility] 11-16-2021 15:43-0400 Body mass index (BMI) [Ratio] 23.6 kg/m2 Dr. Reymnudo Mcadams Work Phone: [facility] 11-16-2021 15:43-0400 Body temperature 97.8 [degF] Dr. Reymundo Mcadams Work Phone: [facility] 11-16-2021 15:43-0400 Body weight 64.[address] Reymundo Mcadams Work Phone: [facility] 11-16-2021 15:43-0400 Diastolic blood pressure 80 mm[Hg] Dr. Reymundo Mcadams Work Phone: [facility] 11-16-2021 15:43-0400 Heart rate 82 /min Dr. Reymundo Mcadams Work Phone: [facility] 11-16-2021 15:43-0400 Respiratory rate 16 /min Dr. Reymundo Mcadams Work Phone: [facility] 11-16-2021 15:43-0400 SaO2% (BldA) [Mass fraction] 100 % Dr. Reymundo Mcadams Work Phone: [facility] 11-16-2021 15:43-0400 Systolic blood pressure 121 mm[Hg] Dr. Reymundo Mcadams Work Phone: [facility] 11-02-2021 13:28-0400 Body height 165.[address] Reymundo Mcadams Work Phone: [facility] Work Phone: 11-02-2021 13:28-0400 Body mass index (BMI) [Ratio] 23.9 kg/m2 Dr. Reymundo Mcadams Work Phone: [facility] 11-02-2021 13:28-0400 Body temperature 97.2 [degF] Dr. Reymundo Mcadams Work Phone: [facility] 11-02-2021 13:28-0400 Body weight 65.[address] Reymundo Mcadams Work Phone: [facility] 11-02-2021 13:28-0400 Diastolic blood pressure 100 mm[Hg] Dr. Reymundo Mcadams Work Phone: [facility] 11-02-2021 13:28-0400 Heart rate 80 /min Dr. Reymundo Mcadams Work Phone: [facility] 11-02-2021 13:28-0400 Respiratory rate 16 /min Dr. Reymundo Mcadams Work Phone: [facility] 11-02-2021 13:28-0400 SaO2% (BldA) [Mass fraction] 99 % Dr. Reymundo Mcadams Work Phone: [facility] 11-02-2021 13:28-0400 Systolic blood pressure 140 mm[Hg] Dr. Reymundo Mcadams Work Phone: [facility] 10-24-2021 13:25-0400 Body height 165.[address] Reymundo Mcadams Work Phone: [facility] Work Phone: 10-24-2021 13:25-0400 Body mass index (BMI) [Ratio] 23.4 kg/m2 Dr. Reymundo Mcadams Work Phone: [facility] Work Phone: 10-24-2021 13:25-0400 Body temperature 98.3 [degF] Dr. Reymundo Mcadams Work Phone: [facility] Work Phone: 10-24-2021 13:25-0400 Body weight 63.[address] Reymundo Mcadams Work Phone: [facility] Work Phone: 10-24-2021 13:25-0400 Diastolic blood pressure 72 mm[Hg] Dr. Reymundo Mcadams Work Phone: [facility] Work Phone: 10-24-2021 13:25-0400 Heart rate 80 /min Dr. Reymundo Mcadams Work Phone: [facility] Work Phone: 10-24-2021 13:25-0400 Respiratory rate 14 /min Dr. Reymundo Mcadams Work Phone: [facility] Work Phone: 10-24-2021 13:25-0400 SaO2% (BldA) [Mass fraction] 99 % Dr. Reymundo Mcadams Work Phone: [facility] Work Phone: 10-24-2021 13:25-0400 Systolic blood pressure 116 mm[Hg] Dr. Reymundo Mcadams Work Phone: [facility] Work Phone: Encounters Encounter Date Encounter Type Care Provider Facility Start: 05-19-2024 End: 05-19-[address] Reymundo Mcadams MD Work Phone: [facility] Work Phone: Start: 05-19-2024 End: 05-19-[address] Rosalie Frausto MD -Laboratory, Specimen Work Phone: Start: 05-19-2024 End: 05-19-[address] Rosalie Frausto MD -[facility] Work Phone: Start: 05-19-2024 End: 05-19-2024 ambulatory Reymundo Mcadams Facility:[facility] Start: 05-19-2024 End: 05-19-2024 ambulatory Rosalie Frausto Facility:[facility] Start: 05-07-2024 End: 05-07-[address] Alfredo Hernandez MD -[facility] Work Phone: Start: 05-07-2024 End: 05-07-2024 ambulatory Alfredo Hernandez Facility:[facility] Start: 02-26-2024 Encounter for other preprocedural examination Rosalie Frausto [facility] Start: 02-25-2024 End: 02-25-[address] Rosalie Frausto MD -[facility] Work Phone: Start: 02-25-2024 End: 02-25-2024 ambulatory Reymundo Mcadams Facility:[facility] Start: 02-20-2024 Non-patient / Non-visit Dr. Meet Martin DO -[facility] Start: 02-19-2024 Non-patient / Non-visit Dr. Ranjeet Frausto MD -[facility] Start: 02-18-2024 Non-patient / Non-visit Dr. Ranjeet Frausto MD -[facility] Start: 02-18-2024 ambulatory Rosalie Hamm lity:[facility] Start: 02-18-2024 End: 02-20-2024 Evaluation and management of inpatient Dr. Rosalie Frausto MD -Medical Surgical 3 Work Phone: Start: 02-18-2024 ambulatory Rosalie Hamm lity:[facility] Start: 02-17-2024 ambulatory Rosalie Hamm lity:[facility] Start: 02-17-2024 Non-patient / Non-visit Dr. Ranjeet Frausto MD -[facility] Start: 02-07-2024 End: 02-07-[address] Rosalie Frausto MD -[facility] Work Phone: Start: 02-06-2024 End: 02-06-[address] Rosalie Frausto MD -Laboratory, Specimen Work Phone: Start: 02-06-2024 End: 02-06-2024 Non-patient / Non-visit Dr. Ramy Latham MD -[facility] Work Phone: Start: 02-06-2024 End: 02-06-[address] Rosalie Frausto MD -[facility] Work Phone: Start: 02-06-2024 End: 02-07-2024 ambulatory [facility] Facility:[facility] Start: 02-06-2024 End: 02-06-2024 ambulatory Rosalie Frausto Facility:[facility] Start: 01-31-2024 End: 01-31-[address] Reymundo Mcadams MD -Medical Out Work Phone: Start: 01-31-2024 End: 01-31-2024 ambulatory [facility] Facility:[facility] Start: 01-29-2024 End: 01-29-[address] Reymundo Mcadams MD -[facility] Out Work Phone: Start: 01-29-2024 End: 01-29-2024 ambulatory [facility] Facility:[facility] Start: 01-28-2024 End: 01-28-[address] Reymundo Mcadams MD -Laboratory, [facility] Start: 01-27-2024 End: 01-27-[address] Reymundo Mcadams MD -Medical Out Work Phone: Start: 01-27-2024 End: 01-28-2024 ambulatory [facility] Facility:[facility] Start: 01-24-2024 End: 01-24-[address] Reymundo Mcadams MD -Medical Out Work Phone: Start: 01-24-2024 End: 01-24-2024 ambulatory Reymundo Mcadams Facility:[facility] Start: 01-22-2024 End: 01-22-[address] Felisha Martin DO -Outpatient Breast Imaging Work Phone: Start: 01-22-2024 End: 01-22-[address] Reymundo Mcadams MD -Medical Out Work Phone: Start: 01-22-2024 End: 01-22-2024 ambulatory Reymundo Mcadams Facility:[facility] Start: 01-22-2024 End: 01-22-2024 ambulatory Felisha Martin Facility:[facility] Start: 01-17-2024 End: 01-17-2024 ambulatory Reymundo Mcadams Facility:[facility] Start: 01-15-2024 End: 01-15-2024 ambulatory Reymundo Mcadams Facility:[facility] Start: 01-15-2024 End: 01-15-2024 ambulatory Reymundo Mcadams Facility:[facility] Start: 01-03-2024 End: 01-03-2024 ambulatory Felisha Martin Facility:[facility] Start: 01-03-2024 End: 01-03-2024 ambulatory Felisha Martin Facility:[facility] Start: 10-04-2023 End: 10-04-2023 ambulatory Reymundo Mcadams Facility:[facility] Start: 03-11-2023 End: 03-11-[address] Reymundo Mcadams Work Phone: [facility] Work Phone: Start: 03-11-2023 End: 03-11-[address] Reymundo Mcadams Work Phone: [facility]-Laboratory, Specimen Work Phone: Start: 03-11-2023 End: 03-11-[address] Reymundo Mcadams Work Phone: [facility] Work Phone: Start: 12-31-2022 End: 12-31-[address] Reymundo Mcadams Work Phone: [facility] Work Phone: Start: 12-31-2022 End: 12-31-[address] Reymundo Mcadams Work Phone: [facility]-Laboratory, Specimen Work Phone: Start: 12-31-2022 End: 12-31-[address] Reymundo Mcadams Work Phone: [facility] Work Phone: Start: 12-19-2022 End: 12-19-[address] Reymundo Mcadams Work Phone: [facility] Work Phone: Start: 12-19-2022 End: 12-19-[address] Reymundo Mcadams Work Phone: [facility]-Outpatient Breast Imaging Work Phone: Start: 12-10-2022 End: 12-10-[address] Reymundo Mcadams Work Phone: [facility] Work Phone: Start: 12-10-2022 End: 12-10-[address] Reymundo Mcadams Work Phone: [facility]-Ultrasound, [facility] Work Phone: Start: 12-05-2022 End: 12-05-[address] Reymundo Mcadams Work Phone: [facility] Work Phone: Start: 12-05-2022 End: 12-05-2022 Encounter for general adult medical examination without abnormal findings Dr. Reymundo Mcadams Work Phone: [facility] Start: 12-05-2022 End: 12-05-[address] Reymundo Mcadams Work Phone: [facility] Work Phone: Start: 10-22-2022 End: 10-22-[address] Reymundo Mcadams Work Phone: [facility] Work Phone: Start: 10-22-2022 End: 10-22-[address] Reymundo Mcadams Work Phone: [facility] Start: 09-20-2022 End: 09-20-[address] Reymundo Mcadams Work Phone: [facility] Work Phone: Start: 09-20-2022 End: 09-20-[address] Reymundo Mcadams Work Phone: [facility] Work Phone: Start: 06-14-2022 End: 06-14-[address] Reymundo Mcadams Work Phone: [facility] Work Phone: Start: 06-07-[address] Remington Mcadams Work Phone: [facility] Start: 06-07-2022 End: 06-07-[address] Reymundo Mcadams Work Phone: [facility] Work Phone: Start: 02-22-2022 End: 02-22-[address] Reymundo Mcadams Work Phone: [facility] Work Phone: Start: 02-22-2022 End: 02-22-[address] Reymundo Mcadams Work Phone: [facility]-Laboratory, Specimen Start: 02-21-2022 End: 02-21-[address] Reymundo Mcadams Work Phone: [facility] Start: 12-28-2021 End: 12-28-[address] [facility] Start: 12-14-2021 End: 12-14-[address] Reymundo Mcadams Work Phone: [facility] Start: 12-14-2021 End: 12-14-[address] Reymundo Mcaadms Work Phone: [facility] Work Phone: Start: 12-14-2021 End: 12-14-[address] Reymundo Mcadams Work Phone: [facility]-Outpatient Breast Imaging Start: 11-30-2021 End: 11-30-[address] Reymundo Mcadams Work Phone: [facility] Work Phone: Start: 11-30-2021 End: 11-30-[address] Reymundo Mcadams Work Phone: [facility]-Laboratory, Specimen Start: 11-30-2021 End: 11-30-[address] Reymundo Mcadams Work Phone: [facility] Start: 11-16-2021 End: 11-16-[address] Reymundo Mcadams Work Phone: [facility] Start: 11-06-2021 End: 11-06-[address] Reymundo Mcadams Work Phone: [facility] Work Phone: Start: 11-06-2021 End: 11-06-[address] Reymundo Mcadams Work Phone: [facility] [facility], [facility] Start: 11-02-2021 End: 11-02-[address] Reymundo Mcadams Work Phone: [facility] Work Phone: Start: 11-02-2021 End: 11-02-2021 Encounter for general adult medical examination without abnormal findings Dr. Reymundo Mcadams Work Phone: [facility] Start: 11-02-2021 End: 11-02-2021 Patient encounter procedure Dr. Reymundo Mcadams Work Phone: [facility] Start: 10-24-2021 End: 10-24-[address] Reymundo Mcadams Work Phone: [facility] Work Phone: Start: 10-24-2021 End: 10-24-[address] Reymundo Mcadams Work Phone: [facility] Start: 10-24-[address] Cas Mcadams Work Phone: [facility] Start: 10-24-2021 End: 10-24-[address] Reymundo Mcadams Work Phone: [facility] Procedures Date Procedure Procedure Detail [...] Activity Detail Author Start: 02-20-2024 Patient discharge [facility] Start: 02-19-2024 Introduction of urin willi catheter [facility] Start: 02-19-2024 Removal of urinary catheter [facility] Start: 02-18-2024 Following clinical p athway protocol [facility] Start: 02-18-2024 Ambulation therapy management [facility] Start: 02-18-2024 Continuous pulse oximetry [facility] Start: 02-18-2024 Elevation of head of bed [facility] Start: 02-18-2024 Incentive spirometry [facility] Start: 02-18-2024 Measuring intake and output [facility] Start: 02-18-2024 Notification of physician [facility] Start: 02-18-2024 Oxygen therapy [facility] Start: 02-18-2024 Patient education [facility] Start: 02-18-2024 Procedures relating to eating and drinking [facility] Start: 02-18-2024 Taking patient vital signs [facility] Start: 02-18-2024 [facility] Start: 02-18-2024 Introduction of urin willi catheter [facility] Start: 02-18-2024 Admission procedure [facility] Start: 01-31-2024 Ther proph/dx njx iv push single/1st sbst/drug THER/PROPH/DIAG INJ IV PUSH [facility] Start: 12-31-2022 Liquid based cervica l cytology screening [facility] Start: 12-10-2022 Pelvic echography Pelvic (Non ) [facility] Start: 12-10-2022 US Pelvis [facility] Start: 12-05-2022 Patient referral [facility] Work Phone: Start: 12-14-2021 Patient referral [facility] Work Phone: Start: 11-02-2021 Patient referral [facility] Work Phone: Start: 10-24-2021 Patient referral [facility] Work Phone: CBC W Auto Different ial panel - Blood [facility] Work Phone: CBC W Auto Different ial panel - Blood [facility] Complete blood count [facility] Ferritin [Mass/volum e] in Serum or Plasma [facility] Work Phone: Ferritin [Mass/volum e] in Serum or Plasma [facility] Iron and Iron bindin g capacity panel - Serum or Plasma [facility] Work Phone: Iron and Iron bindin g capacity panel - Serum or Plasma [facility] MG Breast - bilatera l Screening [facility] Work Phone: MG Breast - bilatera l Screening [facility] Path report.final Dx Spec [facility] Patient referral [facility] Work Phone: US Pelvis [facility] Work Phone: US Pelvis [facility] US Pelvis transvaginal [facility] Vitamin B12 measurement [facility] Work Phone: Vitamin B12 measurement [facility] Payers Date Payer Category Payer Self-pay 2021 Unknown [id number] Unknown [id number] 2.16.8 40.1.294530.3.579.2.462 Unknown [id number] 2.16.8 40.1.268575.3.579.2.462 Unknown [id number] 2.16.8 40.1.666957.3.579.2.462 Unknown [id number] 2.16.8 40.1.372676.3.579.2.462 Unknown [id number] 2.16.8 40.1.780772.3.579.2.462 Unknown [id number] 2.16.8 40.1.021732.3.579.2.462 Unknown [id number] 2.16.8 40.1.581488.3.579.2.462 Unknown [id number] 2.16.8 40.1.720927.3.579.2.462 Unknown [id number] 2.16.8 40.1.361115.3.579.2.462 Unknown [id number] 2.16.8 40.1.897322.3.579.2.462 Unknown [id number] 2.16.8 40.1.136638.3.579.2.462 Unknown [id number] 2.16.8 40.1.594892.3.579.2.462 Unknown [id number] 2.16.8 40.1.977700.3.579.2.462 Unknown [id number] 2.16.8 40.1.291718.3.579.2.462 Unknown [id number] 2.16.8 40.1.532445.3.579.2.462 Unknown [id number] 2.16.8 40.1.178990.3.579.2.462 Unknown [id number] 2.16.8 40.1.030787.3.579.2.462 Unknown [id number] 2.16.8 40.1.782780.3.579.2.462 Unknown [id number] 2.16.8 40.1.929143.3.579.2.462 Unknown [id number] 2.16.8 40.1.730656.3.579.2.462 Unknown [id number] 2.16.8 40.1.172664.3.579.2.462 Unknown [id number] 2.16.8 40.1.295571.3.579.2.462 Unknown [id number] 2.16.8 40.1.903248.3.579.2.462 Unknown [id number] 2.16.8 40.1.146240.3.579.2.462 Unknown [id number] 2.16.8 40.1.143960.3.579.2.462 Unknown [id number] 2.16.8 40.1.720368.3.579.2.462 Unknown [id number] 2.16.8 40.1.592781.3.579.2.462 Social History Date Type Detail Facility Start: 10-24-2021 End: 02-08-2023 Tobacco smoking status NHIS Unknown if ever smoked [facility] Start: 1975 Sex Assigned At Female [facility] Start: 02-03-2024 Tobacco smoking status NHIS Never smoked tobacco (finding) [facility] Start: 05-21-2024 Sex Female (finding) [facility] NEGATED: Highlighted row Not [facility] Medical Equipment Procedure Code Equipment Code Equipment Origin al Text Equipment Identifier Dates Hysterectomy, total, abdominal Collagen haemostatic agent, non-antimicrobial [id number] FDA Start: 02-18-2024 Goals Date Patient Goal Desired Activity /State Functional Status Date Assessment Result Facility 02-20-2024 Functional status Chair [facility] Work Phone: Mental Status Date Assessment Result Facility 02-20-2024 Cognitive function Light Pain [facility] Work Phone: 01-31-2024 Cognitive function Voice/Name [facility] Work Phone: 01-29-2024 Cognitive function Awake;Alert;A ppropriate;Fol lows Commands [facility] Work Phone: 01-27-2024 Cognitive function Awake;Alert;A ppropriate;Fol lows Commands [facility] Work Phone: 01-24-2024 Cognitive function Voice/Name [facility] Work Phone: 01-22-2024 Cognitive function Voice/Name [facility] Work Phone: 04-05-2022 Cognitive function Voice/Name [facility] Work Phone: Clinical Notes 12-31-2022 to 02-17-2024 Note Date & Type Note Facility 02-17-2024 Note [facility] Medical Records Department [address] [place] [address] History Physical Exam 02/17/24 1722 MR#: [id number] Acct: [id number] Name: TAHMINA GALLARDO Rep #: [id number] : 1975 48 From: Rosalie Frausto MD PCP: Dr. 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 [facility] 02-06-2024 Evaluation note Diagnosis Onset Date Resolution [...] abdominal hysterectomy) acute May 19, 2024 1:03pm [facility] Work Phone: [phone]) 635-743411-20-2023 NotePap Smear Specimen AdequacyNov2022 4:47pmComment.Satisfactory for evaluation. No endocervical component is identified.[facility] INTER[facility]ACED A#[id number] HealthComment on above:Satisfactory for evaluation. 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 PHYSICAL SUPRAPUBIC MASS NEW PT - DECREASED WBC New pt referral, vaginitis Reason for Visit Anemia Bacterial vaginosis Orthorexia nervosa Colon cancer screening Preventative health care Iron deficiency anemia due to chronic blood loss Leukopenia Menorrhagia Fibroid, uterine Iron deficiency anemia due to chronic blood loss Menorrhagia [facility] Work Phone: Chief complaint+Reason for visit Narrative* Chief Complaint 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, 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, NPP SE NT PHYSICAL SUPRAPUBIC [...] due to chronic blood loss Orthorexia nervosa [facility] Work Phone: Chief complaint+Reason for visit Narrative* [...] Orthorexia nervosa URI with cough and congestion [facility] Work Phone: Evaluation note* Diagnosis Onset Date Resolution Status Anemia chronic Bacterial vaginosis chronic Orthorexia nervosa chronic Suprapubic mass chronic [facility] Work Phone: Evaluation note* Diagnosis Onset Date Resolution Status Anemia chronic Bacterial vaginosis chronic Orthorexia nervosa chronic Suprapubic mass chronic Colon cancer screening acute Preventative health care acu te [facility] Work Phone: Evaluation note* Diagnosis Onset Date Resolution Status Anemia chronic Bacterial vaginosis chronic Orthorexia nervosa chronic Colon cancer screening acute Preventative health care acu te Iron deficiency anemia due to chronic blood loss chronic Leukopenia chronic Menorrhagia chronic Fibroid, uterine acute Iron deficiency anemia due to chronic blood loss chronic Menorrhagia [facility] Work Phone: Evaluation note* Diagnosis Onset [...] to chronic blood loss chronic Orthorexia nervosa [facility] Work Phone: Evaluation note* Diagnosis Onset [...] chronic URI with cough and congestion noneactive [facility] Work Phone: Evaluation note* Diagnosis Onset Date Resolution Status Iron deficiency anemia due to chronic blood loss chronic Leukopenia chronic Heel callus acute Muscle pain acute Anemia chronic Fibroid, uterine acute Menorrhagia [facility] Work Phone: Evaluation note* Diagnosis Onset Date Resolution Status Fibroid, uterine acute Menorrhagia [facility] Work Phone: Evaluation note* Diagnosis Onset Date Resolution Status Fibroid, uterine acute Menorrhagia chronic Colon cancer screening acute Preventative health care acu te [facility] Work Phone: Evaluation note* Diagnosis Onset Date Resolution Status Fibroid, uterine acute Menorrhagia chronic Colon cancer screening acute Preventative health care acu te Encounter for routine gynecological examination noneactive [facility] Work Phone: Evaluation note* Diagnosis Onset Date Resolution Status Colon cancer screening acute Preventative health care acu te Encounter for routine gynecological examination noneactive High risk human papillomavir us (HPV) DNA test positive [facility] Work Phone: Reason for referral (narrative)No reason for referral information availableWMadison Health Work Phone: Chief Complaint and Reason for Visit Chief Complaint 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, 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, NPP SE NT Reason for Visit Anemia Bacterial vaginosis Orthorexia nervosa Suprapubic mass Chief Complaint 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 No February 18, 2024 2:16pm Additional Source [...] section and content) DATE CREATED AUTHOR 12/29/2021 [facility] DATE CREATED AUTHOR AUTHOR'S ORGANIZ ATION 06/10/2024 [facility] Care Teams (unrecognized sec tion and content) [...] Active Member Role Status Dates Dr. Reymundo cMadams MD Primary Care Provider Active Dr. Rosalie [...] BE BASED ON THE PRIMARY CLINICAL RECORDS. [facility]. provides no warranty or guarantee of the accuracy or completeness of information in this document.
== END | disposition home or self-care (01) ==
LOC: LAB 08:44
PROVIDERS: PCP Internal Medicine; Referring Provider Internal Medicine; Visit Provider Internal Medicine
DX: E53.8 Deficiency of other specified B group vitamins (principal); N89.8 Other specified noninflammatory disorders of vagina
CPT/HCPCS: 36415; 82747; 85014; 87070; 87205

== ENCOUNTER → 2024-12-11 | Outpatient (CLI) | payer BC, SELFPAY ==
[2024-12-11 13:46] LABS: Hematocrit 40.1 % (37-47); Hemoglobin 13.1 g/dL (12.0-15.0); Immature Granulocytes Count 0.010 X10^3/uL (0.0-0.0); Mean Corp Hgb Conc 32.7 g/dL (32-36); Mean Corpuscular Volume 89.3 fL (81-99); Mean Platelet Vol. 9.7 fl (6.2-12.0); NRBC Flagged by Analyzer 0 % (0-5); POSITIVE DIFFERENTIAL YES; Platelet Count 370 K/mm3 (150-450); RBC Distribution Width CV 12.2 % (11.6-14.6); RBC Distribution Width SD 40.0 fl (35.1-43.9); Red Blood Count 4.49 M/mm3 (4.2-5.4); White Blood Count 2.5 K/mm3 (4.4-11.0)
[2024-12-11 13:47] LABS: Differential Indicated SCAN CRITERIA MET
[2024-12-11 14:29] LABS: Vitamin B12 1376 pg/mL (180-914)
== END | disposition home or self-care (01) ==
LOC: LAB 13:34
PROVIDERS: PCP Internal Medicine; Referring Provider Internal Medicine; Visit Provider Internal Medicine
DX: E53.8 Deficiency of other specified B group vitamins (principal)
CPT/HCPCS: 36415; 82607; 85025

== ENCOUNTER → 2025-01-04 | Outpatient (CLI) | payer BC, SELFPAY ==
[2025-01-11 20:08] LABS: HPV APTIMA, High Risk Positive (Negative); HPV Genotype 16, Aptima Negative (Negative); HPV Genotype 18,45 Aptima Positive (Negative)
== END | disposition home or self-care (01) ==
LOC: LABSPEC 16:07
PROVIDERS: PCP Internal Medicine; Visit Provider Obstetrics & Gynecology
DX: Z12.4 Encounter for screening for malignant neoplasm of cervix (principal)
CPT/HCPCS: 87624; 88175; G0145